=== PATIENT | female | born 1945 | race Caucasian/White ===

== ENCOUNTER 2019-04-13 15:26 | Inpatient (IN) ==
[2019-04-13] MEDS ORDERED: ASPIRIN PO ONE (15:57)
--- NOTE | 2019-04-13 16:13 | PROVIDER DOCUMENTATION ---
HPI-Respiratory General - General Chief Complaint: General Adult Stated Complaint: SOB/CHEST HEAVINESS Time Seen by Provider: 04/13/19 15:43 Source: patient Allergies/Adverse Reactions: Patient Allergies Allergy/AdvReac Type Severity Reaction Status Date / Time diltiazem Allergy Intermediate ITCHING Verified 04/13/19 16:14 morphine Allergy Unknown Unknown Verified 04/13/19 16:14 cefazolin Allergy HIVES Verified 04/13/19 16:14 ceftazidime pentahydrate * Allergy HIVES Verified 04/13/19 16:14 [From TAZICEF] vancomycin Allergy HIVES Verified 04/13/19 16:14 Home Medications: Home Medication List Medication Instructions Recorded Confirmed Last Taken Type Albuterol 2.5MG/Ipratrop 0.5MG 3 ml INH Q6H PRN PRN #120 neb 09/10/15 02/04/17 Unknown Rx [Duoneb] Carvedilol 12.5 mg PO BID 09/10/15 02/04/17 02/03/17 08:00 History Cinacalcet HCl [Sensipar] 30 mg PO DAILY 09/10/15 02/04/17 02/03/17 08:00 History Esomeprazole Magnesium [Nexium] 40 mg PO DAILY 09/10/15 02/04/17 02/03/17 08:00 History Insulin Glargine [Lantus] 0 unit SUBQ DIRECTED 09/10/15 07/16/16 02/02/17 20:00 History Insulin Lispro [Humalog Kwikpen] 1 unit SQ DIRECTED 09/10/15 02/04/17 02/03/17 08:00 History Lorazepam 1 mg PO PRN PRN 09/10/15 02/04/17 02/02/17 History Sevelamer Carbonate [Renvela] 800 mg PO TID 09/10/15 02/04/17 02/03/17 19:00 History Zolpidem Tartrate 10 mg PO QHS 09/10/15 02/04/17 02/03/17 19:00 History ATORVAstatin [Lipitor] 40 mg PO HS 07/15/16 02/04/17 02/03/17 20:00 History Aspirin 81 mg PO DAILY 07/15/16 02/04/17 02/03/17 08:00 History Sertraline HCl [Zoloft] 100 mg PO DAILY 07/15/16 02/04/17 02/03/17 08:00 History Hydrocodone/Acetaminophen [[place] 1 each PO Q4-6H PRN PRN #10 tablet 02/04/17 Unknown Rx 10-325 Tablet] Hydrocodone/Acetaminophen [[place] 1 each PO Q4-6H PRN PRN #12 tablet 02/04/17 Unknown Rx 5-325 Tablet] Sennosides/Docusate Sodium 2 each PO 02/04/17 02/03/17 20:00 History [Senexon-S Tablet] Warfarin [Coumadin] 7.5 mg PO DIRECTED 02/04/17 02/04/17 02/03/17 20:00 History Warfarin [Coumadin] 10 mg PO QHS 02/04/17 02/04/17 02/02/17 20:00 History Azithromycin [Zithromax Z-Flavio] 250 mg PO DIRECTED #1 pkg 04/10/19 Unknown Rx Prednisone 40 mg PO DAILY 5 Days tab 04/10/19 Unknown Rx - History of Present Illness-Resp Nature of Presenting Problem: 73yof present to ER with c/o SOB and productive cough. Reports it increased after dialysis today. Reports increase in weight by 3kg after dialysis today. Also reports L chest pain radiating to the back. Denies fever. Quality of Pain: reports: sharp Onset/Duration: reports: this afternoon Cough Quality/Degree: reports: productive cough Associated Symptoms: reports: cough, hurts to breathe, shortness of breath. denies: fever/chills Review of Systems - Adult - REVIEW OF SYSTEMS - ADULT Constitutional: reports: no symptoms reported. denies: chills, fever Eyes: reports: no symptoms reported Ears, Nose, Mouth & Throat: reports: no symptoms reported Cardiovascular: reports: see HPI, chest pain. denies: palpitations, syncope Respiratory: reports: see HPI, cough, shortness of breath Gastrointestinal: reports: no symptoms reported. denies: nausea, vomiting Genitourinary: reports: no symptoms reported Musculoskeletal: reports: see HPI, back pain Integumentary: reports: no symptoms reported Neurological: reports: no symptoms reported. denies: dizziness/vertigo Psychiatric: reports: no symptoms reported Endocrine: reports: no symptoms reported Hematologic/Lymphatic: reports: no symptoms reported Allergic/Immunologic: reports: no symptoms reported All Other Systems: Reviewed and Negative Past History - Adult - PAST MEDICAL HISTORY-ADULT Review of Records: reports: Old Records Reviewed, Nursing Assessment Review, Medications Reviewed, Social history reviewed & non-contributory. Major Childhood Illnesses: reports: denies history Cardiovascular: reports: cardiac disease, CAD, HTN, hyperlipidemia, pacemaker Respiratory: reports: COPD Gastrointestinal: reports: denies history Obstetrical/Gynecological: reports: denies history Genitourinary: reports: dialysis, ESRD Musculoskeletal: reports: arthritis, chronic pain Neurological: reports: denies history Psychiatric: reports: denies history Endocrine/Immune: reports: cancer, Diabetes, other (Renal Failure) Other Conditions: reports: denies history - PRIOR SURGERIES/PROCEDURES Surgical/Procedure History: reports: cardiac stent, hysterectomy, tonsillectomy - PRIOR HOSPITALIZATIONS Prior Hospitalizations: reports: for similar symptoms - IMMUNIZATION STATUS Childhood Immunizations: See Nurse Assessment Flu Vaccine: See Nurse Assessment - FAMILY HISTORY Family History: reviewed, not pertinent Physical Exam-General - PHYSICAL EXAM-ADULT Initial Vital Signs Reviewed: Yes - CONSTITUTIONAL General Appearance: alert, mild distress, anxious - EYES Eyes: pink conjunctivae - HEAD, EARS, NOSE, MOUTH & THROAT HENMT: moist mucous membranes, normal ENT inspection - NECK Neck: full range of motion, supple, normal inspection - RESPIRATORY Respiratory: respiratory distress, accessory muscle use, crackles, rales, w heezing, pain on inspiration, increased rate - CARDIOVASCULAR Cardiovascular: regular rate, rhythm - GASTROINTESTINAL (ABDOMEN) Abdominal Exam: normal bowel sounds, non tender, soft - LYMPHATIC Lymphatic: no adenopathy - MUSCULOSKELETAL Back Exam: normal inspection Extremity: normal range of motion, normal capillary refill, pedal edema (1+ to L ankle). negative: erythema, tenderness - SKIN Integumentary: normal color, warm/dry. negative: erythema, rash - NEUROLOGIC Neurologic: grossly normal - PSYCHIATRIC Psych/Mental Status: oriented x 3, anxious - HEART Score HEART Score: History: Moderately Suspicious HEART Score: ECG: Normal HEART Score: Age: > or = 65 Years HEART Score: Risk Factors for Atherosclerotic Disease: > or = 3 Risk Factors or History of Atherosclerotic Disease HEART Score: Troponin: < or = Normal Limit Total HEART Score:: 5 Progress - PLAN OF CARE/RESULTS Progress/Plan/Lab Results: Vital Signs - 8 hr 04/13/19 15:33 04/13/19 17:49 04/13/19 18:00 Temperature 98.5 F Pulse Rate 69 Respiratory Rate 18 Blood Pressure 93/55 O2 Sat by Pulse Oximetry 96 97 100 04/13/19 18:30 04/13/19 18:33 04/13/19 18:40 Temperature Pulse Rate 81 74 Respiratory Rate 13 15 Blood Pressure 118/70 O2 Sat by Pulse Oximetry 93 L 04/13/19 19:02 Temperature Pulse Rate 78 Respiratory Rate 21 Blood Pressure 119/71 O2 Sat by Pulse Oximetry 98 Laboratory Results - last 24 hr 04/13/19 04/13/19 04/13/19 17:50 17:50 18:06 WBC 6.94 RBC 3.82 L Hgb 11.6 L Hct 36.3 L MCV 95.0 MCH 30.4 MCHC 32.0 L RDW Std Deviation 16.7 H Plt Count 109 L MPV 11.3 H Immature Gran % (Auto) 0.3 Neut % (Auto) 76.2 H Lymph % (Auto) 9.7 L [place] % (Auto) 13.4 H Eos % (Auto) 0.3 Baso % (Auto) 0.1 Immature Gran # (Auto) 0.02 Neut # (Auto) 5.29 Lymph # (Auto) 0.67 L [place] # (Auto) 0.93 H Eos # (Auto) 0.02 Baso # (Auto) 0.01 PT INR PTT (Actin FS) Sodium 140 Potassium 3.5 Chloride 94 L Carbon Dioxide 29 Anion Gap 17 BUN 15 Creatinine 3.8 H Estimated GFR/1.73 m2 12 BUN/Creatinine Ratio 4 Glucose 144 H Calculated Osmolality 283 Calcium 9.0 Total Bilirubin 1.14 H AST 25 ALT 13 Alkaline Phosphatase 165 H Creatine Kinase 38 Troponin T [id number]-[id number] Pept Total Protein 7.0 Albumin 4.0 Globulin 3.0 Albumin/Globulin Ratio 1.3 Plasma Lactate 2.3 H 04/13/19 04/13/19 04/13/19 18:06 18:06 18:06 WBC RBC Hgb Hct MCV MCH MCHC RDW Std Deviation Plt Count MPV Immature Gran % (Auto) Neut % (Auto) Lymph % (Auto) [place] % (Auto) Eos % (Auto) Baso % (Auto) Immature Gran # (Auto) Neut # (Auto) Lymph # (Auto) [place] # (Auto) Eos # (Auto) Baso # (Auto) PT 26.5 H INR 2.37 PTT (Actin FS) 37.3 Sodium Potassium Chloride Carbon Dioxide Anion Gap BUN Creatinine Estimated GFR/1.73 m2 BUN/Creatinine Ratio Glucose Calculated Osmolality Calcium Total Bilirubin AST ALT Alkaline Phosphatase Creatine Kinase Troponin T 0.013 Pfk-W-[place] Pept > 81238 H Total Protein Albumin Globulin Albumin/Globulin Ratio Plasma Lactate Orders Category Date Time Status Repeat Vital Signs .Blood Pressure Care 04/13/19 18:52 Active CHEST-2 VIEWS [RAD] Stat Exams 04/13/19 15:54 Completed BLOOD CULTURE [BLDCUL] Stat Lab 04/13/19 18:16 Results CBC WITH DIFF [HEME] Stat Lab 04/13/19 17:50 Completed CK PROFILE [SP CHEM] Stat Lab 04/13/19 18:06 Completed COMPREHENSIVE METABOLIC PANEL [CHEM] Stat Lab 04/13/19 18:06 Completed LACTATE, PLASMA [CHEM] Stat Lab 04/13/19 17:50 Completed PRO B-NATRIURETIC PEPTIDE Stat Lab 04/13/19 18:06 Completed PROTIME WITH INR [COAG] Stat Lab 04/13/19 18:06 Completed PTT [COAG] Stat Lab 04/13/19 18:06 Completed TROPONIN T Stat Lab 04/13/19 18:06 Completed Aspirin Med 04/13/19 15:57 Discontinued 325 mg PO NOW ONE Furosemide [Lasix] Med 04/13/19 19:37 Discontinued 80 mg IV NOW ONE Hydromorphone [Dilaudid] Med 04/13/19 18:26 Discontinued 0.5 mg IV NOW ONE Ondansetron [Zofran] Med 04/13/19 18:26 Discontinued 4 mg IV NOW ONE EKG [EKG] Stat Ther 04/13/19 15:54 Ordered Result Diagrams: 04/13/19 17:50 04/13/19 18:06 - REASSESSMENT Reassessment #1 Time Reassessed: 18:51 (discussed lactate with Dr Arango, states do not need to give fluids if no fever or any other abnormals for SIRs.) Reassessment #2 Time Reassessed: 20:50 (pt updated on need for admission and agrees with plan.) - XRAY 1 XRAY Study: Chest Impression: See EMR Report (COMMENT: There is cardiomegaly and increased pulmonary vascularity. This appears slightly worse than on 04/10/2019. There is mild interstitial pulmonary edema. IMPRESSION: Pulmonary edema and cardiomegaly.) - CONSULTS/PCP/HOSPITALIST Notification #1 *Consult/PCP/Hospitalist*: Dr Cruz Time Discussed: 20:17 (requests consulting Dr Zhang) #2 Consult: Dr Zhang Time Discussed: 20:21 (admit to hospitalist and he will dialyze in AM) Consult Disposition: Admit Departure - Departure Date of Disposition Decision: 04/13/19 Time of Disposition Decision: 20:05 DIAGNOSIS: Shortness of breath Congestive heart failure Qualifiers: Heart failure type: unspecified Heart failure chronicity: unspecified Qualified Code(s): I50.9 - Heart failure, unspecified Pulmonary edema Qualifiers: Chronicity: acute Qualified Code(s): J81.0 - Acute pulmonary edema Renal failure Qualifiers: Renal failure chronicity: chronic Chronic kidney disease stage: on chronic dialysis Qualified Code(s): N18.6 - End stage renal disease Disposition: ADMITTED INPATIENT 09 Certified Medical Emergency: Emergent Condition: Fair Referrals and Follow-Ups: Irwin Galvin MD [Primary Care Provider] - Discharge Education: Steps to Quit Smoking, [id number] - Critical Care Note This patient required my direct & personal management of CC.: No Attestation - Physician/ UMAIR Attestation Patient care was provided by Advanced Practice Provider:: Yes Advanced Practice Provider:: Aaron Choudhary Advanced Practice Provider documentation review:: The Mid-level provider documentation, treatment plan and medical decision making was reviewed by the ph ysician who agrees with all treatment and medical decision making by the MLP. The physician spent face to face time with patient:: No Advanced Practice Provider documentation review:: Supervising physician onsite and consulted in the evaluation and care of this patient. The physician did not have a face to face encounter with the patient.
--- NOTE | 2019-04-13 16:19 | Diag Imaging Result Doc PS360 ---
EXAM: CHEST-2 VIEWS 04/13/2019 HISTORY: sob TECHNIQUE: AP and lateral chest COMMENT: There is cardiomegaly and increased pulmonary vascularity. This appears slightly worse than on 04/10/2019. There is mild interstitial pulmonary edema. IMPRESSION: Pulmonary edema and cardiomegaly. Electronically signed by Darian Vasques 04/13/2019 4:16 PM
[2019-04-13] MEDS ORDERED: DILAUDID IV ONE (18:26)
[2019-04-13] MEDS ORDERED: ZOFRAN IV ONE (18:26)
[2019-04-13 18:39] LABS: BASO# 0.01 X1000 (0.0-0.2); BASO% 0.1 % (0.0-0.8); EOS# 0.02 X1000 (0.0-0.7); EOS% 0.3 % (0.0-10.0); HEMATOCRIT 36.3 % (37.0-47.0); HEMOGLOBIN 11.6 g/dL (12.0-16.0); IMM GRAN# 0.02 X1000 (0.0-0.04); IMM GRAN% 0.3 % (0.0-0.5); LYMPH# 0.67 X1000 (1.2-3.4); LYMPH% 9.7 % (20.5-51.1); MCH 30.4 PG (27-31); MONO# 0.93 X1000 (0.11-0.59); MONO% 13.4 % (1.7-9.3); MPV 11.3 FL (7.4-10.4); NEUT# 5.29 X1000 (1.4-6.5); NEUT% 76.2 % (42.2-75.2); PLT 109 X1000 (130-400); RBC 3.82 XMIL (4.2-5.4); RDW 16.7 % (11.5-14.5); WBC 6.94 X1000 (4.8-10.8)
[2019-04-13 18:46] LABS: INR 2.37; PROTIME 26.5 Seconds (11.0-16.0)
[2019-04-13 18:47] LABS: PTT 37.3 Seconds (22.3-41.8)
[2019-04-13 19:24] LABS: ALB/GLOB RATIO 1.3; CREATININE 3.8 mg/dL (0.5-0.9); POTASSIUM 3.5 mmol/L (3.5-5.1); TOTAL BILIRUBIN 1.14 mg/dL (0.20-1.00)
[2019-04-13] MEDS ORDERED: LASIX IV ONE (19:37)
--- NOTE | 2019-04-13 22:53 | HISTORY AND PHYSICAL ---
PRIMARY CARE PHYSICIAN: Irwin Galvin MD CHIEF COMPLAINT: Shortness of breath. HISTORY OF PRESENT ILLNESS: A 73-year-old female with a history of end-stage renal disease on renal dialysis, hypertension, CHF, diabetes mellitus type 2, apparently had dialysis earlier today. She states that she somehow received IV fluids or so and her dry weight had increased. She had presented to emergency department, and she was short of breath. Her case was discussed with the cellars supervisor who recommended the patient be admitted for further management. At the time of my examination, patient denied any headache, fever, chills, chest pain, hemoptysis, or melena but complained of some weight gain and not feeling well. PAST MEDICAL HISTORY: Includes end-stage renal disease, hypertension, CHF, diabetes mellitus type 2. PAST SURGICAL HISTORY: Coronary bypass, pacemaker, hysterectomy, cataract surgery. ALLERGIES: To Diltiazem, morphine, cefazolin, ceftazidime, vancomycin. CURRENT MEDICATIONS: Albuterol nebulizers q.6 hours, aspirin 81 mg p.o. daily, atorvastatin 40 mg p.o. at bedtime, carvedilol 12.5 mg p.o. b.i.d., omeprazole 40 mg p.o. daily, [place] 10 one p.o. q.6 hours, insulin Humalog as directed, lorazepam 1 mg p.o. daily, prednisone 40 mg p.o. daily, Sertraline 100 mg p.o. daily, Renvela 800 mg p.o. t.i.d., warfarin 7.5 mg as directed, Ambien 10 mg p.o. at bedtime. SOCIAL HISTORY: 40+ pack years history of smoking. Denies any history of alcohol or illicit drug use. FAMILY HISTORY: No history of coronary disease. REVIEW OF SYSTEMS: Fourteen-point review of systems as listed in HPI. Other systems negative. PHYSICAL EXAMINATION: GENERAL: Cooperative, friendly female. She is resting more comfortably now. VITAL SIGNS: Temperature 98.5 degrees, pulse 69, respirations 18, blood pressure 93/55. HEENT: Atraumatic, normocephalic. Extraocular movements intact. PERRLA. NECK: No masses. CHEST: Bibasilar rales. CARDIOVASCULAR: Regular rate and rhythm. ABDOMEN: Soft. Positive bowel sounds. EXTREMITIES: +1 edema. NEUROLOGIC: She is awake, alert, oriented x3. GENITOURINARY: No bladder distention. SKIN: Warm. LABORATORIES AND STUDIES: WBC 6.94, hemoglobin 11.6, hematocrit 36.3, platelets 109,000. ProBNP is 35,000, sodium 140, potassium 3.5, chloride 94, CO2 is 29, BUN is 15, creatinine is 3.8. Glucose 144, troponin 0.13. Chest x-ray shows pulmonary edema and cardiomegaly. ASSESSMENT: A 73-year-old female with a history of end-stage renal disease, congestive heart failure, diabetes mellitus type 2, and hypertension, who apparently had dialysis earlier today; however, she states that she also received IV fluids. She states that her dry weight had increased. She presented to the emergency department. She was short of breath. Her case was discussed with cellars supervisor who recommended admission for further management. 1. Dyspnea/pulmonary edema, possible volume overload. 2. Congestive heart failure, suspected diastolic dysfunction. 3. End-stage renal disease. 4. Diabetes mellitus type 2. PLAN: 1. We will admit patient to medical floor with telemetry. 2. We will consult nephrology for dialysis in the morning. 3. We will consult also her cashier wrapper to evaluate her heart failure. 4. We will monitor blood glucose and put patient on sliding scale insulin regimen. 5. We will put patient on DVT prophylaxis with SCDs and heparin. 6. We will continue to follow and reassess and make further recommendations based on patient's clinical course. cc: Seth Cruz MD
[2019-04-13] MEDS ORDERED: ZOFRAN IV PRN (23:20)
[2019-04-14] MEDS: DUONEB (A & A) INH PRN ×2 (00:10→03:57)
[2019-04-14] MEDS ORDERED: DILAUDID IV PRN (01:14)
[2019-04-14] MEDS ORDERED: BENADRYL IV ONE (02:46)
[2019-04-14] MEDS ORDERED: TIGHT: 0.2 ML/HR FOR DIALYSIS MISC PRN (06:22)
[2019-04-14] MEDS ORDERED: HEPARIN IV PRN (06:22)
[2019-04-14] MEDS ORDERED: NS 2,000 ML MISC PRN (06:22)
[2019-04-14] MEDS: HUMULIN R SUBQ SCH ×3 (06:29→22:18)
[2019-04-14 07:41] LABS: INR 2.21; PROTIME 25.1 Seconds (11.0-16.0)
[2019-04-14 07:56] LABS: CALCIUM 8.5 mg/dL (8.8-10.2); POTASSIUM 3.8 mmol/L (3.5-5.1)
[2019-04-14] MEDS ORDERED: BENADRYL PO PRN ×2 (09:00→14:41)
[2019-04-14 10:46] LABS: MAGNESIUM 2.2 mg/dL (1.5-2.7)
--- NOTE | 2019-04-14 14:00 | Diag Imaging Result Doc PS360 ---
EXAM: CT THORAX W/O CONTRAST HISTORY: chest pain/ rib fracture/CHF TECHNIQUE: CT chest without contrast COMPARISON: None. FINDINGS: Trace pleural fluid. The heart is enlarged. Sternal wires are present. Prominent atherosclerosis. There are dense infiltrates with air bronchograms in the left lower lobe smaller infiltrates in the left upper lobe and right lower lobe. Mild to moderate emphysema. There calcified mediastinal and right hilar nodes. Left-sided pacemaker. No pneumothoraces. Long-standing arthritis to each shoulder. No displaced fracture. There are bilateral thyroid nodules. Mild scoliosis. IMPRESSION: 1.Pneumonia most pronounced in the left lower lobe 2.Cardiomegaly 3.Prominent atherosclerosis 4.Emphysema This exam was performed using automated exposure control, adjustment of mA or kV according to patient size, and/or use of iterative reconstruction technique. Electronically signed by Kamran Henry 04/14/2019 1:58 PM
--- NOTE | 2019-04-14 14:19 | NEPHROLOGY CONSULTATION ---
DATE: 04/14/2019 REASON FOR ADMISSION: Dyspnea, fluid overload. REASON FOR CONSULTATION: Assist with management, ESRD, fluid volume overload. CONSULTING PHYSICIAN: Dr. Cruz. HISTORY OF PRESENT ILLNESS: This is a 73-year-old female, known to our service for previous admissions with end-stage renal disease requiring dialysis. The patient currently dialyzes at the [facility] in [place]. She states that she was seen by her primary and was told that she needed to have some extra fluid removed during dialysis, but for whatever reason, she was actually given fluid and went out at least 2 kg above her predialysis weight. She had a worsening shortness of breath and presented to the emergency room, where she had a chest x-ray that indicated pulmonary edema and cardiomegaly. We have been asked to see her to assist with her management. Patient denies any nausea/vomiting, chest pain, but just continues with shortness of breath. PAST MEDICAL HISTORY: End-stage renal disease on dialysis at the [facility], hypertension, CHF, diabetes. SURGICAL HISTORY: She has had coronary bypass surgery, a pacemaker, hysterectomy, cataract surgery. ALLERGIES: Morphine, cefazolin, ceftazidime, vancomycin, diltiazem. CURRENT MEDICATIONS: Albuterol, aspirin, atorvastatin, carvedilol, omeprazole, Humalog, lorazepam, prednisone, sertraline, Renvela, Coumadin, Ambien. FAMILY HISTORY: Noncontributory. SOCIAL HISTORY: Continues to smoke. No EtOH or illicit drug use. REVIEW OF SYSTEMS: Primarily shortness of breath and fluid volume overload. PHYSICAL EXAMINATION: Vital Signs: Temperature 97.3 degrees, pulse 87, respiratory rate 21, blood pressure 128/67. Intake and output: Have not been documented yet. General: This is an elderly female resting in bed. She is awake and alert. She does not appear in distress. HEENT: Normocephalic, atraumatic. Conjunctivae are pink. Oral mucosa is moist. Neck: Supple with positive JVD. Cardiovascular: Regular rate and rhythm without murmur. Pulmonary: She has some rales bilaterally. No wheezes. Abdomen: Obese, soft, with positive bowel sounds. Genitourinary: Not inspected. She has minimal void with hemodialysis assist. Extremities: She has 1+ edema. She is moving all extremities. She has an AV fistula, right upper extremity. Neurologic: Grossly nonfocal. Integumentary: Skin is warm and dry. DIAGNOSTIC STUDIES: WBC 6.9, hemoglobin 11.6. Sodium 140, potassium 3.5, CO2 of 29, creatinine 3.8. Chest x-ray: Pulmonary edema and cardiomegaly. ASSESSMENT AND PLAN: 1. End-stage renal disease with fluid volume overload. We will plan to dialyze the patient today. We did discuss with the patient that she may require some subsequent days of dialysis and/or UF removal only to manage her current fluid volume status. Patient is in agreement. 2. Electrolytes, acid-base balance, anemia. These are all stable. Continue with appropriate dialysis bath. Dictated by DIGNA Baez for Mirza Lai MD Face to face encounter, data reviewed, discussed with Jasmina Velasco on 04/14/19. I agree with the above assessment and plan of care. cc: Mirza Lai MD MTDD
[2019-04-14] MEDS ORDERED: LEVAQUIN 500 MG/D5W 500 MG/100 ML IVPB IV ONE (14:25)
--- NOTE | 2019-04-14 14:27 | CARDIOLOGY CONSULTATION ---
DATE: 04/14/2019 CONSULTATION REQUESTED BY: Hospitalist Service. REASON FOR CONSULTATION: Patient with dyspnea, congestive heart failure. HISTORY: Mrs. Moses is a 73-year-old female who apparently for the past few days had been noticing increasing dyspnea and fluid retention. She also said that for several days she had not been feeling well and having some tightness around the chest. She said that her daughter picked her up and she squeezed her real tight and she had some chest discomfort from that time onwards. Yesterday, she went to a dialysis facility where she said she says that instead of removing fluid, they gave her fluid and after that she started having significant chest discomfort. The pain is pleuritic, is worsened by motion. It is not like the pain that she experienced when she had her coronary events. PAST HISTORY: Positive for severe coronary heart disease. She had previous lateral wall myocardial infarction, stent to the circumflex and 1st diagonal in 2004. Then in 2007, she had angioplasty with a drug-eluting stent to the right coronary artery. Subsequently, she had a heart catheterization in 2014 that showed left main stenosis and because of that, the patient was sent for a coronary bypass procedure. On 12/21/2014, she received a mammary graft to LAD and vein graft to the posterior descending branch of right coronary artery and a vein graft to the marginal branch #1 of circumflex. Since then, she has had a stable clinical course. She had an echocardiogram in December 2017 that showed ejection fraction of 50%. The patient is known to have sick sinus syndrome in 2007 she underwent implantation of a dual- chamber pacemaker by Dr. Clarence Looney 07/10/2008. At that time, they gave her a dual-chamber pacemaker without complications. Her generator has been upgraded to a [employer] model I think at some point and the last interrogation 12/10/2018 showed that the device shows appropriate function. She is in permanent atrial fibrillation. The battery is still actually good and is estimated to last another 1 year. The patient has diabetes mellitus type 2. She has had hypertension. She has chronic obstructive pulmonary disease. She had chronic kidney disease and eventually she has ended up having hemodialysis. PAST SURGICAL HISTORY: She has had a coronary bypass procedure, hysterectomy, tonsillectomy, the pacemaker implantation. She has had hemodialysis graft on the right arm. She had a cataract extraction. SOCIAL HISTORY: She is , disabled. She has children. There is a daughter that takes care of her. She continues to smoke about 4 cigarettes a day. FAMILY HISTORY: Noncontributory. HOME MEDICATIONS: Include albuterol inhaler, aspirin 81 daily, Lipitor 40 mg daily, carvedilol 12- 1/2 twice a day, Sensipar 30 mg daily, Nexium 40 mg daily, hydrocodone acetaminophen, insulin Lantus as directed, insulin lispro also as directed, lorazepam, prednisone 40 daily, sertraline 100 daily, sevelamer 800 three times a day, warfarin, and Ambien. ALLERGIES: She is allergic to diltiazem, morphine, cefazolin and vancomycin. REVIEW OF SYSTEMS: Lately, she has not been very active. She has been hurting in the chest and somatic pains in general. She feels that she has been retaining fluid and again she says that she was just given extra fluids at the dialysis facility recently. PHYSICAL EXAMINATION: Vital Signs: Blood pressure 135/61, temperature 97.2 degrees, respirations 18, pulse 93. Awake, alert, oriented, chronically ill. HEENT: Unremarkable. Chest: Diminished breath sounds diffusely with some end expiratory wheezes. Heart: Sounds are regular rhythm. I do not hear any definite gallop or murmur. Abdomen: Nontender. Not distended. Extremities: Showed palpable pulses. No significant edema. Neurological: Nonfocal. Moves 4 extremities. LABORATORY DATA: Her blood work sodium 133, potassium 3.8, BUN 23, creatinine 5.0. ProBNP greater than 35,000. INR is 2.21, hemoglobin 11.6. Her initial troponin was 0.013 and a subsequent one is less than 0.010. A chest x-ray on admission showed pulmonary edema and cardiomegaly. EKG shows activity of a single chamber pacemaker with underlying atrial fibrillation. IMPRESSION: 1. Patient presenting to the hospital with increasing dyspnea with radiographic evidence of congestive heart failure. 2. Atrial fibrillation, permanent. 3. Severe coronary heart disease, previous triple bypass surgery in 2014. 4. Chest pain that appears to be chest wall related. This does not appear to be angina. 5. End-stage renal disease on hemodialysis. RECOMMENDATION: 1. At this time, we will suggest to remove fluid as ordered by the laboratory immunologist. We will obtain a CT scan of the chest to investigate the chest wall pain. We will also arrange for a Lexiscan myocardial perfusion stress test in the morning to answer the question as to whether or not she may have developed progression of coronary artery disease. 2. At this time, she does not appear to be having an acute coronary syndrome. She simply appears to be fluid overloaded. 3. Further advice will be forthcoming. I may want to check a limited echocardiogram tomorrow once the patient is more stable. Right now, she is undergoing hemodialysis. cc: Mathew Acuna MD MTDD
--- NOTE | 2019-04-14 14:52 | EKG Report ---
Test Performed on : 04/14/2019 2:40:32 PM Test Reason : dyspnea Blood Pressure : / mmHG Vent. Rate : 101 BPM Atrial Rate : 105 BPM P-R Int : 000 ms QRS Dur : 156 ms QT Int : 364 ms P-R-T Axes : 000 -53 150 degrees QTc Int : 471 ms Atrial fibrillation. with rapid ventricular response. Left axis deviation Left bundle branch block Abnormal ECG When compared with ECG of 23-JUL-2018 17:10, Atrial fibrillation. has replaced Electronic ventricular pacemaker Confirmed by Zeb Lopez MD ([id number]) on 04/15/2019 4:28:01 PM
--- NOTE | 2019-04-14 15:09 | PROGRESS NOTE ---
DATE: 04/14/2019 SUBJECTIVE: Patient has no major complaints. She is still complaining of chest pains. OBJECTIVE: Vital Signs: Blood pressure 135/61, heart rate 93, respiratory rate 17, temperature 97.2 degrees, 95% on 3 L. Cardiovascular: Regular rate and rhythm. Pulmonary: Bilateral breath sounds clear to auscultation. Gastrointestinal: Soft, nontender, nondistended. Bowel sounds are positive. LABORATORY DATA: INR is 2.2. BUN and creatinine of 23 and 5. PROBLEM LIST: 1. Volume overload and pulmonary edema. She was dialyzed today and was 3 L negative. She reports that at her dialysis center, at the end of dialysis, she was 3 pounds heavier than she was when she started. I think that there was a discussion that she was going to be taken off of it and the opposite happened so I am not sure what to say. She gets dialyzed at the [facility], and Dr. Meehan and Dr. Perez are her primary nephrologists. Dr. Lai is managing here. 2. Congestive heart failure, possible chest pain, possible unstable angina. Her cardiac markers are negative. Cardiology has evaluated the patient and planning for stress test, it looks like, tomorrow. 3. Left lower lobe pneumonia. It was probably why she is having chest pain so we are going to initiate therapy and she is allergic to multiple antibiotics. Levaquin is a possibility; however, I have to be careful renally dosing that in her case, but I may initiate that and see how she does. cc: Bismark Luz MD
[2019-04-14] MEDS ORDERED: NORCO-7.5 PO PRN (15:15)
[2019-04-14] MEDS: DUONEB (A & A) INH SCH ×2 (15:53→21:25)
[2019-04-14] MEDS: ATIVAN PO PRN (16:29)
[2019-04-14] MEDS ORDERED: TYLENOL PO PRN (16:58)
[2019-04-14] MEDS: DEMEROL IV PRN (17:52)
[2019-04-14] MEDS: RENAGEL PO SCH (17:54)
[2019-04-14] MEDS: LIPITOR PO SCH (21:33)
[2019-04-14] MEDS: AMBIEN PO SCH (21:33)
[2019-04-14] MEDS: COREG PO SCH (21:34)
[2019-04-14] MEDS: APRESOLINE PO SCH (21:34)
[2019-04-14] MEDS: COUMADIN PO SCH (21:34)
[2019-04-14] MEDS: ZANAFLEX PO SCH (21:34)
[2019-04-14] MEDS: SENOKOT PO SCH (21:34)
[2019-04-15] MEDS: DUONEB (A & A) INH SCH ×4 (03:05→21:27)
[2019-04-15] MEDS: PRILOSEC PO SCH (07:12)
[2019-04-15] MEDS: HUMULIN R SUBQ SCH ×4 (07:12→20:53)
[2019-04-15] MEDS ORDERED: TIGHT: 0.2 ML/HR FOR DIALYSIS MISC PRN (07:20)
[2019-04-15] MEDS ORDERED: HEPARIN IV PRN (07:20)
[2019-04-15] MEDS ORDERED: NS 2,000 ML MISC PRN (07:20)
[2019-04-15 07:27] LABS: INR 2.16; PROTIME 24.6 Seconds (11.0-16.0)
[2019-04-15 07:41] LABS: HEMATOCRIT 34.4 % (37.0-47.0); MCH 31.3 PG (27-31); MPV 11.2 FL (7.4-10.4); RBC 3.51 XMIL (4.2-5.4); RDW 16.6 % (11.5-14.5); WBC 6.82 X1000 (4.8-10.8)
--- NOTE | 2019-04-15 07:41 | EKG Report ---
Test Performed on : 04/15/2019 06:17:33 AM Test Reason : chest pain/ASHD Blood Pressure : / mmHG Vent. Rate : 075 BPM Atrial Rate : 090 BPM P-R Int : 000 ms QRS Dur : 152 ms QT Int : 476 ms P-R-T Axes : 000 -32 -78 degrees QTc Int : 531 ms Atrial fibrillation. with frequent ventricular-paced complexes Left axis deviation Left bundle branch block Abnormal ECG When compared with ECG of 14-APR-2019 14:40, (Unconfirmed) Electronic ventricular pacemaker has replaced Atrial fibrillation. Confirmed by Zeb Lopez MD ([id number]) on 04/15/2019 4:28:27 PM
[2019-04-15 08:09] LABS: ALBUMIN 2.9 g/dL (3.5-5.0); CALCIUM 8.3 mg/dL (8.8-10.2); CREATININE 3.8 mg/dL (0.5-0.9); PHOSPHORUS 1.9 mg/dL (2.7-4.5); POTASSIUM 4.2 mmol/L (3.5-5.1)
[2019-04-15] MEDS: APRESOLINE PO SCH ×4 (09:00→20:54)
[2019-04-15] MEDS: RENAGEL PO SCH ×3 (09:08→16:22)
[2019-04-15] MEDS: ZANAFLEX PO SCH ×3 (11:30→20:53)
[2019-04-15] MEDS: ZOLOFT PO SCH (11:30)
[2019-04-15] MEDS: SENOKOT PO SCH ×2 (11:31→20:54)
[2019-04-15] MEDS: COREG PO SCH ×2 (11:31→20:54)
[2019-04-15] MEDS: ATIVAN PO PRN (11:59)
--- NOTE | 2019-04-15 14:12 | NEPHROLOGY PROGRESS NOTE ---
DATE: 04/15/2019 SUBJECTIVE: She is having a stress test. She was examined between images in the [facility] facility. She is still having some shortness of breath, improved. No chest pain. OBJECTIVE: Vital Signs: Blood pressure 115/63, heart rate 74, respiration 19, afebrile. General: No acute distress. Skin: Warm and dry. Neck: Neck veins are not distended. Heart: Regular. No gallops. Lungs: Equal. No crackles. Extremities: Have 1+ edema. No clubbing or cyanosis. IMPRESSION: 1. Chronic kidney disease, stage 5D. She will have her routine dialysis this afternoon. We have decreased her dry weight progressively since admission. 2. Electrolytes/acid base are in target. Hemoglobin is within target. Blood pressure is within target. cc: Mirza Lai MD
--- NOTE | 2019-04-15 17:02 | Diag Imaging Result Document ---
PROCEDURE NAME: MYOCARDIAL PERFU SCAN, REST - 04/15/2019 STUDY: Resting gated myocardial perfusion study. INDICATION: A 73-year-old female. The patient presented with chest pain. History of pacemaker. History of coronary bypass surgery. Concern for ischemia at rest. DESCRIPTION: The patient received a resting injection of technetium 99 sestamibi 29.8 mCi. Multiple tomographic views of the cardiac structures were obtained at rest. Stress test was cancelled because the patient appeared to have pneumonia. Resting gated views of the left ventricle showed a very tiny mild in severity mid anterior wall defect. The probability shows there is a tiny focal mid anterior wall defect. This could represent artifact or a tiny area of scar. Gated SPECT using the [employer] protocol shows ejection fraction of 70% with no significant wall motion abnormality. Using the Myometrix protocol the ejection fraction is 76%. There is some atypical contractility of the interventricular septum. The lung/heart ratio is elevated at 0.49. In summary, this resting gated myocardial perfusion study shows essentially normal myocardial perfusion. The tiny mid anterior wall defect noted may represent either artifact from pacemaker activity or scar. This could also represent attenuation. Clinical correlation is recommended. Stress test will not be performed because the patient appears to have pneumonia. cc: Mathew Acuna MD
--- NOTE | 2019-04-15 17:20 | PROGRESS NOTE ---
DATE: 04/15/2019 SUBJECTIVE: The patient has no major complaints. OBJECTIVE: Vital Signs: Blood pressure 137/65, heart rate of 90, respiratory rate 18, temperature 97.6 degrees, 92% on 2 L. Cardiovascular: Regular rate and rhythm. Pulmonary: Bilateral breath sounds, clear to auscultation with rales at the left base. Gastrointestinal: Soft, nontender, nondistended. Bowel sounds are positive. LABORATORY DATA: White count is 6, hemoglobin and hematocrit are 11 and 34, platelets 84,000. INR is 2.16, phosphorus of 1.9, creatinine 3.8. CRP of 77. PROBLEM LIST: 1. Left lower lobe pneumonia. She is on antibiotics, which is Levaquin. I think it is renally dosed. 2. Volume overload. She seems to be doing okay. We will continue to follow closely. 3. Chest pain, atypical. Her myocardial perfusion per Dr. Acuna is not ischemic, so we will continue to follow. 4. Diabetes. She is on her current medications. DISPOSITION: I think, she is afebrile, her white count is normal, probably go home soon. She did have a little bit of hemoptysis, but she is on Coumadin with pneumonia, so we will continue to follow. Her disposition is pending clinical status. cc: Bismark Luz MD
[2019-04-15] MEDS: DEMEROL IV PRN (17:31)
--- NOTE | 2019-04-15 17:45 | CARDIOLOGY PROGRESS NOTE ---
DATE: 04/15/2019 CHIEF COMPLAINT: Chest pain and shortness of breath. SUBJECTIVE: Ms. Moses feels much better. They have removed quite a bit of fluid through hemodialysis. CT scan report reviewed. She seems to have pneumonia. Perfusion images of the heart were obtained at rest. A stress test was cancelled. The patient is feeling more comfortable. OBJECTIVE: Blood pressure is 137/65, temperature is 97.6, pulse 90, respirations 18. She is awake, alert, in no distress. HEENT is unremarkable. Chest with crepitus in the left base. Heart sounds are slightly tachycardia, regular rhythmic. Abdomen is nontender. Extremities showed no significant edema. Neurological exam: Follows commands, moves four extremities. BLOOD WORK: White cell count 6820. Hemoglobin 11 grams. Platelet count is 84,000. Her chemistry shows sodium of 138, potassium 4.2, BUN 20, creatinine 3.8. Her C reactive protein is 77.18 mg/L which is 15 x baseline. Her sed rate is pending. Her ferritin level was elevated. Her D dimer was normal. IMPRESSION: 1. The patient who presents with chest pain that is probably noncardiac. 2. The patient seems to have left lower lobe pneumonia. 3. Fluid overload. Patient on long-term hemodialysis with end-stage renal disease. 4. Previous coronary heart disease and bypass surgery. 5. History of diabetes mellitus. RECOMMENDATIONS: At this time, the patient seems to be stable from the cardiac viewpoint. I would leave up to primary service, Dr. Luz, and the 911 emergency services dispatcher to manage her case since I do not believe there is a cardiac process going on. A formal stress test will be arranged as an outpatient down the road. At this time, I do not believe we have to deal with a decompensation of her chronic coronary heart disease. cc: Mathew Acuna MD
--- NOTE | 2019-04-15 19:02 | ECHO REPORT ---
ORDER DATE: 04/14/2019 INDICATION: Chest pain. M-MODE MEASUREMENTS: Left ventricle end diastole: 4.5. Left ventricle end systole: 3.7. Posterior wall: 1.3. Interventricular septum: 1.3. Left atrium: 4.3. Aortic diameter: 2.9. SUMMARY OF 2-DIMENSIONAL IMAGIN. Left ventricular function is difficult to assess. The patient has limited windows. Her left ventricular systolic function appears to be preserved. On the parasternal windows, it appears to be quite normal with atypical contractility of the interventricular septum. Ejection fraction is probably on the order of 55% to 60%. The apical views are limited, and again on those views, the overall function appears to be preserved, with atypical contractility of the septum. 2. The mitral annulus is densely calcified. Color flow mapping of the mitral valve indicates a mild degree of regurgitation 3. Pulsed wave Doppler of mitral inflow shows a single filling wave. The patient appears to be in permanent atrial fibrillation. 4. The right ventricle appears to be grossly normal. The pacemaker lead is noted within the right ventricle. 5. The left atrium is moderately dilated. 6. The aortic valve shows calcification of the cusps with some restriction to its opening. Maximum gradient is 36 mmHg. Mean gradient is 17 mmHg. That would suggest at least a mild degree of aortic stenosis. 7. The tricuspid valve shows a mild to moderate degree of regurgitation. Pulmonary systolic pressure is estimated at 75 mmHg. 8. The pulmonic valve shows a mild to moderate degree of regurgitation. 9. Pulmonary systolic pressure is estimated at 33 mmHg. 10.There is no pericardial effusion. No mass, no thrombus. 11.The inferior vena cava is enlarged. Clinical correlation recommended. cc: MD Bismark Oneil MD
[2019-04-15] MEDS: COUMADIN PO SCH (20:53)
[2019-04-15] MEDS: AMBIEN PO SCH (20:53)
[2019-04-15] MEDS: LIPITOR PO SCH (20:54)
[2019-04-15] MEDS: SEROQUEL PO SCH (20:54)
[2019-04-16] MEDS: DUONEB (A & A) INH SCH ×4 (03:38→21:00)
[2019-04-16 06:12] LABS: HEMATOCRIT 32.5 % (37.0-47.0); HEMOGLOBIN 10.3 g/dL (12.0-16.0); MCH 31.1 PG (27-31); MCHC 31.7 g/dL (33-37); MCV 98.2 FL (81-99); MPV 11.6 FL (7.4-10.4); RBC 3.31 XMIL (4.2-5.4); RDW 16.2 % (11.5-14.5); WBC 5.97 X1000 (4.8-10.8)
[2019-04-16 06:18] LABS: INR 2.04; PROTIME 23.5 Seconds (11.0-16.0)
[2019-04-16] MEDS: HUMULIN R SUBQ SCH ×4 (06:19→21:35)
[2019-04-16] MEDS: PRILOSEC PO SCH (06:40)
[2019-04-16 06:47] LABS: ALBUMIN 2.9 g/dL (3.5-5.0); CALCIUM 8.1 mg/dL (8.8-10.2); CREATININE 3.2 mg/dL (0.5-0.9); PHOSPHORUS 1.9 mg/dL (2.7-4.5); POTASSIUM 3.7 mmol/L (3.5-5.1)
--- NOTE | 2019-04-16 08:55 | Diag Imaging Result Doc PS360 ---
EXAM: CHEST-2 VIEWS HISTORY: hypoxia TECHNIQUE: Chest two views COMPARISON: 04/13/2019 FINDINGS: The heart is enlarged. There are sternal wires and left-sided pacemaker. Small bilateral pleural effusions. Infiltrates persist in the left lower lobe. Pulmonary edema is less pronounced. IMPRESSION: Persistent left lower lobe infiltrate although the pulmonary edema is less pronounced Electronically signed by Kamran Henry 04/16/2019 8:52 AM
[2019-04-16] MEDS: RENAGEL PO SCH ×3 (08:57→17:59)
[2019-04-16] MEDS: ZANAFLEX PO SCH ×2 (08:57→21:38)
[2019-04-16] MEDS: ZOLOFT PO SCH (08:57)
[2019-04-16] MEDS: COREG PO SCH ×2 (08:57→21:43)
[2019-04-16] MEDS: APRESOLINE PO SCH ×2 (08:57→21:35)
[2019-04-16] MEDS: SENOKOT PO SCH ×2 (08:57→21:35)
[2019-04-16] MEDS ORDERED: LEVAQUIN 500 MG/D5W 500 MG/100 ML IVPB IV SCH (14:30)
--- NOTE | 2019-04-16 15:47 | NEPHROLOGY PROGRESS NOTE ---
DATE: 04/16/2019 SUBJECTIVE: She is sitting in bed on room air. No shortness of breath. OBJECTIVE: Vital Signs: Blood pressure 99/69, heart rate 65, respirations 16, afebrile. General: No acute distress. Skin: Warm and dry. Neck: Neck veins are not distended. Heart: Regular. Lungs: Equal. No crackles. Abdomen: Soft, nontender. Bowel sounds present. Extremities: No edema, clubbing, or cyanosis. IMPRESSION: Chronic kidney disease 5D. Well managed. Electrolytes/acid base/volume status/anemia all on target. Euvolemic. Blood pressure is marginally low. Observe over the weekend but we may need to decrease her home blood pressure medicine depending on how her blood pressure does. cc: Mirza Lai MD
--- NOTE | 2019-04-16 19:41 | PROGRESS NOTE ---
DATE: 04/16/2019 SUBJECTIVE: The patient has no major complaints. OBJECTIVE: vital signs: Blood pressure is 99/69, heart rate 65, respiratory rate 16, temperature 97.7 degrees, and 91% to 93% on room air. Cardiovascular: Regular rate and rhythm. Pulmonary: Bilateral breath sounds. Clear to auscultation. Gastrointestinal: Soft, nontender, nondistended. Bowel sounds are positive. LABORATORIES: Hemoglobin and hematocrit are 10 and 32 which is a bit of a drop from yesterday, white count of 5, platelets of 84,000. INR is 2. Creatinine 3.2. Phos 1.9. PROBLEM LIST: 1. Left lower lobe pneumonia. She is on Levaquin which I guess this will be day 3 and it is 500 q. 48. I think the hemoptysis is related to that and her coagulopathy. Her x-ray shows a stable infiltrate. No major issues. 2. Volume overload. She is doing okay. We will continue to monitor. 3. Atypical chest pain. It is felt to be noncardiac, likely related to the pneumonia and pleurisy. We will continue to follow. 4. Diabetes. She is stable currently. DISPOSITION: I think she could probably go home tomorrow if stable. Dr. Lai says to observe over the weekend, so we may keep her through Thursday because her blood pressure has been on the low side. She is on Coreg which I think we could probably drop that. She is on a very tiny dose of hydralazine. So I think we can probably drop her Coreg to 6.25. If she is better tomorrow, I will discuss with Dr. Lai about possibly sending her home tomorrow unless he feels strongly about keeping her through the weekend. Disposition pending her clinical status. cc: Bismark Luz MD
[2019-04-16] MEDS ORDERED: COUMADIN PO SCH (21:00)
[2019-04-16] MEDS: LIPITOR PO SCH (21:34)
[2019-04-16] MEDS: SEROQUEL PO SCH (21:35)
[2019-04-16] MEDS: AMBIEN PO SCH (21:35)
[2019-04-17] MEDS: DUONEB (A & A) INH SCH (03:39)
[2019-04-17 06:13] LABS: HEMATOCRIT 33.2 % (37.0-47.0); HEMOGLOBIN 10.8 g/dL (12.0-16.0); MCH 30.3 PG (27-31); MCHC 32.5 g/dL (33-37); MCV 93.3 FL (81-99); MPV 11.5 FL (7.4-10.4); RBC 3.56 XMIL (4.2-5.4); RDW 15.9 % (11.5-14.5); WBC 5.33 X1000 (4.8-10.8)
[2019-04-17 06:20] LABS: INR 2.39; PROTIME 26.7 Seconds (11.0-16.0)
[2019-04-17] MEDS: HUMULIN R SUBQ SCH (06:20)
[2019-04-17] MEDS: PRILOSEC PO SCH (06:21)
[2019-04-17 06:58] LABS: ALBUMIN 3.4 g/dL (3.5-5.0); CALCIUM 8.8 mg/dL (8.8-10.2); CREATININE 4.6 mg/dL (0.5-0.9); PHOSPHORUS 1.9 mg/dL (2.7-4.5)
[2019-04-17 08:31] VITALS: BP 113/58
[2019-04-17] MEDS ORDERED: SENSIPAR PO SCH (09:00)
[2019-04-17] MEDS: SENOKOT PO SCH (09:02)
[2019-04-17] MEDS: APRESOLINE PO SCH (09:02)
[2019-04-17] MEDS: COREG PO SCH (09:03)
[2019-04-17] MEDS: RENAGEL PO SCH (09:03)
[2019-04-17] MEDS: ZOLOFT PO SCH (09:04)
[2019-04-17] MEDS: ZANAFLEX PO SCH (09:05)
--- NOTE | 2019-04-17 14:30 | DISCHARGE SUMMARY ---
ADMISSION DATE: 04/13/2019 DISCHARGE DATE: 04/17/2019 DISCHARGE DIAGNOSES: 1. Chronic obstructive pulmonary disease. 2. Left lower lobe pneumonia. 3. Atypical chest pain. 4. History of congestive heart failure. 5. Volume overload associated with end-stage renal disease. PROCEDURES: None. CONSULTATIONS: 1. Dr. Acuna, Cardiology. 2. Dr. Lai, Nephrology. HOSPITAL COURSE: Briefly, this is a 73-year-old female who presented with shortness of breath. She was admitted the evening of the . [facility] to have diastolic heart failure and volume overload. Cardiology was consulted. Dr. Acuna felt this was likely noncardiac. CT scan was ordered which showed pneumonia. She also had shown a left lower lobe pneumonia and emphysema. She was placed on antibiotics. Her echocardiogram showed an EF of 55'% to 60%. No wall motion abnormalities, although she had a little bit abnormal contractility of her septum, mild , moderate degree of pulmonic insufficiency. Stress test was completed, but she only had a resting perfusion done which showed mild anterior wall defect. EF 76% was felt to be normal. Defect was felt to be artifact, possible scar. Stress test was canceled, because it was felt that she had pneumonia and she was placed empirically on antibiotics. Dr. Acuna felt this was noncardiac. She improved. Her family does describe that a couple of days before discharge she was getting up off the toilet, and she felt a popping. She went to the ER and was diagnosed with rib bruising, but she had a left pleural effusion then. The CT scan is felt to be infiltrates with air bronchograms. I think that is more likely pneumonia. She certainly may have had some maybe a very small amount of bruising. It does not look like she has hemothorax or anything, but then she had pneumonia. So she was placed on Levaquin which was renally dosed, and she will continue that at discharge. She is breathing comfortably on room air 100%. She has been afebrile, and she was discharged in stable condition. Her blood pressure has been on the low side, so we have adjusted her medications down. Recommend that she when she follows up with her network cabler that they continue to keep her close to her dry weight if not below it. Her INR is 2.39 at discharge. Hemoglobin and hematocrit 10 and 33. DISCHARGE MEDICATIONS: Warfarin 5 at bedtime. Seroquel 50 at bedtime. Ambien 10 at bedtime. Hydralazine 10 b.i.d. Lipitor 40 daily. Ativan p.r.n. 1 t.i.d. Prilosec 40. Sevelamer 800 t.i.d. Senokot 2 at bedtime. Sensipar 30 every other day. Xanax b.i.d. p.r.n. Zoloft 100 daily. Coreg 6.25 q.12 which is an adjustment down. Levaquin 500 q. 48 for another 10 days. Albuterol inhaler. We set up home PT for her. DISCHARGE INSTRUCTIONS: Follow up with her PCP, Dr. Galvin, in [address] Meehan is her main network cabler and then [facility] in 2 to 4 weeks. TIME SPENT: A 35-minute discharge. cc: Bismark Luz MD
== END 2019-04-17 13:49 | disposition home or self-care (01) | DRG 193 ==
LOC: ED 15:26 → SUATTDRO 22:48 → 1N 22:48
PROVIDERS: ATTEND Internal Medicine

== ENCOUNTER 2019-04-24 13:48 | Inpatient (IN) ==
--- NOTE | 2019-04-24 14:42 | PROVIDER DOCUMENTATION ---
HPI-Musculoskeletal Pain/Inj - GENERAL Chief Complaint: Fall Stated Complaint: FALL Time Seen by Provider: 04/24/19 14:29 Source: patient, family - HX OF PRESENT ILLNESS-MUSKULOSKELTAL Nature of Presenting Problem: patient is a 73 yowf presenting to the ED today for a fall. she reports she was trying to sit down on her walker and did not lock the wheels, so it came out from under her and she landed on the floor. she reports she landed on her buttock. she is complaining of right lower back pain. she denies hitting her head, or any LOC. she remembers the accident. denies any numbness, tingling, motor/sensory loss. normal capillary refill noted. 2+ pedal pulse. patient requesting demerol. she reports she cannot have anything else for pain because it makes her itch. patient able to move leg but reports pain when she lifts her leg. family at bedside. Quality of Pain: reports: aching, throbbing Severity in ED: mild Onset/Duration: just prior to arrival Timing: still present Modifying Factors: improves with: nothing Any recent injury?: Yes Locality of Occurance: Home Similar Symptoms Previously?: No Recently seen or treated by another doctor?: No - FALL INJURY Location of Pain/Injury: reports: back (right lumbar). denies: head, neck Pain Radiation: reports: no radiation Reason for Fall: reports: other (chair came out from under her) Symptoms prior to fall:: reports: none. denies: fever/chills/sweaty, chest pain, rapid heart rate, cough, diarrhea, vomiting, dizzy/lightheaded, headache, seizure Loss of Consciousness: no loss of consciousness Injury Associated Symptoms: reports: back/neck pain, joint pain (lower back), nausea (due to pain), trouble walking. denies: chest pain, diaphoresis, dizziness, headaches, muscle aches, puncture wound, shortness of breath, sensory/motor loss, snap/crack/pop sensation, pain with inspiration, vomiting, weakness Review of Systems - Adult - REVIEW OF SYSTEMS - ADULT Constitutional: reports: no symptoms reported. denies: chills, fever Eyes: reports: no symptoms reported Ears, Nose, Mouth & Throat: reports: no symptoms reported Cardiovascular: reports: no symptoms reported. denies: chest pain, palpitations, syncope Respiratory: reports: no symptoms reported. denies: cough, shortness of breath, wheezing Gastrointestinal: reports: nausea. denies: abdominal pain, diarrhea, vomiting Genitourinary: reports: no symptoms reported Musculoskeletal: reports: back pain Integumentary: reports: no symptoms reported Neurological: reports: no symptoms reported. denies: dizziness/vertigo, headache/migraines Psychiatric: reports: no symptoms reported Endocrine: reports: no symptoms reported Hematologic/Lymphatic: reports: no symptoms reported Allergic/Immunologic: reports: no symptoms reported All Other Systems: Reviewed and Negative Past History - Adult - PAST MEDICAL HISTORY-ADULT Review of Records: reports: Old Records Reviewed, Nursing Assessment Review, Medications Reviewed Major Childhood Illnesses: reports: denies history Cardiovascular: reports: cardiac disease, CAD, HTN, hyperlipidemia, pacemaker Respiratory: reports: COPD Gastrointestinal: reports: denies history Obstetrical/Gynecological: reports: denies history Genitourinary: reports: dialysis, ESRD Musculoskeletal: reports: arthritis, chronic pain Neurological: reports: denies history Psychiatric: reports: denies history Endocrine/Immune: reports: cancer, Diabetes, other (Renal Failure) Other Conditions: reports: denies history - PRIOR SURGERIES/PROCEDURES Surgical/Procedure History: reports: cardiac stent, hysterectomy, tonsillectomy - PRIOR HOSPITALIZATIONS Prior Hospitalizations: reports: for similar symptoms - IMMUNIZATION STATUS Childhood Immunizations: See Nurse Assessment Flu Vaccine: See Nurse Assessment - FAMILY HISTORY Family History: reviewed, not pertinent - SOCIAL HISTORY Smoking: cigarettes Provider spent 3-5 mins advising pt. on dangers of tobacco.: Discussed manners to quit use, and f/u contacts for add'l counseling. Physical Exam-Injury Related - Physical Exam-Injury Related Initial Vital Signs Reviewed: Yes General Appearance: appears well, alert, no apparent distress (appears in pain) Eyes: PERRL/EOMI Head, Ears, Nose, Mouth & Throat: normocephalic/atraumatic, moist mucous membranes Neck: non-tender, full range of motion, supple, normal inspection Respiratory: chest non-tender, lungs clear, normal breath sounds, no pleuratic chest pain, no respiratory distress, no accessory muscle use Cardiovascular: normal peripheral pulses, regular rate, rhythm, no edema, no JVD Peripheral Pulses: dorsalis-pedis (R): 2+, dorsalis-pedis (L): 2+ Abdominal Exam: normal bowel sounds, non tender, soft Lymphatic: no adenopathy Back Exam: normal inspection, vertebral tenderness (lumbar) Extremity: normal range of motion, non-tender, normal inspection, normal capillary refill Integumentary: normal color, warm/dry Neurologic: grossly normal, no motor/sensory deficits Psych/Mental Status: normal mood/affect, normal thought content, normal thought process, oriented x 3 - Glascow Coma Score Best Eye Response ([place]): (4) open spontaneously Best Verbal Response ([place]): (5) oriented Best Motor Response ([place]): (6) obeys commands Progress - PLAN OF CARE/RESULTS Progress/Plan/Lab Results: Vital Signs - 8 hr 04/24/19 14:28 Temperature 97.8 F Pulse Rate 84 Respiratory Rate 20 Blood Pressure 121/64 O2 Sat by Pulse Oximetry 100 Orders Category Date Time Status Nursing- Obtain EKG ONCE Care 04/24/19 20:42 Active CHEST-PORTABLE [RAD] Stat Exams 04/24/19 20:[address] LUMBAR SPINE W/O CONTRAST [CT] Stat Exams 04/24/19 17:[address] PELVIS W/O CONTRAST [CT] Stat Exams 04/24/19 17:06 Completed LUMBAR SPINE [RAD] Stat Exams 04/24/19 14:36 Completed XRAY HIP UNILATERAL RT [RAD] Stat Exams 04/24/19 14:36 Completed CBC WITH ELECTRONIC DIFF [HEME] Stat Lab 04/24/19 20:34 Ordered COMPREHENSIVE METABOLIC PANEL [CHEM] Stat Lab 04/24/19 20:34 Ordered PROTIME WITH INR [COAG] Stat Lab 04/24/19 20:34 Ordered PTT [COAG] Stat Lab 04/24/19 20:34 Ordered TYPE & SCREEN [BBK] Stat Lab 04/24/19 20:39 Ordered URINALYSIS W/POSS RFLX CULT [URINALYSIS] Stat Lab 04/24/19 19:08 Uncollected Acetaminophen [Ofirmev 1000 mg/Isotonic Soln] Med 04/24/19 20:39 Active 1,000 mg in 100 ml IV NOW Meperidine [Demerol] Med 04/24/19 15:15 Discontinued 20 mg IV NOW ONE Meperidine [Demerol] Med 04/24/19 14:43 Discontinued 25 mg IV NOW ONE Meperidine [Demerol] Med 04/24/19 19:09 Discontinued 50 mg IV NOW ONE Ondansetron [Zofran] Med 04/24/19 14:44 Discontinued 4 mg IV NOW ONE EKG [EKG] Stat Ther 04/24/19 20:42 Ordered discussed plan of care with patient and family, they understand and agree with plan of care and deny any questions at this time. discussed plan of care with Dr. Beach. 1700- reassessed patient- no bruising, swelling, or visible abnormality noted to lower back. patient denies pain on flexion, extension, and eversion. she does report pain on inversion. patient also reports pain when sitting up. family recording nurse and me while we examined patient. family asking MD for more pain medication for the patient. discussed CT with family- they agree to receive CT. 0- pt requesting muscle relaxer. 1740- family requesting more medication-I explained to family that her BP is 93/61 and I do not want to give her any more sedating drugs due to her BP. family agrees. 1910- patient's BP improved. spoke with patient and family about admission. 1940- verbal order to RN to only give 25 mg of demerol. - EKG 1 Time of EKG reading by physician:: 15:49 EKG Read and Signed by:: Matthew Beach EKG Interpretation (*Must complete 3 of following elements*): Abnormal Rate: 89 Rhythm: atrial fibrillation [place]: left QRS: LBB ST Wave: normal - XRAY 2 XRAY Study: Lumbar Spine Impression: See EMR Report ( Signed EXAM: LUMBAR SPINE - 04/24/2019 HISTORY: fall TECHNIQUE: Lumbar spine six views COMPARISON: None. FINDINGS: There is mild lower lumbar levoscoliosis. There is severe degenerative disc disease at L2-3. There is grade 1 retrolisthesis at L2-3 which likely relates to the degenerative disease. Otherwise, there is no fracture or subluxation identified. There are atherosclerotic calcifications noted. IMPRESSION: Severe degenerative disc disease at L2-3. No evidence of fracture. Electronically signed by George Quijano 04/24/2019 4:21 PM 04/24/19 1621 Interpreting Physician: George Quijano MD Dictated Date/Time: 04/24/19 9790 cc: Krista Young; Irwin Galvin MD) 1 XRAY: Right XRAY Study: Hip Impression: See EMR Report ( Signed EXAM: XRAY HIP UNILATERAL RT - 04/24/2019 HISTORY: fall TECHNIQUE: Right hip two views COMPARISON: None. FINDINGS: There is no fracture or dislocation identified. There are atherosclerotic calcifications noted. IMPRESSION: No evidence of fracture or dislocation. Electronically signed by George Quijano 04/24/2019 4:18 PM 04/24/19 1618 Interpreting Physician: George Quijano MD Dictated Date/Time: 04/24/19 1617 cc: Krista Young; Irwin Galvin MD) - CT/MRI 1 CT Study: Pelvis Impression: See EMR Report ( Signed EXAM: CT PELVIS W/O CONTRAST - 04/24/2019 HISTORY: fall TECHNIQUE: CT bony pelvis without contrast COMPARISON: None. FINDINGS: There are possibly subtle nondisplaced fractures at the greater and lesser trochanters of the right femur. Is not clear if these are acute and/or subacute. There is no clear fracture identified extending through the intertrochanteric region. There is no other fracture or dislocation identified. IMPRESSION: Possible subtle nondisplaced fractures of the greater and lesser trochanters of right femur. This exam was performed using automated exposure control, adjustment of mA or kV according to patient size, and/or use of iterative reconstruction technique. Electronically signed by George Quijano 04/24/2019 6:48 PM 04/24/19 1848 Interpreting Physician: George Quijano MD Dictated Date/Time: 04/24/19 1839 cc: Krista Young; Irwin Galvin MD) 2 CT Study: Lumbar Spine Impression: See EMR Report ( Signed EXAM: CT LUMBAR SPINE W/O CONTRAST - 04/24/2019 HISTORY: fall TECHNIQUE: CT lumbar spine without contrast COMPARISON: None. FINDINGS: There is severe degenerative disc disease at L2-3 with disc space narrowing, vacuum disc phenomenon, and endplate sclerosis. There is moderate spinal stenosis at L2-3 secondary to grade 1 retrolisthesis, diffuse disc protrusion, and some ligamentum flavum and facet hypertrophy. There is [id number] spinal stenosis at L3-4 secondary to diffuse disc protrusion and facet and ligamentum flavum hypertrophy. There is moderate to severe spinal stenosis at L4-5 secondary to diffuse disc protrusion and substantial ligamentum flavum and facet hypertrophy. There are substantial degenerative changes of L5-S1 facets. The bones are possibly osteopenic. There is apparent nondisplaced fracture of the right transverse process of L3. There is no other fracture identified. IMPRESSION: Multilevel degenerative disease with multilevel spinal stenosis. Possible osteopenia. Nondisplaced fracture of right transverse process of L3. This exam was performed using automated e xposure control, adjustment of mA or kV according to patient size, and/or use of iterative reconstruction technique. Electronically signed by George Quijano 04/24/2019 6:56 PM 04/24/19 1856 Interpreting Physician: George Quijano MD Dictated Date/Time: 04/24/19 1849 cc: Krista Young; Irwin Galvin MD) - CONSULTS/PCP/HOSPITALIST Notification #1 *Consult/PCP/Hospitalist*: Dr. Bello Time Discussed: 20:21 Reason/Comments: admit for pain control- consult him and he will see patient in the AM Consult Disposition: Admit #2 Consult: Dr. Cruz Time Discussed: 20:50 Reason/Comments: admit for pain control and consult ortho Consult Disposition: Will see in ED, Admit Departure - Departure Date of Disposition Decision: 04/24/19 Time of Disposition Decision: 20:22 DIAGNOSIS: Greater trochanter fracture Qualifiers: Encounter type: initial encounter Fracture type: closed Fracture alignment: nondisplaced Laterality: right Qualified Code(s): S72.114A - Nondisplaced fracture of greater trochanter of right femur, initial encounter for closed fracture Fracture of lesser trochanter of femur Qualifiers: Encounter type: initial encounter Fracture type: closed Fracture alignment: nondisplaced Laterality: right Qualified Code(s): S72.124A - Nondisplaced fracture of lesser trochanter of right femur, initial encounter for closed fracture L3 vertebral fracture Qualifiers: Encounter type: initial encounter Fracture type: closed Fracture morphology: unspecified fracture morphology Qualified Code(s): S32.039A - Unspecified fracture of third lumbar vertebra, initial encounter for closed fracture Disposition: ADMITTED INPATIENT 09 Certified Medical Emergency: Emergent Condition: Stable Referrals and Follow-Ups: Irwin Galvin MD [Primary Care Provider] - Discharge Education: Steps to Quit Smoking, [id number] - Critical Care Note This patient required my direct & personal management of CC.: No Attestation - Physician/ UMAIR Attestation Patient care was provided by Advanced Practice Provider:: Yes Advanced Practice Provider:: Krista Young Advanced Practice Provider documentation review:: The Mid-level provider documentation, treatment plan and medical decision making was reviewed by the physician who agrees with all treatment and medical decision making by the MLP. The physician spent face to face time with patient:: Yes Advanced Practice Provider documentation review:: Supervising physician onsite and consulted in the evaluation and care of this patient. The physician did have a face to face encounter with the patient.
[2019-04-24] MEDS ORDERED: DEMEROL IV ONE ×3 (14:43→19:09)
[2019-04-24] MEDS ORDERED: ZOFRAN IV ONE (14:44)
--- NOTE | 2019-04-24 16:21 | Diag Imaging Result Doc PS360 ---
EXAM: XRAY HIP UNILATERAL RT - 04/24/2019 HISTORY: fall TECHNIQUE: Right hip two views COMPARISON: None. FINDINGS: There is no fracture or dislocation identified. There are atherosclerotic calcifications noted. IMPRESSION: No evidence of fracture or dislocation. Electronically signed by George Quijano 04/24/2019 4:18 PM
--- NOTE | 2019-04-24 16:24 | Diag Imaging Result Doc PS360 ---
EXAM: LUMBAR SPINE - 04/24/2019 HISTORY: fall TECHNIQUE: Lumbar spine six views COMPARISON: None. FINDINGS: There is mild lower lumbar levoscoliosis. There is severe degenerative disc disease at L2-3. There is grade 1 retrolisthesis at L2-3 which likely relates to the degenerative disease. Otherwise, there is no fracture or subluxation identified. There are atherosclerotic calcifications noted. IMPRESSION: Severe degenerative disc disease at L2-3. No evidence of fracture. Electronically signed by George Quijano 04/24/2019 4:21 PM
--- NOTE | 2019-04-24 18:51 | Diag Imaging Result Doc PS360 ---
EXAM: CT PELVIS W/O CONTRAST - 04/24/2019 HISTORY: fall TECHNIQUE: CT bony pelvis without contrast COMPARISON: None. FINDINGS: There are possibly subtle nondisplaced fractures at the greater and lesser trochanters of the right femur. Is not clear if these are acute and/or subacute. There is no clear fracture identified extending through the intertrochanteric region. There is no other fracture or dislocation identified. IMPRESSION: Possible subtle nondisplaced fractures of the greater and lesser trochanters of right femur. This exam was performed using automated exposure control, adjustment of mA or kV according to patient size, and/or use of iterative reconstruction technique. Electronically signed by George Quijano 04/24/2019 6:48 PM
--- NOTE | 2019-04-24 18:58 | Diag Imaging Result Doc PS360 ---
EXAM: CT LUMBAR SPINE W/O CONTRAST - 04/24/2019 HISTORY: fall TECHNIQUE: CT lumbar spine without contrast COMPARISON: None. FINDINGS: There is severe degenerative disc disease at L2-3 with disc space narrowing, vacuum disc phenomenon, and endplate sclerosis. There is moderate spinal stenosis at L2-3 secondary to grade 1 retrolisthesis, diffuse disc protrusion, and some ligamentum flavum and facet hypertrophy. There is [id number] spinal stenosis at L3-4 secondary to diffuse disc protrusion and facet and ligamentum flavum hypertrophy. There is moderate to severe spinal stenosis at L4-5 secondary to diffuse disc protrusion and substantial ligamentum flavum and facet hypertrophy. There are substantial degenerative changes of L5-S1 facets. The bones are possibly osteopenic. There is apparent nondisplaced fracture of the right transverse process of L3. There is no other fracture identified. IMPRESSION: Multilevel degenerative disease with multilevel spinal stenosis. Possible osteopenia. Nondisplaced fracture of right transverse process of L3. This exam was performed using automated exposure control, adjustment of mA or kV according to patient size, and/or use of iterative reconstruction technique. Electronically signed by George Quijano 04/24/2019 6:56 PM
[2019-04-24] MEDS ORDERED: OFIRMEV 1000 MG/ISOTONIC SOLN 1,000 MG/100 ML BOTTLE IV ONE (20:39)
--- NOTE | 2019-04-24 21:04 | EKG Report ---
Test Performed on : 04/24/2019 3:44:57 PM Test Reason : Fall, Poss. Femur Fx Blood Pressure : / mmHG Vent. Rate : 089 BPM Atrial Rate : 085 BPM P-R Int : 000 ms QRS Dur : 150 ms QT Int : 488 ms P-R-T Axes : 000 -61 137 degrees QTc Int : 593 ms Atrial fibrillation. Left axis deviation Left bundle branch block Abnormal ECG When compared with ECG of 15-APR-2019 06:17, Atrial fibrillation. has replaced Electronic ventricular pacemaker Unconfirmed Result
[2019-04-24 21:39] LABS: BASO% 2.9 % (0.0-0.8); EOS# 0.25 X1000 (0.0-0.7); EOS% 3.6 % (0.0-10.0); HEMATOCRIT 31.5 % (37.0-47.0); HEMOGLOBIN 10.4 g/dL (12.0-16.0); IMM GRAN# 0.04 X1000 (0.0-0.04); IMM GRAN% 0.6 % (0.0-0.5); LYMPH# 1.41 X1000 (1.2-3.4); LYMPH% 20.3 % (20.5-51.1); MCH 31.6 PG (27-31); MCV 95.7 FL (81-99); MONO% 17.3 % (1.7-9.3); MPV 11.2 FL (7.4-10.4); NEUT# 3.85 X1000 (1.4-6.5); NEUT% 55.3 % (42.2-75.2); PLT 134 X1000 (130-400); RBC 3.29 XMIL (4.2-5.4); RDW 16.6 % (11.5-14.5); WBC 6.95 X1000 (4.8-10.8)
--- NOTE | 2019-04-24 21:54 | Diag Imaging Result Doc PS360 ---
EXAM: CHEST-PORTABLE - 04/24/2019 HISTORY: Fall, Poss. right femur fx TECHNIQUE: Portable chest COMPARISON: 04/16/2019 FINDINGS: There is cardiomegaly similar to prior. There are sternal wires from previous surgery and transvenous cardiac pacemaker again seen. There is been interval clearing at the left base. There is increased prominence of vascular markings. There is a possible small left pleural effusion. There is no dense consolidation or pneumothorax identified. IMPRESSION: Stable cardiomegaly. Apparent vascular congestion. Electronically signed by George Quijano 04/24/2019 9:52 PM
[2019-04-24 21:55] LABS: EOS 2 % (1-10); LYMPHS 28 % (21-51); MONO 14 % (1-9); SEGS 56 % (42-75)
[2019-04-24 21:56] LABS: ANISOCYTOSIS OCCASIONAL; LARGE PLATELETS OCCASIONAL
[2019-04-24 21:58] LABS: ALB/GLOB RATIO 1.8; ALBUMIN 3.6 g/dL (3.5-5.0); CALCIUM 7.9 mg/dL (8.8-10.2); TOTAL BILIRUBIN 1.09 mg/dL (0.20-1.00); TOTAL PROTEIN 5.6 g/dL (6.3-8.3)
--- NOTE | 2019-04-24 22:04 | HISTORY AND PHYSICAL ---
PRIMARY CARE PHYSICIAN: Dr. Galvin. CHIEF COMPLAINT: Fall, right hip region pain and back pain. HISTORY OF PRESENTING ILLNESS: A 73-year-old female with a history of end-stage renal disease on renal dialysis Thursday, Thursday, Thursday, hypertension, CHF, diabetes mellitus type 2, who had presented to emergency department after she had a fall. The patient states that she was getting her clothes to the washer and she was apparently using a walker and sat down. Somehow the walker rolled back and she fell and landed on her back and right hip region. She developed moderate amount of pain and subsequently brought to the emergency department. She had imaging done which did show a nondisplaced fracture of the greater and lesser trochanter the right femur and also a nondisplaced fracture of the right transverse process of the L3. Her case was discussed with Orthopedics who recommended the patient be admitted for further evaluation and management. At the time of my examination, patient denied any headache, fever, chills, chest pain, shortness of breath but complained of pain in her back and right hip region. PAST MEDICAL HISTORY: Includes end-stage renal disease on renal dialysis Thursday, Thursday, Thursday, hypertension, CHF, diabetes mellitus type 2. PAST SURGICAL HISTORY: Coronary bypass, pacemaker, hysterectomy, cataract surgery. ALLERGIES: Diltiazem, morphine, cefazolin, ceftazidime and vancomycin. CURRENT MEDICATIONS: Include albuterol nebs t.i.d., Lipitor 40 mg p.o. at bedtime, Coreg 6.25 mg p.o. q.12 hours, Sensipar 30 mg p.o. daily, hydralazine 10 mg p.o. b.i.d., levofloxacin 500 mg p.o. q.48 hours, lorazepam 1 mg p.o. t.i.d., omeprazole 40 mg p.o. daily, quetiapine 50 mg p.o. at bedtime, Zoloft 100 mg p.o. at bedtime, Renvela 800 mg p.o. t.i.d., warfarin 5 mg p.o. at bedtime, Ambien 10 mg p.o. at bedtime. SOCIAL HISTORY: She is a former smoker. She states that she quit last week. Denies any history alcohol or illicit drug use. She lives alone. FAMILY HISTORY: No history of coronary disease. REVIEW OF SYSTEMS: Fourteen point review of system as listed in HPI. Other systems negative. PHYSICAL EXAMINATION: GENERAL: Cooperative, friendly female. She is resting more comfortably now. VITAL SIGNS: Temperature 97.8 degrees, pulse 84, respirations 20, blood pressure 121/64. HEENT: Extraocular movements intact. PERRLA. NECK: No masses. CHEST: Bibasilar rales. CARDIOVASCULAR: Regular rate and rhythm. ABDOMEN: Soft, positive bowel sounds. EXTREMITIES: Right hip region tenderness. BACK: There is lumbar tenderness. NEURO: She is awake, alert, oriented x3. : No bladder distention. SKIN: Warm. LABORATORIES AND STUDIES: Labs are still pending. Pelvic CT shows possible subacute nondisplaced fracture of the greater and lesser trochanter right femur. Lumbar x-ray shows severe degenerative disk disease at L2-3. Lumbar CT shows multilevel spinal stenosis and nondisplaced fractures of right transverse process of L3. ASSESSMENT: 73-year-old female with a history of end-stage renal disease on renal dialysis Thursday, Thursday, Thursday, hypertension, congestive heart failure, diabetes mellitus type 2 who presented to emergency department after she had a fall. She was brought to the emergency department. She was found to have nondisplaced fracture of the greater, lesser trochanter of the right femur and also nondisplaced fracture of the right transverse process of L3. Patient was having excruciating pain and due to her presenting symptoms she will require admission for further management. 1. Status post mechanical fall. 2. Nondisplaced fracture of the greater and lesser trochanter of the right femur. 3. Multilevel degenerative disk disease and spinal stenosis and nondisplaced fracture of the right transverse process of L3. 4. End-stage renal disease. 5. Diabetes mellitus type 2. PLAN: 1. The patient will be admitted to medical floor with telemetry. 2. Continue supportive treatment with adequate pain control, antiemetic as needed. 3. We will consult Orthopedics for further evaluation. 4. We will consult Nephrology for dialysis. 5. Monitor blood glucose closely and put patient on sliding scale insulin regimen. 6. The patient is already on warfarin and this will suffice for deep vein thrombosis prophylaxis. 7. We will continue to follow and reassess, make further recommendation based on patient's clinical course. cc: Seth Cruz MD
[2019-04-24 22:05] LABS: CREATININE 5.3 mg/dL (0.5-0.9)
[2019-04-25] MEDS ORDERED: ZOFRAN IV PRN (02:02)
[2019-04-25] MEDS ORDERED: ATIVAN PO PRN (02:02)
[2019-04-25] MEDS: DEMEROL IV PRN ×4 (02:37→22:18)
[2019-04-25] MEDS: COREG PO SCH ×2 (02:40→18:51)
[2019-04-25] MEDS: ZANAFLEX PO PRN ×2 (02:55→18:28)
[2019-04-25 05:54] LABS: INR 2.62; PROTIME 28.8 Seconds (11.0-16.0)
[2019-04-25 06:13] LABS: CALCIUM 7.6 mg/dL (8.8-10.2); POTASSIUM 3.8 mmol/L (3.5-5.1)
[2019-04-25 06:14] LABS: BASO# 0.03 X1000 (0.0-0.2); BASO% 0.6 % (0.0-0.8); CREATININE 5.8 mg/dL (0.5-0.9); EOS# 0.13 X1000 (0.0-0.7); EOS% 2.5 % (0.0-10.0); HEMATOCRIT 29.6 % (37.0-47.0); HEMOGLOBIN 9.7 g/dL (12.0-16.0); LYMPH# 0.85 X1000 (1.2-3.4); LYMPH% 16.1 % (20.5-51.1); MCHC 32.8 g/dL (33-37); MCV 91.6 FL (81-99); MONO# 0.61 X1000 (0.11-0.59); MONO% 11.6 % (1.7-9.3); MPV 10.9 FL (7.4-10.4); NEUT# 3.65 X1000 (1.4-6.5); NEUT% 69.2 % (42.2-75.2); PLT 144 X1000 (130-400); RBC 3.23 XMIL (4.2-5.4); RDW 15.7 % (11.5-14.5); WBC 5.27 X1000 (4.8-10.8)
[2019-04-25] MEDS: RENAGEL PO SCH ×3 (06:58→18:51)
[2019-04-25] MEDS: HUMULIN R SUBQ SCH ×4 (06:58→21:00)
[2019-04-25] MEDS: PRILOSEC PO SCH (06:58)
--- NOTE | 2019-04-25 07:41 | ORTHOPAEDICS CONSULTATION ---
DATE: 04/25/2019 CHIEF COMPLAINT: Hip and back pain. HISTORY OF PRESENT ILLNESS: This 73-year-old female presents after a fall. She was admitted by the hospitalist for pain management and medical management. She reports intermittent soreness over the lower back and right hip. She apparently fell at home. She was evaluated in the emergency room, felt to have possible greater trochanter fracture and an L3 transverse process fracture. PAST MEDICAL HISTORY: Significant for end-stage renal disease with dialysis, hypertension, heart failure, and diabetes type 2. PAST SURGICAL HISTORY: She is status post coronary surgery with pacemaker, and hysterectomy and cataract surgeries in the past. MEDICATIONS: Medicines are listed as albuterol, Lipitor, Coreg, Sensipar, hydralazine, Levaquin, omeprazole, lorazepam, warfarin, Renvela, Zoloft, and Ambien. ALLERGIES: Reported to diltiazem, morphine, Keflex, and vancomycin. PHYSICAL EXAMINATION: General: She is alert and oriented. Extremities: There is some tenderness about the right hip laterally. There is relatively good flexion and extension. She is motor and sensory intact. There is minimal tenderness over the remainder of the right lower extremity. There is some tenderness in the lower lumbar spine. There are no motor or sensory deficits. The upper extremities and left lower extremity appeared to be atraumatic and nontender. IMAGING: X-rays reviewed include CT scans and x-rays of the back and hips. This shows a possible nondisplaced fracture of the greater trochanter on the right hip. Also, there is a likely L3 transverse process fracture on the x-ray, but predominantly significant arthritis. ASSESSMENT: 1. Possible right greater trochanter fracture, stable. 2. L3 stable spinous process fracture/transverse process. PLAN: The patient can be mobilized with a walker as tolerated. She can be full weightbearing. We will just need to see her in the office in 2 to 3 weeks. She can return in the interim for any worsening signs or symptoms. cc: Ben Rey MD
[2019-04-25] MEDS ORDERED: HEPARIN IV PRN (07:50)
[2019-04-25] MEDS ORDERED: TIGHT: 0.2 ML/HR FOR DIALYSIS MISC PRN (07:50)
[2019-04-25] MEDS ORDERED: NS 2,000 ML MISC PRN (07:50)
[2019-04-25] MEDS: APRESOLINE PO SCH ×3 (11:28→20:35)
[2019-04-25] MEDS: SENSIPAR PO SCH (11:29)
--- NOTE | 2019-04-25 13:44 | PROGRESS NOTE ---
DATE: 04/25/2019 SUBJECTIVE: Ms. Moses fell. I think it was while she was doing her laundry, struck her right hip and back region, and suffered a right nondisplaced fracture in the greater and lesser trochanter of the right femur. Also on the back, she has an L3 stable spinous process fracture. This will be treated nonsurgically. She can be full weightbearing and can mobilize in the walker as tolerated. She lives alone, so we are going to continue physical therapy here. OBJECTIVE: Vital Signs: Temperature 97.5 degrees, pulse 72, respirations 20, blood pressure 97/49. Weight is 200 pounds. Height 5 feet 5 inches. HEENT: Pupils are equal round. Lungs: Clear in all lung cornelius. Cardiovascular: Regular rhythm and rate without murmur or S3. LABORATORY DATA: Reviewed from yesterday, white count 5270, hematocrit is 29, hemoglobin is 9.7, platelet count is 144,000. Sodium 130, potassium 3.8, chloride 92, BUN 23, creatinine 5.8, blood sugar 90, AST 29, ALT 14. REVIEW OF HER ORDERS: I do not see any change at this point. She is on Coumadin 5 mg daily and her pro time is 28. INR 2.62. cc: Marcelo Adamson MD
--- NOTE | 2019-04-25 14:20 | NEPHROLOGY CONSULTATION ---
DATE: 04/25/2019 REASON FOR ADMISSION: Right trochanteric fracture. REASON FOR CONSULTATION: Assist with management, ESRD. CONSULTING PHYSICIAN: Dr. Cruz. HISTORY OF PRESENT ILLNESS: This is a 73-year-old female known to our service from previous hospitalizations and end-stage renal disease. She normally dialyzes on a Thursday, Thursday, Thursday schedule apparently. According to the patient, she got up and was using her walker but fell to the right hip area. She was brought into the emergency room where she was found to have a nondisplaced fracture of the greater and lesser trochanteric right femur and a nondisplaced fracture of the right transverse process of L3. The patient has been admitted for medical management. She states that she will not be undergoing surgery for this particular fracture. We have been asked to see her and assist with management and maintain her routine dialysis schedule. PAST MEDICAL HISTORY: CKD 5D on dialysis Thursday, Thursday, Thursday at the [facility], hypertension, CHF, diabetes, hyperparathyroidism, hyperphosphatemia. PAST SURGICAL HISTORY: Coronary artery bypass, pacemaker, hysterectomy, cataract surgery. ALLERGIES: Diltiazem, morphine, cefazolin, ceftazidime, and vancomycin. CURRENT MEDICATIONS: Albuterol, Lipitor, Coreg, Sensipar, hydralazine, levofloxacin, Zoloft, Renvela, Coumadin, and Ambien. FAMILY HISTORY: Noncontributory. SOCIAL HISTORY: Former smoker, quit about a week ago. No ETOH or illicit drug use. She lives at home alone. REVIEW OF SYSTEMS: Pertinent positives noted above in the HPI. Primarily pain to the right hip and back. PHYSICAL EXAMINATION: Vital Signs: Temperature 97.5 degrees, pulse 72, respiratory rate 20, blood pressure 97/49. Intake 250 mL. Output not measured. General: This is an elderly female, resting in bed. She is awake and alert. She does not appear in acute distress. She does appear uncomfortable. HEENT: Normocephalic, atraumatic. APOORVA. Conjunctivae are pale. Oral mucosa moist. Neck: Supple. There is no JVD in a reclined position. Cardiovascular: Reveals a regular rate and rhythm. There is no gallop. Pulmonary: She is clear bilaterally. She has equal excursion. Abdomen: Soft, with positive bowel sounds. : Not inspected. Extremities: Trace edema. No clubbing or cyanosis. Integumentary: Her skin is warm and dry. Neurologic: Grossly nonfocal. LAB DATA: WBC of 5.2, hemoglobin 9.7. Sodium 131, potassium 3.8, CO2 of 28, creatinine 5.8. ASSESSMENT AND PLAN: 1. Chronic kidney disease 5D. Today is her routine dialysis day. We are dialyzing her on a 3 K bath, ultrafiltration to her dry weight for a 3 hour treatment. We did check with [facility] and she is scheduled for a routine 3 hour treatment as an outpatient. 2. Right trochanteric fracture. Followed by primary. 3. Electrolytes, acid-base balance, anemia. These are stable. Dictated by DIGNA Baez for Mirza Lai MD Face to face encounter, data reviewed, discussed with Jasmina Velasco on 04/25/19. I agree with the above assessment and plan of care. cc: Mirza Lai MD [facility]
[2019-04-25] MEDS ORDERED: MAALOX PLUS LIQUID PO PRN (17:44)
[2019-04-25] MEDS: LIPITOR PO SCH (20:29)
[2019-04-25] MEDS: AMBIEN PO SCH (20:29)
[2019-04-25] MEDS: SEROQUEL PO SCH (20:29)
[2019-04-25] MEDS: ZOLOFT PO SCH (20:30)
[2019-04-25] MEDS: COUMADIN PO SCH (20:30)
[2019-04-26] MEDS: COREG PO SCH ×2 (04:52→13:40)
[2019-04-26 06:03] LABS: INR 2.14; PROTIME 24.4 Seconds (11.0-16.0)
[2019-04-26] MEDS: DEMEROL IV PRN ×4 (06:54→23:27)
[2019-04-26] MEDS: RENAGEL PO SCH ×4 (06:54→17:21)
[2019-04-26] MEDS: PRILOSEC PO SCH (06:54)
[2019-04-26] MEDS: HUMULIN R SUBQ SCH ×4 (06:55→22:05)
[2019-04-26] MEDS: APRESOLINE PO SCH ×2 (08:39→22:04)
[2019-04-26] MEDS: SENSIPAR PO SCH (08:39)
[2019-04-26] MEDS ORDERED: LEVAQUIN PO SCH (09:00)
--- NOTE | 2019-04-26 09:30 | PROGRESS NOTE ---
DATE: 04/26/2019 Ms. Moses is feeling better, breathing better, more comfortably. She would like to go to [facility] for rehab. She was supposed to have an appointment to see Dr. Marroquin for her stomach. OBJECTIVE: Vital Signs: Her temp 97.8 degrees, pulse 80, respirations 20, blood pressure 107/56. HEENT: Pupils are equal and round. Lungs: Are clear in all lung cornelius. Cardiovascular: Regular rhythm rate without murmur or S3. ASSESSMENT AND PLAN: 1. She has right nondisplaced fracture of the greater and lesser trochanter, right femur and a L3 stable spinous process fracture. Hoping to go to rehab. 2. Chronic kidney disease stage 5D. Dialyzing on a 3K bath ultrafiltration per Dr. Lai. Routine treatments. Volume status, electrolytes look good. 3. Diabetes mellitus type 2. Sugars appear under good control. Hematocrit 29, hemoglobin 9.7. Electrolytes yesterday, sodium 131, potassium 3.8, chloride 92, BUN 23, creatinine 5.8. Blood sugars 61, 123, 100. cc: Marcelo Adamson MD
[2019-04-26] MEDS: ZANAFLEX PO PRN ×2 (09:59→22:03)
[2019-04-26] MEDS: BENADRYL PO PRN ×2 (17:51→23:27)
--- NOTE | 2019-04-26 17:57 | NEPHROLOGY PROGRESS NOTE ---
DATE: 04/26/2019 SUBJECTIVE: Patient is sitting up in bed. No new issues. OBJECTIVE: Vital Signs: Temperature 98 degrees, pulse 69, respiratory rate 18, blood pressure 99/53. Intake 1.2 L. Output 1 L. PHYSICAL EXAMINATION: General: This is an elderly female, resting in bed. She does not appear in acute distress. HEENT: Normocephalic, atraumatic. APOORVA. Neck: Supple without JVD. Cardiovascular: Regular rate and rhythm without gallop. Pulmonary: Clear bilaterally with equal excursion. Abdomen: Soft, with positive bowel sounds. Genitourinary: Not inspected. Minimal void. Extremities: No clubbing, cyanosis. Is able to move all extremities. Integument: Skin warm and dry. LABORATORY DATA: No new labs today. ASSESSMENT AND PLAN: 1. Chronic kidney disease 5 D. We dialyze her on Thursday, Thursday, Thursday. We will plan to dialyze her again tomorrow. 2. Right trochanteric fracture followed by primary. 3. Electrolytes, acid-base balance anemia. We will check her labs tomorrow Dictated by DIGNA Baez for Mirza Lai MD Face to face encounter, data reviewed, discussed with Jasmina Velasco on 04/26/19. I agree with the above assessment and plan of care. cc: Mirza Lai MD [facility]
[2019-04-26] MEDS: AMBIEN PO SCH (22:03)
[2019-04-26] MEDS: LIPITOR PO SCH (22:03)
[2019-04-26] MEDS: SEROQUEL PO SCH (22:04)
[2019-04-26] MEDS: COUMADIN PO SCH (22:04)
[2019-04-26] MEDS: ZOLOFT PO SCH (22:04)
[2019-04-27] MEDS: COREG PO SCH (01:12)
[2019-04-27] MEDS: PRILOSEC PO SCH (06:20)
[2019-04-27 06:24] LABS: ALBUMIN 2.9 g/dL (3.5-5.0); CALCIUM 8.3 mg/dL (8.8-10.2); PHOSPHORUS 2.5 mg/dL (2.7-4.5); POTASSIUM 4.7 mmol/L (3.5-5.1)
[2019-04-27 06:39] LABS: CREATININE 5.6 mg/dL (0.5-0.9)
[2019-04-27] MEDS: HUMULIN R SUBQ SCH ×2 (06:41→14:10)
[2019-04-27] MEDS ORDERED: NS 2,000 ML MISC PRN (06:43)
[2019-04-27] MEDS ORDERED: TIGHT: 0.2 ML/HR FOR DIALYSIS MISC PRN (06:43)
[2019-04-27] MEDS ORDERED: HEPARIN IV PRN (06:43)
[2019-04-27] MEDS: BENADRYL PO PRN (08:34)
[2019-04-27] MEDS: DEMEROL IV PRN (08:34)
--- NOTE | 2019-04-27 10:23 | DISCHARGE SUMMARY ---
ADMISSION DATE: 04/26/2019 DISCHARGE DATE: 04/27/2019 DISPOSITION: The patient is going to [facility] on 04/27/2019. HISTORY OF PRESENT ILLNESS: This is a patient of Dr. Galvin. A 73-year-old female with a history of end-stage renal disease on renal dialysis Mondays, Wednesdays, and Fridays, hypertension, has a history of hypertension, congestive heart failure, diabetes mellitus type 2. Had presented to the emergency room after she had a fall. The patient states she has been getting her clothes to the washer. She was apparently using a walker and sat down. Somehow, the walker rolled back and she fell, landed on her back and her right hip region. Developed a moderate amount of pain. Subsequently brought to the emergency department. Imaging done which did show nondisplaced fracture of the greater and lesser trochanter, right femur. Also nondisplaced fracture of the right transverse process in L3. Case was discussed with orthopedics and recommended admitting her for evaluation. PAST MEDICAL HISTORY: Again includes end-stage renal disease on dialysis Mondays, Wednesdays, and Fridays, hypertension, congestive heart failure, diabetes mellitus type 2. PAST SURGICAL HISTORY: Coronary artery bypass, pacemaker placement, hysterectomy, and cataract surgery. HOSPITAL COURSE: Admitted for status post mechanical fall, nondisplaced fracture of the greater and lesser trochanter of the right femur, multilevel degenerative disk disease. Appeared to be a stable, nondisplaced fracture of the right transverse process at L3, in the face of end-stage renal disease and diabetes. She was evaluated by orthopedic, Dr. Rey. Possible right greater trochanteric fracture which is stable and L3 stable spinous process fracture of the transverse process, and nonsurgical. She is followed by Dr. Lai. Her volume status and electrolytes looked good. Received routine dialysis. [place] that she would benefit from going to rehab so plan to go to rehab today. DISCHARGE MEDICATIONS: She will be on Lipitor 40 mg at bedtime, Coreg 6.25 mg p.o. q.12, Sensipar 30 mg daily, Apresoline 10 mg p.o. b.i.d., Ativan 1 mg t.i.d. p.r.n. anxiety, Seroquel 50 mg p.o. at bedtime, Zoloft 100 mg a day, Renagel 800 mg p.o. 3 times a day, Zanaflex 4 mg p.o. b.i.d. p.r.n., Coumadin 5 mg at bedtime, Ambien 10 mg at bedtime. Note that her prothrombin time was 24, INR 2.14, which is therapeutic. We will arrange for her to go to rehab. cc: Marcelo Adamson MD
[2019-04-27] MEDS: RENAGEL PO SCH ×2 (14:10→14:16)
[2019-04-27 14:20] VITALS: BP 128/79
[2019-04-27] MEDS: APRESOLINE PO SCH (14:32)
[2019-04-27] MEDS: SENSIPAR PO SCH (14:32)
--- NOTE | 2019-04-27 15:03 | NEPHROLOGY PROGRESS NOTE ---
DATE: 04/27/2019 SUBJECTIVE: Patient is sitting up in bed. She is hoping to go home today. We discussed transportation to her dialysis clinic. OBJECTIVE: Vital Signs: Temperature 97.6 degrees, pulse 76, respiratory rate 16, blood pressure 103/49. Intake 640 mL. Output not measured. General: Elderly female, sitting up in bed. Awake alert, no acute distress. HEENT: Normocephalic, atraumatic. PERRL. Neck: Supple. No JVD. Cardiovascular: Regular rate, rhythm. Pulmonary: Clear bilaterally. Abdomen: Soft, positive bowel sounds. : Not inspected. Extremities: 1+ edema. Integumentary: Warm and dry. She does have a fistula, right upper extremity. LAB DATA: Sodium 137, potassium 4.7, CO2 27, creatinine 5.6. ASSESSMENT AND PLAN: 1. Chronic kidney disease 5D. Today is her routine dialysis day. Plan to dialyze her, 2 K bath up to her dry weight 3 hour treatment. 2. Direct trochanteric fracture. Followed by primary. She will likely go to rehab for ambulation. 3. Electrolytes, acid-base balance. In target. Dictated by DIGNA Baez for Mirza Lai MD Face to face encounter, data reviewed, discussed with Jasmina Velasco on 04/27/19. I agree with the above assessment and plan of care. cc: Mirza Lai MD [facility]
[2019-04-27] MEDS: ZANAFLEX PO PRN (15:19)
== END 2019-04-27 15:21 | DRG 535 ==
LOC: SUPCPDRO → 4N 13:48 → ED 13:48 → SUATTDRO 21:39
PROVIDERS: ATTEND Emergency Medicine

== ENCOUNTER 2019-05-02 19:54 | Inpatient (IN) ==
--- NOTE | 2019-05-02 20:18 | EKG Report ---
Test Performed on : 05/02/2019 7:43:31 PM Test Reason : sob Blood Pressure : / mmHG Vent. Rate : 082 BPM Atrial Rate : 067 BPM P-R Int : 000 ms QRS Dur : 158 ms QT Int : 486 ms P-R-T Axes : 000 -57 165 degrees QTc Int : 567 ms Atrial fibrillation. with occasional ventricular-paced complexes Left axis deviation Left bundle branch block Abnormal ECG When compared with ECG of 02-MAY-2019 19:42, (Unconfirmed) Vent. rate has increased BY 4 BPM Unconfirmed Result
[2019-05-02 20:29] LABS: BASO# 0.03 X1000 (0.0-0.2); BASO% 0.8 % (0.0-0.8); EOS# 0.07 X1000 (0.0-0.7); HEMATOCRIT 30.5 % (37.0-47.0); IMM GRAN# 0.01 X1000 (0.0-0.04); IMM GRAN% 0.3 % (0.0-0.5); LYMPH# 1.24 X1000 (1.2-3.4); LYMPH% 34.9 % (20.5-51.1); MCH 29.9 PG (27-31); MCHC 32.8 g/dL (33-37); MONO# 0.61 X1000 (0.11-0.59); MONO% 17.2 % (1.7-9.3); MPV 11.2 FL (7.4-10.4); NEUT# 1.59 X1000 (1.4-6.5); NEUT% 44.8 % (42.2-75.2); PLT 201 X1000 (130-400); RBC 3.35 XMIL (4.2-5.4); RDW 15.8 % (11.5-14.5); WBC 3.55 X1000 (4.8-10.8)
[2019-05-02 20:37] LABS: INR 1.8; PROTIME 21.8 Seconds (11.0-16.0)
[2019-05-02 20:38] LABS: PTT 36.9 Seconds (22.3-41.8)
[2019-05-02 20:44] LABS: ALBUMIN 3.5 g/dL (3.5-5.0); CALCIUM 7.6 mg/dL (8.8-10.2); CREATININE 4.4 mg/dL (0.5-0.9); POTASSIUM 3.7 mmol/L (3.5-5.1); TOTAL BILIRUBIN 0.8 mg/dL (0.20-1.00); TOTAL PROTEIN 5.6 g/dL (6.3-8.3)
[2019-05-02] MEDS ORDERED: DILAUDID IV ONE ×2 (21:41→23:51)
[2019-05-02] MEDS ORDERED: ZOFRAN IV ONE (21:41)
[2019-05-02] MEDS ORDERED: LASIX IV ONE (21:55)
--- NOTE | 2019-05-02 21:56 | Diag Imaging Result Doc PS360 ---
EXAM: CHEST-PORTABLE INDICATION: SOB TECHNIQUE: One view COMPARISON: 04/24/2019 FINDINGS: Pulmonary venous congestion has improved since the previous study. There appears to be a vague focal infiltrate in the right midlung zone. There is no discrete pleural fluid collection or pneumothorax. Cardiac silhouette is stable. IMPRESSION: Interval improvement of pulmonary venous congestion with a vague focal infiltrate in the right midlung zone. Electronically signed by Ben Bermudez 05/02/2019 9:53 PM
[2019-05-02] MEDS ORDERED: LEVAQUIN 750 MG/D5W 750 MG/150 ML IVPB IV ONE (22:00)
--- NOTE | 2019-05-02 22:05 | PROVIDER DOCUMENTATION ---
This chart was entered by Maria Alejandra Kenny Scribe, acting as scribe for Naresh Barrett MD. HPI-Respiratory General - General Chief Complaint: Shortness of Breath Stated Complaint: SHORTNESS OF BREATH Time Seen by Provider: 05/02/19 21:10 Source: patient, family Allergies/Adverse Reactions: Patient Allergies Allergy/AdvReac Type Severity Reaction Status Date / Time diltiazem Allergy Intermediate ITCHING Verified 05/02/19 20:12 morphine Allergy Unknown Unknown Verified 05/02/19 20:12 cefazolin Allergy HIVES Verified 05/02/19 20:12 ceftazidime pentahydrate * Allergy HIVES Verified 05/02/19 20:12 [From TAZICEF] hydrocodone Allergy ITCHING Verified 05/02/19 20:12 vancomycin Allergy HIVES Verified 05/02/19 20:12 Home Medications: Home Medication List Medication Instructions Recorded Confirmed Last Taken Type Sevelamer Carbonate [Renvela] 800 mg PO TID AC 09/10/15 05/02/19 04/24/19 11:00 History ATORVAstatin [Lipitor] 40 mg PO HS 07/15/16 05/02/19 04/23/19 21:00 History Sertraline HCl [Zoloft] 100 mg PO DAILY 07/15/16 05/03/19 05/02/19 09:00 History Warfarin [Coumadin] 5 mg PO QHS 02/04/17 05/02/19 02/02/17 20:00 History Omeprazole [Prilosec] 40 mg PO DAILY 04/14/19 05/02/19 04/24/19 09:00 History Quetiapine Fumarate 50 mg PO QHS 04/14/19 05/02/19 04/23/19 21:00 History Albuterol Sulfate Inhaler 2 puff INH TID #1 inhaler 04/17/19 05/02/19 04/24/19 09:00 Rx [Ventolin Hfa] Carvedilol [Coreg] 6.25 mg PO Q12H #60 tab 04/17/19 05/02/19 04/24/19 09:00 Rx Diphenhydramine [Benadryl] 25 mg PO Q4-6H PRN PRN cap 04/27/19 05/02/19 Unknown Rx Insulin Human Regular [Humulin R] 0 unit SUBQ 0700,1100,1600,2100 ml 04/27/19 05/02/19 Unknown Rx Lorazepam 1 mg PO TID PRN PRN 30 Days #40 tab 04/27/19 05/02/19 Unknown Rx Mag Hydrox/Al Hydrox/Simeth 30 ml PO Q4H PRN PRN udc 04/27/19 05/02/19 Unknown Rx [Maalox Plus Liquid] Tizanidine [Zanaflex] 4 mg PO BID PRN PRN tab 04/27/19 05/02/19 Unknown Rx Zolpidem Tartrate 10 mg PO QHS 30 Days #30 tab 04/27/19 05/02/19 Unknown Rx Tramadol HCl [Ultram] 50 mg PO Q6-8H PRN PRN 05/03/19 05/03/19 05/02/19 09:00 History - History of Present Illness-Resp Nature of Presenting Problem: pt is a 73 yr old female with history of COPD,CHF,chronic atrial fibrillation currently on coumadin,ESRD(received hemodialysis MWF), recent L3 fx and right greater trochanter fx receiving rehab at [facility] who presents by EMS with increasing shortness of breath, pt reports onset 3hr [employer], no relief with neb tx or inhaler. pt reports that right hip pain is not controlled. pt admits productive cough with yellow sputum. back and right hip pain-no relief with ultram, xanaflex. Quality of Pain: reports: aching Severity in ED: reports: severe Timing: reports: still present Modifying Factors: worse with: albuterol inhaler (no change), albuterol nebulizer (no chNGE) Associated Symptoms: reports: cough, shortness of breath. denies: chest pain/soreness, fever/chills Similar Symptoms Previously?: Yes Recently seen or treated by another doctor?: Yes Review of Systems - Adult - REVIEW OF SYSTEMS - ADULT Constitutional: denies: fever, fatique Eyes: reports: no symptoms reported Ears, Nose, Mouth & Throat: denies: ear pain, sinus problem, throat pain Cardiovascular: denies: chest pain, palpitations, syncope Respiratory: reports: cough, shortness of breath Gastrointestinal: denies: abdominal pain, diarrhea, nausea, vomiting Genitourinary: denies: dysuria, frequency, flank pain Musculoskeletal: reports: back pain, joint pain. denies: neck pain Integumentary: reports: no symptoms reported Neurological: denies: dizziness/vertigo, headache/migraines, syncope Psychiatric: reports: no symptoms reported Endocrine: reports: no symptoms reported Hematologic/Lymphatic: reports: no symptoms reported Allergic/Immunologic: reports: no symptoms reported All Other Systems: Reviewed and Negative Past History - Adult - PAST MEDICAL HISTORY-ADULT Review of Records: reports: Old Records Reviewed, Nursing Assessment Review, Medications Reviewed, Social history reviewed & non-contributory. Major Childhood Illnesses: reports: denies history Cardiovascular: reports: cardiac disease, CAD, HTN, hyperlipidemia, pacemaker Respiratory: reports: COPD Gastrointestinal: reports: denies history Obstetrical/Gynecological: reports: denies history Genitourinary: reports: dialysis, ESRD Musculoskeletal: reports: arthritis, chronic pain Neurological: reports: denies history Psychiatric: reports: denies history Endocrine/Immune: reports: cancer, Diabetes, other (Renal Failure) Other Conditions: reports: denies history - PRIOR SURGERIES/PROCEDURES Surgical/Procedure History: reports: cardiac stent, hysterectomy, tonsillectomy - PRIOR HOSPITALIZATIONS Prior Hospitalizations: reports: for similar symptoms - IMMUNIZATION STATUS Childhood Immunizations: See Nurse Assessment Flu Vaccine: See Nurse Assessment - FAMILY HISTORY Family History: reviewed, not pertinent - SOCIAL HISTORY Living Situation: care facility ([facility]) Physical Exam-General - PHYSICAL EXAM-ADULT Initial Vital Signs Reviewed: Yes - CONSTITUTIONAL General Appearance: alert, moderate distress, obese, anxious - EYES Eyes: PERRL/EOMI - HEAD, EARS, NOSE, MOUTH & THROAT HENMT: normocephalic/atraumatic, moist mucous membranes, normal ENT inspection - NECK Neck: non-tender, full range of motion, supple, normal inspection - RESPIRATORY Respiratory: chest non-tender, decreased breath sounds, rales, wheezing, increased rate - CARDIOVASCULAR Cardiovascular: normal peripheral pulses, regular rate, rhythm, no edema - GASTROINTESTINAL (ABDOMEN) Abdominal Exam: normal bowel sounds, non tender, soft - LYMPHATIC Lymphatic: no adenopathy - MUSCULOSKELETAL Back Exam: vertebral tenderness (lumbar) Extremity: tenderness (right lateral hip) - SKIN Integumentary: normal color, normal turgor, warm/dry, ecchymosis (multiple areas of bruising to arms) - NEUROLOGIC Neurologic: grossly normal, no motor/sensory deficits - PSYCHIATRIC Psych/Mental Status: anxious Progress - PLAN OF CARE/RESULTS Progress/Plan/Lab Results: Vital Signs - 8 hr 05/02/19 19:44 Temperature 97.7 F Pulse Rate 76 Respiratory Rate 24 Blood Pressure 121/59 O2 Sat by Pulse Oximetry 100 Laboratory Results - last 24 hr 05/02/19 05/02/19 05/02/19 20:02 20:02 20:02 WBC RBC Hgb Hct MCV MCH MCHC RDW Std Deviation Plt Count MPV Immature Gran % (Auto) Neut % (Auto) Lymph % (Auto) Gallia % (Auto) Eos % (Auto) Baso % (Auto) Immature Gran # (Auto) Neut # (Auto) Lymph # (Auto) Gallia # (Auto) Eos # (Auto) Baso # (Auto) PT INR PTT (Actin FS) Sodium 137 Potassium 3.7 Chloride 93 L Carbon Dioxide 28 Anion Gap 16 BUN 17 Creatinine 4.4 H Estimated GFR/1.73 m2 10 BUN/Creatinine Ratio 4 Glucose 95 Calculated Osmolality 275 Calcium 7.6 L Total Bilirubin 0.80 AST 50 H ALT 22 Alkaline Phosphatase 250 H Creatine Kinase 67 Troponin T 0.042 Mmh-X-Ilzceyysfte Pept > 23835 H Total Protein 5.6 L Albumin 3.5 Globulin 2.0 Albumin/Globulin Ratio 2.0 05/02/19 05/02/19 20:02 20:02 WBC 3.55 L RBC 3.35 L Hgb 10.0 L Hct 30.5 L MCV 91.0 MCH 29.9 MCHC 32.8 L RDW Std Deviation 15.8 H Plt Count 201 MPV 11.2 H Immature Gran % (Auto) 0.3 Neut % (Auto) 44.8 Lymph % (Auto) 34.9 Gallia % (Auto) 17.2 H Eos % (Auto) 2.0 Baso % (Auto) 0.8 Immature Gran # (Auto) 0.01 Neut # (Auto) 1.59 Lymph # (Auto) 1.24 Gallia # (Auto) 0.61 H Eos # (Auto) 0.07 Baso # (Auto) 0.03 PT 21.8 H INR 1.80 PTT (Actin FS) 36.9 Sodium Potassium Chloride Carbon Dioxide Anion Gap BUN Creatinine Estimated GFR/1.73 m2 BUN/Creatinine Ratio Glucose Calculated Osmolality Calcium Total Bilirubin AST ALT Alkaline Phosphatase Creatine Kinase Troponin T Ilv-F-Cncvghdglst Pept Total Protein Albumin Globulin Albumin/Globulin Ratio Orders Category Date Time Status Admit - [facility] Routine AdmDCTranf 05/02/19 22:55 Active Activity - Strict Bedrest ORDERED Care 05/02/19 22:55 Active Cardiac Monitoring DIRECTED Care 05/02/19 20:14 Active Oxygen Therapy- ED Nursing DIRECTED Care 05/02/19 20:14 Completed Resuscitation Status Routine Care 05/02/19 22:55 Ordered Saline Loc NOW Care 05/02/19 20:14 Completed Vital Signs Order Q 4-HR ASSESS Care 05/02/19 22:55 Active Z-Document. for Tele Applied ORDERED Care 05/02/19 22:57 Completed NPO Diet 05/02/19 22:56 Active CHEST-PORTABLE [RAD] Stat Exams 05/02/19 20:[address] THORAX W/O CONTRAST [CT] Stat Exams 05/02/19 22:53 Taken BLOOD CULTURE [BLDCUL] Stat Lab 05/02/19 23:02 Ordered CBC WITH ELECTRONIC DIFF [HEME] Stat Lab 05/02/19 20:02 Completed CK PROFILE [SP CHEM] Stat Lab 05/02/19 20:02 Completed COMPREHENSIVE METABOLIC PANEL [CHEM] Stat Lab 05/02/19 20:02 Completed PRO B-NATRIURETIC PEPTIDE Stat Lab 05/02/19 20:02 Completed PROTIME WITH INR [COAG] Stat Lab 05/02/19 20:02 Completed PTT [COAG] Stat Lab 05/02/19 20:02 Completed TROPONIN T Stat Lab 05/02/19 20:02 Completed Albuterol 2.5MG/Ipratrop 0.5MG [Duoneb (A & A)] Med 05/02/19 23:30 Active 3 ml INH RTQ4H Furosemide [Lasix] Med 05/02/19 21:55 Discontinued 60 mg IV NOW ONE Hydromorphone [Dilaudid] Med 05/02/19 21:41 Discontinued 0.5 mg IV NOW ONE Levofloxacin 750 mg/D5w [Levaquin 750 mg/D5w] Med 05/02/19 22:00 Discontinued 750 mg in 150 ml IV NOW Ondansetron [Zofran] Med 05/02/19 21:41 Discontinued 4 mg IV STAT ONE Tizanidine [Zanaflex] Med 05/02/19 23:04 Discontinued 4 mg PO NOW ONE Aerosol Treatments Routine Oth 05/02/19 22:57 Active Aerosol Treatments Stat Oth 05/02/19 22:57 Active Oxygen Device Routine Oth 05/02/19 22:56 Active Telemetry [OM.EQ] Routine Oth 05/02/19 22:55 Active EKG [EKG] Stat Ther 05/02/19 19:55 Draft Transfer/Admit Order [TRANSFER] Routine Transfer 05/02/19 22:57 Completed Result Diagrams: 05/02/19 20:02 05/02/19 20:02 - EKG 1 Time of EKG reading by physician:: 19:44 EKG Read and Signed by:: Naresh Barrett Rate: 82 Rhythm: pacemaker rhythm - XRAY 1 XRAY Study: Chest Impression: Abnormal (Signed EXAM: CHEST-PORTABLE INDICATION: SOB TECHNIQUE: One view COMPARISON: 04/24/2019 FINDINGS: Pulmonary venous congestion has improved since the previous study. There appears to be a vague focal infiltrate in the right midlung zone. There is no discrete pleural fluid collection or pneumothorax. Cardiac silhouette is stable. IMPRESSION: Interval improvement of pulmonary venous congestion with a vague focal infiltrate in the right midlung zone. Electronically signed by Ben Bermudez 05/02/2019 9:53 PM 05/02/192152 Interpreting Physician: Ben Bermudez MD Dictated Date/Time: 05/02/192151 cc: Naresh Barrett MD;) Comparison with other Films: changes noted (improvement noted from 04/24/19) - CONSULTS/PCP/HOSPITALIST Notification #1 *Consult/PCP/Hospitalist*: Dr. Garner, hospitalist at [facility] Time Discussed: 22:50 Reason/Comments: request CT of chest then admit to [facility] Departure - Departure Date of Disposition Decision: 05/02/19 Time of Disposition Decision: 23:58 DIAGNOSIS: ESRD (end stage renal disease) COPD (chronic obstructive pulmonary disease) Qualifiers: COPD type: unspecified COPD Qualified Code(s): J44.9 - Chronic obstructive pulmonary disease, unspecified CHF (congestive heart failure) Qualifiers: Heart failure type: unspecified Heart failure chronicity: acute on chronic Qualified Code(s): I50.9 - Heart failure, unspecified RML pneumonia Qualifiers: Pneumonia type: due to unspecified organism Qualified Code(s): J18.1 - Lobar pneumonia, unspecified organism Disposition: ADMITTED INPATIENT 09 Certified Medical Emergency: Emergent Condition: Stable - Critical Care Note This patient required my direct & personal management of CC.: No Attestation - Physician/ UMAIR Attestation Patient care was provided by Advanced Practice Provider:: No The physician spent face to face time with patient:: Yes Advanced Practice Provider documentation review:: Supervising physician onsite and consulted in the evaluation and care of this patient. The physician did have a face to face encounter with the patient. This chart was documented by the indicated scribe, (Maria Alejandra Kenny Scribe) and accurately reflects the services I performed and decisions made by me, Naresh Barrett MD, as attested by the provider's signature.
[2019-05-02] MEDS ORDERED: ZANAFLEX PO ONE (23:04)
[2019-05-03] MEDS: DUONEB (A & A) INH SCH ×6 (02:40→19:45)
[2019-05-03] MEDS ORDERED: ULTRAM PO PRN (02:52)
[2019-05-03] MEDS ORDERED: BENADRYL PO PRN (02:52)
[2019-05-03] MEDS ORDERED: MAALOX PLUS LIQUID PO PRN (02:52)
[2019-05-03] MEDS ORDERED: TYLENOL PO PRN (02:57)
[2019-05-03] MEDS: COREG PO SCH ×2 (03:20→18:37)
[2019-05-03] MEDS ORDERED: ZOSYN 2.25 GM in NS 50 ML IV ONE (03:53)
[2019-05-03] MEDS ORDERED: ZOSYN 0.75 GM in NS 50 ML IV SCH (04:00)
[2019-05-03] MEDS: ZYVOX 600 MG/D5W 600 MG/300 ML IVPB IV SCH ×2 (04:49→18:37)
--- NOTE | 2019-05-03 05:55 | HISTORY AND PHYSICAL ---
CHIEF COMPLAINT: Shortness of breath. HISTORY OF PRESENT ILLNESS: A 73-year-old female who comes into [facility] with shortness of breath. She was recently admitted and discharged after having a fall with multilevel compression fractures. Also believe she was treated for a pneumonia with Levaquin while she was here. She has a past medical history that includes end-stage renal disease with Thursday, Thursday, Thursday hemodialysis, hypertension, CHF and diabetes mellitus type 2. A CT scan of her chest showed small bilateral pleural effusions and a left lower lobe pneumonia. She will be admitted and treated for healthcare-acquired pneumonia. PAST MEDICAL HISTORY: See HPI. PREVIOUS SURGICAL HISTORY: Coronary bypass, pacemaker, hysterectomy, cataract surgery. ALLERGIES: Diltiazem, morphine, cefazolin, ceftazidime, vancomycin. SOCIAL HISTORY: Former smoker. States that she quit earlier last month. No alcohol or illicit drugs. Lives alone. FAMILY HISTORY: Positive for hypertension, diabetes mellitus. HOME MEDICATIONS: Humulin R 15 units at 7, 11, 16 and 2100. albuterol sulfate two puffs t.i.d., atorvastatin 40 mg p.o. nightly, carvedilol 6.25 mg p.o. q.12, Benadryl 25 mg p.o. q. 4 to 6 p.r.n., lorazepam 1 mg p.o. t.i.d. p.r.n., Maalox Plus 30 ml p.o. q 4 p.r.n., omeprazole 40 mg p.o. daily, Seroquel 50 mg p.o. nightly, sertraline 100 mg p.o. daily, Renvela 800 mg p.o. t.i.d., Zanaflex 4 mg p.o. b.i.d., Ultram 50 mg p.o. q 6-8 p.r.n., Coumadin 5 mg p.o. nightly, zolpidem tartrate 10 mg p.o. nightly. REVIEW OF SYSTEMS: Fourteen-point review of systems conducted with the patient. She continues to have back pain and pain in her hips and legs related to fall. Also the shortness of breath mentioned above. All other systems reviewed and found to be negative. PHYSICAL EXAMINATION: VITAL SIGNS: Temp 99.3, pulse 71, respirations 14, blood pressure 110/61, oxygen saturation 100% on 2 liters nasal cannula. GENERAL: A pleasant 73-year-old female lying in the ER stretcher. Answers all questions appropriately. She is alert and oriented x3. HEENT: Head is atraumatic, normocephalic. Pupils equal, round and reactive to light. Extraocular eye movement is intact. Sclerae are nonicteric. Conjunctiva is pale. Oral mucosa is moist. NECK: Supple. No JVD. No thyromegaly. Trachea is midline. No cervical lymphadenopathy. CARDIAC: S1, S2 appreciated. No murmurs, gallops or rubs. LUNGS: Crepitation is noted throughout bilateral air cornelius. No rhonchi. No wheezing. Symmetrical rise and fall with respirations. ABDOMEN: Soft, nondistended, nontender. Protuberant. Bowel sounds present in all four quadrants. No pulsatile mass. No organomegaly. EXTREMITIES: No clubbing, cyanosis or edema. Two-plus pedal pulses bilaterally. Right hip area tenderness. BACK: Lumbar spine tenderness. GENITOURINARY: No bladder distention. Otherwise deferred. SKIN: Warm, dry and intact. No acute lesions or rash. NEUROLOGICAL: Alert and oriented x3. No focal motor deficits. Otherwise nonfocal examination. DIAGNOSTIC DATA: CT of the chest shows small bilateral pleural effusions, right lower lobe pneumonia. LABORATORY DATA: WBC 3.55, hemoglobin 10, hematocrit 30.5, platelet count 201. INR 1.80. Sodium 137, potassium 3.7, chloride 93, carbon dioxide 28, BUN 17, creatinine 4.4. Glucose 95. ProBNP greater than 35,000. ASSESSMENT AND PLAN: 1. Right lower lobe pneumonia. This will be treated as a community-acquired pneumonia. The patient is allergic to multiple antibiotics. Will give Zyvox as well as renally-dosed Zosyn, DuoNebs. Blood cultures are pending. 2. Multilevel nondisplaced fractures of her lesser trochanter and right femur. Will continue home medication. 3. Multi-degenerative discs with spinal stenosis, nondisplaced fracture of the right transverse process of L3. As noted, will continue home medications of muscle relaxers. 4. End-stage renal disease with Thursday, Thursday, Thursday dialysis. Consult Dr. Lai. Monitor fluid volume. 5. Diabetes mellitus type 2. Sliding scale insulin with fingerstick blood sugars. Further recommendations per patient clinical course. Dictated by DIGNA Mancini for Jeff Garner MD cc: DIGNA Mancini MD Independent exam + for bilat. creps and wheezing R>L. Above abx regimen recommended by me based of allergy profile of the patient. MTDD
[2019-05-03] MEDS: RENAGEL PO SCH ×3 (06:20→18:37)
--- NOTE | 2019-05-03 06:36 | Diag Imaging Result Doc PS360 ---
CT THORAX W/O CONTRAST - 05/02/2019 INDICATION: sob,abnormal cxr COMPARISON: Chest x-ray 05/02/2019, chest CT 04/14/2019 FINDINGS: There is no adenopathy. There is cardiomegaly. There are CABG changes. There is severe bilateral renal atrophy. There is significant flank soft tissue edema. There is a small focal infiltrate in the superior segment of the right lower lobe. There is some hazy interstitial pulmonary edema. There is moderate COPD. There is a trace right pleural effusion. There are moderate degenerative changes of the spine. No acute or suspicious bony lesion. IMPRESSION: 1. Small focal infiltrate compatible with pneumonia in the right lower lobe. 2. Cardiomegaly. Mild interstitial pulmonary edema. Trace right pleural effusion. This exam was performed using automated exposure control, adjustment of mA or kV according to patient size, and/or use of iterative reconstruction technique Electronically signed by Nabor Gandhi 05/03/2019 6:34 AM
[2019-05-03] MEDS: HUMALOG SUBQ SCH ×4 (06:55→22:09)
[2019-05-03 07:41] LABS: INR 2.2
[2019-05-03] MEDS: VENTOLIN HFA INH SCH ×2 (09:00→16:18)
[2019-05-03] MEDS: PRILOSEC PO SCH (09:43)
[2019-05-03] MEDS: ZOLOFT PO SCH (09:44)
[2019-05-03] MEDS: ZANAFLEX PO PRN (09:50)
[2019-05-03] MEDS: ATIVAN PO PRN ×2 (09:50→15:20)
[2019-05-03] MEDS: NS 2,000 ML MISC PRN (15:15)
[2019-05-03] MEDS ORDERED: HEPARIN IV PRN (15:20)
--- NOTE | 2019-05-03 17:02 | PROGRESS NOTE ---
DATE: 05/03/2019 SUBJECTIVE: This morning Ms. Moses refers to be feeling a whole lot better. She thinks the breathing is under control. Ms. Moses was just sent from the hospital to [facility] for physical therapy for a presumed inoperable right lesser and larger trochanteric femur fracture. I understand she was doing fine. She went for dialysis yesterday and then she started eating some food and she started coughing and having some difficulty breathing. She was brought into the emergency department where she was found to have some pneumonia on imaging studies, so she was admitted. Today she feels a lot better. OBJECTIVE: Vital signs: Blood pressure is 102/41, pulse of 72, respirations 20, temperature 97.7 degrees. General: Ms. Moses is a 73-year-old female. She was getting dialysis at the time of the encounter. HEENT: Mucosa is pink and moist. Anicteric. Acyanotic. Neck: Supple. Chest: Was really clear. Cardiovascular: Regular rate and rhythm. There is an old sternotomy scar on the anterior chest wall. Abdomen: Soft. Positive edema on the lateral aspect of the abdominal wall and also the upper thighs. Extremities: No pedal edema. DIRECTOR SAFETY: Patient was awake, alert, oriented. LABORATORY DATA: From yesterday has been reviewed. ASSESSMENT: 1. Dyspnea on presentation, presumed to be pneumonia. Interestingly, patient's CT scan from yesterday compared to another scan done on April 14, 2019 shows remarkable improvement in the left lower infiltrate that she had at the time she was treated for pneumonia. There was a small right upper quadrant infiltrate. This infiltrate was there the last time and there have not been any changes. I think she will need to kind of follow up on that. I am not 100% sure if this reflects a pneumonia since it did not really change with the previous antibiotics. 2. Chronic obstructive pulmonary disease. Noted. 3. Mild fluid overload, pulmonary edema with lateral abdominal wall swelling. The patient is getting dialysis with ultrafiltration today. She normally gets dialysis on Thursday, Wednesdays, and . The patient has been evaluated by Nephrology. 4. Recently treated for inoperable nondisplaced fractures of the greater and lesser trochanters of the right femur. The patient was at rehab for this. 5. Severe pulmonary hypertension with pulmonary artery systolic pressure of 75 mmHg on recent echo. 6. Diabetes mellitus. cc: Aris Anderson MD
--- NOTE | 2019-05-03 18:00 | NEPHROLOGY CONSULTATION ---
DATE: 05/03/2019 REASON FOR ADMISSION: Increased work of breathing. REASON FOR CONSULT: Hemodialysis with assistance with medical management. CONSULTING PHYSICIAN: eJff Garner MD HISTORY OF PRESENT ILLNESS: Ms. Moses is a 73-year-old white female who is recently transferred from the [facility] to our service last week after hospitalization for right trochanteric fracture. She was admitted on 04/24 and discharged on 04/27 to rehab. The patient stated over this last several days she had increased work of breathing without improvement. The patient currently denies any chest pain continues with increased work of breathing though she states that this is just slightly better since her admission. She was treated with linezolid and Zosyn on her admission for community-acquired pneumonia in the left lower lobe. The patient is noted to have a recent fall with a multilevel compression fracture. She did state that she went to her dialysis treatment yesterday and stayed for her full entire time with an average weight gain of 2 to 3 kg between treatments. She does deny any nausea, vomiting though she has had a decreased appetite secondary to her increased work of breathing. No fever or chills. CT in the emergency room presented with small bilateral pleural effusions and left lower lobe pneumonia. She has been admitted for continued treatment with requirement for dialysis. PAST MEDICAL HISTORY: End-stage renal disease with hemodialysis on Thursday, Thursday, Thursday. Hypertension, congestive heart failure, diabetes mellitus type 2, hyperparathyroidism, anemia of chronic disease and hyperphosphatemia. Osteodystrophy of chronic disease. Atrial fibrillation with anticoagulation. PAST SURGICAL HISTORY: Coronary artery bypass, pacemaker, hysterectomy, cataract surgery, and right upper arm AV fistula. FAMILY HISTORY: Noncontributory. Negative for end-stage renal disease. SOCIAL HISTORY: She is a former smoker, quit smoking approximately 2 weeks ago. She has lived alone prior to her last hospital discharge at which time she was in rehab. No alcohol or illicit drugs present. ALLERGIES: Listed as diltiazem, morphine, cefazolin, ceftazidime and vancomycin. CURRENT MEDICATIONS: Listed as albuterol Lipitor, Coreg, Sensipar, hydralazine, levofloxacin, Zoloft, Renvela, Coumadin, and Ambien. REVIEW OF SYSTEMS: Times 10 with pertinent positives listed above in the HPI. MOST RECENT VITAL SIGNS: Temperature 99.4 degrees, blood pressure 110/61, heart rate 71, respirations 14. She is on 2 L nasal cannula. Her last recorded saturation is 100%. She has had 0 recorded in or out since her admission. LABORATORY DATA: Previous potassium of 3.7 with a previous hemoglobin of 10. Her ProTime is 25 with an INR of 2.2. PHYSICAL EXAMINATION: General: This is a 73-year-old white female resting quietly in bed. Head of the bed is elevated. She appears chronically ill. No acute distress. Skin: Warm and dry. HEENT: Normocephalic, atraumatic. Conjunctiva is pale pink. She has APOORVA. Mucous membranes are dry. Neck: Supple. Trachea midline. No evidence of JVD. Cardiovascular: She is regular rate and rhythm. No gallop appreciated. Lungs: Clear to auscultation bilaterally. Equal excursion with crepitation noted to the left lower base. No wheezing or rhonchi present. She remains on O2 support. Abdomen: Soft, nontender, positive bowel sounds. Genitourinary: Not inspected. Minimal void with dialysis assist. Extremities: Extremities have trace edema. No clubbing or cyanosis. Neurological: She is alert and oriented x3. Integumentary: The patient has an AV fistula to her right upper arm with good palpable thrill. ASSESSMENT AND PLAN: 1. Chronic kidney disease stage 5D. The patient is due for her routine dialysis treatment in the a.m. There are no indications for intervention. 2. Electrolytes and acid-base balance with correction on dialysis. 3. Anemia. This remains low but stable. 4. History of right trochanteric fracture followed by the primary care, 5. Healthcare acquired pneumonia. Patient is currently on linezolid and Zosyn. We will renally dose these. I would like to thank you for allowing us to follow with this patient. Dictated by DIGNA Schaefer for Mirza Lai MD Face to face encounter, data reviewed, discussed with Kendall Lovelace on 05/03/19. I agree with the above assessment and plan of care. cc: DIGNA Schaefer MD [facility]
[2019-05-03] MEDS: ULTRAM PO PRN (20:40)
[2019-05-03] MEDS: LIPITOR PO SCH (20:40)
[2019-05-03] MEDS: AMBIEN PO SCH (20:40)
[2019-05-03] MEDS: COUMADIN PO SCH (20:41)
[2019-05-03] MEDS: SEROQUEL PO SCH (20:41)
[2019-05-03] MEDS: ZOSYN 2.25 GM in NS 50 ML IV SCH (20:41)
[2019-05-04] MEDS: DUONEB (A & A) INH SCH ×5 (00:45→15:33)
[2019-05-04] MEDS: VENTOLIN HFA INH SCH ×3 (00:48→15:34)
[2019-05-04] MEDS: COREG PO SCH ×3 (04:30→17:03)
[2019-05-04] MEDS: ZYVOX 600 MG/D5W 600 MG/300 ML IVPB IV SCH ×2 (04:55→17:02)
[2019-05-04] MEDS ORDERED: TIGHT: 0.2 ML/HR FOR DIALYSIS MISC PRN (06:09)
[2019-05-04] MEDS ORDERED: NS 2,000 ML MISC PRN (06:09)
[2019-05-04] MEDS ORDERED: HEPARIN IV PRN (06:09)
[2019-05-04] MEDS: ZOSYN 2.25 GM in NS 50 ML IV SCH ×3 (06:11→21:09)
[2019-05-04] MEDS: RENAGEL PO SCH ×3 (06:19→17:06)
[2019-05-04] MEDS: HUMALOG SUBQ SCH ×4 (06:28→21:10)
[2019-05-04] MEDS: PRILOSEC PO SCH (09:04)
[2019-05-04] MEDS: ZOLOFT PO SCH (09:04)
[2019-05-04] MEDS: ULTRAM PO PRN ×2 (09:07→17:03)
--- NOTE | 2019-05-04 09:18 | NEPHROLOGY PROGRESS NOTE ---
DATE: 05/04/2019 TIME SEEN: 0725. SUBJECTIVE: Ms. Moses is sitting up in bed, states that she is feeling much better. She did have a short dialysis treatment yesterday for fluid volume overload. OBJECTIVE: Her most recent vital signs, temperature 98.2 degrees, blood pressure is 90/49, heart rate 95, respirations 18. She is on room air. Last recorded saturation 96%. She has had 500 in. She has had 2500 out with plan for dialysis again today. LABS: These are currently pending. Previous potassium of 3.7 with a hemoglobin of 10. PHYSICAL EXAMINATION: General: This is a 73-year-old white female resting quietly in bed. She is in no acute distress. Skin: Warm and dry. HEENT: Normocephalic, atraumatic. Conjunctivae are pale pink. She has APOORVA. Mucous membranes are dry. Neck: Supple. Trachea midline. Positive JVD. Cardiovascular: Regular rate and rhythm. No murmur or gallop appreciated. Lungs: Clear to auscultation bilaterally. Equal excursion. She is currently on room air. Abdomen: Large, round, soft, nontender. Positive bowel sounds. Genitourinary: Not inspected. Minimal void with dialysis assist. Extremities: Have trace edema. No clubbing or cyanosis. Integumentary: Patient has a fistula intact to her right upper arm, palpable thrill. Neurological: She is alert and oriented x3. ASSESSMENT AND PLAN: 1. Chronic kidney disease stage 5D. Patient is due for her routine dialysis treatment today. We will place her on a 2 K bath. She is to dialyze for 3 and a half hours. Attempt to pull patient 1 kg below her last dry weight. 2. Electrolytes, acid-base balance. These are all pending. 3. Anemia. This is stable. 4. Pneumonia. She remains on Zyvox and Zosyn. 5. Activity. The patient requires a walker. We will request PT to bring a walker to her room and assist with ambulation. I would like to thank you for allowing us to follow with this patient. Dictated by DIGNA Schaefer for Mirza Lai MD Face to face encounter, data reviewed, discussed with Kendall Lovelace on 05/04/19. I agree with the above assessment and plan of care. cc: DIGNA Schaefer MD [facility]
[2019-05-04 09:36] LABS: HEPATITIS PROFILE ACUTE SEE COMMENTS
[2019-05-04] MEDS: NS 2,000 ML MISC PRN (12:00)
[2019-05-04 14:08] LABS: BASO# 0.02 X1000 (0.0-0.2); BASO% 0.6 % (0.0-0.8); EOS# 0.14 X1000 (0.0-0.7); EOS% 4.1 % (0.0-10.0); HEMOGLOBIN 9.6 g/dL (12.0-16.0); LYMPH# 0.83 X1000 (1.2-3.4); LYMPH% 24.3 % (20.5-51.1); MCHC 33.1 g/dL (33-37); MCV 90.6 FL (81-99); MONO# 0.49 X1000 (0.11-0.59); MONO% 14.3 % (1.7-9.3); MPV 10.8 FL (7.4-10.4); NEUT# 1.94 X1000 (1.4-6.5); NEUT% 56.7 % (42.2-75.2); PLT 146 X1000 (130-400); RDW 15.4 % (11.5-14.5); WBC 3.42 X1000 (4.8-10.8)
[2019-05-04 14:13] LABS: INR 2.08; PROTIME 23.9 Seconds (11.0-16.0)
[2019-05-04 14:28] LABS: CALCIUM 8.1 mg/dL (8.8-10.2); CREATININE 2.3 mg/dL (0.5-0.9); POTASSIUM 3.1 mmol/L (3.5-5.1)
--- NOTE | 2019-05-04 16:01 | PROGRESS NOTE ---
DATE: 05/04/2019 SUBJECTIVE: This morning today Ms. Moses refers to be doing a whole lot better. According to her, the breathing has significantly improved. OBJECTIVE: Vital signs: Blood pressure is 124/66, pulse of 92, respiration is 18, temperature 97.7 degrees. General: Ms. Moses is a 73-year-old female. She is in bed, in no distress. She was getting dialysis at the time of the encounter. Chest: Good air entry bilaterally. No crepitations. No rhonchi. Cardiovascular: Regular rate and rhythm. There is an old sternotomy scar on the anterior chest wall. Gastrointestinal: Abdomen is soft. Minimal edema on the lateral aspect of the abdominal wall as well as the upper thighs. Extremities: No pedal edema. Central Nervous System: Patient is awake, alert, and oriented. DIAGNOSTIC STUDIES: WBC is 3.43, hemoglobin is 9.6, platelet count 146,000. Chemistry is also reviewed, potassium is 3.1, rest of chemistry consistent with renal failure. No imaging studies today. MEDICATIONS: Have all been reviewed. The patient continues to be on Zosyn and Zyvox. Today is day 1. ASSESSMENT: 1. Dyspnea on presentation. Presumed to be pneumonia. The patient is feeling better. 2. Fluid overload manifested by pulmonary edema and lateral abdominal wall edema. The patient is getting ultrafiltration through dialysis. 3. Chronic obstructive pulmonary disease. Not in exacerbation. 4. Severe pulmonary hypertension with pulmonary artery systolic pressure of 75 mmHg on recent echo. 5. Diabetes mellitus, controlled. 6. Endstage renal disease, on hemodialysis Mondays, Wednesdays, and Fridays. 7. Inoperable nondisplaced fracture of the greater and lesser trochanter of the right femur. The patient was evaluated recently by Orthopedics. Their recommendation was physical therapy. In general, I think Ms. Moses is doing a lot better. She seems to have fluid overload which is being managed with ultrafiltration and questionable pneumonia for which she is also on antimicrobial therapy. We are going to continue with this for today. We will re-evaluate her tomorrow. I think if it is okay with Nephrology, Ms. Moses can be sent back to rehabilitation tomorrow. cc: Aris Anderson MD
[2019-05-04] MEDS: ATIVAN PO PRN (17:10)
[2019-05-04] MEDS: ZANAFLEX PO PRN (18:12)
--- NOTE | 2019-05-04 21:02 | Diag Imaging Result Doc PS360 ---
EXAM: US RENAL 2 (RETROPER) COMPLETE 05/04/2019 HISTORY: evaluate renal status/dialysis patient TECHNIQUE: Renal ultrasound COMMENT: The urinary bladder is not particularly distended. The kidneys are markedly atrophic and hyperechoic measuring 7.5 x 4.1 x 3.8 cm on the right, and 9.3 x 4.4 x 4.4 cm on the left. There is a cyst in the left kidney measuring 1.5 cm. Compared to the previous study of 06/06/2016 the right kidney has not changed significantly in appearance. IMPRESSION: Renal atrophy. Medical renal disease. Electronically signed by Darian Vasques 05/04/2019 9:00 PM
[2019-05-04] MEDS: LIPITOR PO SCH (21:10)
[2019-05-04] MEDS: COUMADIN PO SCH (21:10)
[2019-05-04] MEDS: SEROQUEL PO SCH (21:10)
[2019-05-04] MEDS: AMBIEN PO SCH (21:10)
[2019-05-05] MEDS: VENTOLIN HFA INH SCH ×3 (02:26→15:11)
[2019-05-05] MEDS: DUONEB (A & A) INH SCH ×5 (02:26→15:11)
[2019-05-05] MEDS: COREG PO SCH (04:14)
[2019-05-05] MEDS: ZYVOX 600 MG/D5W 600 MG/300 ML IVPB IV SCH (04:59)
[2019-05-05] MEDS: HUMALOG SUBQ SCH ×2 (06:10→11:00)
[2019-05-05] MEDS: RENAGEL PO SCH (06:41)
[2019-05-05] MEDS: PRILOSEC PO SCH ×2 (06:45→09:23)
--- NOTE | 2019-05-05 07:18 | Diag Imaging Result Doc PS360 ---
EXAM: CHEST-PORTABLE 05/05/2019 HISTORY: dyspnea TECHNIQUE: AP portable at 0558 COMMENT: There is cardiomegaly. There is increased interstitial markings. There is an ill-defined alveolar opacity in the mid lower right lung field which was also present on 05/02/2019. Some increase in opacity in the medial left lower lobe retrocardiac region is present compared to the previous study. IMPRESSION: Cardiomegaly and mild pulmonary edema. Stable opacity in the right lung. Worsened atelectasis versus pneumonia left lower lobe. Electronically signed by Darian Vasques 05/05/2019 7:16 AM
[2019-05-05] MEDS: ZOSYN 2.25 GM in NS 50 ML IV SCH (08:01)
[2019-05-05] MEDS: ZOLOFT PO SCH (09:23)
[2019-05-05] MEDS: ULTRAM PO PRN ×2 (09:26→15:15)
[2019-05-05 11:16] LABS: INR 1.78; PROTIME 21.1 Seconds (11.0-16.0)
[2019-05-05 12:20] VITALS: BP 96/55
--- NOTE | 2019-05-05 14:54 | DISCHARGE SUMMARY ---
ADMISSION DATE: 05/02/2019 DISCHARGE DATE: 05/05/2019 DISPOSITION: Back to the [facility]. FOLLOW UP: 1. Dr. Galvin. 2. Dr. Lai. CONSULTATION DURING THIS ADMISSION: Nephrology was consulted. Patient was seen by Dr. Lai. INVASIVE PROCEDURES DONE DURING THIS ADMISSION: None. IMAGING STUDIES OF SIGNIFICANCE: 1. A chest x-ray did show improvement of pulmonary venous congestion. Vague focal infiltrates in the right mid zone. 2. A CT scan of the chest shows small focal infiltrate compatible with pneumonia in the right lower lobe, cardiomegaly. 3. Ultrasound showed renal atrophy. 4. A chest x-ray shows stable opacity in the right lung, worsened atelectasis versus pneumonia in the left lower lobe. ADMISSION DIAGNOSES: 1. Right lower lobe pneumonia. Multilevel nondisplaced fracture of the lesser trochanter and right femur. Degenerative disk. 1. Diabetes mellitus. DIAGNOSES AT THE TIME OF DISCHARGE: 1. Dyspnea on presentation secondary to a combination of pneumonia and pulmonary edema. 2. Right lower lobe pneumonia, improved. 3. Fluid overload manifested by pulmonary edema and lateral abdominal wall edema. The patient got ultrafiltration and feels a lot better now. 4. Chronic obstructive pulmonary disease, not in exacerbation. 5. Severe pulmonary hypertension with pulmonary artery systolic pressure of 75 mmHg on recent echo. 6. Diabetes mellitus, controlled. 7. Endstage renal disease on hemodialysis Thursday, Thursday, and Thursday. 8. Inoperable nondisplaced fracture of the greater and lesser trochanter of the right femur. The patient was evaluated during the last hospitalization by Orthopedics. Recommendation to continue physical therapy. DISCHARGE MEDICATIONS: 1. Sevelamer 800 mg 3 times per day. 2. Lipitor 40 mg p.o. at bedtime. 3. Zoloft 100 mg p.o. daily. 4. Coumadin 5 mg p.o. at bedtime. 5. Omeprazole 40 mg p.o. daily. 6. Quetiapine 50 mg p.o. at bedtime. 7. Carvedilol 6.25 p.o. q.12. 8. Amoxicillin potassium clavulanic acid 875 b.i.d. 9. Ativan 1 mg 3 times per day p.r.n. PRESENTING COMPLAINT: Shortness of breath. HISTORY OF PRESENTING COMPLAINT: Ms. Moses is a 73-year-old female with a history of end-stage renal disease, diastolic heart failure, hypertension, came to the emergency department because of acute onset of shortness of breath. CAT scan did show some small bilateral pleural effusions and left lower lobe pneumonia. Patient was subsequently admitted for management. HOSPITAL COURSE: Ms. Moses was admitted to the medical floor. Was started on broad-spectrum IV antibiotics. She never had any fever and her white cell count was normal. The patient was also found to have fluid overload with edema and pulmonary edema. She was dialyzed 2 days in a row. She became negative balance of 3,780. This morning she feels a whole lot better and we think she will be okay going back to the rehab. We will switch her antibiotics to oral for a total of 7 days. She will also continue with her home medications. All of the discharge instructions have been discussed with her and she voiced understanding. At the time of the encounter Ms. Moses's vitals, blood pressure was 107/56, pulse of 89, respirations 16, temperature is 98.6 degrees. She was saturating 99% on room air. TIME SPENT FOR DISCHARGE: Thirty-seven minutes. cc: MD Irwin Rodrigues MD Reginald D. Gladish, MD
--- NOTE | 2019-05-05 20:04 | NEPHROLOGY PROGRESS NOTE ---
DATE: 05/05/2019 DATE AND TIME SEEN: On 05/05/2019 at 0620 hours. SUBJECTIVE: Ms. Moses is sitting up in bed. States that she is feeling much better. She has been up with a walker with physical therapy, felt that she is doing well and sat in a chair yesterday. OBJECTIVE: Her most recent vital signs, last temperature 98.7 degrees, blood pressure 103/46, heart rate 68, respirations 18. She is on room air, last recorded saturation 98%. She has had 820 input and she has had 3 liters removed on dialysis yesterday. LABORATORY DATA: Sodium 136, potassium 3.1, chloride 97, CO2 of 28, BUN 10, creatinine 2.3, glucose of 136 yesterday. Previous hemoglobin of 9.6. PHYSICAL EXAMINATION: General: This is a 73-year-old white female resting quietly in bed. She appears chronically ill, in no acute distress. Skin: Warm and dry. HEENT: Normocephalic, atraumatic. Conjunctivae pale. She has APOORVA. Mucous membranes are dry. Neck: Supple. Trachea midline. No JVD today. Cardiovascular: Regular rate and rhythm. No murmur or gallop. Lungs: Clear to auscultation bilaterally. Equal excursion on room air. Abdomen: Soft, large, round, nontender. Positive bowel sounds. Genitourinary: Not inspected. Minimal void with dialysis assist. Extremities: Edema has improved. No edema present in the lower extremity or hip region. Integumentary: Fistula intact to her right upper arm, palpable thrill. Neurological: She is alert and oriented x3. ASSESSMENT AND PLAN: 1. Chronic kidney disease stage 5D. The patient had dialysis for 2 days in a row to assist with her fluid volume overload and swelling. We will plan for dialysis again in the morning. 2. Electrolytes and acid-base balance. These are acceptable on yesterday's labs. 3. Anemia. This remains stable. 4. Pneumonia. Continues to be treated by the Primary Care with IV antibiotics. I would like to thank you for allowing us to follow with this patient. Dictated by DIGNA Schaefer for Mirza Lai MD Face to face encounter, data reviewed, discussed with Kendall Lovelace on 05/06/19. I agree with the above assessment and plan of care. cc: DIGNA Schaefer MD [facility]
== END 2019-05-05 15:49 | DRG 193 ==
LOC: 1N 19:54 → P.ED 19:54 → OBSVTOIN 23:12 → SUATTDRO 23:12 → 1N 05-05 08:55
PROVIDERS: ATTEND Internal Medicine

== ENCOUNTER 2019-05-11 12:59 | Inpatient (IN) ==
[2019-05-11] MEDS ORDERED: DEMEROL IM ONE (14:27)
[2019-05-11] MEDS ORDERED: ZOFRAN ODT PO ONE (14:27)
--- NOTE | 2019-05-11 15:09 | Diag Imaging Result Doc PS360 ---
EXAM: CT HEAD/C-SPINE W/O CONTRAST 05/11/2019 HISTORY: head injury TECHNIQUE: This exam was performed using automated exposure control, adjustment of mA or kV according to patient size, and/or use of iterative reconstruction technique. COMMENT: Head: There is no evidence of mass effect, bleed, or abnormal extra-axial fluid collection. There are some calcifications in the left vertebral artery and both internal carotid arteries. Compared to 12/07/2018 the appearance the brain has not changed significantly. The paranasal sinuses are clear. The calvarium is intact. Cervical spine: There is degenerative disc disease at C4-5, C5-6, and C6-7 with posterior osteophyte formation. There is no evidence of acute fracture or subluxation. No prevertebral soft tissue swelling is present. The facets appear to be aligned. IMPRESSION: No evidence of acute intracranial disease. Degenerative disc disease in the cervical spine. Electronically signed by Darian Vasques 05/11/2019 3:06 PM
--- NOTE | 2019-05-11 15:12 | Diag Imaging Result Doc PS360 ---
EXAM: TRAUMA SHOULDER RIGHT 05/11/2019 HISTORY: fall, shoulder pain TECHNIQUE: Right shoulder three views COMMENT: There is degenerative change in the acromioclavicular and glenohumeral joints. There is no evidence of acute fracture or dislocation. IMPRESSION: Osteoarthritis. Electronically signed by Darian Vasques 05/11/2019 3:10 PM
--- NOTE | 2019-05-11 15:14 | Diag Imaging Result Doc PS360 ---
EXAM: TRAUMA SHOULDER LEFT 05/11/2019 HISTORY: shoulder pain, fall TECHNIQUE: Left shoulder three views COMMENT: There are degenerative changes in the acromioclavicular and glenohumeral joints. There is some displacement of the humeral head superiorly within the glenohumeral joint particularly compared to 02/04/2017. The possibility of rotator cuff tear cannot be excluded. IMPRESSION: Severe osteoarthritis with possible rotator cuff tear. No evidence of acute fracture or dislocation. Electronically signed by Darian Vasques 05/11/2019 3:12 PM
--- NOTE | 2019-05-11 15:19 | PROVIDER DOCUMENTATION ---
This chart was entered by Jacki Corea Scribe, acting as scribe for Jannette Mckoy MD. HPI-Musculoskeletal Pain/Inj <ArnoldNaresh GradyLayne - Last Filed: 05/11/19 20:33> - GENERAL Source: patient, family, EMS - HX OF PRESENT ILLNESS-MUSKULOSKELTAL Quality of Pain: reports: aching Severity in ED: moderate Onset/Duration: this afternoon Timing: still present Modifying Factors: improves with: immobilization. worse with: movement, palpation Any recent injury?: Yes Locality of Occurance: Other (SNF for rehab) Similar Symptoms Previously?: No Recently seen or treated by another doctor?: Yes (recent hip sx) - FALL INJURY Location of Pain/Injury: reports: head (occipital), other (bilateral shoulder) Reason for Fall: reports: slipped Symptoms prior to fall:: reports: none Loss of Consciousness: no loss of consciousness Injury Associated Symptoms: reports: headaches, joint pain (bilateral shoulder pain). denies: back/neck pain, chest pain, dizziness, nausea, snap/crack/pop sensation, unable to bear weight, vomiting, weakness - UPPER EXTREMITY PAIN/INJURY Extremities Pain Location: shoulder: bilateral (R>L) Context / Method of Injury: reports: fell Associated Symptoms: reports: denies symptoms <Jannette Mckoy - Last Filed: 05/12/19 11:13> - GENERAL Stated Complaint: fall Time Seen by Provider: 05/11/19 13:02 - HX OF PRESENT ILLNESS-MUSKULOSKELTAL Nature of Presenting Problem: 73 yowf presents to the ed with c/o recent fall while in rehab and c/o VELEZ and bilateral shoulder pain. pt sts she was standing up from her wheelchair when she slipped and fell hitting occipital head and rt shoulder. pt has hematoma to occipital head with puncture wound bleeding controlled. pt has chronic pain in shoulders but sts since fall pain is worse and R>L. (Jannette Mckoy) Review of Systems - Adult - REVIEW OF SYSTEMS - ADULT Constitutional: denies: chills, fever Eyes: denies: blurred vision, double vision Ears, Nose, Mouth & Throat: reports: no symptoms reported Cardiovascular: denies: chest pain, palpitations Respiratory: denies: shortness of breath, wheezing Gastrointestinal: denies: diarrhea, nausea, vomiting Genitourinary: reports: no symptoms reported Musculoskeletal: reports: see HPI, joint pain (bilateral shoulder pain R>L). denies: back pain, neck pain Integumentary: reports: no symptoms reported Neurological: reports: see HPI, headache/migraines (occiptal). denies: ataxia, dizziness/vertigo, seizure, slurred speech, syncope, tremors Psychiatric: reports: no symptoms reported Endocrine: reports: no symptoms reported Hematologic/Lymphatic: reports: see HPI, easy bruising Allergic/Immunologic: reports: no symptoms reported All Other Systems: Reviewed and Negative <Jannette Mckoy - Last Filed: 05/12/19 11:13> Past History - Adult - PAST MEDICAL HISTORY-ADULT Review of Records: reports: Old Records Reviewed, Nursing Assessment Review, Medications Reviewed, Social history reviewed & non-contributory. Major Childhood Illnesses: reports: denies history Cardiovascular: reports: cardiac disease, CAD, HTN, hyperlipidemia, pacemaker Respiratory: reports: COPD Gastrointestinal: reports: denies history Obstetrical/Gynecological: reports: denies history Genitourinary: reports: dialysis, ESRD Musculoskeletal: reports: arthritis, chronic pain Hand Dominance: Right Handed Neurological: reports: denies history Psychiatric: reports: denies history Endocrine/Immune: reports: cancer, Diabetes, other (Renal Failure) Other Conditions: reports: denies history - PRIOR SURGERIES/PROCEDURES Surgical/Procedure History: reports: recent surgery, cardiac stent, hysterectomy , tonsillectomy, joint replacement - PRIOR HOSPITALIZATIONS Prior Hospitalizations: reports: for similar symptoms - IMMUNIZATION STATUS Childhood Immunizations: See Nurse Assessment Flu Vaccine: See Nurse Assessment - FAMILY HISTORY Family History: reviewed, not pertinent - SOCIAL HISTORY Smoking: quit less than 1 year Substance Use: denies Living Situation: care facility (for rehab) <Jannette Mckoy - Last Filed: 05/12/19 11:13> Physical Exam-Injury Related - Physical Exam-Injury Related Initial Vital Signs Reviewed: Yes General Appearance: alert, mild distress Eyes: PERRL/EOMI, pink conjunctivae Head, Ears, Nose, Mouth & Throat: moist mucous membranes Neck: non-tender, full range of motion, normal inspection Respiratory: chest non-tender, lungs clear, normal breath sounds Cardiovascular: normal peripheral pulses, regular rate, rhythm Chest/Breast: deferred Abdominal Exam: normal bowel sounds, non tender, soft Female Genitalia/Pelvic Exam: deferred Rectal Exam: deferred Hemoccult Exam: deferred Lymphatic: no adenopathy Back Exam: no CVA tenderness, no vertebral tenderness Extremity: normal capillary refill, pelvis stable, erythema (BUE), tenderness (bilateral shoulders), other (rt arm dialysis fistula) Integumentary: warm/dry, erythema (BUE), tenderness (occipital head), puncture wound(s) (occipital head with hematoma, bleeding controlled) Neurologic: grossly normal Psych/Mental Status: normal mood/affect, normal thought content, normal thought process, oriented x 3 - Glascow Coma Score Best Eye Response (Gino): (4) open spontaneously Best Verbal Response (Gino): (5) oriented Best Motor Response (Gino): (6) obeys commands Gino Total: 15 <Jannette Mckoy - Last Filed: 05/12/19 11:13> Progress - PLAN OF CARE/RESULTS Result Diagrams: 05/11/19 17:06 05/11/19 17:06 - REASSESSMENT Reassessment #3 Time Reassessed: 19:30 Status: improving Reassessment Comment: resting comfortably, awaiting recommendations of clinical appeals rn supervisor alteration workroom - CONSULTS/PCP/HOSPITALIST Notification Time Discussed: 20:30 <Naresh Barrett - Last Filed: 05/11/19 20:33> - PLAN OF CARE/RESULTS Result Diagrams: 05/12/19 06:58 05/12/19 06:58 - REASSESSMENT Reassessment #1 Time Reassessed: 14:33 (pt is resting in bed) Status: improving Reassessment Comment: dr mckoy at bedside Reassessment #2 Time Reassessed: 17:03 (had a run of vtach and dr mckoy is aware) Reassessment Comment: dr mckoy at bedside - EKG 1 Time of EKG reading by physician:: 17:16 EKG Read and Signed by:: Jannette Mckoy EKG Interpretation (*Must complete 3 of following elements*): Abnormal Rate: 113 Rhythm: afib with rvr [place]: left (axis deviation) QRS: LBB FL Interval: normal ST Wave: normal - XRAY 1 XRAY: Left XRAY Study: Shoulder Impression: See EMR Report (EXAM: TRAUMA SHOULDER LEFT 05/11/2019 HISTORY: shoulder pain, fall TECHNIQUE: Left shoulder three views COMMENT: There are degenerative changes in the acromioclavicular and glenohumeral joints. There is some displacement of the humeral head superiorly within the glenohumeral joint particularly compared to 02/04/2017. The possibility of rotator cuff tear cannot be excluded. IMPRESSION: Severe osteoarthritis with possible rotator cuff tear. No evidence of acute fracture or dislocation. Electronically signed by Darian Vasques 05/11/2019 3:12 PM 05/11/19 1512 Interpreting Physician: Darian Vasques MD Dictated Date/Time: 05/11/19 1510 cc: Jannette Mckoy MD; Irwin Galvin MD) 2 XRAY: Right XRAY Study: Shoulder Impression: See EMR Report (EXAM: TRAUMA SHOULDER RIGHT 05/11/2019 HISTORY: fall, shoulder pain TECHNIQUE: Right shoulder three views COMMENT: There is degenerative change in the acromioclavicular and glenohumeral joints. There is no evidence of acute fracture or dislocation. IMPRESSION: Osteoarthritis. Electronically signed by Darian Vasques 05/11/2019 3:10 PM 05/11/19 1510 Interpreting Physician: Darian Vasques MD Dictated Date/Time: 05/11/19 1510 cc: Jannette Mckoy MD; Irwin Galvin MD) 3 XRAY: Bilateral XRAY Study: Chest Impression: See EMR Report (EXAM: CHEST-1 VIEW 05/11/2019 HISTORY: recent dianosis of pneumonia TECHNIQUE: AP portable semiupright chest at 1631 COMMENT: There is cardiomegaly. The opacity which was previously demonstrated in the right lower midlung has diminished. There is also some apparent clearing of the retrocardiac left lower lobe compared to 05/05/2019. IMPRESSION: Improved bilateral pneumonia. Electronically signed by Darian Vasques 05/11/2019 4:36 PM 05/11/19 1636 Interpreting Physician: Darian Vasques MD Dictated D ate/Time: 05/11/19 1635 cc: Jannette Mckoy MD; Irwin Galvin MD) - CT/MRI 1 CT Study: Cervical Spine, Head Impression: See EMR Report (EXAM: CT HEAD/C-SPINE W/O CONTRAST 05/11/2019 HISTORY: head injury TECHNIQUE: This exam was performed using automated exposure control, adjustment of mA or kV according to patient size, and/or use of iterative reconstruction technique. COMMENT: Head: There is no evidence of mass effect, bleed, or abnormal extra-axial fluid collection. There are some calcifications in the left vertebral artery and both internal carotid arteries. Compared to 12/07/2018 the appearance the brain has not changed significantly. The paranasal sinuses are clear. The calvarium is intact. Cervical spine: There is degenerative disc disease at C4-5, C5-6, and C6-7 with posterior osteophyte formation. There is no evidence of acute fracture or subluxation. No prevertebral soft tissue swelling is present. The facets appear to be aligned. IMPRESSION: No evidence of acute intracranial disease. Degenerative disc disease in the cervical spine. Electronically signed by Darian Vasques 05/11/2019 3:06 PM 05/11/19 1506 Interpreting Physician: Darian Vasques MD Dictated Date/Time: 05/11/19 1507 cc: Jannette Mckoy MD; Irwin Galvin MD) - CONSULTS/PCP/HOSPITALIST Notification #1 *Consult/PCP/Hospitalist*: dr wilson Time Discussed: 15:37 (dr wilson sts pt is good to retuurn to rehab and have normal dialysis tomorrow as scheduled) Reason/Comments: phone consult #2 Consult: dr wilson Time Discussed: 17:52 (dr wilson sts pt can be admitted overnight to hospiatlist) Reason/Comments: phone consult #3 Consult: hospitalist Consult Disposition: Admit - CHANGE OF SHIFT REPORT (ED Provider) 1 Report Given and Care Transferred to:: Dr Barrett Time of Transfer: 19:00 Items Pending: Other <Jannette Mckoy - Last Filed: 05/12/19 11:13> - PLAN OF CARE/RESULTS Progress/Plan/Lab Results: Laboratory Results - last 24 hr 05/11/19 05/11/19 05/11/19 17:06 17:06 17:06 WBC RBC Hgb Hct MCV MCH MCHC RDW Std Deviation Plt Count MPV Immature Gran % (Auto) Neut % (Auto) Lymph % (Auto) [place] % (Auto) Eos % (Auto) Baso % (Auto) Immature Gran # (Auto) Neut # (Auto) Lymph # (Auto) [place] # (Auto) Eos # (Auto) Baso # (Auto) Sodium 131 L Potassium 3.9 Chloride 94 L Carbon Dioxide 23 L Anion Gap 14 BUN 23 H Creatinine 6.3 H Estimated GFR/1.73 m2 7 BUN/Creatinine Ratio 4 Glucose 105 H Calculated Osmolality 267 Calcium 8.3 L Magnesium 1.8 Total Bilirubin 0.75 AST 24 ALT 12 Alkaline Phosphatase 197 H Troponin T 0.041 Total Protein 6.1 L Albumin 3.2 L Globulin 2.9 Albumin/Globulin Ratio 1.1 TSH 05/11/19 05/11/19 17:06 17:06 WBC 5.14 RBC 3.30 L Hgb 9.8 L Hct 29.9 L MCV 90.6 MCH 29.7 MCHC 32.8 L RDW Std Deviation 15.2 H Plt Count 113 L MPV 11.3 H Immature Gran % (Auto) 0.0 Neut % (Auto) 53.5 Lymph % (Auto) 23.3 [place] % (Auto) 17.7 H Eos % (Auto) 4.7 Baso % (Auto) 0.8 Immature Gran # (Auto) 0.00 Neut # (Auto) 2.75 Lymph # (Auto) 1.20 [place] # (Auto) 0.91 H Eos # (Auto) 0.24 Baso # (Auto) 0.04 Sodium Potassium Chloride Carbon Dioxide Anion Gap BUN Creatinine Estimated GFR/1.73 m2 BUN/Creatinine Ratio Glucose Calculated Osmolality Calcium Magnesium Total Bilirubin AST ALT Alkaline Phosphatase Troponin T Total Protein Albumin Globulin Albumin/Globulin Ratio TSH 3.83 Orders Category Date Time Status Admit - [facility] Routine AdmDCTranf 05/11/19 21:07 Active Activity - Bed Rest with BRP ORDERED Care 05/11/19 21:07 Active Nursing- MD Consult Request ROUTINE Care 05/11/19 22:52 Active Nursing- Obtain EKG ONCE Care 05/11/19 17:01 Active Saline Loc DIRECTED Care 05/11/19 21:07 Completed Vital Signs Order Q 8-HR .ASSESS Care 05/11/19 21:07 Active Z-Document. for Tele Applied ORDERED Care 05/11/19 21:09 Completed Physician/Provider Consults Routine Cons 05/12/19 07:00 Ordered Physician/Provider Consults Routine Cons 05/12/19 07:30 Ordered Physician/Provider Consults Routine Cons 05/12/19 08:00 Ordered Diabetic Diet Diet 05/11/19 21:09 Active CHEST-1 VIEW [RAD] Stat Exams 05/11/19 16:[address] HEAD/C-SPINE W/O CONTRAST [CT] Stat Exams 05/11/19 14:23 Completed LUMBAR SPINE 2-VIEWS [RAD] Stat Exams 05/11/19 19:46 Completed TRAUMA SHOULDER LEFT [RAD] Stat Exams 05/11/19 14:25 Completed TRAUMA SHOULDER RIGHT [RAD] Stat Exams 05/11/19 14:25 Completed BASIC METABOLIC PANEL [CHEM] Routine Lab 05/12/19 06:58 Completed CBC WITH DIFF [HEME] Stat Lab 05/11/19 17:06 Completed CBC WITH ELECTRONIC DIFF [HEME] Routine Lab 05/12/19 06:58 Completed COMPREHENSIVE METABOLIC PANEL [CHEM] Stat Lab 05/11/19 17:06 Completed MAGNESIUM [CHEM] Stat Lab 05/11/19 17:06 Completed PROTIME WITH INR [COAG] Routine Lab 05/12/19 06:58 Completed TROPONIN T Stat Lab 05/11/19 17:06 Completed TSH Stat Lab 05/11/19 17:06 Completed Acetaminophen [Tylenol] Med 05/11/19 21:07 Active 650 mg PO Q6H PRN PRN Meperidine [Demerol] Med 05/11/19 14:27 Discontinued 25 mg IM NOW ONE Meperidine [Demerol] Med 05/11/19 21:37 Discontinued 25 mg IV NOW ONE Ondansetron Odt [Zofran Odt] Med 05/11/19 14:27 Discontinued 8 mg PO NOW ONE Telemetry [OM.EQ] Routine Oth 05/11/19 21:07 Active EKG [EKG] Routine Ther 05/12/19 06:00 Completed EKG [EKG] Stat Ther 05/11/19 17:01 Draft Transfer/Admit Order [TRANSFER] Routine Transfer 05/11/19 21:[address] Akshat Mustafa, clinical appeals rn, concerning abnormal rhythm strip. sent strip recording to Dr. Akshat Mustafa for review Patient now complains of lower back pain since fall, lumbar xrays ordered Dr. Akshat Mustafa called back after reviewing rhythm strip, rhythm strip appears to be represent artifact, admit for observation, no treatment recommended at this time (Naresh Barrett) Departure <Naresh Barrett - Last Filed: 05/11/19 20:33> - Departure Date of Disposition Decision: 05/11/19 Time of Disposition Decision: 18:10 Certified Medical Emergency: Emergent - Critical Care Note This patient required my direct & personal management of CC.: Yes Total Time (mins): 31 Critical Care Statement: This patient required my direct personal management to treat or rule out processes, the absence of which, could potentiallly result in sudden, clinically significant life or limb threatening deterioration. <Jannette Mckoy - Last Filed: 05/12/19 11:13> - Departure DIAGNOSIS: Atrial flutter, Ventricular tachycardia Disposition: ADMITTED INPATIENT 09 Condition: Critical Attestation - Physician/ UMAIR Attestation Patient care was provided by Advanced Practice Provider:: No The physician spent face to face time with patient:: Yes Advanced Practice Provider documentation review:: Supervising physician onsite and consulted in the evaluation and care of this patient. The physician did have a face to face encounter with the patient. <Jannette Mckoy - Last Filed: 05/12/19 11:13> This chart was documented by the indicated scribe, (Jacki Corea Scribe) and accurately reflects the services I performed and decisions made by me, Geronimo Mckoy i, MD, as attested by the provider's signature.
--- NOTE | 2019-05-11 16:39 | Diag Imaging Result Doc PS360 ---
EXAM: CHEST-1 VIEW 05/11/2019 HISTORY: recent dianosis of pneumonia TECHNIQUE: AP portable semiupright chest at 1631 COMMENT: There is cardiomegaly. The opacity which was previously demonstrated in the right lower midlung has diminished. There is also some apparent clearing of the retrocardiac left lower lobe compared to 05/05/2019. IMPRESSION: Improved bilateral pneumonia. Electronically signed by Darian Vasques 05/11/2019 4:36 PM
--- NOTE | 2019-05-11 17:22 | EKG Report ---
Test Performed on : 05/11/2019 5:16:54 PM Test Reason : abn telemetry Blood Pressure : / mmHG Vent. Rate : 113 BPM Atrial Rate : 108 BPM P-R Int : 000 ms QRS Dur : 164 ms QT Int : 420 ms P-R-T Axes : 000 -40 138 degrees QTc Int : 576 ms Atrial fibrillation. with rapid ventricular response. Left axis deviation Left bundle branch block Abnormal ECG When compared with ECG of 02-MAY-2019 19:43, (Unconfirmed) Atrial fibrillation. has replaced Electronic ventricular pacemaker Unconfirmed Result
[2019-05-11 17:36] LABS: ALB/GLOB RATIO 1.1; ALBUMIN 3.2 g/dL (3.5-5.0); CALCIUM 8.3 mg/dL (8.8-10.2); POTASSIUM 3.9 mmol/L (3.5-5.1); TOTAL BILIRUBIN 0.75 mg/dL (0.20-1.00); TOTAL PROTEIN 6.1 g/dL (6.3-8.3)
[2019-05-11 18:04] LABS: CREATININE 6.3 mg/dL (0.5-0.9)
--- NOTE | 2019-05-11 20:41 | Diag Imaging Result Doc PS360 ---
EXAM: LUMBAR SPINE 2-VIEWS 05/11/2019 HISTORY: fall,lower back pain TECHNIQUE: Lumbosacral spine two views COMMENT: There is severe degenerative change at the L to three disc space with sclerosis of the endplates, loss of height of the disc space and vacuum disc phenomenon as well as some anterior and posterior osteophyte formation. There is no evidence of fracture or subluxation. IMPRESSION: Severe degenerative disc disease at L2-3. Electronically signed by Darian Vasques 05/11/2019 8:39 PM
[2019-05-11] MEDS ORDERED: ZOFRAN IV PRN (21:07)
[2019-05-11] MEDS ORDERED: TYLENOL PO PRN (21:07)
[2019-05-11 21:13] LABS: BASO# 0.04 X1000 (0.0-0.2); BASO% 0.8 % (0.0-0.8); EOS# 0.24 X1000 (0.0-0.7); EOS% 4.7 % (0.0-10.0); HEMATOCRIT 29.9 % (37.0-47.0); HEMOGLOBIN 9.8 g/dL (12.0-16.0); LYMPH% 23.3 % (20.5-51.1); MCH 29.7 PG (27-31); MCHC 32.8 g/dL (33-37); MCV 90.6 FL (81-99); MONO# 0.91 X1000 (0.11-0.59); MONO% 17.7 % (1.7-9.3); MPV 11.3 FL (7.4-10.4); NEUT# 2.75 X1000 (1.4-6.5); NEUT% 53.5 % (42.2-75.2); PLT 113 X1000 (130-400); RDW 15.2 % (11.5-14.5); WBC 5.14 X1000 (4.8-10.8)
[2019-05-11] MEDS: DEMEROL IV ONE ×2 (21:37→21:44)
--- NOTE | 2019-05-11 22:58 | HISTORY AND PHYSICAL ---
CHIEF COMPLAINT: A fall with head injury. HISTORY OF PRESENT ILLNESS: This 73-year-old white female was admitted over a month ago here for a fall with L3 spinous process fracture and a possible right greater trochanteric fracture. She was discharged from here and sent to rehab for 21 days at [facility]. Last week she had to be transported to the emergency room, was diagnosed with bilateral pneumonias and was treated with antibiotics on an outpatient basis. She has a residual cough. Today, the patient was in her wheelchair being transported back to bed, and she decided she was going to get up by herself rather than wait for help from the person who was standing right next to her. She stated that as she tried to stand she felt dizzy, fell to the ground and struck her lower back or buttocks area and fell backward, hitting her head on the ground, which caused a laceration and some bleeding. The healthcare worker sat her up at that point against the bed and went for help. At that time, the patient slid backward again striking her head in the exact same place and causing more bleeding. She was transported to the emergency room and there found to have a small laceration on her scalp. During her time here, a rhythm strip was produced, which had a similar morphology to torsade de pointes and the ER physician called Cardiology adapted physical education aide, and they recommended at least overnight observation. PAST MEDICAL HISTORY: Includes: 1. End-stage renal disease on dialysis for 7 years. 2. History of massive SC in 2006. 3. Multivessel bypass. 4. Pacemaker. 5. Chronic atrial fibrillation. 6. Non-insulin diabetes, presently controlled with diet alone. 7. COPD. 8. History of acute pulmonary edema. 1. 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 2. Gastroesophageal reflux disease. 3. Cognitive communication deficit. 4. Adjustment disorder with depressed mood and anxiety. SOCIAL HISTORY: Prior to her hospitalization for the spinous process fracture, the patient lived independently and drove herself to dialysis 3 times per week. She apparently lives alone but has the support of some daughters. She is a former smoker. She does not use alcohol or illicit drugs. PAST SURGICAL HISTORY: 1. Coronary artery bypass grafting. 2. Pacemaker placement. 3. Hysterectomy. 4. Cataract surgery. ALLERGIES: Diltiazem, morphine, cefazolin, ceftazidime, and vancomycin. FAMILY HISTORY: Noncontributory. MEDICATION LIST: Her home medications taken from [facility] medication list is as follows: Omeprazole 40 mg p.o. daily, Lipitor 40 mg p.o. at bedtime, Coreg, Renvela 800 mg 3 times a day before meals, Zoloft 100 mg p.o. at bedtime, Ambien 10 mg p.o. at bedtime, quetiapine 50 mg p.o. at bedtime. REVIEW OF SYSTEMS: The patient's family states that although she continues to cough, it seems that this has been getting better since she was treated for pneumonia. She has not had any nausea or vomiting. She denies any chest pain or palpitations. She states that she did not lose consciousness when falling on either occasion today. She does state that she is on a blood thinner. She stated that she was taking Coumadin 5 mg. She denied any leg pain after the fall. She did have some shoulder pain. She also stated that her sacrum hurt considerably, but all of this only occurred after falling today. The patient's family stated that her mental status has been in question in the last day or two, that she seems more confused and not really with it so to speak. This is something that has taken place since she was treated for the last week for pneumonia. This is a relatively new finding over the last 2 days or so. PHYSICAL EXAMINATION: VITAL SIGNS: 97.8, 97, 15, 117/68, 97% saturated on room air. GENERAL: The patient seems alert and oriented. She is a little bit hard of hearing. HEENT: The sclerae are anicteric. There is a small laceration on the left side of the occiput of the back of the head. It is not bleeding at the present time. There is no significant swelling there. NECK EXAM: Unremarkable. There is no evidence of JVD. LUNGS: Clear to auscultation in all cornelius. CARDIOVASCULAR: Irregularly irregular with a heart rate in the mid 90s. ABDOMEN: Shows bowel sounds are present. Her abdomen is protuberant. EXTREMITIES: There is no significant peripheral edema, although she does have very large legs mostly due to obesity. NEUROPSYCHIATRIC: The patient answers questions appropriately. She is a little bit slow on the response but generally answers appropriately and seem oriented to person, place, and situation. There are no focal neurological deficits watching her move in the bed. LABORATORY DATA: CBC is pending. Sodium is 131, BUN is 23, creatinine 6.3, glucose is 105, alkaline phosphatase 197. RADIOLOGIC STUDIES: 1. The patient had a negative CT scan of the brain and cervical spine. Shoulder x-ray showed possible rotator cuff tear. Chest x-ray showed improved bilateral pneumonias, and lumbar spine x-ray did not show any acute fracture. 2. The patient's rhythm strip that was in question appears to be atrial fibrillation with aberrancy, although certainly the morphology is suggestive of torsade de Pointes. ASSESSMENT AND PLAN: 1. The patient be admitted, and we will keep her on telemetry overnight. We will check cardiac enzymes, although I think that may be somewhat fruitless in the case of end-stage renal disease as long as her CK does not go up, but given the fact that she has undergone some trauma, this too may bump up and give us a false-positive as well. We will continue to monitor her heart. Will get another EKG in the morning and have Cardiology consult formally for that. 2. We will consult Dr. Lai. The patient missed dialysis today and will likely need to be dialyzed either today or tomorrow based on the numbers that we see. 3. I am going to consult orthopedics for an opinion on her shoulder injury. 4. Non-insulin diabetes is stable. 5. The patient's psychotropic medications will remain as they were previously. 6. The patient is on Coumadin, and this should be sufficient for deep venous thrombosis prophylaxis at therapeutic doses. 7. History of pneumonia. The patient completed 7-day outpatient course after being treated here at the emergency room. She seems to be getting better, and x-rays are suggestive of improvement as well. I am going to hold off giving any new antibiotics until some other manifestation of infectious process presents itself. cc: Randolph Rivera MD
[2019-05-12] MEDS ORDERED: BENADRYL PO PRN (01:36)
[2019-05-12] MEDS ORDERED: TUMS EXTRA STRENGTH PO ONE (01:45)
[2019-05-12] MEDS: ULTRAM PO PRN ×2 (01:55→18:38)
[2019-05-12] MEDS ORDERED: ZOFRAN PO ONE (02:16)
[2019-05-12] MEDS ORDERED: ZOFRAN PO SCH (02:30)
[2019-05-12] MEDS ORDERED: ZOFRAN PO PRN (04:32)
[2019-05-12] MEDS ORDERED: TIGHT: 0.2 ML/HR FOR DIALYSIS MISC PRN (06:24)
[2019-05-12] MEDS ORDERED: NS 2,000 ML MISC PRN (06:24)
[2019-05-12] MEDS ORDERED: HEPARIN IV PRN (06:24)
[2019-05-12 07:18] LABS: BASO# 0.03 X1000 (0.0-0.2); BASO% 0.5 % (0.0-0.8); EOS# 0.22 X1000 (0.0-0.7); EOS% 3.8 % (0.0-10.0); HEMATOCRIT 29.6 % (37.0-47.0); HEMOGLOBIN 9.8 g/dL (12.0-16.0); LYMPH# 1.19 X1000 (1.2-3.4); LYMPH% 20.8 % (20.5-51.1); MCH 30.1 PG (27-31); MCHC 33.1 g/dL (33-37); MCV 90.8 FL (81-99); MONO# 1.07 X1000 (0.11-0.59); MONO% 18.7 % (1.7-9.3); MPV 10.8 FL (7.4-10.4); NEUT# 3.22 X1000 (1.4-6.5); NEUT% 56.2 % (42.2-75.2); PLT 116 X1000 (130-400); RBC 3.26 XMIL (4.2-5.4); RDW 15.2 % (11.5-14.5); WBC 5.73 X1000 (4.8-10.8)
[2019-05-12 07:27] LABS: INR 2.44; PROTIME 27.2 Seconds (11.0-16.0)
[2019-05-12 07:50] LABS: CALCIUM 8.9 mg/dL (8.8-10.2); POTASSIUM 3.7 mmol/L (3.5-5.1)
--- NOTE | 2019-05-12 08:24 | EKG Report ---
Test Performed on : 05/12/2019 07:41:38 AM Test Reason : CP Blood Pressure : / mmHG Vent. Rate : 101 BPM Atrial Rate : 098 BPM P-R Int : 000 ms QRS Dur : 168 ms QT Int : 452 ms P-R-T Axes : 000 -66 122 degrees QTc Int : 586 ms Atrial fibrillation. with rapid ventricular response. Left axis deviation Left bundle branch block Abnormal ECG When compared with ECG of 11-MAY-2019 17:16, (Unconfirmed) No significant change was found Confirmed by Linda CRAWLEY, Dalton Marcus ([id number]) on 05/12/2019 8:37:47 AM
[2019-05-12 08:27] LABS: CREATININE 6.9 mg/dL (0.5-0.9)
--- NOTE | 2019-05-12 08:57 | Diag Imaging Result Doc PS360 ---
EXAM: KUB ABDOMEN 05/12/2019 HISTORY: abd distention, dyspepsia TECHNIQUE: KUB COMMENT: There are calcifications in the aorta and iliac arteries. The bowel gas pattern is nonspecific. There is some stool in the right colon. There is no evidence organomegaly or mass. No evidence of obstruction is present. IMPRESSION: Mild constipation. Otherwise nonspecific abdomen. Electronically signed by Darian Vasques 05/12/2019 8:54 AM
[2019-05-12] MEDS ORDERED: ATIVAN PO PRN (11:16)
[2019-05-12] MEDS ORDERED: ZYRTEC PO ONE (11:17)
[2019-05-12] MEDS: PRILOSEC PO SCH (11:30)
[2019-05-12] MEDS ORDERED: ZANAFLEX PO PRN (12:46)
[2019-05-12] MEDS ORDERED: ULTRAM PO PRN (12:46)
[2019-05-12] MEDS ORDERED: MAALOX PLUS LIQUID PO PRN (12:46)
[2019-05-12] MEDS ORDERED: G.I. COCKTAIL PO ONE (12:53)
[2019-05-12] MEDS ORDERED: CARDIZEM PO ONE (12:56)
[2019-05-12] MEDS: COREG PO SCH ×2 (13:02→20:04)
[2019-05-12] MEDS ORDERED: DIFLUCAN PO ONE (13:05)
--- NOTE | 2019-05-12 13:26 | OPERATIVE NOTE ---
PROCEDURE DATE: 05/12/2019 PROCEDURE: Left shoulder injection of Depo-Medrol 80 mg. PROCEDURE NOTE: The left shoulder was prepped in a sterile fashion with Betadine. A sterile needle with a 10 mL syringe was used with a mixture of Depo-Medrol 80 mg and Marcaine 0.25% 4 mL along with lidocaine 1% 4 mL. The needle was inserted into the left subacromial space in a sterile fashion. An injection was performed of 9 mL into the left shoulder with Depo-Medrol mixture without complications. ESTIMATED BLOOD LOSS: Is 0 mL. DISPOSITION: The patient tolerated procedure well and there was no reaction at this time. Dictated by DIGNA Pantoja for Sukhi Torres MD cc: DIGNA Pantoja MD
[2019-05-12] MEDS ORDERED: LANOXIN IV SCH (13:30)
--- NOTE | 2019-05-12 13:31 | ORTHOPAEDICS CONSULTATION ---
DATE: 05/12/2019 CHIEF COMPLAINT: Fall, with head injury and left shoulder pain. HISTORY OF PRESENT ILLNESS: This is a 73-year-old female who came to the emergency department for a recent fall due to slipping while transferring from a wheelchair. She reports she landed on her side and injured her left shoulder. She has been admitted multiple times in the past few months for bilateral pneumonia and L3 spinous process fracture. She states that she did have an injection in the left shoulder about 3 months ago. She reports that she did hit her head this time when she fell and got a little dizzy. PAST MEDICAL HISTORY: 1. End-stage renal disease. 2. MS. 3. Multivessel bypass. 4. Pacemaker. 5. Chronic atrial fibrillation. 6. Diabetes, type 2. 7. COPD. 8. Pulmonary edema. 9. Insomnia. 10. GERD. 11. Cognitive impairments. 12. Possible bipolar. SOCIAL HISTORY: The patient lives alone. She reports that she used to smoke. She denies alcohol or drug use. PAST SURGICAL HISTORY: 1. She has had a CABG. 2. Pacemaker placement. 3. Hysterectomy. 4. Cataract surgery. ALLERGIES: Allergies include diltiazem, morphine, cefazolin, ceftazidime, and vancomycin. FAMILY HISTORY: Noncontributory. MEDICATIONS: Medications include omeprazole 40 daily, Lipitor 40 at bedtime, Coreg unknown dose daily, Renvela 800 mg t.i.d. before meals, Zoloft 100 mg at bedtime, Ambien 10 mg at bedtime, and Seroquel 50 mg at bedtime. REVIEW OF SYSTEMS: A 12 point review of systems was performed, with pertinent positives listed in the HPI. PHYSICAL EXAMINATION: Vital Signs: Temperature 97.1 degrees, pulse rate 112, respiratory rate 20, blood pressure 131/73, oxygen is 100% on room air. General: The patient is awake, alert, sitting in the hospital bed comfortably. There is no acute distress. HEENT: Head is slightly traumatic to the posterior portion of her head, with notable swelling. Neck: Supple. Lungs: Equal chest expansion, rise and fall. Cardiovascular: There is some tachycardia. Abdomen: Soft, nontender, and large. Extremities: Left upper extremity exam: There is decreased range of motion to her left and right upper extremity at this time. The patient can put her hands behind her head, but she is unable to lift her arms above her head past 90 degrees at this time due to pain. There is some tenderness along the acromioclavicular joint and the deltoid muscle. There is some notable swelling to the left shoulder. There is 4/5 credit card control clerk strength. There is good radial pulse. There is good sensation. LABS: White blood cells 5.73, hemoglobin 9.8, hematocrit 29.6, platelets 116,000. INR is 2.44. Sodium 134, potassium 3.7, chloride 94, BUN 28, creatinine 6.9, glucose 93. IMAGING: Right shoulder x-ray showed decreasing joint space throughout the right shoulder with evidence of osteoarthritis. There is no acute injury. X-rays of the left shoulder show severe DJD with decreasing joint space and possible rotator cuff tear due to the superior placement of the humeral head. CT head showed no evidence of intracranial disease. There is some decrease in joint space along the cervical spine, with osteophyte formation. Lumbar spine x-ray showed degenerative disk disease at L2 and 3 with no evidence of fracture dislocation. ASSESSMENT: 1. Degenerative joint disease, left shoulder, with possible rotator cuff tear. 2. Degenerative joint disease, right shoulder. 3. End-stage renal disease. PLAN: Today we will plan on doing an injection in the patient's left shoulder. We will give her an injection of Depo-Medrol 80 mg with a mixture of lidocaine 1% and Marcaine 0.25%. The patient has had these before and she reports it did well for her pain and range of motion. She will need to follow up in the office to have follow-up x-rays in a few weeks when she gets out. We will check back on her then. Dictated by DIGNA Pantoja for Sukhi Torres MD cc: DIGNA Pantoja MD
[2019-05-12] MEDS: LANOXIN PO SCH ×2 (13:50→20:04)
--- NOTE | 2019-05-12 15:12 | PROGRESS NOTE ---
DATE: 05/12/2019 INTERVAL HISTORY: No acute events overnight. SUBJECTIVE: The patient denies any chest pain or shortness of breath. She is complaining of hurting everywhere, acid reflux, vaginal itching. VITAL SIGNS: Currently, temperature 97.4 degrees, pulse 99, respiratory 20, blood pressure 124/74, saturating 100% on room air. OBJECTIVE: General: Morbidly obese. Not in any acute distress. Oral cavity: Moist. Lungs: Air entry bilaterally equal. No wheeze, rhonchi, crackles. Cardiovascular: S1, S2 normal. Irregularly irregular. No murmur or gallop. She has a right-sided arm AV fistula. Abdomen: Obese, soft, nontender. Extremities: No lower extremity edema. LABS: Suggestive of normocytic anemia. INR is 2.4. What appears to be chronic kidney disease with related elevated BUN and creatinine. ASSESSMENT AND PLAN: 1. Wide-complex tachycardia which could be atrial fibrillation with rapid ventricular rate with baseline bundle branch block. However, there was concern for torsade de pointes. Continue the patient on carvedilol. Cardiology recommendations appreciated. She looks like she has been given a dose of diltiazem and started on digoxin. Continue her warfarin. 2. Mechanical fall. The patient would likely need remaining rehab. There was no acute osseous abnormality, except multiple osteoarthritis. Orthopedic team planning conservative management. She got left shoulder injection of Depo- Medrol. 3. History of end-stage renal disease on Thursday, Thursday, Thursday hemodialysis. She missed her dialysis yesterday on Thursday because she had to come to the hospital. As she states, she is likely going to get dialysis later today or tomorrow. DISPOSITION: My plan is to discharge the patient tomorrow back to rehab. Plan of care discussed with her. Her questions have been answered. cc: Natalio Islas MD
--- NOTE | 2019-05-12 16:08 | NEPHROLOGY CONSULTATION ---
DATE: 05/12/2019 REASON FOR ADMISSION: Fall, altered mental status, weakness. REASON FOR CONSULTATION: Assist with management, end-stage renal disease. CONSULTING PHYSICIAN: Dr. Rivera. HISTORY OF PRESENT ILLNESS: This is a 73-year-old female who was brought to the emergency room after suffering a fall in rehab. She had no fracture and was admitted for further evaluation. We have been asked to see her to maintain her routine dialysis schedule and assist with her management. PAST MEDICAL HISTORY: 1. End-stage renal disease. 2. Hypertension. 3. Hyperlipidemia. 4. GERD. 5. Depression and anxiety. 6. Hyperphosphatemia. PAST SURGICAL HISTORY: She has an AV fistula. ALLERGIES: Multiple. Please see chart for complete allergies. PHYSICAL EXAMINATION: Vital Signs: Temperature 98.2 degrees, pulse 103, respiratory rate 20, blood pressure 129/79. Intake and output not document. General: This is an elderly female, sitting up in bed. She is awake and alert. No acute distress. HEENT: Normocephalic. She has a large area of bruising to the back of the scalp. Oral mucosa moist. Neck: Supple without JVD. Cardiovascular: Regular. Pulmonary: Clear bilaterally. Abdomen: Soft. Positive bowel sounds. : Not inspected. Extremities: No clubbing, cyanosis, or edema. Integumentary: Skin is warm and dry. Neurologic: Grossly nonfocal. LAB DATA: Per chart. ASSESSMENT AND PLAN: 1. Chronic kidney disease 5D. We will plan to dialyze her per her routine dialysis. I think she missed her treatment yesterday and if so, we will dialyze today. 2. Fall with scalp contusion. Followed by primary. She can be discharged at their discretion. Dictated by DIGNA Baez for Mirza Lai MD Face to face encounter, data reviewed, discussed with Jasmina Velasco on 05/12/19. I agree with the above assessment and plan of care. cc: Mirza Lai MD [facility]
[2019-05-12] MEDS: VENTOLIN HFA INH SCH ×2 (16:13→23:13)
[2019-05-12] MEDS: RENAGEL PO SCH (18:38)
--- NOTE | 2019-05-12 18:55 | CARDIOLOGY CONSULTATION ---
DATE: 05/12/2019 CONSULTATION REQUESTED BY: The hospitalist service. REASON FOR CONSULTATION: Possible ventricular arrhythmia. CHIEF COMPLAINT: Body/somatic pains, status post fall, shortness of breath, heartburn. HISTORY: Ms. Moses is an unfortunate 73-year-old female who presented to the hospital after suffering a fall at home at about 2:30 p.m. yesterday. The ER documented that she had a laceration hematoma in the back of her head. They did a CT of the head that showed no obvious intracranial lesion. The patient is not having any more complaints with that area. During the telemetry monitoring, they picked up an arrhythmia at 4:59 p.m. that they labeled as possible ventricular tachycardia or fibrillation. The patient really did not feel anything different. To me, it looks more like an artifact; however, they decided to keep the patient in observation and labeled it as a possible cardiac case. The patient apparently has been falling several times at home. Please refer to the H and P described by Dr. Rivera, who saw the patient yesterday. PAST HISTORY: Positive for: 1. Myocardial infarction in 2006. She has had progressive coronary disease, and in 2014 a heart catheterization showed 3 vessel disease. She was referred for coronary bypass surgery that was done by Dr. Sukhi Castillo on 12/21/2014, consisting of mammary to LAD, vein graft to the posterior descending branch of right coronary artery, vein graft to obtuse marginal 1. 2. The patient has end-stage renal disease. She has been on hemodialysis. She has a dialysis access in the right upper extremity. 3. The patient has had chronic atrial fibrillation and apparently she complains of palpitations. 4. She has a permanent pacemaker for sick sinus syndrome. 5. She has COPD. 6. She has a history of diabetes mellitus type 2. SURGICAL HISTORY: Besides the bypass and the pacemaker, includes hysterectomy, tonsillectomy, cataract extraction. SOCIAL HISTORY: She is , disabled. She lives at home alone. She has been at [facility]. She has been a tobacco user. FAMILY HISTORY: Noncontributory. ALLERGIES: Multiple medications, including diltiazem, morphine, cefazolin, ceftazidime, vancomycin. HOME MEDICATIONS AT ADMISSION: Include: 1. Carvedilol 3.125 every 12 hours. 2. Ativan 1 mg every 8 hours. 3. Prilosec 40 daily. 4. Quetiapine 50 mg at bedtime. 5. Sertraline 100 daily. 6. Tramadol 50 mg daily. 7. Warfarin 5 mg at bedtime. 8. Atorvastatin 40 daily. 9. Albuterol inhaler. 10. Tizanidine 4 mg twice a day. 11. Renvela 800 mg 3 times a day. PHYSICAL EXAMINATION: Vital Signs: Blood pressure 124/74, temperature 97.4 degrees, respirations 20, pulse varies from 110 to 120, irregular. General: She is awake. She appears to be chronically ill. She has multiple bruises and ecchymotic lesions covering her arms. She has diffuse tenderness to palpation of her bones. HEENT: Unremarkable. Jugular veins slightly prominent. Chest: Diminished breath sounds at the bases. Heart: Sounds are slightly irregular with a prominent systolic murmur 2 to 3/6 over the left sternal border. Question of gallop. Abdomen: Obese, nontender. Extremities: Palpable pulses. No significant edema. Neurological: Nonfocal. Moves all 4 extremities. BLOOD WORK: 1. Sodium 134, potassium 3.7, BUN 28, creatinine 6.9. 2. Magnesium 1.9. 3. PT/INR is 2.44. 4. Hemoglobin 9.8. IMPRESSION: 1. Patient who presented with episode of a fall and this was accidental, not a syncope. 2. Chronic atrial fibrillation with rapid response. 3. Abnormal ECG-Telemetry :Possible polymorphic ventricular tachycardia. In my opinion, more than likely this is just artifactual. 4. Status post pacemaker implantation. 5. Coronary heart disease, status post bypass surgery. 6. "Heartburn". Atypical chest discomfort. We will have to rule out the possibility of coronary ischemia. PLAN: 1. We will check serial troponin levels and cardiac enzymes. 2. We will do serial EKGs. 3. We will see how she does. Prognosis is guarded in general because of her advanced renal failure, severe coronary disease, frequent falls. We will follow her . cc: Mathew Acuna MD MTDD
[2019-05-12] MEDS ORDERED: COUMADIN PO SCH (21:00)
[2019-05-12] MEDS ORDERED: LIPITOR PO SCH (21:00)
[2019-05-12] MEDS ORDERED: SEROQUEL PO SCH (21:00)
[2019-05-12] MEDS ORDERED: PERICOLACE PO SCH (22:15)
[2019-05-12] MEDS ORDERED: AMBIEN PO SCH (22:30)
[2019-05-13] MEDS: LANOXIN PO SCH (01:40)
[2019-05-13] MEDS: RENAGEL PO SCH (06:15)
[2019-05-13] MEDS: PRILOSEC PO SCH (06:15)
[2019-05-13 08:09] VITALS: BP 127/84
[2019-05-13] MEDS ORDERED: NS 2,000 ML MISC PRN (08:24)
[2019-05-13] MEDS ORDERED: HEPARIN IV PRN (08:24)
[2019-05-13] MEDS ORDERED: ZOLOFT PO SCH (09:00)
[2019-05-13] MEDS: VENTOLIN HFA INH SCH (09:28)
[2019-05-13] MEDS: ULTRAM PO PRN (14:08)
--- NOTE | 2019-05-13 22:39 | NEPHROLOGY PROGRESS NOTE ---
DATE: 05/13/2019 SUBJECTIVE: She states she is feeling better and hoping for discharge. OBJECTIVE: Vital Signs: Blood pressure 127/84, heart rate 72, respirations 16, afebrile. General: No acute distress. Skin: Warm and dry. Neck: Neck veins are distended. Heart: Regular with a soft murmur. Lungs: Equal. No crackles. Abdomen: Benign. Extremities: No edema, clubbing or cyanosis. IMPRESSION: Chronic kidney disease stage 5D. She is dialyzing today to get back on her routine schedule. Electrolytes/acid base/anemia all in target. Blood pressure in target. Okay for discharge from my perspective. cc: Mirza Lai MD
--- NOTE | 2019-05-14 07:16 | DISCHARGE SUMMARY ---
ADMISSION DATE: 05/11/2019 DISCHARGE DATE: 05/13/2019 DISCHARGE DISPOSITION: Home with home health. DISCHARGE CONDITION: Hemodynamically stable. She denies any chest pain, shortness of breath, nausea, vomiting. She received dialysis yesterday. DISCHARGE DIAGNOSES: 1. Mechanical fall. 2. Wide complex heart rhythm likely artifact versus atrial fibrillation and baseline left bundle branch block. 3. Atrial fibrillation with rapid ventricular rate. 4. Multiple joint osteoarthritis. 5. Other diagnoses: Obesity, end-stage renal disease on Thursday, Thursday, Thursday hemodialysis, hyperlipidemia, anxiety, essential hypertension, atrial fibrillation. DISCHARGE MEDICATIONS: 1. Warfarin 5 mg at nighttime, quetiapine 50 mg at nighttime, senna docusate 2 tablets at nighttime, lorazepam 1 mg every 8 hours as needed for anxiety, atorvastatin 40 mg at nighttime, omeprazole 40 mg daily, sevelamer 800 mg t.i.d. with meals. Tramadol 50 mg every 6 hours as needed for pain, sertraline 100 mg daily. Zolpidem 10 mg at nighttime. Lorazepam 1 mg every 8 hours as needed for anxiety. 2. Carvedilol 6.25 mg every 12 hours, digoxin 125 mcg to be taken on non dialysis days. She is provided with a lab slip to get a repeat digoxin level done within 3 days and follow up with her heart doctor within 7 days. 3. Maalox Plus liquid 30 mL every 4 hours. 4. Albuterol 2 puffs t.i.d. as needed for shortness of breath. 5. Tizanidine 4 mg b.i.d. p.r.n. for muscle cramps. CONSULTATIONS DURING HOSPITAL ADMISSION: Orthopedics, Dr. Torres. Nephrology, Dr. Lai. Cardiology, Dr. Acuna. VITALS AT THE TIME OF DISCHARGE: Temperature 97.5 degrees, pulse 72, respirations 16, blood pressure 127/84. Saturating 100% room air. PHYSICAL EXAMINATION: General: She does not appear in acute distress. Oral cavity is moist. Lungs: Air entry bilaterally equal. No wheeze, rhonchi, crackles. Cardiovascular: S1, S2 normal. Appears in sinus rhythm on bedside monitor with PVCs. Abdomen: Soft, nontender. Extremities: Mild edema. SIGNIFICANT LABS: During hospital discharge, WBC 5.7, hemoglobin 9.8, platelet 116,000. INR 2.4. BUN 28, creatinine 6.9. Her troponins were showing flat trend of 0.04 and 0.03. SIGNIFICANT IMAGING DURING HOSPITALIZATION: Head, cervical spine CT did not have any evidence of acute intracranial disease. There was degenerative disk disease in cervical spine. Shoulder x- ray has severe osteoarthritis, possible rotator cuff tear on the left side for which she was given a steroid injection. Chest x-ray had improvement in bilateral pneumonia. Lumbar spine x-ray had severe degenerative disk disease of L2 and L3, abdominal x-ray had mild constipation, otherwise it was nonspecific. Electrocardiogram had left axis deviation, atrial fibrillation with rapid ventricular rate and left bundle branch block. She did have a rhythm state which was concerning for ventricular tachycardia, though the city dispatcher had suggested it could be left bundle branch block with atrial fibrillation with aberrant conduction. PROCEDURES DURING HOSPITAL ADMISSION: She underwent left shoulder injection of Depo-Medrol 80 mg. HOSPITAL COURSE SUMMARY: Ms. Moses is a 73-year-old lady with past medical history of end-stage renal disease, who was recently admitted and discharged from the hospital, where she was treated for pneumonia to rehab. However, in the rehab, the patient had a mechanical fall when she was trying to get up from the wheelchair felt dizzy and fell down hitting her head. She was on Coumadin, so she was brought to the emergency room. In the emergency room, her head imaging was unremarkable for any intracranial bleeding. However while in the emergency room, she had a few beats of wide complex tachycardia rhythm which looked like ventricular tachycardia, so the cardiology team had recommended overnight observation. Later on, it was thought that her abnormal rhythm strip could have been atrial fibrillation with aberrant conduction on baseline left bundle branch block. She did not have any more such episodes when she was in the hospital overnight. She, however, did have atrial fibrillation with rapid ventricular rate for which she was given 1 time intravenous diltiazem and digoxin and was discharged on oral digoxin. The patient was counseled about taking digoxin on nondialysis days and get follow-up levels within a week and follow up with her regular city dispatcher. TIME SPENT: More than 30 minutes spent discharging this patient. The patient did not want to go back to rehab. She wanted to go home. cc: Natalio Islas MD
[2019-05-14] MEDS ORDERED: LANOXIN PO SCH (09:00)
== END 2019-05-13 14:30 | DRG 308 ==
LOC: SUPCPDRO → ED 12:59 → SUATTDRO 22:11 → 3N 22:11 → 1N 05-12 08:36
PROVIDERS: ATTEND Internal Medicine

== ENCOUNTER 2019-08-17 00:51 | Inpatient (IN) ==
[2019-08-17] MEDS ORDERED: TYLENOL PO ONE (04:36)
[2019-08-17] MEDS ORDERED: ZOFRAN IV PRN (04:38)
[2019-08-17 05:42] LABS: BASO# 0.08 X1000 (0.0-0.2); BASO% 1.7 % (0.0-0.8); EOS# 0.47 X1000 (0.0-0.7); EOS% 9.7 % (0.0-10.0); HEMATOCRIT 28.7 % (37.0-47.0); INR 2.6; LYMPH# 1.08 X1000 (1.2-3.4); LYMPH% 22.4 % (20.5-51.1); MCHC 31.4 g/dL (33-37); MONO# 0.81 X1000 (0.11-0.59); MONO% 16.8 % (1.7-9.3); MPV 10.1 FL (7.4-10.4); NEUT# 2.39 X1000 (1.4-6.5); NEUT% 49.4 % (42.2-75.2); PLT 207 X1000 (130-400); PROTIME 28.6 Seconds (11.0-16.0); RDW 17.8 % (11.5-14.5); WBC 4.83 X1000 (4.8-10.8)
[2019-08-17 05:46] LABS: PTT 89.1 Seconds (22.3-41.8)
[2019-08-17] MEDS ORDERED: MAALOX PLUS LIQUID PO PRN (06:00)
[2019-08-17] MEDS ORDERED: VENTOLIN HFA INH PRN (06:00)
[2019-08-17 06:01] LABS: ALBUMIN 2.8 g/dL (3.5-5.0); CALCIUM 9.2 mg/dL (8.8-10.2); CREATININE 4.8 mg/dL (0.5-0.9); MAGNESIUM 1.9 mg/dL (1.5-2.7)
[2019-08-17] MEDS ORDERED: ATIVAN PO PRN (06:10)
[2019-08-17] MEDS ORDERED: HEPARIN IV PRN (06:43)
[2019-08-17] MEDS ORDERED: NS 2,000 ML MISC PRN (06:43)
[2019-08-17] MEDS ORDERED: TIGHT: 0.2 ML/HR FOR DIALYSIS MISC PRN (06:43)
[2019-08-17 06:44] LABS: ALB/GLOB RATIO 1.1; ALBUMIN 2.9 g/dL (3.5-5.0); DIRECT BILIRUBIN 0.3 mg/dL (0.00-0.20); TOTAL BILIRUBIN 0.64 mg/dL (0.20-1.00); TOTAL PROTEIN 5.5 g/dL (6.3-8.3)
[2019-08-17] MEDS ORDERED: MILK OF MAGNESIA PO PRN (06:48)
--- NOTE | 2019-08-17 07:38 | EKG Report ---
Test Performed on : 08/17/2019 07:23:09 AM Test Reason : Chest Pain Blood Pressure : / mmHG Vent. Rate : 086 BPM Atrial Rate : 105 BPM P-R Int : 000 ms QRS Dur : 156 ms QT Int : 438 ms P-R-T Axes : 000 -53 150 degrees QTc Int : 524 ms Atrial fibrillation. Left axis deviation Left bundle branch block Abnormal ECG Confirmed by Cathy CRAWLEY, Henri ([id number]) on 08/17/2019 8:14:45 AM
[2019-08-17] MEDS: PERCOCET-5 PO PRN ×3 (09:46→20:47)
--- NOTE | 2019-08-17 10:55 | HISTORY AND PHYSICAL ---
PRIMARY CARE PROVIDER: The patient's primary care provider was previously Dr. Galvin, though from what I understand she is currently being overseen by Dr. Jorge Flores at [facility] in [place]. DATE AND TIME: 08/17/2019 at 0400. CHIEF COMPLAINT: Chest pain. HISTORY OF PRESENT ILLNESS: Ms. Moses is a 74-year-old female who was transferred here from [facility] ER for further evaluation of chest pain. The patient states that yesterday morning on August 16 that she woke up that morning, having left-sided chest pain that radiated into her left arm. She states from that morning throughout the day that her chest pain was constant. It was a sharp type pain. She did report some shortness of breath with this though she states her chest pain has subsided at this time. She is not reporting any pain at present. She is reporting that she has been having some exertional dyspnea. This is exertional only. She denies having any shortness of breath at rest. She also has reported a cough that has been occurring a few times a day and has been productive at times with a yellowish colored sputum. She is reporting some orthopnea as well, though states this has been going on for what I gather a few months. The patient does have a history of COPD and does wear p.r.n. oxygen per nasal cannula at 2 L. She denies any fever, body aches, or chills. She is reporting a headache, though denies any dizziness. She denies any abdominal pain. She denies any nausea, vomiting, diarrhea or constipation. She denies any hematochezia or melena. The patient reports that she only produces a small amount of urine, though has not had any dysuria. She does report some increased swelling in her bilateral lower extremities. She does have approximately trace to 1+ pitting edema noted in bilateral lower extremities. The patient has had a recent L3 fracture and since that time has had low back pain which radiates into her right hip into her right leg down to her knee though she is still reporting that over the last few days that this pain has worsened significantly. She is also now reporting that she is having a feeling of some numbness at times in her right leg as well. Though she does have sensation intact, she does report it feels decreased. She is also reporting some left shoulder pain as well. The patient does have a history of joint osteoarthritis and has had to have steroid injections in her arm as well. The patient is alert and oriented to person, place, and time. Upon evaluation at [facility], the patient was noted to have elevated troponin 0.049, myoglobin was 154.7, CK-MB was 1.6, and CK was 33. Potassium was only slightly elevated at 5.4. BUN and creatinine were elevated at 22 and 4.5, though all other electrolytes were within normal limits. Chest x-ray showed no acute abnormality. EKG performed at [facility] did show atrial fibrillation with occasional ventricular paced complexes. For further evaluation of chest pain, given that she does have cardiac history as well as she is a dialysis patient she was transferred to our facility for further treatment and evaluation. REVIEW OF SYSTEMS: A 14 point review of systems was conducted on the patient and all were negative except for pertinent positives mentioned in the HPI. PAST MEDICAL HISTORY: 1. End-stage renal disease on hemodialysis for 7 years on Mondays, Wednesdays, and Fridays. She is followed by Dr. Lai. 2. History of myocardial infarction 2006 and is now status post multi-vessel bypass. 3. Pacemaker placement. 4. Chronic atrial fibrillation. 5. Bdh-aymzuxt-nkcmxgzgx diabetes mellitus, presently controlled with diet. 6. COPD, on nasal cannula as needed at 2 L. 7. History of acute pulmonary edema. 8. Hypertension. 9. Hyperlipidemia. 10. Joint arthritis. 11. Recent L3 fracture. 12. Gastroesophageal reflux disease. 13. Cognitive communication deficit. 14. Adjustment disorder with depressed mood and anxiety. PAST SURGICAL HISTORY: 1. Coronary artery bypass graft. 2. Pacemaker placement. 3. Hysterectomy. 4. Cataract surgery. 5. Placement of a right upper extremity dialysis shunt. SOCIAL HISTORY: Prior to her most recent hospitalization for which she was treated at [facility] for her L3 fracture she did live by herself, though, she is in [facility] in [place] at this time for rehab. She is a former smoker, though has no known history of alcohol or illicit drug use. FAMILY HISTORY: Positive for hypertension and diabetes mellitus. ALLERGIES: 1. Patient has allergies to diltiazem, morphine, cefazolin, Ceftazidime. 2. Hydrocodone. 3. Penicillin. 4. Vancomycin. HOME MEDICATIONS: 1. Ventolin HFA inhaler 2 puffs inhaled q.6 hours p.r.n. for shortness of breath and wheezing. 2. Coreg 6.25 mg p.o. b.i.d. 3. Zyrtec 10 mg p.o. daily. 4. Nexium 40 mg p.o. daily. 5. Ativan 1 mg p.o. on Mondays, Wednesdays, and Fridays prior to dialysis. 6. Milk of magnesia 30 mL p.o. daily as needed for constipation. 7. Percocet 5 mg p.o. q.6 hours p.r.n. for pain. 8. Seroquel 50 mg p.o. at bedtime. 9. Zoloft 100 mg p.o. daily. 10. Renvela 800 mg p.o. t.i.d. before meals. 11. Coumadin 4 mg p.o. at bedtime. 12. Ambien 10 mg p.o. at bedtime p.r.n. insomnia. DIAGNOSTIC DATA/LABORATORY RESULTS: White blood cell count is 4830, hemoglobin 9, hematocrit 28.7, platelet count is 207,000. PTT 28.6, INR 2.6, PTT is 89.1. Sodium 132, potassium 5, chloride 93, serum bicarbonate 26, BUN 28, creatinine 4.8, GFR 9, glucose 94, calcium 9.2, magnesium is 1.9. Total bilirubin is 0.64, direct bilirubin 0.3, AST 25, ALT 17, alkaline phosphatase of 313. CK 20, troponin 0.047. ProBNP is greater than 35,000. EKG that was performed at [facility] did show atrial fibrillation with occasional ventricular paced complexes at a rate of 94. Chest x-ray performed at [facility] showed no acute abnormalities. Copy of the radiologist's impression as well as a disk is on the patient's chart for viewing if needed. PHYSICAL EXAMINATION: VITAL SIGNS: Temperature 97.4 degrees, heart rate 77, respirations 16, blood pressure is 117/52, oxygen saturation is 100% on nasal cannula at 2 L. GENERAL: Ms. Moses is a pleasant, 74-year-old, female. She was resting in the inpatient bed. She was in no acute distress. HEENT: Head is atraumatic, normocephalic. Pupils are equal, round, reactive to light, were 3 mm bilaterally and brisk. Oral mucosa is moist. Oropharynx is clear. NECK: Supple. Trachea midline. The patient does appear to have some JVD noted. There was a positive hepatojugular reflex. CARDIOVASCULAR: Patient has S1-S2 present. She does have a systolic murmur present. There are no other gallops or rubs appreciated. She has a regular rate with an irregularly irregular rhythm. PULMONARY: Patient has symmetrical chest expansion bilaterally. Lung sounds are clear to auscultation in bilateral upper cornelius, though she did have slight crackles noted in bilateral bases. ABDOMEN: Soft, nontender. It does not appear to be distended though she does have a slightly protuberant abdomen noted. Bowel sounds are present in all 4 quadrants, were normoactive. EXTREMITIES: No cyanosis noted. The patient does have trace to 1+ pitting edema noted in bilateral lower extremities from mid calf down. Pulse, motor, and sensory is intact in all extremities. Radial and pedal pulses are 2+ bilaterally. As previously mentioned, the patient has been reporting right leg pain and right leg numbness. She only reports that her sensation is decreased. Though she had negative Homans sign bilaterally. She also did not have any localized tenderness in the deep venous system bilaterally. INTEGUMENTARY: The patient's skin is pink, warm, and dry. NEUROLOGICAL: Patient is alert and oriented to person, place, and time. She is able move all extremities. There are no focal neurological deficits noted. ASSESSMENT AND PLAN: 1. Chest pain. For further evaluation of this, we will do a series of cardiac enzymes. Repeat EKG later on this morning. There were 2 previous E[address] performed at [facility] on the patient's chart as well as 2 previous sets of cardiac enzymes. The patient is not reporting any chest pain at present. We have placed a consult with Cardiology, and will await their evaluation and further recommendations for management. 2. History of coronary artery bypass graft. We will continue with treatment as mentioned above for #1. 3. History of pacemaker placement. 4. History of chronic atrial fibrillation. The patient is in atrial fibrillation with occasional ventricular paced complexes. She did have a left bundle branch block noted on her EKG. This is not of new onset and has been present on previous EKGs. We will continue her Coreg. 5. Chronic anticoagulation therapy secondary to atrial fibrillation. We will continue this at this time. Her INR this morning was 2.6. 6. End-stage renal disease on hemodialysis on Mondays, Wednesdays, and Fridays. We have placed a consult with Dr. Lai. We will await his evaluation and further recommendations for management. 7. Chronic obstructive pulmonary disease. We will continue with Ventolin HFA inhaler as needed, and her supplemental oxygen. 8. History of xsl-fhxopfg-ohmrfirce diabetes mellitus, currently diet controlled. She is on a diabetic diet. 9. Recent history of a L3 fracture for which she has been having low back pain, right hip pain and right leg pain that extends from her hip down to her knee though the patient states that this has become much worse in the last few days. She also is reporting some bilateral shoulder pain but states this is much worse on her left shoulder. She has had to have previous steroid injections in the shoulder that were performed previously by with Dr. Torres. The patient does not know any possible injury that could be causing her increased pain in her low back, right hip and right leg though we will obtain a lumbar spine x-ray, a right hip and right femur x-rays to rule out possible injury. Per the patient and her daughter's request, we have placed a consult with Dr. Torres as well. It is my understanding that the patient did receive a steroid injection in her left shoulder during her admission in May. We will await Dr. Torres's evaluation and further recommendations for management. 10. Deep vein thrombosis prophylaxis provided with above-mentioned Coumadin. She has been placed on the medical floor with telemetry. She will have vital signs q.4 hours. We will do strict intake and output, incentive spirometry. Further orders and recommendations pending hospital course, diagnostic studies, and physician evaluation. Dictated by DIGNA Rodgers for Seth Cruz MD cc: Seth Cruz MD [facility]
[2019-08-17] MEDS: RENAGEL PO SCH ×3 (10:56→15:35)
--- NOTE | 2019-08-17 11:25 | PROVIDER PROGRESS NOTE ---
Progress Note Chief complaint: my left shoulder was hurting me. HPI: Mrs. Moses is a 73-year-old white female with a past medical history of MYocardial infarction with bypass and pacemaker and chronic kidney disease stage 5D with MWF hemodialysis treatment known to our service. She was recently in the hospital for a fall and was discharged to [facility] in . She woke up yesterday at rehab with sharp chest pain 8/10 radiating to shoulder lasting all day. Her shoulder pain was her main complaint and was aggravated by mobility equipment use. Shortness of breath and headache associated were associated with her chest and shoulder pain. She denies any other associated symptoms. Tylenol relieved her symptoms. She was sent to [facility] and after evaluation was transferred to [facility]. She did receive her hemodialysis treatment Thursday. Past medical history: End stage renal disease with hemodialysis on MWF, hypertension, hyperlipidemia, GERD, depression and anxiety, hyperphosphatemia, COPD, AR with multi vessel bypass and pacemaker. Past surgical history: AV fistula placement. Social history: she is currently at [facility] in [place], she denies alcohol, tobacco, and illicit drugs. Family history: none Allergies: diltiazem, morphine, cefazolin, ceftazidime, and vancomycin. Home medications: albuterol sulfate inhaler, Lipitor, Coreg, Zyrtec, digoxin, Nexium, Ativan, Maalox plus, Prilosec, oxycodone five, Senna, Zoloft, renvela, Zanaflex, Ultram, warfarin, Ambien. Review of systems: all pertinent positives listed in the HPI. Denies any other complaints. Labs: Wbc 4.83, hemoglobin nine, hematocrit 28.7, platelet count 207, PT 28.6, PTT 89.1, sodium 132, potassium five, chloride 93, carbon dioxide 26, BUN 28, creatinine 4.8. Imaging: ekg shows atrial fibrillation. Physical exam: temperature 97.4, pulse 77, respiration 16, blood pressure 117/52, O2 sat 100% on 2 L room air. General: Elderly white female lying in bed in no acute distress. HEENT: normocephalic, atraumatic. Pupils equal and reactive. Trachea midline. Skin: warm and dry. Neck: supple, positive for JVD Cardiovascular: S1, S2 irregular rate and rhythm. Soft systolic murmur heard best at left sternal border, grade 2/6. Heave as well. Respiratory: lungs clear with equal air excursion anteriorly Abdomen: soft,nondistended, nontender. Bowel sounds active. : Not observed Extremities:No clubbing, cyanosis, or edema Neurological: alert and oriented to person and place. Assessment and plan: Chronic kidney disease stage 5D. Pt will receive her routine hemodialysis treatment today and may possibly discharge. Chest pain. Recent echocardiogram from 03/2019. Most likely chest pain was muscular in nature. Electrolytes and acid base balance. Will be corrected with hemodialysis treatment today. Blood pressure. In target. Anemia. Stable. Nutrition. Change to Renal diet. Medication review. No change.
[2019-08-17] MEDS ORDERED: KENALOG-40 IM ONE (12:45)
[2019-08-17] MEDS ORDERED: XYLOCAINE 1% INJ ONE (12:47)
[2019-08-17] MEDS: ZOLOFT PO SCH (13:10)
[2019-08-17] MEDS: NEXIUM PO SCH (13:11)
[2019-08-17] MEDS: COREG PO SCH ×2 (13:11→20:50)
[2019-08-17] MEDS: ZYRTEC PO SCH (13:11)
--- NOTE | 2019-08-17 13:52 | PROGRESS NOTE ---
DATE: 08/17/2019 SUBJECTIVE: She has no primary care physician. Apparently, she was at [facility] and previously seen Dr. Galvin, overseen now by Dr. Jorge Flores. She is a 74-year-old female, who transferred from [facility] for evaluation of chest pain. It turned out it looks like it is left shoulder pain, is musculoskeletal and it started yesterday. She is also complaining of her right leg and having a lot of pain in the knee and up into the hip area. Cardiac enzymes were negative. It does not appear that she is having cardiac ischemia. I talked to the daughter and [facility] They would also like Orthopedics to look at her leg and evaluate, and see if she can get an injection in her left shoulder. I will try and set up for an injection. PAST MEDICAL HISTORY: 1. End-stage renal disease on hemodialysis for 7 years Mondays, Wednesdays, and Fridays. She is followed by Dr. Lai. 2. History of myocardial infarction 2006, now status post multivessel bypass. 3. Pacemaker placement. 4. Chronic atrial fibrillation. 5. Noninsulin dependent diabetes mellitus, controlled with diet. 6. COPD. Has nasal cannula; she is on 2 L of already. 7. History of acute pulmonary edema. 8. Hypertension. 9. Hyperlipidemia. 10. Osteoarthritis. 11. Recent L3 fracture. 12. Gastroesophageal reflux disease. 13. Cognitive communication deficit. 14. Adjustment disorder, depressed mood and anxiety. PAST SURGICAL HISTORY: 1. Coronary artery bypass. 2. Pacemaker placement. 3. Hysterectomy. 4. Cataract surgery. 5. Placement of right upper extremity dialysis shunt. She is feeling better today. She was eating lunch. Her left shoulder still hurts and it hurts when she moves. Complains of right leg pain, and kind of said it is generally between the knee and the hip. I see no pedal edema. OBJECTIVE: Vital Signs: Temperature is 97.8 degrees, pulse 94, respirations 15, blood pressure 106/61. Eyes: Pupils are equal and round. Lungs: Lungs are clear in all lung cornelius. Cardiovascular exam: Regular rhythm and rate without murmur or S3. Abdomen: Abdomen is soft. Skin: Skin is warm and dry. : Urine output is 5400 mL. I think that was with dialysis, though. ASSESSMENT AND PLAN: 1. Chronic kidney disease stage 5 D. Routine hemodialysis received today. 2. Chest pain which appears to be musculoskeletal. She had an echocardiogram from March 2019 reviewed. 3. Right leg pain. 4. History of chronic atrial fibrillation. Her rate appears well controlled. 5. Chronic anticoagulation secondary to atrial fibrillation. 6. End-stage renal disease as mentioned. 7. Chronic obstructive pulmonary disease on oxygen already at 2 liters. 8. Diabetes mellitus type 2. Sugars appear under good control. 9. History of L3 fracture, which she has been having lower back pain, right hip pain, right leg pain, extends hip down to her knee. The patient states this has become much worse in the past few days, reporting some bilateral shoulder pain, but left shoulder appears to have tendinitis. I will inject that with some Kenalog and lidocaine today. Dr. Torres has already been asked to see. Dr. De Leon I think has seen her, and Dr. Lai has seen. Hopefully, she can go back to rehabilitation tomorrow. We did get physical therapy involved. cc: Marcelo Adamson MD
--- NOTE | 2019-08-17 13:55 | Diag Imaging Result Doc PS360 ---
XRAY PELVIS W/HIP 2-3VW RT - 08/17/2019 INDICATION: Worsening Low Back and Right Hip Pain TECHNIQUE: Three views COMPARISON: None FINDINGS: There is extremely severe calcified arterial disease of the pelvic arteries and femoral arteries. Bones are intact and normally aligned. There is mild bilateral hip osteoarthritis. There is moderate degeneration of the sacroiliac joints. IMPRESSION: Chronic changes. Electronically signed by Nabor Gandhi 08/17/2019 1:53 PM
--- NOTE | 2019-08-17 13:56 | Diag Imaging Result Doc PS360 ---
FEMUR MIN 2 VIEWS RIGHT - 08/17/2019 INDICATION: Worsening Right Hip,Right Thigh,Right Knee Pain TECHNIQUE: Two views COMPARISON: None FINDINGS: There is severe diffuse peripheral vascular disease. No fracture or dislocation. IMPRESSION: Chronic changes. Electronically signed by Nabor Gandhi 08/17/2019 1:54 PM
--- NOTE | 2019-08-17 14:21 | Diag Imaging Result Doc PS360 ---
EXAM: LUMBAR SPINE 2-VIEWS 08/17/2019 HISTORY: Worsensing Low BAck Pain,Recent Hx L3 Fx TECHNIQUE: Lumbosacral spine AP and lateral COMMENT: There is generalized osteopenia. There is vacuum disc phenomenon at L2-3. Severe sclerosis is present of the adjoining endplates and there is posterior and anterior osteophyte formation. No evidence of acute fracture or subluxation is present. There is dense calcification of the abdominal aorta without evidence of aneurysm. IMPRESSION: Severe degenerative disc disease at L2-3. Electronically signed by Darian Vasques 08/17/2019 2:18 PM
[2019-08-17] MEDS ORDERED: FLEXERIL PO PRN (17:08)
[2019-08-17] MEDS ORDERED: SEROQUEL PO SCH (21:00)
[2019-08-17] MEDS ORDERED: COUMADIN PO SCH (21:00)
--- NOTE | 2019-08-17 21:25 | OPERATIVE NOTE ---
PROCEDURE DATE: 08/17/2019 PROCEDURE IN DETAIL: Left shoulder was prepped with Betadine in the usual sterile fashion. An 18- gauge needle was used to insert 80 mg of Depo-Medrol and 1% lidocaine into the left subacromial space. The patient tolerated the procedure well. ESTIMATED BLOOD LOSS: Less than 1 mL. COMPLICATIONS: No complications occurred. Dictated by DIGNA Pantoja for Ben Rey MD cc: DIGNA Pantoja MD
--- NOTE | 2019-08-17 21:30 | ORTHOPAEDICS CONSULTATION ---
DATE: 08/17/2019 CHIEF COMPLAINT: Slip, trip and fall with right hip pain and left shoulder pain. HISTORY OF PRESENT ILLNESS: This is a 74-year-old female who came into the emergency department for evaluation of chest pain. She reports she did have a fall yesterday and landed on her right hip. It has been bugging her ever since. She also reports that she has low back pain and left shoulder pain. She was evaluated for chest pain in the emergency department and orthopedics was consulted to come and see the patient about her current L3 fracture and her pain in the left shoulder and right hip. REVIEW OF SYSTEMS: Fourteen point review of systems was performed. Pertinent positives listed in the HPI. PAST MEDICAL HISTORY: Includes end-stage renal disease, which she is on dialysis on Thursday, Thursday and Thursday. She had history of CO in the past. She has also had pacemaker placement, chronic atrial fibrillation, noninsulin dependent diabetes, COPD, pulmonary edema, hypertension, hyperlipidemia, DJD of multiple joints, L3 fracture, GERD, cognitive deficit, adjustment disorder with depressed mood and anxiety. PAST SURGICAL HISTORY: Includes CABG, pacemaker placement, hysterectomy, cataracts, right upper extremity dialysis shunt. ALLERGIES: Patient reports allergies to hydrocodone, penicillin, vancomycin, diltiazem, morphine, cefazolin, ceftazidime. HOME MEDICATIONS: Include Ventolin inhaler, Coreg 6.25 b.i.d., Zyrtec 10 mg daily, Nexium 40 mg daily, Ativan 1 mg p.r.n. for dialysis, Percocet 5 q.6 p.r.n. pain, Seroquel 50 mg daily, Zoloft 100 mg daily, Renvela 800 mg t.i.d. before meals, Coumadin 4 mg at bedtime, Ambien 10 mg at bedtime. PHYSICAL EXAMINATION: General: Patient is awake, alert, sitting on hospital bed, in no acute discomfort. Vital Signs: Have been stable. HEENT: Head is atraumatic, normocephalic. Pupils round, equal, reactive to light. Neck: Supple. Cardiovascular: Regular rate and rhythm. Abdomen: Soft, nontender. Chest: Was equal chest expansion rise and fall. Extremities: There is some tenderness with some decreased range of motion and popping clicking over the left shoulder. There is some posterior joint line tenderness. There is tenderness along the deltoid muscle. Her right hip does have some tenderness laterally. She also reports being tender along the anterior joint line. There is negative straight leg raise. There is good range of motion to the right hip. There is good range of motion to the knee and right ankle. There is +2 pitting edema to bilateral lower extremities. There is good pedal pulses. There is good sensation to bilateral lower extremities. There is 4 5 amusement or recreation card checker strength to bilateral upper extremities. There is good capillary refill in the fingers and toes. ASSESSMENT: 1. Multiple joint pains with slip, trip and fall and contusion to the right hip. 2. 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 PLAN: We will go ahead and inject her left shoulder today with Depo-Medrol 80 mg. She will need to follow up with us in the office in roughly 10 to 14 days for repeat x-rays of her shoulder and hip. If she continues to have hip pain on the right side, then we will consider a CT. We will check back on her then and see how she is doing. Dictated by DIGNA Pantoja for Ben Rey MD cc: DIGNA Pantoja MD
[2019-08-18] MEDS: RENAGEL PO SCH ×2 (07:01→11:53)
[2019-08-18] MEDS: ZOLOFT PO SCH (08:25)
[2019-08-18] MEDS: ZYRTEC PO SCH (08:25)
[2019-08-18] MEDS: COREG PO SCH (08:25)
[2019-08-18] MEDS: NEXIUM PO SCH (08:25)
[2019-08-18] MEDS: PERCOCET-5 PO PRN (10:58)
[2019-08-18 12:06] VITALS: BP 136/68
--- NOTE | 2019-08-18 12:52 | DISCHARGE SUMMARY ---
ADMISSION DATE: 08/17/2019 DISCHARGE DATE: 08/18/2019 HISTORY OF PRESENT ILLNESS: She was sent over. Primary care provider is Dr. Galvin. Transferred from [facility] for evaluation. She was having chest pain. This pain seemed to be in the left shoulder and it was completely related to movement in the left shoulder, consistent with musculoskeletal. She complained of pain in the right leg as well but no evidence of ischemia. Cardiac enzymes are negative. EKG showed no changes and she had no pressure or radiation into her jaw. PAST MEDICAL HISTORY: 1. End-stage renal disease, hemodialysis for 7 years. She gets it on Mondays, Wednesdays, and Fridays. She is followed by Dr. Lai. 2. History of myocardial infarction in 2006, now status post multivessel bypass. 3. Pacemaker placement. 4. Chronic atrial fibrillation. 5. Per-skmlscv-jazekbwpl diabetes mellitus, controlled on diet. 6. COPD, on nasal cannula at 2 L. 7. History of acute pulmonary edema. 8. Hypertension. 9. Hyperlipidemia. 10. Osteoarthritis. 11. Recent L3 fracture. 12. Gastroesophageal reflux disease. 13. Cognitive/communication deficit. 14. Adjustment disorder, depressed mood, and anxiety. PAST SURGICAL HISTORY: 1. Coronary artery bypass graft. 2. Pacemaker placement. 3. Hysterectomy. 4. Cataract surgery. 5. Placement of right upper extremity dialysis shunt. ADMISSION DIAGNOSES: 1. Chest pain which appeared to be musculoskeletal and this resolved. She does have pain in her left shoulder with some tendinitis. 2. History of coronary artery disease, status post coronary artery bypass graft. No sign of active ischemia. 3. History of pacemaker placement. 4. History of chronic atrial fibrillation. She has a left bundle branch block noted on her electrocardiogram. She is on Coreg. She has chronic atrial fibrillation with occasional premature ventricular contraction complexes. 5. Chronic anticoagulation therapy, continue. Her INR was 2.6. 6. End-stage renal disease, on hemodialysis Mondays, Wednesdays, and Fridays. Continue that. Her volume status, electrolytes, and acid base look good. 7. Chronic obstructive pulmonary disease. We will continue her Ventolin HFA inhaler and supplemental oxygen. 8. History of nji-bvqxjlb-osmxtmvnj diabetes mellitus, currently diet controlled. 9. History of L3 fracture for which she has been having lower back pain and she is currently undergoing some rehabilitation. HOSPITAL COURSE: We did x-ray her right leg at her request and severe degenerative disease at L2 and L3. We x-rayed her hip as well. There are chronic arthritic changes. X-ray of her right femur, chronic arthritic changes, severe diffuse peripheral vascular disease appreciated. She actually received an injection in the left shoulder with 80 mg of Depo-Medrol and tolerated this well. We will get her back to rehab today. DISCHARGE MEDICATIONS: She will continue Ventolin HFA 2 puffs q.6 hours p.r.n., Coreg 6.25 mg b.i.d., Zyrtec 10 mg a day, Flexeril 10 mg p.o. t.i.d. p.r.n., Nexium 40 mg a day, Ativan 1 mg p.o. I think she was getting that here for anxiety. I am not sure if she took that before. Milk of magnesia p.r.n., Percocet 5 one q.6 hours p.r.n., Seroquel 50 mg p.o. at bedtime, Zoloft 100 mg a day, Renagel 800 mg p.o. t.i.d., and she was getting her Coumadin 4 mg a day. cc: Marcelo Adamson MD
--- NOTE | 2019-08-18 15:14 | PROVIDER PROGRESS NOTE ---
Progress Note Subjective: patient denies any fever, chills, nausea and vomiting, shortness of breath. She denies any left shoulder or chest pain this morning. Objective: temperature 98.1, pulse 107, respirations 14, blood pressure 133/80, 02 sat 97% on room air. General: Elderly white female lying in bed in no acute distress. HEENT: normocephalic, atraumatic. Pupils equal and reactive. Trachea midline. Skin: warm and dry with scattered bruises Neck: supple, no JVD Cardiovascular: S1, S2 irregular rate and rhythm. Soft systolic murmur heard best at left sternal border, grade 2/6. Heave noted. Respiratory: lungs clear with equal air excursion anteriorly Abdomen: soft,nondistended, nontender. Bowel sounds active. : Not observed Extremities:No clubbing, cyanosis, or edema Neurological: alert and oriented to person and place. Labs: intake 840, output 2799. Impression: Chronic kidney disease stage 5D. She received her routine hemodialysis yesterday without complications. No changes. Chest pain. Resolved. More musculoskeletal shoulder and arm pain. Had shoulder injected. rg Electrolytes and acid base balance. Stable Blood pressure. In target. Anemia. Stable. Nutrition. Adequate. Medication review. Coumadin was held for elevated PT.
== END 2019-08-18 16:07 | DRG 313 ==
LOC: SUATTDRO 00:51 → 1N 00:51 → DIRADM 00:54 → 1N 02:32
PROVIDERS: ATTEND Emergency Medicine

== ENCOUNTER 2019-08-26 05:39 | Inpatient (IN) ==
[2019-08-26] MEDS ORDERED: NS 1,000 ML IV ONE (06:13)
--- NOTE | 2019-08-26 06:16 | PROVIDER DOCUMENTATION ---
HPI-General Adult - General Chief Complaint: Back Pain Stated Complaint: back pain Time Seen by Provider: 08/26/19 05:57 Source: patient Allergies/Adverse Reactions: Patient Allergies Allergy/AdvReac Type Severity Reaction Status Date / Time diltiazem Allergy Intermediate ITCHING Verified 07/22/19 16:40 morphine Allergy Unknown Unknown Verified 07/22/19 16:40 cefazolin Allergy HIVES Verified 07/22/19 16:40 ceftazidime pentahydrate * Allergy HIVES Verified 07/22/19 16:40 [From TAZICEF] hydrocodone Allergy ITCHING Verified 07/22/19 16:40 Penicillins Allergy Unknown Verified 07/25/19 10:27 vancomycin Allergy HIVES Verified 07/22/19 16:40 Home Medications: Home Medication List Medication Instructions Recorded Confirmed Last Taken Type Sevelamer Carbonate [Renvela] 800 mg PO TID AC 09/10/15 08/26/19 08/16/19 History 800 ATORVAstatin [Lipitor] 40 mg PO HS 07/15/16 08/26/19 04/23/19 21:00 History Sertraline HCl [Zoloft] 100 mg PO DAILY 07/15/16 08/26/19 08/16/19 History 100 Omeprazole [Prilosec] 40 mg PO DAILY 04/14/19 08/26/19 04/24/19 09:00 History Quetiapine Fumarate 50 mg PO QHS 04/14/19 08/26/19 08/15/19 History 50 Albuterol Sulfate Inhaler 2 puff INH TID #1 inhaler 04/17/19 08/26/19 08/16/19 Rx [Ventolin Hfa] 2 Tizanidine [Zanaflex] 4 mg PO BID PRN PRN tab 04/27/19 08/26/19 Unknown Rx Sennosides/Docusate Sodium 2 ea PO QHS 05/12/19 08/26/19 08/06/19 History [Senna-S Tablet] 2 Tramadol HCl [Ultram] 50 mg PO Q6H PRN PRN 05/12/19 08/26/19 Unknown History Carvedilol [Coreg] 6.25 mg PO Q12H #0 05/13/19 08/26/19 08/16/19 Rx 6.25 Digoxin [Lanoxin] 125 microgm PO EVERY OTHER DAY #30 05/13/19 08/26/19 Unknown Rx tab Cetirizine HCl [Zyrtec] 10 mg PO DAILY 08/17/19 08/26/19 08/16/19 History 10 Esomeprazole [Nexium] 40 mg PO DAILY 08/17/19 08/26/19 08/16/19 History 40mg Mag Hydrox/Al Hydrox/Simeth 30 ml PO DAILY 08/17/19 08/26/19 Unknown History [Maalox Plus Liquid] Warfarin [Coumadin] 4 mg PO HS 08/17/19 08/26/19 08/15/19 History 4mg Zolpidem [Ambien] 10 mg PO HS PRN PRN 08/17/19 08/26/19 08/05/19 History Lorazepam [Ativan] 1 mg PO Q8H PRN PRN #40 tab 08/18/19 08/26/19 Unknown Rx Magnesium Hydroxide [Milk of 30 ml PO DAILY PRN PRN udc 08/18/19 08/26/19 Unknown Rx Magnesia] Oxycodone HCl/Acetaminophen 1 tab PO Q6HR 20 Days #40 tab 08/18/19 08/26/19 Unknown Rx [Oxycodone-Acetaminophen 5-325] - History of Present Illness -Gen Adult Nature of Presenting Problems: Patient is a 74 year old white female,usp resident at [place], with ESRD,chronic back pain, and paroxysmal atrial fibrillation who presents by [facility] ambulance with hypotension, pale appearance, and left flank pain. Patient is currently taking warfarin. Denies rectal bleeding, hematemesis, fever, chills, or chest pain. snf reports that they have been unable to control her pain with hydrocodone and now requires additional pain control. Patient receives hemodialysis on MWF and is suppose to receive dialysis today. Quality of Pain: reports: sharp Onset/Duration: reports: unsure, gradual Timing: reports: still present Review of Systems - Adult - REVIEW OF SYSTEMS - ADULT Constitutional: reports: alie. denies: chills, fever Eyes: reports: no symptoms reported Ears, Nose, Mouth & Throat: reports: no symptoms reported Cardiovascular: denies: chest pain Respiratory: denies: shortness of breath Gastrointestinal: denies: abdominal pain, hematemesis, rectal bleeding, vomiting Genitourinary: denies: dysuria Musculoskeletal: reports: back pain Integumentary: denies: rash Neurological: reports: no symptoms reported Psychiatric: reports: anxiety Endocrine: reports: no symptoms reported Hematologic/Lymphatic: reports: no symptoms reported Allergic/Immunologic: reports: no symptoms reported All Other Systems: Reviewed and Negative Past History - Adult - PAST MEDICAL HISTORY-ADULT Review of Records: reports: Old Records Reviewed, Nursing Assessment Review, Medications Reviewed, Social history reviewed & non-contributory. Major Childhood Illnesses: reports: denies history Cardiovascular: reports: cardiac disease, CAD, HTN, hyperlipidemia, pacemaker Respiratory: reports: COPD Gastrointestinal: reports: denies history Obstetrical/Gynecological: reports: denies history Genitourinary: reports: dialysis, ESRD Musculoskeletal: reports: arthritis, chronic pain Neurological: reports: denies history Psychiatric: reports: denies history Endocrine/Immune: reports: cancer, Diabetes, other (Renal Failure) Other Conditions: reports: denies history - PRIOR SURGERIES/PROCEDURES Surgical/Procedure History: reports: recent surgery, cardiac stent, hysterectomy , tonsillectomy, joint replacement - PRIOR HOSPITALIZATIONS Prior Hospitalizations: reports: for similar symptoms - IMMUNIZATION STATUS Childhood Immunizations: See Nurse Assessment Flu Vaccine: See Nurse Assessment - FAMILY HISTORY Family History: reviewed, not pertinent Physical Exam-General - CONSTITUTIONAL General Appearance: alert, other (pale appearing) - EYES Eyes: other (clear) - HEAD, EARS, NOSE, MOUTH & THROAT HENMT: moist mucous membranes - NECK Neck: supple - RESPIRATORY Respiratory: lungs clear - CARDIOVASCULAR Cardiovascular: regular rate, rhythm - GASTROINTESTINAL (ABDOMEN) Abdominal Exam: non tender, soft. negative: guarding, rigid, rebound, tenderness - GENITOURINARY Female Genitalia/Pelvic Exam: deferred Rectal Exam: normal exam, normal rectal tone, other (no stool in vault. Hemoccult sample obtained.) - LYMPHATIC Lymphatic: no adenopathy - MUSCULOSKELETAL Back Exam: no vertebral tenderness Extremity: other (dialysis fistula over right upper arm) - SKIN Integumentary: other (skin is pale with brown pigmentation) - PSYCHIATRIC Psych/Mental Status: oriented x 3, anxious Progress - PLAN OF CARE/RESULTS Progress/Plan/Lab Results: Vital Signs - 8 hr 08/26/19 05:46 08/26/19 05:48 08/26/19 06:04 Temperature 97.6 F Pulse Rate 82 Respiratory Rate 18 Blood Pressure 78/36 88/40 79/35 O2 Sat by Pulse Oximetry 100 98 Orders Category Date Time Status URINALYSIS W/POSS RFLX CULT [URINALYSIS] Stat Lab 08/26/19 05:58 Uncollected 0.9% Sodium Chloride Inj [Ns] 1,000 ml Med 08/26/19 06:13 Active IV 999 mls/hr Result Diagrams: 08/26/19 06:40 08/26/19 06:50 - REASSESSMENT Reassessment #1 Time Reassessed: 07:15 Status: unchanged (Seen and examined by me. Case discussed with Dr. Barrett at shift change. Awaiting IV. Patient has left flank pain, on coumadin, hx of ESRD on HD. Will obtain CT a/p to r/o retroperitoneal hematoma or similar catastrophe, give IV fluid bolus IV zyvox for possible sepsis and IV fentanyl fo r pain. She meets sepsis criteria with 2 SIRS positive plus hypotension) Reassessment #2 Time Reassessed: 08:13 Status: improving (BP improved to 110/60 with 500ml NS bolus. Further bolus held for now as pRBCs and FFP has been ordered as well as IV antibitics. Patient is anuric with hx of ESRD on HD.) - EKG 1 Time of EKG reading by physician:: 07:23 EKG Read and Signed by:: Marquis Guillen EKG Interpretation (*Must complete 3 of following elements*): Abnormal Rate: 71 Rhythm: AFIB, paced rhythm [place]: left QRS: LBB (wide complex), PVC's ST Wave: non-specific ST changes Prior EKG Comparison: unchanged from prior (08/17/19) - XRAY 1 XRAY Study: Chest Impression: Abnormal, See EMR Report ( EXAM: CHEST-1 VIEW HISTORY: hypotension TECHNIQUE: Single view COMPARISON: 07/22/2019 FINDINGS: The lungs are well expanded. The heart is borderline mildly prominent there are sternal wires and a left-sided pacemaker. The vessels are not distended. There are no infiltrates. No effusion identified. IMPRESSION: Stable chest Electronically signed by Kamran Henry 08/26/2019 7:26 AM 08/26/19 0770 Interpreting Physician: Kamran Henry MD Dictated Date/Time: 08/26/19 0732 cc: Naresh Barrett MD; None,PCP) - CT/MRI 1 CT Study: Abdomen Impression: Abnormal, See EMR Report ( CT ABDOMEN/PELVIS W/O CONTRAST - 08/26/2019 INDICATION: left flank pain on coumadin COMPARISON: 07/25/2019 FINDINGS: The lung bases are clear and the heart size is normal. There is severe body wall edema, most prominent in the flanks bilaterally. No evidence of hemorrhage or drainable fluid collection. There is severe vascular disease. There is severe atrophy of the kidneys. No bowel obstruction or inflammation. No free air or free fluid. Uterus is absent. Urinary bladder and rectum are normal. There are moderate degenerative changes of the spine. No acute or suspicious bony lesion. IMPRESSION: Severe body wall edema. Advanced chronic changes are stable from prior. This exam was performed using automated exposure control, adjustment of mA or kV according to patient size, and/or use of iterative reconstruction technique Electronically signed by Nabor Gandhi 08/26/2019 8:12 AM 08/26/19 0812 Interpreting Physician: Nabor Gandhi MD Dictated Date/Time: 08/26/19 0805 cc: Marquis Guillen MD; None,PCP) - CONSULTS/PCP/HOSPITALIST Notification #1 *Consult/PCP/Hospitalist*: Hospitalist paged at [phone] Time Discussed: 09:20 Reason/Comments: DIGNA Alonzo Consult Disposition: Will see in ED #2 Consult: Vicente paged at [phone] Time Discussed: 09:00 Consult Disposition: Admit (Admit to hospitalist, they will plan on dialyzing today as she will be getting a lot of volume/blood products.) - CHANGE OF SHIFT REPORT (ED Provider) 1 Report Given and Care Transferred to:: Dr. Guillen Time of Transfer: 07:00 Items Pending: Labs, Pain Control Departure - Departure Date of Disposition Decision: 08/26/19 Time of Disposition Decision: 08:41 DIAGNOSIS: Acute left flank pain, Acute on chronic blood loss anemia, Anticoagulated on Coumadin, ESRD on hemodialysis, Transient hypotension Disposition: ADMITTED INPATIENT 09 Certified Medical Emergency: Emergent Condition: Serious Referrals and Follow-Ups: None,PCP [Primary Care Provider] - - Critical Care Note This patient required my direct & personal management of CC.: Yes Total Time (mins): 45 Critical Care Statement: This patient required my direct personal management to treat or rule out processes, the absence of which, could potentiallly result in sudden, clinically significant life or limb threatening deterioration. Attestation - Physician/ UMAIR Attestation Patient care was provided by Advanced Practice Provider:: No The physician spent face to face time with patient:: Yes Advanced Practice Provider documentation review:: Supervising physician onsite and consulted in the evaluation and care of this patient. The physician did have a face to face encounter with the patient.
[2019-08-26] MEDS ORDERED: FENTANYL IV ONE ×2 (07:12→08:12)
[2019-08-26] MEDS ORDERED: ZYVOX 600 MG/D5W 600 MG/300 ML IVPB IV ONE (07:14)
[2019-08-26] MEDS ORDERED: NS 500 ML IV ONE ×2 (07:14→07:54)
--- NOTE | 2019-08-26 07:28 | Diag Imaging Result Doc PS360 ---
EXAM: CHEST-1 VIEW HISTORY: hypotension TECHNIQUE: Single view COMPARISON: 07/22/2019 FINDINGS: The lungs are well expanded. The heart is borderline mildly prominent there are sternal wires and a left-sided pacemaker. The vessels are not distended. There are no infiltrates. No effusion identified. IMPRESSION: Stable chest Electronically signed by Kamran Henry 08/26/2019 7:26 AM
--- NOTE | 2019-08-26 07:28 | EKG Report ---
Test Performed on : 08/26/2019 07:23:12 AM Test Reason : BACK PAIN Blood Pressure : / mmHG Vent. Rate : 071 BPM Atrial Rate : 036 BPM P-R Int : 000 ms QRS Dur : 146 ms QT Int : 466 ms P-R-T Axes : 000 -40 190 degrees QTc Int : 506 ms Atrial fibrillation. with occasional ventricular-paced complexes Left axis deviation Left bundle branch block Abnormal ECG When compared with ECG of 17-AUG-2019 07:23, Electronic ventricular pacemaker has replaced Atrial fibrillation. Unconfirmed Result
[2019-08-26 07:43] LABS: BASO# 0.08 X1000 (0.0-0.2); BASO% 0.9 % (0.0-0.8); EOS# 0.25 X1000 (0.0-0.7); EOS% 2.7 % (0.0-10.0); HEMOGLOBIN 6.5 g/dL (12.0-16.0); IMM GRAN# 0.03 X1000 (0.0-0.04); IMM GRAN% 0.3 % (0.0-0.5); LYMPH# 1.25 X1000 (1.2-3.4); LYMPH% 13.4 % (20.5-51.1); MONO# 1.49 X1000 (0.11-0.59); MPV 10.8 FL (7.4-10.4); NEUT# 6.23 X1000 (1.4-6.5); NEUT% 66.7 % (42.2-75.2); PLT 172 X1000 (130-400); WBC 9.33 X1000 (4.8-10.8)
[2019-08-26] MEDS ORDERED: TYLENOL PO ONE (07:54)
[2019-08-26] MEDS ORDERED: BENADRYL PO ONE (07:54)
[2019-08-26] MEDS ORDERED: VITAMIN K 10 MG in NS 50 ML IV ONE (07:56)
[2019-08-26 07:59] LABS: ALBUMIN 2.3 g/dL (3.5-5.0); CALCIUM 8.6 mg/dL (8.8-10.2); POTASSIUM 5.4 mmol/L (3.5-5.1); TOTAL BILIRUBIN 0.67 mg/dL (0.20-1.00); TOTAL PROTEIN 4.5 g/dL (6.3-8.3)
[2019-08-26] MEDS ORDERED: LASIX IV SCH (08:00)
[2019-08-26 08:06] LABS: INR 3.3; PROTIME 34.5 Seconds (11.0-16.0)
--- NOTE | 2019-08-26 08:15 | Diag Imaging Result Doc PS360 ---
CT ABDOMEN/PELVIS W/O CONTRAST - 08/26/2019 INDICATION: left flank pain on coumadin COMPARISON: 07/25/2019 FINDINGS: The lung bases are clear and the heart size is normal. There is severe body wall edema, most prominent in the flanks bilaterally. No evidence of hemorrhage or drainable fluid collection. There is severe vascular disease. There is severe atrophy of the kidneys. No bowel obstruction or inflammation. No free air or free fluid. Uterus is absent. Urinary bladder and rectum are normal. There are moderate degenerative changes of the spine. No acute or suspicious bony lesion. IMPRESSION: Severe body wall edema. Advanced chronic changes are stable from prior. This exam was performed using automated exposure control, adjustment of mA or kV according to patient size, and/or use of iterative reconstruction technique Electronically signed by Nabor Gandhi 08/26/2019 8:12 AM
[2019-08-26 08:23] LABS: CREATININE 5.3 mg/dL (0.5-0.9)
[2019-08-26] MEDS ORDERED: HEPARIN IV PRN (09:10)
[2019-08-26] MEDS ORDERED: NS 2,000 ML MISC PRN (09:10)
--- NOTE | 2019-08-26 14:06 | NEPHROLOGY CONSULTATION ---
DATE: 08/26/2019 REASON FOR CONSULTATION: ESRD and medical management. HISTORY OF PRESENT ILLNESS: Ms. Moses is a 74-year-old white female who presented to the emergency room because of severe pain in the left flank and shoulder. She was evaluated in the emergency room by Dr. Guillen where she had a blood pressure 78/36 on presentation. Heart rate 82, respiration 18, afebrile. Her initial laboratory data found potassium of 5.4 and hemoglobin of 6.5. Her most recent hemoglobin on the was 9.0. She has not had any obvious bleeding of which she is aware. No nausea or vomiting or abdominal pain. No diarrhea or melena. He performed CT imaging of her affected area. All that was noted was body wall edema. He actually did a CT of the pelvis and abdomen and that did not include the whole chest. Chest x-ray was read as "stable chest." No chest pain palpitation. PAST MEDICAL HISTORY: CKD 5D. She also has diabetes, hypertension, coronary artery disease, hyperlipidemia. She takes warfarin. She is currently living in [facility] in [place] for rehab. HOME MEDICATIONS: Include sevelamer, atorvastatin, sertraline, omeprazole, quetiapine, albuterol, tizanidine, senna S, tramadol, carvedilol, digoxin, cetirizine, esomeprazole, warfarin, zolpidem, lorazepam, magnesium, oxycodone. SOCIAL HISTORY: As above. FAMILY HISTORY: Noncontributory. REVIEW OF SYSTEMS: Noncontributory. PHYSICAL EXAMINATION: Vital Signs: Blood pressure 125/52, heart rate 83, respirations 20, afebrile. She is seen during her dialysis treatment. Skin: Warm and dry. No obvious bruising. Conjunctivae are pink. Pupils are equal. Oropharynx is clear. Normal tongue. Normal teeth. Neck: Supple. Trachea is midline. Neck vein distention is not visible. Heart: PMI is not palpable. Regular rate and rhythm without murmurs, rubs, gallops. Lungs: Have equal excursion, equal breath sounds. No crackles or wheezes. No accessory muscle use or retractions. Abdomen: Obese, soft, nontender. Bowel sounds are present. No organomegaly. Extremities: 1+ edema. No clubbing or cyanosis. IMPRESSION: 1. Anemia. Etiology is not obvious. She is receiving 2 units packed red blood cells during dialysis. 2. Chronic kidney disease 5D. She is currently on dialysis. Two K bath. We will use her routine outpatient dry weight and transfuse. 3. Electrolytes/acid-base. Modest hyperkalemia that will be addressed with dialysis. 4. Coagulopathy. I cannot remember why she is on Coumadin. She has been prescribed vitamin D to correct her coagulopathy. cc: Mirza Lai MD
[2019-08-26] MEDS ORDERED: NS 500 ML IV SCH (14:45)
[2019-08-26] MEDS ORDERED: ZANAFLEX PO PRN (17:18)
[2019-08-26] MEDS ORDERED: DEMEROL IV PRN (17:18)
[2019-08-26] MEDS ORDERED: AMBIEN PO PRN (17:18)
[2019-08-26] MEDS ORDERED: LASIX ONE (17:24)
[2019-08-26] MEDS: COREG PO SCH (18:15)
[2019-08-26] MEDS: PERCOCET-5 PO PRN (18:21)
[2019-08-26] MEDS: ZOFRAN IV PRN (19:24)
--- NOTE | 2019-08-26 20:32 | HISTORY AND PHYSICAL ---
CHIEF COMPLAINT: Left flank pain. HISTORY OF PRESENT ILLNESS: This is a 74-year-old female with a prior history of chronic kidney disease 5D currently on hemodialysis, diabetes mellitus and hypertension. She presents to the emergency room complaining of severe left flank and left shoulder pain. She denied any injury. She was sent to the emergency room per the [facility] as they were unable to control her pain with hydrocodone. The patient does receive hemodialysis on Thursday, Thursday, Thursday. Her dialysis was scheduled for today, at the time of my exam she is in dialysis. PAST MEDICAL HISTORY: 1. Coronary artery disease. 2. End-stage renal disease 5D on Thursday, Thursday, Thursday hemodialysis. 3. History of [place] in 2006. 4. Chronic atrial fibrillation. 5. Tsl-ydweugh-odzwteurn diabetes mellitus. 6. COPD on home O2 at 2 L. 7. Gastroesophageal reflux disease. PAST SURGICAL HISTORY: Coronary artery bypass graft, pacemaker placement, hysterectomy, cataract surgery and right upper extremity dialysis shunt. SOCIAL HISTORY: She is a resident at an extended care facility with no alcohol, tobacco, or illicit drug use. ALLERGIES: Reportedly diltiazem, morphine, cefazolin, hydrocodone, penicillin and vancomycin . HOME MEDICATIONS: A list will be obtained by the nursing staff and once verified will review and restart as appropriate. REVIEW OF SYSTEMS: Discussed with the patient with pertinent positives stated in the HPI. She denied any syncope, dizziness, chest pain, palpitations, any shortness of breath, cough, fever, chills, any injury, recent falls, any nausea, vomiting, diarrhea, constipation, black or bloody vomitus or stools, hematuria, dysuria, frequency urgency. PHYSICAL EXAMINATION: This is a 74-year-old female who is lying on the stretcher in dialysis in no distress. VITAL SIGNS: Blood pressure is 123/59 with a heart rate of 83, respirations are 18, temperature is 97.4 degrees with O2 saturations 97%. HEENT: Head is normocephalic, atraumatic. Mucous membranes are moist. Pupils are equal, round, react to light. NECK: Supple with trachea midline. No neck vein distention noted. CARDIOVASCULAR: Regular rate and rhythm. S1 and S2 appreciated. She has peripheral pulses palpable x4 extremities. PULMONARY: Breath sounds are clear with no increased work of breathing noted. Chest rises and falls symmetric respiration. GASTROINTESTINAL: Abdomen soft, nontender, nondistended. Bowel sounds in all 4 quadrants. EXTREMITIES: 1+ lower extremity edema bilateral. NEUROLOGIC: She is alert and oriented. LABORATORY DATA: WBC is 9 with hemoglobin 6.5, hematocrit 21 and platelets 172,000. Sodium is 132, potassium 5.4, BUN 28, creatinine 5.3 with glucose 124. INR is 3.3. Blood cultures are pending. Stool for occult blood was negative. CT of the abdomen and pelvis revealed severe body wall edema, advanced chronic changes stable from prior. Chest x-ray revealed stable chest, no infiltrates. ASSESSMENT AND PLAN: 1. Left flank and shoulder pain. CT scan of the abdomen and pelvis were performed in the emergency room although this did not include the whole chest. Will order a CT of the chest without contrast. 2. Chronic kidney disease 5D on Thursday, Thursday, Thursday hemodialysis. Consult Dr. Lai. 3. Anemia. Stool for occult blood was negative. Will give 2 units of packed cells and trend labs daily. 4. Coagulopathy. She was given vitamin K as well as fresh frozen plasma. Will repeat labs in the morning. 5. Transient hypotension. This has resolved. We will continue to trend vital signs. 6. Coronary artery disease. Will identify home medications continue. 7. Diabetes mellitus. Will identify her home medications and place on pattern blood glucose with sliding scale insulin. 8. Plan was discussed with Dr. Kraft. Further treatments pending hospital course. Will check a CBC, renal profile and PT with INR in the morning. Dictated by DIGNA Hudson for Gómez Dupree MD cc: DIGNA Hudson MD
--- NOTE | 2019-08-26 20:34 | Diag Imaging Result Doc PS360 ---
CT THORAX W/O CONTRAST - 08/26/2019 INDICATION: left rib cage pain, hematoma, fall COMPARISON: 05/02/2019 FINDINGS: Stable CABG changes. Stable pacemaker. There is a large crescent-shaped hyperdense fluid collection just outside of the lateral left chest wall. This measures about 20 x 4 cm maximally. There is also overlying flank edema. There is an acute, nondisplaced fracture of the lateral left 10th rib. There is some linear atelectasis in the left lung base. No pneumothorax or pleural effusion. There is an old healing anterior left fourth rib fracture. No compression fractures of the spine. IMPRESSION: 1. Large left flank soft tissue hematoma with overlying indistinct edema. 2. Nondisplaced acute lateral left 10th rib fracture. This exam was performed using automated exposure control, adjustment of mA or kV according to patient size, and/or use of iterative reconstruction technique Electronically signed by Nabor Gandhi 08/26/2019 8:32 PM
[2019-08-26] MEDS: LIPITOR PO SCH (20:54)
[2019-08-26] MEDS: SEROQUEL PO SCH (20:54)
[2019-08-26] MEDS: PERICOLACE PO SCH (20:54)
[2019-08-27] MEDS: HUMALOG SUBQ SCH ×5 (00:09→22:41)
[2019-08-27 05:46] LABS: INR 2.12; PROTIME 24.3 Seconds (11.0-16.0)
[2019-08-27 06:01] LABS: ALBUMIN 2.5 g/dL (3.5-5.0); CALCIUM 8.7 mg/dL (8.8-10.2); CREATININE 3.7 mg/dL (0.5-0.9); PHOSPHORUS 2.6 mg/dL (2.7-4.5)
[2019-08-27 08:19] LABS: BASO# 0.05 X1000 (0.0-0.2); BASO% 0.6 % (0.0-0.8); EOS# 0.24 X1000 (0.0-0.7); EOS% 2.8 % (0.0-10.0); HEMATOCRIT 25.8 % (37.0-47.0); HEMOGLOBIN 8.3 g/dL (12.0-16.0); IMM GRAN# 0.04 X1000 (0.0-0.04); IMM GRAN% 0.5 % (0.0-0.5); LYMPH% 14.1 % (20.5-51.1); MCH 30.9 PG (27-31); MCHC 32.2 g/dL (33-37); MCV 95.9 FL (81-99); MONO# 1.65 X1000 (0.11-0.59); MONO% 19.3 % (1.7-9.3); MPV 10.6 FL (7.4-10.4); NEUT# 5.35 X1000 (1.4-6.5); NEUT% 62.7 % (42.2-75.2); PLT 145 X1000 (130-400); RBC 2.69 XMIL (4.2-5.4); RDW 16.8 % (11.5-14.5); WBC 8.53 X1000 (4.8-10.8)
[2019-08-27] MEDS ORDERED: VENTOLIN HFA INH SCH (09:00)
[2019-08-27] MEDS ORDERED: VENTOLIN HFA INH PRN (09:51)
[2019-08-27] MEDS: RENAGEL PO SCH ×3 (09:58→16:15)
[2019-08-27] MEDS: MAALOX PLUS LIQUID PO SCH (09:58)
[2019-08-27] MEDS: NEXIUM PO SCH (09:58)
[2019-08-27] MEDS: ZOLOFT PO SCH (09:58)
[2019-08-27] MEDS: COREG PO SCH ×2 (10:00→22:40)
[2019-08-27] MEDS: PERCOCET-5 PO PRN ×2 (13:17→21:00)
--- NOTE | 2019-08-27 13:44 | NEPHROLOGY PROGRESS NOTE ---
DATE: 08/27/2019 SUBJECTIVE: She has some pain still today. OBJECTIVE: Vital Signs: Blood pressure 133/52, heart rate 87, respiration 18, afebrile. General: No acute distress. Skin: Warm and dry. Bruising along the left side. Heart: Regular. No gallops. Lungs: Equal. No crackles or wheezes. Abdomen: Soft, nontender. Extremities: Have 1+ edema. No clubbing or cyanosis. IMPRESSION: 1. Acute blood loss anemia. Hemoglobin 8.3 today. Observe. 2. Chronic kidney disease 5D. She had her routine treatment yesterday. Electrolytes/acid base/blood pressure all in target. cc: Mirza Lai MD
--- NOTE | 2019-08-27 14:26 | GENERAL SURGERY CONSULTATION ---
DATE: 08/27/2019 REQUESTING PHYSICIAN: Hospitalist. REASON FOR CONSULTATION: Left flank hematoma. HISTORY OF PRESENT ILLNESS: A 74-year-old female with a history of end-stage renal disease requiring hemodialysis, who presented to the emergency department complaining of left flank and shoulder pain. She was seen and noted to have a hematoma. She denies any trauma to the area or any significant coughing. She does have an associated rib fracture noted on the CT scan with associated hematoma. She is tender to palpation in that area. It looks like the hematoma may actually be under the latissimus dorsi muscle. I was asked to weigh an opinion. PAST MEDICAL HISTORY: 1. Coronary artery disease. 2. End-stage renal disease. 3. History of [place]. 4. Atrial fibrillation. 5. Non insulin-dependent diabetes mellitus. 6. COPD. 7. Gastroesophageal reflux disease. PAST SURGICAL HISTORY: 1. Coronary artery bypass. 2. Pacemaker placement. 3. Hysterectomy. 4. Cataract surgery. 5. Right upper extremity AV graft. SOCIAL: Resident of extended care facility. ALLERGIES: Full list reviewed. Of note, morphine and hydrocodone. HOME MEDICATIONS: Reviewed. Of note, she is on Coumadin. FAMILY HISTORY: Reviewed with the patient and noncontributory. REVIEW OF SYSTEMS: Full 14 systems reviewed and negative unless as otherwise specified in HPI. PHYSICAL EXAMINATION: Vital Signs: Patient is currently afebrile. Her vital signs are stable. General exam: No acute distress. HEENT: Normocephalic, atraumatic. Pupils equal, round, reactive to light. Mucous membranes moist. Oropharynx benign. Neck: Supple. Trachea midline. Cardiovascular: Regular rate and rhythm. Lungs: Grossly clear. Chest Wall: On the left side with significant ecchymosis noted. Some tenderness along the chest wall on this side. Abdomen: Soft, nontender, nondistended. Extremities: Moves all extremities. Neurologic: Grossly intact. Skin: As noted above. Vascular: All extremities perfused. LABORATORY DATA: Most recent hematocrit 25, platelet count 145. INR is 2.12. Remainder of labs reviewed. IMAGING: Reviewed and noted above. ASSESSMENT AND PLAN: A 74-year-old female with left flank hematoma. 1. Left flank hematoma. At this time, it is some latissimus dorsi. It would be difficult to get to, and probably with her coagulopathy probably involve extensive further bleeding. At this point I recommend correcting her coagulopathy, follow her hematocrit, seeing how she does and avoiding incision and drainage at this point. We will continue to follow while she is in the hospital for this. 2. Rib fracture at this time is nondisplaced. Recommend nonoperative management. cc: Dewey Cao MD
--- NOTE | 2019-08-27 14:32 | PROGRESS NOTE ---
DATE: 08/27/2019 SUBJECTIVE: Patient reports feeling fine. Denies any bloody stools or vomiting blood. Continues to have excruciating pain in the left flank but better in comparing with yesterday. OBJECTIVE: Vital Signs: Temperature 97.5 degrees, heart rate 82, respiratory rate 19, blood pressure 113/64, O2 saturation 99% on 2 L nasal cannula. General: This is a 74-year-old female lying in bed, in no acute distress. Cardiovascular: S1, S2 heard. No murmurs, gallops, or rubs. Regular rate and rhythm. Respiratory: Clear bilaterally to auscultation. No work of breathing or using accessory muscles. Abdomen: Soft, nontender to palpation. Bowel sounds present. No organomegaly. Extremities: No clubbing, cyanosis, or edema. Peripheral pulses present in both legs. Skin: There is a superficial hematoma noted near to the left rib cage with swelling and edema around it. Neurological: Patient is alert and oriented x3. Moves 4 extremities. LABORATORY DATA: Hemoglobin is 8.3 with white cell count 8.53, hematocrit 25.8. Sodium 139, creatinine 3.7. IMAGING: CT of the chest showed large left flank soft tissue hematoma about 20 x 4 cm maximally with overlying indistinct edema and nondisplaced acute lateral left 10th rib fracture. ASSESSMENT AND PLAN: 1. Left flank hematoma, that is what we found out in the CT of the chest. At this point, we are going to consult General Surgery to see if this will need incision and drainage. Patient has been on warfarin. We are going to check INR daily. Today is 2.1. As we mentioned before, we have held the warfarin. 2. End-stage renal disease, on dialysis. Dr. Lai has been consulted for medical management. 3. Anemia, multifactorial. Could be from chronic disease but also because of this hematoma. I think that is reason this patient may have this anemia. We will continue to check CBC daily. 4. Coagulopathy. The patient has received vitamin K as well as FFP. INR is still 2.0. We will continue to monitor. 5. Coronary artery disease, stable. Not complaining of any chest pain. 6. Diabetes mellitus type 2. We will continue with sliding scale insulin and Accu-Chek before meals and also at bedtime. cc: Gómez Dupree MD
[2019-08-27 15:32] LABS: BASO# 0.11 X1000 (0.0-0.2); BASO% 0.9 % (0.0-0.8); EOS# 0.25 X1000 (0.0-0.7); HEMATOCRIT 28.1 % (37.0-47.0); HEMOGLOBIN 9.2 g/dL (12.0-16.0); IMM GRAN# 0.04 X1000 (0.0-0.04); IMM GRAN% 0.3 % (0.0-0.5); LYMPH# 1.75 X1000 (1.2-3.4); LYMPH% 14.1 % (20.5-51.1); MCH 31.9 PG (27-31); MCHC 32.7 g/dL (33-37); MCV 97.6 FL (81-99); MONO% 16.1 % (1.7-9.3); MPV 10.2 FL (7.4-10.4); NEUT# 8.25 X1000 (1.4-6.5); NEUT% 66.6 % (42.2-75.2); PLT 135 X1000 (130-400); RBC 2.88 XMIL (4.2-5.4); RDW 17.4 % (11.5-14.5)
[2019-08-27] MEDS: PERICOLACE PO SCH (20:59)
[2019-08-27] MEDS: LIPITOR PO SCH (20:59)
[2019-08-27] MEDS: SEROQUEL PO SCH (21:01)
[2019-08-28 05:52] LABS: BASO# 0.06 X1000 (0.0-0.2); BASO% 0.6 % (0.0-0.8); EOS% 3.1 % (0.0-10.0); HEMATOCRIT 24.7 % (37.0-47.0); HEMOGLOBIN 7.7 g/dL (12.0-16.0); IMM GRAN# 0.04 X1000 (0.0-0.04); IMM GRAN% 0.4 % (0.0-0.5); LYMPH% 13.5 % (20.5-51.1); MCH 30.6 PG (27-31); MCHC 31.2 g/dL (33-37); MONO# 1.22 X1000 (0.11-0.59); MONO% 12.6 % (1.7-9.3); MPV 10.3 FL (7.4-10.4); NEUT# 6.74 X1000 (1.4-6.5); NEUT% 69.8 % (42.2-75.2); PLT 141 X1000 (130-400); RBC 2.52 XMIL (4.2-5.4); RDW 16.9 % (11.5-14.5); WBC 9.66 X1000 (4.8-10.8)
[2019-08-28 06:03] LABS: INR 1.68; PROTIME 20.2 Seconds (11.0-16.0)
[2019-08-28 06:17] LABS: ALBUMIN 2.5 g/dL (3.5-5.0); CALCIUM 8.8 mg/dL (8.8-10.2); POTASSIUM 4.7 mmol/L (3.5-5.1)
[2019-08-28] MEDS: HUMALOG SUBQ SCH ×4 (06:30→21:00)
[2019-08-28 06:54] LABS: EOS 2 % (1-10); LYMPHS 10 % (21-51); MONO 2 % (1-9); SEGS 82 % (42-75)
--- NOTE | 2019-08-28 07:21 | GENERAL SURGERY PROGRESS NOTE ---
DATE: 08/28/2019 SUBJECTIVE: The patient seems to be doing okay. She is sore. OBJECTIVE: Vital Signs: The patient is currently afebrile. Her vital signs are stable. General Examination: No acute distress. HEENT: Normocephalic, atraumatic. Pupils equal, round, reactive to light. Mucous membranes moist. Oropharynx benign. Neck: Supple. Trachea midline. Cardiovascular: Regular rate and rhythm. Lungs: Grossly clear. Chest wall and flank hematoma grossly appears stable. Abdomen: Soft, nontender, nondistended. Extremities: Moves all extremities. Neurologic: Grossly intact. Skin: Bruising as noted above. Vascular: All extremities perfused. Laboratory: Hematocrit is 24. INR is 1.68. ASSESSMENT/PLAN: A 74-year-old female with left flank hematoma with associated rib fracture. Flank hematoma. At this time, I recommend continued supportive care. On the CT scan, again, it looks like the fluid collection, likely hematoma, is under latissimus dorsi and getting to it to drain it surgically would probably involve potential injury to her musculature. She has associated rib fracture which I think is where she is feeling most of her discomfort. I suspect this rib fracture is the cause of her hematoma. I would recommend continued supportive care and transfusion as needed. Her INR is still slightly thin and still could potentially thicken it up more. I do not believe there is any indication to believe that this is infected and, again, I think getting to the abscess and adequately draining it would potentially cause more bleeding. cc: MD AJITH Rain
[2019-08-28] MEDS: RENAGEL PO SCH ×3 (08:09→17:52)
[2019-08-28] MEDS: PERCOCET-5 PO PRN ×2 (09:23→18:22)
[2019-08-28] MEDS: ZOLOFT PO SCH (09:23)
[2019-08-28] MEDS: ZOFRAN IV PRN (09:23)
[2019-08-28] MEDS: MAALOX PLUS LIQUID PO SCH (09:23)
[2019-08-28] MEDS: COREG PO SCH ×3 (09:23→20:47)
[2019-08-28] MEDS: NEXIUM PO SCH (09:24)
[2019-08-28] MEDS: LANOXIN PO SCH (09:25)
[2019-08-28] MEDS ORDERED: NS 500 ML IV ONE (09:28)
--- NOTE | 2019-08-28 10:29 | PROGRESS NOTE ---
DATE: 08/28/2019 SUBJECTIVE: The patient reports still having pain in the left flank, where she had a hematoma. No nausea, vomiting. No bloody stools or vomiting blood. OBJECTIVE: Vital Signs: Temperature 98 degrees, heart rate 87, respiratory rate 15, blood pressure 116/52, O2 saturation 96% on 2 L nasal cannula. General: This is a 74-year-old, female, lying in bed in no acute distress. Cardiovascular: S1, S2 heard. No murmurs, gallops, or rubs. Regular rate and rhythm. Respiratory: Clear bilaterally to auscultation. No work of breathing or using accessory muscles. Abdomen: Soft, nontender to palpation. Bowel sounds present. No organomegaly. Skin: There is a superficial hematoma noted near the left ribcage, with swelling and edema around it, basically the same in comparing with yesterday. Neurological: The patient is alert and oriented x3. Moves all 4 extremities. LABORATORY DATA: Hemoglobin is today 7.7, and yesterday had reached 9.2, with INR 1.68 and creatinine 5.0. ASSESSMENT AND PLAN: 1. Left flank hematoma. Hemoglobin has dropped from 9.3 to 7.7. INR is still elevated, so what we are planning to do is to provide 1 more unit of blood and 1 more unit of fresh frozen plasma. General Surgery is following this patient closely, and thinks that trying to remove that hematoma will cause more bleeding. We agreed. At this time, that is what we are planning to do. Will continue to check CBC and INR daily. 2. End-stage renal disease, on dialysis. Will continue with dialysis treatment. 3. Anemia, multifactorial. Most likely, this anemia is because of the hematoma. As we mentioned before, will provide 1 more unit of fresh frozen plasma and 1 more unit of blood, and will check INR tomorrow. 4. Coronary artery disease. That condition is stable. Will continue to monitor. 5. Diabetes mellitus type 2. Will continue with sliding scale insulin and Accu-Chek before meals and also at bedtime. 6. Disposition. Will continue to monitor CBC and iron daily. Will follow recommendations from General Surgery. At this point, no surgical intervention is recommended. cc: Gómez Dupree MD
[2019-08-28] MEDS: PERICOLACE PO SCH (20:47)
[2019-08-28] MEDS: LIPITOR PO SCH (20:47)
[2019-08-28] MEDS: SEROQUEL PO SCH (20:47)
[2019-08-29 05:37] LABS: HEMATOCRIT 26.5 % (37.0-47.0); HEMOGLOBIN 8.4 g/dL (12.0-16.0); MCH 31.1 PG (27-31); MCHC 31.7 g/dL (33-37); MCV 98.1 FL (81-99); MPV 10.4 FL (7.4-10.4); RBC 2.7 XMIL (4.2-5.4); RDW 17.2 % (11.5-14.5); WBC 9.53 X1000 (4.8-10.8)
[2019-08-29 06:00] LABS: ALBUMIN 2.5 g/dL (3.5-5.0); PHOSPHORUS 3.2 mg/dL (2.7-4.5); POTASSIUM 5.2 mmol/L (3.5-5.1)
[2019-08-29 06:02] LABS: CREATININE 5.6 mg/dL (0.5-0.9)
[2019-08-29] MEDS: HUMALOG SUBQ SCH ×4 (06:29→20:43)
--- NOTE | 2019-08-29 07:16 | GENERAL SURGERY PROGRESS NOTE ---
DATE: 08/29/2019 SUBJECTIVE: Patient seems to be doing okay. She is resting. OBJECTIVE: Vital Signs: Patient is currently afebrile. Her vital signs are stable. General: No acute distress. HEENT: Normocephalic, atraumatic. Pupils equal, round, reactive to light. Mucous membranes moist. Oropharynx benign. Neck: Supple. Trachea midline. Cardiovascular: Regular rate and rhythm. Lungs: Grossly clear. Chest: Chest wall looks about the same to me overall. Abdomen: Soft, nontender, nondistended. Extremities: Moves all extremities. Neurologic: Grossly intact. Skin: Bruising as noted above. Vascular: All extremities perfused. LABORATORY: Hematocrit is 26, which is up from yesterday. She did get a unit of blood. INR is pending. Of note her creatinine is up to 5.6. ASSESSMENT AND PLAN: A 74-year-old female with chest wall hematoma and associated rib fracture. 1. Chest wall/flank hematoma. At this time, continue supportive care. Hematocrit is 26. She has gotten more units of blood and FFP, hoping to continue to thicken up her blood. Her CT scan shows the hematoma likely under her latissimus dorsi, so, risk/benefit ratio does not favor drainage at this time. Recommend continue supportive care. 2. Elevation in the creatinine. At this time defer to the hospitalist. cc: Dewey Cao MD
[2019-08-29] MEDS: RENAGEL PO SCH ×3 (09:53→16:01)
[2019-08-29] MEDS: NEXIUM PO SCH (09:54)
[2019-08-29] MEDS: MAALOX PLUS LIQUID PO SCH ×2 (09:54→09:56)
[2019-08-29] MEDS: ZOLOFT PO SCH (09:54)
[2019-08-29] MEDS: COREG PO SCH ×3 (09:54→20:43)
[2019-08-29] MEDS: PERCOCET-5 PO PRN ×2 (10:01→18:02)
[2019-08-29] MEDS: MILK OF MAGNESIA PO PRN (10:01)
[2019-08-29] MEDS ORDERED: NS 1,000 ML ONE (11:15)
[2019-08-29] MEDS ORDERED: HEPARIN IV PRN (12:06)
[2019-08-29] MEDS ORDERED: TIGHT: 0.2 ML/HR FOR DIALYSIS MISC PRN (12:06)
[2019-08-29] MEDS ORDERED: NS 2,000 ML MISC PRN (12:06)
[2019-08-29] MEDS ORDERED: BENADRYL PO ONE (14:43)
--- NOTE | 2019-08-29 14:48 | PROVIDER PROGRESS NOTE ---
Progress Note Subjective: She voices increased swelling on her left side. Objective: Temperature 97.7, pulse 72, respirations 17, blood pressure 126/46, 02 sat 100% on 2 L nasal cannula. General: Elderly white female lying in bed in no acute distress. HEENT: normocephalic, atraumatic, pupils equal and reactive. Mucous membranes moist, trachea midline. Skin: warm and dry. Left breast swollen and heavy compared to the right side. Neck: supple, JVD observed. Cardiovascular: S1S2, regular rate and rhythm with systolic murmur. Grade 2/6 heard best at left apex. Respiratory: clear with equal air entry anteriorly. Abdomen: soft, non tender, nondistended, bowel sounds present. : non inspected. Extremities: left arm generalized edema with black/ purple discoloration. Neurological: alert and oriented to person, place, and time. Labs: WBC 9.53, hemoglobin 8.4, hematocrit 26.5, platelet count 134, sodium 136, potassium 5.2, chloride 97, carbon dioxide 26, BUN 37, creatinine 5.6. Intake 2051, output zero. Impression: Chronic kidney disease stage 5D. She will receive her routine hemodialysis treatment today with no changes. Acute blood loss anemia. She has received a total of 3 units PRBCs. Her hemoglobin is 8.4 at the moment. She has 2 left sided rib fractures with a large hematoma. Her left breast and upper arm have increased edema today. Encouraged to sit up to redistribute edema. Conservative care. Blood pressure. In target. Fluid volume. Expanded. She is due for routine hemodialysis today, Electrolytes and acid base balance. Will be corrected with hemodialysis today. Nutrition. Adequate. Ambulation. Up to chair daily. Medication review. Discontinued Demerol for contraindications with hemodialysis patients.
--- NOTE | 2019-08-29 15:11 | PROGRESS NOTE ---
DATE: 08/29/2019 SUBJECTIVE: The patient reports still having pain in the left arm, but the pain is better in comparing with yesterday. No nausea or vomiting. Labs have been checked and are stable. OBJECTIVE: Vital Signs: Temperature 97.9 degrees, heart rate 79, respiratory rate 17, blood pressure 121/44, O2 saturation 97% on room air. General: This is a 74-year-old, female, lying in bed in no acute distress. Cardiovascular: S1, S2 heard. No murmurs, gallops, or rubs. Regular rate and rhythm. Respiratory: Clear bilaterally to auscultation. No work of breathing or using accessory muscles. Abdomen: Soft, nontender to palpation. Bowel sounds present. No organomegaly. Skin: There is a superficial hematoma noted near the left ribcage with swelling and edema around it. Basically, the same in comparing with yesterday. Neurological: The patient is alert and oriented x3. Moves all 4 extremities. LABORATORY DATA: Hemoglobin is 8.4 today. INR is still pending. ASSESSMENT AND PLAN: 1. Left flank hematoma. Hemoglobin is much better today after we transfused 1 unit of blood. Hemoglobin is maintaining about 8 today. At this point, no surgical approach is recommended. One fresh frozen plasma has been provided. Will see what INR is. 2. End-stage renal disease, on regular dialysis. Will continue to monitor this patient. 3. Anemia, multifactorial, most likely related to this superficial hematoma at this point. Hemoglobin is stable, so she does not need any more blood transfusion. 4. Coronary artery disease, stable. 5. Diabetes mellitus type 2. Will continue with sliding scale insulin and Accu-Cheks before meals and also at bedtime. 6. Disposition. Will continue to monitor this patient closely. Surgery is following, but is not a candidate for any surgical approach. cc: Gómez Dupree MD
[2019-08-29 15:26] LABS: INR 1.33; PROTIME 16.7 Seconds (11.0-16.0)
[2019-08-29] MEDS: LIPITOR PO SCH (20:29)
[2019-08-29] MEDS: SEROQUEL PO SCH (20:29)
[2019-08-29] MEDS: PERICOLACE PO SCH (20:29)
[2019-08-29] MEDS: ATIVAN PO PRN (20:37)
[2019-08-30 05:20] LABS: INR 1.46
[2019-08-30 05:21] LABS: HEMATOCRIT 27.4 % (37.0-47.0); HEMOGLOBIN 8.6 g/dL (12.0-16.0); MCH 31.3 PG (27-31); MCHC 31.4 g/dL (33-37); MCV 99.6 FL (81-99); MPV 10.1 FL (7.4-10.4); RBC 2.75 XMIL (4.2-5.4); WBC 8.48 X1000 (4.8-10.8)
[2019-08-30] MEDS: HUMALOG SUBQ SCH ×3 (06:17→17:46)
[2019-08-30] MEDS: RENAGEL PO SCH ×3 (07:50→18:04)
[2019-08-30] MEDS: LANOXIN PO SCH (09:40)
[2019-08-30] MEDS: ZOLOFT PO SCH (09:40)
[2019-08-30] MEDS: NEXIUM PO SCH (09:40)
[2019-08-30] MEDS: MAALOX PLUS LIQUID PO SCH ×2 (09:40→09:42)
[2019-08-30] MEDS: COREG PO SCH ×3 (09:40→21:57)
[2019-08-30] MEDS: PERCOCET-5 PO PRN ×2 (09:47→18:02)
--- NOTE | 2019-08-30 14:22 | PROGRESS NOTE ---
DATE: 08/30/2019 SUBJECTIVE: Patient reports feeling fine. Pain in the left ribcage is slightly better. No other complaints at this time. OBJECTIVE: Vital Signs: Temperature 98.3 degrees, heart rate 81, respiratory rate 16, blood pressure 120/51, O2 saturation 95% on room air. General Examination: This is a 74-year-old, female lying in bed, in no acute distress. Cardiovascular Examination: S1 and S2 heard. No murmurs, gallops, or rubs. Regular rate and rhythm. Respiratory Examination: Clear bilaterally to auscultation. No work of breathing or using accessory muscles. Abdomen: Soft, nontender to palpation. Bowel sounds present. No organomegaly. Extremities: No clubbing, cyanosis, or edema. Peripheral pulses present in both legs. Skin: There is a superficial hematoma noted near to the left ribcage. Neurological Examination: The patient is alert and oriented x3. Moves 4 extremities. Laboratory Data: Hemoglobin is 8.6 today. INR was 1.3 yesterday and today is 1.46 . ASSESSMENT/PLAN: 1. Left flank hematoma. Hemoglobin has normalized today. No more drops. No surgical approach recommended as per Dr. Cao. At this point, we will continue to monitor. 2. End-stage renal disease, on regular dialysis. We will continue providing dialysis to this patient. 3. Anemia, multifactorial, mostly related to this superficial hematoma. Hemoglobin is stable right now. 4. Coronary artery disease, stable. Not complaining of any chest pain. 5. Diabetes mellitus type 2. We will continue with sliding scale insulin, and Accu-Chek before meals and also at bedtime. 6. Disposition. At this point, the patient is medically stable and can go back to her detention but we are talking to the nephrology social worker to see if we can send this patient today or on . cc: MD AJITH Ball
--- NOTE | 2019-08-30 19:19 | GENERAL SURGERY PROGRESS NOTE ---
DATE: 08/30/2019 SUBJECTIVE: She is still having a little soreness in her left anterior chest, but the swelling is going down. OBJECTIVE: No fevers. Pulse 80, blood pressure 117/62, oxygen saturation 92%. General: She is alert. Cardiovascular: Normal rate. Her abdomen is soft. On her left chest there is some ecchymosis there. Some mild swelling. It is slightly tender, but it is not tense and the skin is healthy overlying. LABORATORY DATA: White count of 8, hematocrit stable at 27. Her INR is 1.46. ASSESSMENT AND PLAN: This is a 74-year-old female with left anterior chest hematoma. I do not see evidence of complication. We will allow her INR to remain subtherapeutic and we will observe going forward. I suspect this will resolve without issue. We will need to consider the pros and cons of ongoing anticoagulation, given the spontaneous bleed. cc: Mundo Lofton MD
[2019-08-30] MEDS: PERICOLACE PO SCH (21:55)
[2019-08-30] MEDS: LIPITOR PO SCH (21:55)
[2019-08-30] MEDS: SEROQUEL PO SCH (21:55)
[2019-08-30] MEDS: ATIVAN PO PRN (22:09)
[2019-08-31] MEDS: HUMALOG SUBQ SCH ×3 (00:54→12:00)
[2019-08-31 05:20] LABS: HEMATOCRIT 26.9 % (37.0-47.0); HEMOGLOBIN 8.6 g/dL (12.0-16.0); MCH 31.5 PG (27-31); MCV 98.5 FL (81-99); MPV 9.9 FL (7.4-10.4); RBC 2.73 XMIL (4.2-5.4); RDW 16.6 % (11.5-14.5); WBC 7.77 X1000 (4.8-10.8)
[2019-08-31 05:30] LABS: INR 1.39; PROTIME 17.3 Seconds (11.0-16.0)
[2019-08-31] MEDS: COREG PO SCH ×3 (08:29→20:37)
[2019-08-31] MEDS: MAALOX PLUS LIQUID PO SCH ×2 (08:30→08:33)
[2019-08-31] MEDS: NEXIUM PO SCH (08:30)
[2019-08-31] MEDS: ZOLOFT PO SCH (08:30)
[2019-08-31] MEDS: RENAGEL PO SCH ×3 (08:30→17:25)
--- NOTE | 2019-08-31 12:40 | NEPHROLOGY PROGRESS NOTE ---
DATE: 08/31/2019 SUBJECTIVE: Her pain is improved. No shortness of breath. OBJECTIVE: Vital Signs: Blood pressure 127/44, heart rate 73, respirations 15, afebrile. General: No acute distress. Skin: Warm and dry. Neck: Neck veins are distended. Heart: Regular. No gallops. Lungs: Equal. No crackles. Abdomen: Soft, nontender. Bowel sounds present. Extremities: There is 1+ edema, worse on the left, minimal change. IMPRESSION: Chronic kidney disease 5D. She will have her routine dialysis today. Moderate volume overload today. Hemoglobin is stable following transfusion. No changes. cc: Mirza Lai MD
--- NOTE | 2019-08-31 13:02 | PROGRESS NOTE ---
DATE: 08/31/2018 SUBJECTIVE: The patient reports feeling fine. Left-sided chest pain is getting better. OBJECTIVE: Vital Signs: Temperature 98.1 degrees, heart rate 77, respiratory rate 18, blood pressure 122/52, O2 saturation 97% on room air. General: This is a 74-year-old, female, lying in bed in no acute distress. Cardiovascular: S1, S2 heard. No murmurs, gallops, or rubs. Regular rate and rhythm. Respiratory: Clear bilaterally to auscultation. No work of breathing or using accessory muscles. Skin: Superficial hematoma noted near the ribcage. Some mild swelling as well. Slightly tender to palpation. Neurological: The patient is alert and oriented x3. Moves all 4 extremities. LABORATORY DATA: Reviewed, and the hemoglobin is 8.6, with INR of 1.32. ASSESSMENT AND PLAN: 1. Left flank hematoma. That condition is getting better. INR is better. Hemoglobin has stabilized over the last couple of days, so at this point, the patient is medically stable. 2. End-stage renal disease, on regular dialysis Thursday, Thursday, and Thursday. Will continue with that here in the hospital. 3. Anemia, multifactorial. Hemoglobin has stabilized. Will continue to monitor CBC while this patient is in the hospital. 4. Coronary artery disease, stable, not complaining of any chest pain. 5. Diabetes mellitus type 2. Will continue with sliding scale insulin, and Accu-Chek before meals and also at bedtime. 6. Disposition. At this point, the patient is medically stable. Will see tomorrow if we can [facility] this [facility]. cc: Gómez Dupree MD
[2019-08-31] MEDS ORDERED: NS 2,000 ML MISC PRN (13:12)
[2019-08-31] MEDS: PERCOCET-5 PO PRN (18:18)
[2019-08-31] MEDS: ATIVAN PO PRN (20:35)
[2019-08-31] MEDS: PERICOLACE PO SCH (20:36)
[2019-08-31] MEDS: LIPITOR PO SCH (20:36)
[2019-08-31] MEDS: SEROQUEL PO SCH (20:36)
[2019-09-01 05:33] LABS: INR 1.48; PROTIME 18.2 Seconds (11.0-16.0)
[2019-09-01] MEDS: HUMALOG SUBQ SCH ×5 (06:41→22:51)
[2019-09-01] MEDS: RENAGEL PO SCH ×3 (06:43→18:39)
[2019-09-01] MEDS: MILK OF MAGNESIA PO PRN (06:50)
[2019-09-01] MEDS: NEXIUM PO SCH (10:01)
[2019-09-01] MEDS: COREG PO SCH ×2 (10:01→22:50)
[2019-09-01] MEDS: ZOLOFT PO SCH (10:01)
[2019-09-01] MEDS: LANOXIN PO SCH (10:01)
[2019-09-01] MEDS: MAALOX PLUS LIQUID PO SCH (10:02)
[2019-09-01] MEDS: PERCOCET-5 PO PRN ×2 (10:17→20:05)
[2019-09-01] MEDS ORDERED: NS 2,000 ML MISC PRN (12:53)
--- NOTE | 2019-09-01 15:54 | PROVIDER PROGRESS NOTE ---
Progress Note Subjective: patient voices feeling tired and sore on her left side. She denies any chest pain, shortness of breath, decrease in appetite, or nausea and vomiting. Objective: Temperature 99.0, pulse 77, respirations 20, blood pressure 118/36, 02 sat 93% on room air. General: elderly white female lying in bed in no acute distress HEENT: normocephalic, atraumatic, pupils equal and reactive. Mucous membranes moist and trachea midline. Skin: warm and dry. Left breast greater in size than right. Neck: supple, JVD with Hepatojugular reflux. Cardiovascular: S1S2, regular rate and rhythm with systolic murmur 2/6, heard best at left sternal border. Respiratory: clear anteriorly with equal air entry Abdomen: soft, nontender and nondistended. Bowel sounds present. Next line : not inspected Extremities: left arm generalized edema with purple healing bruises. Trace Edema to bilateral lower extremities Neurological: alert and oriented to person, place, and time. Labs: PT 18.2, INR 1.48. Intake 720, output 2200. Impression: Chronic kidney disease stage 5D. She had her routine hemodialysis treatment yesterday with no difficulty. She will have another treatment today for fluid status. She is OK for discharge from my perspective. We will see her in the outpatient setting. Blood pressure. In target. Fluid volume. Expanded. Will have an extra hemodialysis treatment before discharging today. Anemia. Stable on last labs. Electrolytes and acid base balance. Stable on last labs. Nutrition. Adequate. Ambulation. Up with assist in the room. Medication review.
--- NOTE | 2019-09-01 16:35 | PROGRESS NOTE ---
DATE: 09/01/2019 SUBJECTIVE: The patient reports feeling fine. No complaint at this time. OBJECTIVE: Vital Signs: Temperature degrees 97.8, heart rate 80 respiratory rate 18, blood pressure 153/50 O2 saturation 100% on room air. General: This is a 74-year-old female lying in bed, in no acute distress. Cardiovascular: S1, S2 heard. No murmurs, gallops, or rubs. Regular rate and rhythm. Respiratory: Clear bilaterally to auscultation. No work of breathing or using accessory muscles. Skin: Skin superficial hematoma noted near the left ribcage: Mild swelling, slightly tender to palpation. Neurological: Patient is alert and oriented x3. Moves 4 extremities. LABORATORY DATA: Reviewed. ASSESSMENT AND PLAN: 1. Left flank hematoma. The condition is stable. INR is definitely better and hemoglobin has not dropped again. General surgery involved in his care. Did not consider to operate on her so medical management recommended. 2. End-stage renal disease. Patient is on regular dialysis Thursday, Thursday and Thursday. We will continue with that. 3. Anemia multifactorial stable. 4. Coronary artery disease. Stable not complaining of any chest pain. 5. Diabetes mellitus type 2. We will continue with sliding scale insulin and Accu-Chek before meals and also at bedtime. DISPOSITION: This point patient is the patient is medically stable. We will continue to wait for a rehab bed for her. cc: Gómez Dupree MD
[2019-09-01] MEDS: LIPITOR PO SCH (20:03)
[2019-09-01] MEDS: SEROQUEL PO SCH (20:03)
[2019-09-01] MEDS: PERICOLACE PO SCH (20:03)
[2019-09-02 06:06] LABS: INR 1.44; PROTIME 17.9 Seconds (11.0-16.0)
[2019-09-02] MEDS: HUMALOG SUBQ SCH ×2 (06:42→12:28)
[2019-09-02] MEDS: RENAGEL PO SCH ×2 (07:44→12:28)
[2019-09-02] MEDS ORDERED: NS 2,000 ML MISC PRN (07:56)
--- NOTE | 2019-09-02 11:40 | DISCHARGE SUMMARY ---
ADMISSION DATE: 08/26/2019 DISCHARGE DATE: 09/02/2019 ADMISSION DIAGNOSES: 1. Left flank and shoulder pain. 2. Chronic kidney disease stage V, on dialysis Thursday, Thursday, Thursday. 3. Anemia that is chronic. 4. Coagulopathy. 5. Transient hypotension. 6. Coronary artery disease. 7. Diabetes mellitus type 2. DISCHARGE DIAGNOSES: 1. Left flank hematoma, stable. 2. End-stage renal disease. 3. Anemia, multifactorial. 4. Coronary artery disease. 5. Diabetes mellitus type 2. CONSULTATIONS: 1. Dr. Lai for the end-stage renal disease. 2. Dr. Dewey Cao for the hematoma. SURGERIES AND PROCEDURES: None. HOSPITAL COURSE: Ms Sintia Moses is a 74-year-old female with a medical history of end-stage renal disease on hemodialysis with also diabetes and hypertension, presented with complaints of severe left flank and shoulder pain. She denied any injury. Was sent to the emergency room per [facility] due to the fact they were unable to control her pain with hydrocodone. She was found to be in coagulopathy, was given vitamin K and fresh frozen plasma. She did have some transient low blood pressure. The CT of the thorax without contrast showed a large left flank soft tissue hematoma with overlying indistinct edema. It also showed a nondisplaced acute lateral left 10th rib fracture which could be consistent with a fall. That is when General Surgery was consulted, but they recommended treating the coagulopathy. There was no I & D needed. During her stay, she ended up getting 3 packed red blood cells and 3 fresh frozen plasmas. She is stabilized out and is okay for discharge back to rehab. DISCHARGE VITAL SIGNS: Temperature 97.7 degrees, heart rate 82, respiratory rate 15, blood pressure 122/65, O2 saturation 100% on room air. DISCHARGE LABORATORY DATA: CBC was last on the 31 of August. White blood cell count 7000, hemoglobin 8, hematocrit 26, platelet count 138,000. Her INR today is 1.44. Her blood glucose level today is 96. MICROBIOLOGY: There was stool for blood, it was negative. Blood cultures were negative. DISCHARGE MEDICATIONS: 1. Quetiapine fumarate 50 mg p.o. nightly. 2. Senokot 2 tablets p.o. nightly. 3. Atorvastatin 40 mg p.o. nightly. 4. Maalox 30 mL p.o. daily. 5. Nexium 40 mg p.o. daily. 6. Prilosec 40 mg p.o. daily. 7. Renvela 800 mg p.o. t.i.d. with meals. 8. Zoloft 100 mg p.o. daily. 9. Ambien 10 mg p.o. nightly p.r.n. 10. Ativan 1 mg p.o. every 8 hours p.r.n. 11. Coreg 6.25 mg p.o. every 12 hours. 12. Digoxin 125 mcg p.o. every other day, take on nondialysis days. 13. Milk of magnesia 30 mL p.o. daily p.r.n. 14. Percocet 5 one tablet p.o. every 6 hours p.r.n. 15. Albuterol 2 puffs inhaled t.i.d. 16. Zanaflex 4 mg p.o. twice daily p.r.n. DISCHARGE DIET: Renal diet. DISCHARGE ACTIVITY: As tolerated. DISCHARGE INSTRUCTIONS: If your condition changes, contact your physician and/or return to the emergency department. Changes may include but are not limited to shortness of breath, increased fatigue, excessive bleeding, unexplained weight loss or gain, unmanageable pain, signs or symptoms of infection. PHYSICIAN FOLLOWUP: Dr. Dewey Cao and Dr. Lai. DISCHARGE DISPOSITION: [facility]. Dictated by DIGNA Canales for Gómez Dupree MD Addendum: Patient seen and examined by myself. Agree with DIGNA note. It reflects my assessment and plan. Patient is being discharged in stable condition. Will be seen by PCP if needed. Will need to resume warfarin in a week after discharge. Daughter informed on detail. cc: DIGNA Canales MD [facility] HOSPITALBrice
--- NOTE | 2019-09-02 11:44 | NEPHROLOGY PROGRESS NOTE ---
DATE: 09/02/2019 SUBJECTIVE: She continues to complain of pain, but overall in good spirits. OBJECTIVE: Vital Signs: Blood pressure 122/65, heart rate 82, respirations 15, afebrile. General: No acute distress. Skin: Warm and dry. Neck: Neck veins are not distended. Heart: Regular. Lungs: Equal. No crackles. Abdomen: Soft, nontender. Extremities: Edema in the left flank. Improved overall. IMPRESSION: 1. Chronic kidney disease 5 D. She will have her next routine dialysis treatment today. She is to be discharged and can resume treatment at the [facility]. 2. Electrolytes/acid base/anemia. Stable when last measured. Blood pressure is in target. cc: Mirza Lai MD
[2019-09-02] MEDS: ZOLOFT PO SCH (12:28)
[2019-09-02] MEDS: MAALOX PLUS LIQUID PO SCH (12:28)
[2019-09-02] MEDS: NEXIUM PO SCH (12:28)
[2019-09-02] MEDS: COREG PO SCH (12:28)
[2019-09-02] MEDS: PERCOCET-5 PO PRN ×2 (12:35→13:09)
[2019-09-02 12:48] VITALS: BP 131/42
== END 2019-09-02 14:34 | DRG 813 ==
LOC: ED 05:39 → 1N 12:09
PROVIDERS: ATTEND Internal Medicine

== ENCOUNTER 2019-09-15 23:36 | Inpatient (IN) ==
[2019-09-15] MEDS ORDERED: DUONEB (A & A) INH ONE (23:49)
--- NOTE | 2019-09-15 23:57 | PROVIDER DOCUMENTATION ---
HPI-General Adult - General Chief Complaint: Shortness of Breath Stated Complaint: URI Time Seen by Provider: 09/15/19 23:36 Source: patient, family (daughter at bedside) Allergies/Adverse Reactions: Patient Allergies Allergy/AdvReac Type Severity Reaction Status Date / Time diltiazem Allergy Intermediate ITCHING Verified 07/22/19 16:40 morphine Allergy Unknown Unknown Verified 07/22/19 16:40 cefazolin Allergy HIVES Verified 07/22/19 16:40 ceftazidime pentahydrate * Allergy HIVES Verified 07/22/19 16:40 [From TAZICEF] hydrocodone Allergy ITCHING Verified 07/22/19 16:40 Penicillins Allergy Unknown Verified 07/25/19 10:27 vancomycin Allergy HIVES Verified 07/22/19 16:40 Home Medications: Home Medication List Medication Instructions Recorded Confirmed Last Taken Type Sevelamer Carbonate [Renvela] 800 mg PO TID AC 09/10/15 09/16/19 08/16/19 History 800 ATORVAstatin [Lipitor] 40 mg PO HS 07/15/16 09/16/19 04/23/19 21:00 History Sertraline HCl [Zoloft] 100 mg PO DAILY 07/15/16 09/16/19 08/16/19 History 100 Omeprazole [Prilosec] 40 mg PO DAILY 04/14/19 09/16/19 04/24/19 09:00 History Quetiapine Fumarate 50 mg PO QHS 04/14/19 09/16/19 08/15/19 History 50 Albuterol Sulfate Inhaler 2 puff INH TID #1 inhaler 04/17/19 09/16/19 08/16/19 Rx [Ventolin Hfa] 2 Tizanidine [Zanaflex] 4 mg PO BID PRN PRN tab 04/27/19 09/16/19 Unknown Rx Sennosides/Docusate Sodium 2 ea PO QHS 05/12/19 09/16/19 08/06/19 History [Senna-S Tablet] 2 Carvedilol [Coreg] 6.25 mg PO Q12H #0 05/13/19 09/16/19 08/16/19 Rx 6.25 Digoxin [Lanoxin] 125 microgm PO EVERY OTHER DAY #30 05/13/19 09/16/19 Unknown Rx tab Esomeprazole [Nexium] 40 mg PO DAILY 08/17/19 09/16/19 08/16/19 History 40mg Mag Hydrox/Al Hydrox/Simeth 30 ml PO DAILY 08/17/19 09/16/19 Unknown History [Maalox Plus Liquid] Magnesium Hydroxide [Milk of 30 ml PO DAILY PRN PRN udc 08/18/19 09/16/19 Unknown Rx Magnesia] Lorazepam [Ativan] 1 mg PO Q8H PRN PRN #40 tab 09/02/19 09/16/19 Unknown Rx Oxycodone HCl/Acetaminophen 1 tab PO Q4H PRN PRN #40 tab 09/02/19 09/16/19 Unknown Rx [Percocet 10-325 mg Tablet] Zolpidem [Ambien] 10 mg PO HS PRN PRN #30 tab 09/02/19 09/16/19 Unknown Rx Methylprednisolone [Medrol Dosepak] 4 pkg PO DAILY 09/16/19 09/16/19 Unknown History Warfarin [Coumadin] 5 mg PO DAILY 09/16/19 09/16/19 Unknown History - History of Present Illness -Gen Adult Nature of Presenting Problems: PER EMS, NURSE HOME SEND PATIENT HERE BECAUSE OF WORSENING OF PRODUCTIVE COUGH THAT'S NOT GETTING BETTER DESPITE BEING ON LEVAQUIN 500MG SINCE 09/13/19 AND ALSO AZITHROMYCIN 250MG SINCE 09/14/19 AND WANTS PATIENT BE CHECKED OUT. PATIENT OFFERS NO COMPLAINT BUT ONLY MILD RIGHT UPPER EXTREMITY DISCOMFORT. Onset/Duration: reports: 4 days ago Timing: reports: still present, constant, getting worse Modifying Factors: improves with: nothing Associated Symptoms: reports: cough, shortness of breath Similar Symptoms Previously?: Yes Recently seen or treated by another doctor?: Yes Review of Systems - Adult - REVIEW OF SYSTEMS - ADULT Constitutional: reports: no symptoms reported Eyes: reports: no symptoms reported Ears, Nose, Mouth & Throat: reports: no symptoms reported Cardiovascular: reports: no symptoms reported Respiratory: reports: cough, excessive sputum production, shortness of breath Gastrointestinal: reports: no symptoms reported Genitourinary: reports: no symptoms reported Musculoskeletal: reports: no symptoms reported Integumentary: reports: no symptoms reported Neurological: reports: no symptoms reported Psychiatric: reports: no symptoms reported Endocrine: reports: no symptoms reported Hematologic/Lymphatic: reports: no symptoms reported Allergic/Immunologic: reports: no symptoms reported Past History - Adult - PAST MEDICAL HISTORY-ADULT Review of Records: reports: Old Records Reviewed Major Childhood Illnesses: reports: denies history Cardiovascular: reports: cardiac disease, CAD, HTN, hyperlipidemia, pacemaker Respiratory: reports: COPD Gastrointestinal: reports: denies history Obstetrical/Gynecological: reports: denies history Genitourinary: reports: dialysis, ESRD Musculoskeletal: reports: arthritis, chronic pain Neurological: reports: denies history Psychiatric: reports: denies history Endocrine/Immune: reports: cancer, Diabetes, other (Renal Failure) Other Conditions: reports: denies history - PRIOR SURGERIES/PROCEDURES Surgical/Procedure History: reports: recent surgery, cardiac stent, hysterectomy , tonsillectomy, joint replacement - PRIOR HOSPITALIZATIONS Prior Hospitalizations: reports: for similar symptoms - IMMUNIZATION STATUS Childhood Immunizations: See Nurse Assessment Flu Vaccine: See Nurse Assessment - FAMILY HISTORY Family History: reviewed, not pertinent Physical Exam-General - PHYSICAL EXAM-ADULT Initial Vital Signs Reviewed: Yes - CONSTITUTIONAL General Appearance: appears well, alert, no apparent distress - EYES Eyes: PERRL/EOMI - HEAD, EARS, NOSE, MOUTH & THROAT HENMT: normocephalic/atraumatic, moist mucous membranes, normal ENT inspection, TMs normal - NECK Neck: non-tender, full range of motion, supple - RESPIRATORY Respiratory: chest non-tender, lungs clear, normal breath sounds, no pleuratic chest pain, no respiratory distress, no accessory muscle use - CARDIOVASCULAR Cardiovascular: normal peripheral pulses, regular rate, rhythm, no edema, no gallop, no JVD, no murmur - GASTROINTESTINAL (ABDOMEN) Abdominal Exam: normal bowel sounds, non tender, no organomegaly, no pulsatile mass - LYMPHATIC Lymphatic: no adenopathy - MUSCULOSKELETAL Back Exam: normal inspection, no CVA tenderness, no vertebral tenderness - SKIN Integumentary: normal color, normal turgor, warm/dry - NEUROLOGIC Neurologic: grossly normal - PSYCHIATRIC Psych/Mental Status: normal mood/affect, normal thought content, normal thought process, oriented x 3 Progress - PLAN OF CARE/RESULTS Progress/Plan/Lab Results: Orders Category Date Time Status CHEST-PORTABLE [RAD] Stat Exams 09/15/19 23:51 Ordered BASIC METABOLIC PANEL [CHEM] Stat Lab 09/15/19 23:47 Uncollected BLOOD CULTURE [BLDCUL] Stat Lab 09/15/19 23:49 Uncollected BNP [PRO B-NATRIURETIC PEPTIDE] Stat Lab 09/15/19 23:48 Uncollected CBC WITH ELECTRONIC DIFF [HEME] Stat Lab 09/15/19 23:47 Uncollected LACTATE, PLASMA [CHEM] Stat Lab 09/15/19 23:49 Uncollected MAGNESIUM [CHEM] Stat Lab 09/15/19 23:47 Uncollected Albuterol 2.5MG/Ipratrop 0.5MG [Duoneb (A & A)] Med 09/15/19 23:49 Discontinued 3 ml INH NOW ONE Aerosol Treatments Routine Oth 09/15/19 23:49 Active Aerosol Treatments Stat Oth 09/15/19 23:49 Active Result Diagrams: 09/16/19 00:14 09/16/19 00:14 - REASSESSMENT Reassessment #1 Time Reassessed: 01:51 Status: unchanged (pt given over to me by Dr. Matias. pt and daughter concerned for cough and states pt was started on abx but is not getting better. CXR showin possible developing infection, but cardiomegaly and trace b/l pleural effusions. Pt labs with no white count and normal lactate. BNP >70296, but has been this way since previous visits. Pt on HD M,W,F.) - XRAY 1 XRAY Study: Chest Impression: See EMR Report (patchy airspace opacities with bronchial wall thickening present b/l, mos pronounced within the right upper lobe. suggestive of asymetric pulmonary edema. superimposed developing infection could look similar. cardiomegally. trace bilateral pleural effusions.) - CONSULTS/PCP/HOSPITALIST Notification #1 *Consult/PCP/Hospitalist*: Dr. Garner Time Discussed: 02:05 Consult Disposition: Will see in ED, Admit - CHANGE OF SHIFT REPORT (ED Provider) 1 Report Given and Care Transferred to:: Dr. Carranza Time of Transfer: 01:05 Items Pending: Labs, XRAY Results, Physician Consult/Arrival, Other (CONTINUE MANAGEMENT.) Departure - Departure Date of Disposition Decision: 09/16/19 Time of Disposition Decision: 02:04 DIAGNOSIS: Pleural effusion, Pneumonia, Dyspnea, ESRD on hemodialysis Disposition: ADMITTED INPATIENT 09 Certified Medical Emergency: Emergent Condition: Stable Referrals and Follow-Ups: Irwin Galvin MD [Primary Care Provider] - - Critical Care Note This patient required my direct & personal management of CC.: No Attestation - Physician/ UMAIR Attestation Patient care was provided by Advanced Practice Provider:: No The physician spent face to face time with patient:: Yes Advanced Practice Provider documentation review:: Supervising physician onsite and consulted in the evaluation and care of this patient. The physician did have a face to face encounter with the patient.
[2019-09-16 00:38] LABS: BASO# 0.05 X1000 (0.0-0.2); BASO% 0.9 % (0.0-0.8); EOS# 0.25 X1000 (0.0-0.7); EOS% 4.4 % (0.0-10.0); HEMATOCRIT 30.8 % (37.0-47.0); HEMOGLOBIN 9.3 g/dL (12.0-16.0); LYMPH# 1.09 X1000 (1.2-3.4); LYMPH% 19.3 % (20.5-51.1); MCH 30.8 PG (27-31); MCHC 30.2 g/dL (33-37); MONO# 1.11 X1000 (0.11-0.59); MONO% 19.6 % (1.7-9.3); NEUT# 3.16 X1000 (1.4-6.5); NEUT% 55.8 % (42.2-75.2); PLT 143 X1000 (130-400); RBC 3.02 XMIL (4.2-5.4); RDW 18.7 % (11.5-14.5); WBC 5.66 X1000 (4.8-10.8)
[2019-09-16] MEDS ORDERED: TYLENOL PO ONE (00:55)
[2019-09-16 01:10] LABS: CALCIUM 9.4 mg/dL (8.8-10.2); CREATININE 3.2 mg/dL (0.5-0.9); MAGNESIUM 2.2 mg/dL (1.5-2.7); POTASSIUM 4.1 mmol/L (3.5-5.1)
[2019-09-16] MEDS ORDERED: VANCOMYCIN IV PER PHARMACY MISC ONE (02:11)
[2019-09-16] MEDS ORDERED: LEVAQUIN 500 MG in NS 100 ML IV ONE (02:12)
[2019-09-16] MEDS ORDERED: CLINDAMYCIN 600 MG/D5W 600 MG/50 ML IVPB IV SCH (02:30)
--- NOTE | 2019-09-16 03:25 | HISTORY AND PHYSICAL ---
ADDENDUM: Ms. Moses is a patient currently undergoing rehab, recently discharged from our facility about 1-2 weeks ago. Brought in because the patient has been having 3-day history of cough productive of greenish sputum and shortness of breath. She has been treated with Zithromax and another antibiotic, without any relief. Her chest film suggests mild pulmonary edema, cannot rule out an infiltrate. The CAT scan did show some area of consolidation in her lung per my review. She has gotten mild improvement with albuterol in the ER. She is being admitted here because of failure of outpatient treatment. Our choice of antibiotics will be as follows: Currently the patient will be on Levaquin and clindamycin. Failing that, an alternative medication regimen will include doxycycline and Merrem. She would hopefully undergo dialysis, with the goal of ultrafiltration which hopefully should improve her overall breathing status. Continue breathing treatments. cc: Jeff Garner MD
[2019-09-16] MEDS ORDERED: AMBIEN PO PRN (04:10)
[2019-09-16] MEDS ORDERED: ZANAFLEX PO PRN (04:10)
[2019-09-16] MEDS ORDERED: MILK OF MAGNESIA PO PRN (04:10)
[2019-09-16] MEDS ORDERED: ATIVAN PO PRN (04:10)
[2019-09-16] MEDS ORDERED: DUONEB (A & A) INH PRN (04:10)
[2019-09-16 04:35] LABS: INR 1.4; PROTIME 17.4 Seconds (11.0-16.0)
--- NOTE | 2019-09-16 05:40 | Diag Imaging Result Doc PS360 ---
EXAM: CHEST-PORTABLE HISTORY: SOB TECHNIQUE: Single view COMPARISON: 08/26/2019 FINDINGS: The lungs are well expanded. There are infiltrates in the right upper lobe. The heart remains mildly enlarged. There are sternal wires and left-sided pacemaker. Mild vascular distention. No pleural effusions identified. IMPRESSION: 1.Right upper lobe pneumonia 2.Mild cardiomegaly and mild pulmonary edema Electronically signed by Kamran Henry 09/16/2019 5:37 AM
[2019-09-16] MEDS: RENAGEL PO SCH ×5 (05:50→17:24)
[2019-09-16] MEDS: PERCOCET-10 PO PRN ×3 (05:50→14:43)
[2019-09-16] MEDS: COREG PO SCH ×3 (05:51→17:24)
[2019-09-16] MEDS ORDERED: NS 2,000 ML MISC PRN (07:40)
[2019-09-16] MEDS ORDERED: HEPARIN IV PRN (07:40)
[2019-09-16] MEDS: DUONEB (A & A) INH SCH ×5 (08:26→23:47)
--- NOTE | 2019-09-16 08:45 | HISTORY AND PHYSICAL ---
PRIMARY CARE PROVIDER: Dr. Galvin. CHIEF COMPLAINT: Productive cough, low blood pressure. HISTORY OF PRESENT ILLNESS: Ms. Moses is a 74-year-old female who was discharged from our service on 09/02/2009 after having a left flank hematoma and being coagulopathic with transient hypotension. She was discharged to [facility] in [place] for rehab. Her last hemodialysis session was on Thursday. She reported on 09/14/2019, she started having a productive cough with green sputum and was placed on p.o. antibiotics with azithromycin and Levaquin. The patient's daughter at the bedside reports after getting her p.m. Coreg and her blood pressure went from 120 to 90/45, so they wanted to come to the ED to be evaluated. She reports she was not really symptomatic. She just felt that that blood pressure was too low. Workup in the ED revealed a normal white count of 5, a proBNP greater than 35,000, a creatinine of 3.2. Plasma lactate of 1.6. Her chest x-ray showed pronounced bronchial wall thickening in the right upper lobe suggestive of pulmonary edema and superimposed developing infection, cardiomegaly and trace bilateral effusions. Current blood pressures have been stable in 110s/50s. She is saturating well on room air. She is afebrile. She has multiple allergies to cefazolin, ceftazidime, vancomycin and penicillins. We will give her an initial dose of Levaquin and clindamycin and continue with further evaluation and treatment. PAST MEDICAL HISTORY: 1. Coronary artery disease. 2. End-stage renal disease on hemodialysis Thursday, Thursday, Thursday. 3. History of IN in 2006. 4. Chronic atrial fibrillation. 5. Noninsulin dependent diabetes mellitus. 6. COPD on home O2 but is not currently on O2. 7. GERD. PAST SURGICAL HISTORY: CABG, permanent pacemaker placement, hysterectomy, cataracts, right upper extremity dialysis shunt. SOCIAL HISTORY: She is currently at [facility] rehab. Supportive daughter at bedside. No alcohol, tobacco, or illicit drug use. ALLERGIES: Cardizem, morphine, cefazolin, hydrocodone, penicillin, vancomycin and ceftazidime. HOME MEDICATIONS: 1. Seroquel 50 mg p.o. at bedtime. 2. Senna S tablet 2 each p.o. at bedtime. 3. Lipitor 40 mg p.o. at bedtime. 4. Maalox plus liquid 30 mL p.o. daily. 5. Nexium 40 mg p.o. daily. 6. Prilosec 40 mg p.o. daily. 7. Renvela 800 mg p.o. t.i.d. 8. Zoloft 100 mg p.o. daily. 9. Ambien 10 mg p.o. at bedtime p.r.n. 10. Ativan 1 mg p.o. q.8 hours p.r.n. 11. Coreg 6.2 mg p.o. q.12 hours. 12. Digoxin 125 mcg p.o. every other day on nondialysis days. 13. Milk of Magnesia 30 mL p.o. daily p.r.n. 14. Percocet 10/325 one tab p.o. q.4 hours p.r.n. 15. Albuterol sulfate inhaler 2 puffs inhaled t.i.d. 16. Zanaflex 4 mg p.o. b.i.d. p.r.n. REVIEW OF SYSTEMS: Ms. Moses denies any headache, fever, chills, vomiting, diarrhea. She has had some issues with constipation. She has had a productive cough with greenish sputum. She does report pleuritic type chest pain and being sore from coughing in her chest, but no cardiac type chest pain. Some wheezes and there were no issues with syncope or dizziness with her reported low blood pressure tonight at the residential. PHYSICAL EXAMINATION: VITAL SIGNS: Temperature 97.9 degrees, heart rate 78, respirations 18, blood pressure 118/57, O2 is 97% on room air. GENERAL: Ms. Moses is a pleasant 74-year-old female who is sitting up in the bed in no acute distress. HEENT: Atraumatic, normocephalic. PERRL. NECK: Supple. Trachea midline. CARDIOVASCULAR: S1, S2 appreciated. Positive murmur. No JVD. She does have bilateral lower extremity pitting edema 1+. PULMONARY: She does have some scattered rhonchi and some crackles in bilateral bases, the right is greater than left. GASTROINTESTINAL: Soft, nontender, nondistended. Positive bowel sounds 4 quadrants. SKIN: She does have a skin tear to her right upper extremity. NEUROLOGIC: She is awake, alert, oriented, answering all questions appropriately. DIAGNOSTIC DATA: Chest x-ray showed bronchial wall thickening, most prominent within the right upper lobe suggestive of pulmonary edema, superimposed developing infection, cardiomegaly, trace bilateral pleural effusions. LABORATORY DATA: White count 5, hemoglobin and hematocrit 9 and 30, platelet count is 143,000. Sodium 135, potassium 4.1, BUN 12, creatinine 3.2, blood glucose is 79. ProBNP is greater than 35,000. Plasma lactate was 1.6. ASSESSMENT AND PLAN: 1. Probable hospital-acquired pneumonia. The patient has numerous allergies to cefazolin, ceftazidime, penicillins, and vancomycin. We will do 1 dose of Levaquin and clindamycin for now. We will leave it up to the attending in the a.m. to continue after a repeat chest x-ray. Continue bronchodilators, aggressive pulmonary toilet, supplemental O2. 2. Reported hypotension after taking Coreg tonight at the residential, 90/45. The patient's blood pressure is now stable. They reported before it was given, her blood pressure was in the 120s. They reported she was not symptomatic, but she was lying in the bed. 3. End-stage renal disease on hemodialysis. We will ask Dr. Lai for medical assistance as well as to keep her on her regular scheduled hemodialysis. We will do strict intakes and outputs, daily weights. The patient reports that she has actually been losing weight, which is a concern of the daughter. Her daughter is concern that she is losing weight but at the same time, she is also having lower extremity edema and she feels like her blood pressures might be getting too low after taking her home blood pressure medicines. 4. Chronic obstructive pulmonary disease on home O2. However, she is not currently on home O2. She is saturating well. She does not appear to be in a chronic obstructive pulmonary disease exacerbation. We will continue breathing treatments. 5. Coronary artery disease status post myocardial infarction. We will continue her on her home medications. 6. Diabetes mellitus. Continue with pattern blood sugars. She is not on any medications at home. She is diet controlled. 7. Issues with transient hypotension on previous admission. Unsure if this is due to blood pressure medications or dialysis. 8. Anemia of chronic disease secondary to end-stage renal disease. 9. Chronic atrial fibrillation. Continue Coreg. She does have a permanent pacemaker in. 10. Gastroesophageal reflux disease. Continue proton pump inhibitor. 11. Chronic constipation. Continue with bowel regimen. 12. Coumadin therapy. The patient stated that she was not started back on her Coumadin therapy at discharge secondary to a large hematoma on her left flank. She reported that was supposed to be started she believed on Thursday. We will continue to check daily PT and INRs. Further recommendation to follow physician evaluation, laboratory and diagnostic data. Dictated by DIGNA Martínez for Jeff Garner MD cc: MD Irwin Chamberlain MD Reginald D. Gladish, MD MTDD
[2019-09-16] MEDS ORDERED: ZOLOFT PO SCH (09:00)
[2019-09-16] MEDS ORDERED: NON-FORMULARY MED (Omeprazole [Prilosec] 40 MG) PO SCH (09:00)
[2019-09-16] MEDS ORDERED: LEVAQUIN 250 MG in NS 50 ML IV SCH (10:15)
[2019-09-16] MEDS ORDERED: AZACTAM 1 GM in NS 50 ML IV SCH ×2 (12:45→14:00)
[2019-09-16] MEDS: MAALOX PLUS LIQUID PO SCH (13:05)
[2019-09-16] MEDS: NEXIUM PO SCH (13:05)
[2019-09-16] MEDS ORDERED: AZACTAM 1 GM in NS 50 ML IV ONE (14:00)
[2019-09-16] MEDS: AZACTAM 2 GM in NS 100 ML IV ONE ×2 (14:22→22:45)
[2019-09-16] MEDS: ZYVOX PO SCH ×2 (14:43→20:30)
--- NOTE | 2019-09-16 15:02 | PROGRESS NOTE ---
DATE: 09/16/2019 SUBJECTIVE: The patient feels weak but otherwise denies having any other complaints. OBJECTIVE: Vital Signs: Temperature 97.6 degrees, pulse 71 per minute, respiratory rate 20 per minute, blood pressure 118/86, pulse oximetry 99% on room air. General: Patient is alert and oriented x3. She does not appear to be in any acute distress. Cardiovascular: First and second heart sounds are audible without any murmurs or gallops. Respiratory: Bilateral lung air entry is moderately decreased but there are no rales or rhonchi present on auscultation. Gastrointestinal: Abdomen is soft and nondistended. Normal bowel sounds are present. DIAGNOSTIC DATA: CBC shows WBC count of 5.66, hemoglobin 9.3, hematocrit 30.8, and platelet count 143,000. Chemistry was nondiagnostic and magnesium levels were found to be normal at 2.2. ProBNP was significantly elevated at greater than 35,000 and plasma lactate levels were found to be 1.6. Chest x-ray obtained last night on admission showed right upper lobe infiltrate with bilateral pulmonary vascular distention and pulmonary edema, but no pleural effusions. IMPRESSION: 1. Hospital-acquired pneumonia. 2. End-stage renal disease on hemodialysis. 3. History of coronary artery disease, chronic obstructive pulmonary disease, type 2 diabetes mellitus, anemia of chronic kidney disease and chronic atrial fibrillation. PLAN: The patient will continue to get broad-spectrum antibiotics including levofloxacin and vancomycin to cover pathogens including Pseudomonas aeruginosa and Staphylococcus aureus. The patient has been having multiple antibiotic allergies and therefore we have limited choices. She also has pulmonary vascular congestion and is currently getting hemodialysis as per Nephrology, which should help improve her breathing. Furthermore, we are going to continue with her routine home medications and I am going to restart her warfarin since she has history of chronic atrial fibrillation and anticoagulants were discontinued after she had a fall last month and had left flank hematoma. Otherwise, her hemoglobin and hematocrit have been stable and therefore, we should not have any issues restarting her warfarin therapy. I am also going to restart her routine home medications. Further recommendations will be given as per hospital course. cc: Irwin Galvin MD
--- NOTE | 2019-09-16 20:07 | NEPHROLOGY CONSULTATION ---
DATE: 09/16/2019 REASON FOR CONSULTATION: Assistance with medication management and ESRD. HISTORY OF PRESENT ILLNESS: Ms. Moses is a 74-year-old white female who is well known to us. She was recently hospitalized with a large hematoma on her back associated with anticoagulation in the context of a rib fracture. She has been in rehab in [place] for the last 3 weeks. After her therapy yesterday, she had sudden onset of back pain and what she perceived as a mass on her back, and so she came to the emergency room for evaluation. She was told that she had a hematoma and she was admitted to the hospital for management. Today is her routine dialysis today. No chest pain or palpitation. She does have some problems with her appetite. No swelling and no change in her bowel habits, etc. PAST MEDICAL HISTORY: As above. She also has diabetes, atrial fibrillation, history of KS, COPD, etc. HOME MEDICATIONS: Include sevelamer, atorvastatin, sertraline, omeprazole, quetiapine, albuterol, tizanidine, senna, digoxin, carvedilol, esomeprazole, magnesium, zolpidem, lorazepam, oxycodone, warfarin, methylprednisolone. ALLERGIES: Multiple as listed. SOCIAL HISTORY: Her daughters are primary caregivers, but she is currently at [facility] for rehab. FAMILY HISTORY: Noncontributory. REVIEW OF SYSTEMS: Noncontributory. PHYSICAL EXAMINATION: Vital Signs: Blood pressure 118/86, heart rate 71, respirations 20, afebrile. General: She is an obese, white female, chronically ill, no distress. Skin: Pale and dry with bruising present. HEENT: Conjunctivae are pink. Pupils are equal. Corneal arcus is present. Oropharynx is clear. Neck: Supple. Neck vein distention is not present. Heart: PMI nondisplaced. Irregular. No gallops. Lungs: Equal. No crackles or wheezes. Abdomen: Obese, soft, nontender. Bowel sounds are present. Extremities: No edema, clubbing, or cyanosis. IMPRESSION: 1. Hematoma. We are aware. Her hemoglobin is stable or improved from her last admission. Supportive care only. 2. Chronic kidney disease 5D. She is currently receiving her routine outpatient dialysis prescription. Volume status, electrolytes, acid-base are all in target. cc: MD Irwin Jones MD
[2019-09-16] MEDS: TYLENOL PO PRN (20:30)
[2019-09-16] MEDS: COUMADIN PO SCH (20:30)
[2019-09-16] MEDS: SEROQUEL PO SCH ×2 (20:31→20:37)
[2019-09-16] MEDS: PERICOLACE PO SCH (20:31)
[2019-09-16] MEDS: LIPITOR PO SCH (20:31)
--- NOTE | 2019-09-16 20:59 | INFECTIOUS DISEASE CONSULT REP ---
DATE: 09/16/2019 CONCLUSION: The patient has recently been in the hospital and is readmitted with a left lower lobe pneumonia. RECOMMENDATIONS: I have discontinued Levaquin and started the patient on a combination of aztreonam and Zyvox. Some of the side effects of the antibiotics, including hematotoxicity, rash and diarrhea have been explained to the patient who agrees with treatment. DISCUSSION: The patient had been discharged home recently and she developed a productive cough and a low blood pressure. She was brought back to the hospital and on x-ray, she has been found to have a right upper lobe pneumonia. PAST MEDICAL HISTORY: Positive for coronary artery disease, end-stage renal disease and the patient is on hemodialysis, myocardial infarction, chronic atrial fibrillation, diabetes mellitus, chronic obstructive pulmonary disease and gastroesophageal reflux disease. PAST SURGICAL HISTORY: Positive for CABG, pacemaker placement, hysterectomy, cataracts and a right upper arm AV graft. SOCIAL HISTORY: The patient lives in [facility]. She does not drink alcoholic beverages, smoke cigarettes or use illicit drugs. DRUG ALLERGIES: To diltiazem, morphine, cefazolin, ceftazidime, hydrocodone, penicillins and vancomycin. HOME MEDICATIONS: Include albuterol inhaler, Lipitor, Coreg, Lanoxin, Nexium, Ativan, Medrol Dosepak, omeprazole, oxycodone, sertraline, Renvela, Zanaflex, Coumadin, Ambien, and quetiapine. PHYSICAL EXAMINATION: Vital signs: Temperature is 97.6 degrees, pulse 71, respirations 20, blood pressure 118/86. General: This is a chronically ill-appearing elderly female. She is in no acute distress, however. Head/eyes/ears/nose/throat: She can hear my spoken words and see near objects. She does not have any white coating on her tongue. Neck: No meningismus. Lungs: Clear to auscultation. Cardiovascular: Heart rate is irregular. Abdomen: Soft and nontender. Neurologic: The patient is alert. She can move her extremities. There is no tremor. The patient's memory as regarding her medical illnesses is poor. Thorax: Patient has a pacemaker in place. The site is not swollen or red. Thank you for the consult. cc: MD Irwin Dow MD
[2019-09-17] MEDS: DUONEB (A & A) INH SCH ×6 (02:36→23:25)
[2019-09-17] MEDS: AZACTAM 0.5 GM in NS 50 ML IV SCH ×2 (02:54→16:02)
[2019-09-17] MEDS: COREG PO SCH (04:07)
[2019-09-17] MEDS: RENAGEL PO SCH ×4 (06:40→17:13)
[2019-09-17 07:24] LABS: INR 1.58; PROTIME 19.2 Seconds (11.0-16.0)
--- NOTE | 2019-09-17 07:38 | Diag Imaging Result Doc PS360 ---
EXAM: CHEST-PORTABLE 09/17/2019 HISTORY: Pneumonia TECHNIQUE: Erect AP portable at 0640 COMMENT: There is more diffuse alveolar opacification of the right upper lobe compared to 09/16/2019. There is also increasing opacification of the lung bases. IMPRESSION: Worsening pulmonary edema and/or pneumonia. Electronically signed by Darian Vasques 09/17/2019 7:36 AM
[2019-09-17 07:39] LABS: BASO# 0.05 X1000 (0.0-0.2); BASO% 0.9 % (0.0-0.8); EOS# 0.23 X1000 (0.0-0.7); EOS% 4.3 % (0.0-10.0); HEMATOCRIT 28.6 % (37.0-47.0); HEMOGLOBIN 8.5 g/dL (12.0-16.0); LYMPH# 1.17 X1000 (1.2-3.4); LYMPH% 21.8 % (20.5-51.1); MCH 30.6 PG (27-31); MCHC 29.7 g/dL (33-37); MCV 102.9 FL (81-99); MONO# 0.87 X1000 (0.11-0.59); MONO% 16.2 % (1.7-9.3); MPV 10.4 FL (7.4-10.4); NEUT# 3.05 X1000 (1.4-6.5); NEUT% 56.8 % (42.2-75.2); PLT 136 X1000 (130-400); RBC 2.78 XMIL (4.2-5.4); RDW 18.7 % (11.5-14.5); WBC 5.37 X1000 (4.8-10.8)
[2019-09-17 07:45] LABS: ALB/GLOB RATIO 0.8; ALBUMIN 2.2 g/dL (3.5-5.0); CREATININE 2.8 mg/dL (0.5-0.9); POTASSIUM 3.9 mmol/L (3.5-5.1); TOTAL BILIRUBIN 0.89 mg/dL (0.20-1.00); TOTAL PROTEIN 4.8 g/dL (6.3-8.3)
[2019-09-17 07:53] LABS: TSH 3.16 uIUmL (0.27-4.20)
[2019-09-17] MEDS ORDERED: LANOXIN PO SCH (09:00)
[2019-09-17] MEDS: ZYVOX PO SCH ×2 (09:11→20:54)
[2019-09-17] MEDS: NEXIUM PO SCH (09:11)
[2019-09-17] MEDS: MAALOX PLUS LIQUID PO SCH (09:16)
[2019-09-17] MEDS ORDERED: LASIX IV SCH (09:45)
[2019-09-17] MEDS: FOLIC ACID PO SCH ×2 (12:10→21:00)
[2019-09-17] MEDS ORDERED: NS 500 ML IV SCH (13:15)
--- NOTE | 2019-09-17 13:40 | PROGRESS NOTE ---
DATE: 09/17/2019 VITAL SIGNS: Temperature 98.4 degrees, heart rate 75, respirations 22, blood pressure 113/46, O2 saturation on room air was 100% earlier and now she is on 3 L nasal oxygen. IMAGING: Chest x-ray shows worsening pulmonary edema and/or pneumonia. There is more diffuse alveolar opacification of the right upper lobe compared to September 16. There is also increasing opacification of the lung bases. LABORATORY: Hemoglobin 8.5, hematocrit 28.6, white blood count 5,400 with 57% neutrophils. Sodium 137, potassium 3.9, BUN 11, creatinine 2.8, slightly improved. Glucose is 122. Alkaline phosphatase 209. ProBNP yesterday was 35,000. Vitamin B12 is high at 1,319. Folate level is low at 2.0. TSH is 3.16. PLAN: Continue intravenous Azactam, and p.o. Zyvox. Lungs to auscultation reveal decreased breath sounds at the bases and rhonchi on the right. Her daughter states that the albuterol dries are out and makes it difficult to cough. She is changed to Atrovent every 4 hours. Also, Mucinex DM is added. Lasix will be given 20 mg IV every 12 hours. cc: MD Irwin Roman MD
--- NOTE | 2019-09-17 15:48 | NEPHROLOGY PROGRESS NOTE ---
DATE: 09/17/2019 SUBJECTIVE: She is sitting up in the chair. Not eating very well. No shortness of breath. Coughing but fairly ineffective minimal sputum. OBJECTIVE: Vital Signs: Blood pressure 113/46, heart rate 75, afebrile. General: Chronically ill, sitting erect, no distress. Skin: Warm and dry. Multiple bruises. Eyes: Conjunctivae are pink. Neck: Neck veins are not appreciated. Heart: Regular. Lungs: Equal. No crackles. Abdomen: Benign. Extremities: 1+ edema. IMPRESSION: Chronic kidney disease 5d. She had her routine dialysis yesterday. She does have a peripheral edema but likely intravascular volume status is in target. I had a long discussion with the family about her care needs going forward. Minimize her mood altering medications and pain medication. We will follow. cc: MD Irwin Jones MD
[2019-09-17] MEDS: PERCOCET-10 PO PRN (16:01)
[2019-09-17] MEDS: TYLENOL PO PRN (16:07)
[2019-09-17] MEDS: ATROVENT NEB INH SCH ×3 (16:17→23:25)
[2019-09-17] MEDS ORDERED: ATIVAN PO PRN (17:05)
[2019-09-17] MEDS: KLOR-CON PO SCH (20:55)
[2019-09-17] MEDS: LIPITOR PO SCH (20:56)
[2019-09-17] MEDS: COUMADIN PO SCH (20:56)
[2019-09-17] MEDS: PERICOLACE PO SCH (20:56)
[2019-09-17] MEDS: MUCINEX DM PO SCH (21:00)
[2019-09-17] MEDS: SEROQUEL PO SCH (21:00)
[2019-09-18] MEDS: AZACTAM 0.5 GM in NS 50 ML IV SCH ×2 (02:44→16:58)
[2019-09-18] MEDS: COREG PO SCH ×3 (02:45→20:35)
[2019-09-18] MEDS: DUONEB (A & A) INH SCH ×6 (03:00→22:55)
[2019-09-18] MEDS: ATROVENT NEB INH SCH ×5 (03:02→22:54)
[2019-09-18 06:23] LABS: INR 1.61; PROTIME 19.5 Seconds (11.0-16.0)
[2019-09-18] MEDS: RENAGEL PO SCH ×4 (06:35→16:58)
[2019-09-18] MEDS: ZYVOX PO SCH ×2 (08:21→20:35)
[2019-09-18] MEDS: FOLIC ACID PO SCH ×2 (08:21→20:35)
[2019-09-18] MEDS: NEPHRO-VITE PO SCH (08:21)
[2019-09-18] MEDS: KLOR-CON PO SCH ×2 (08:21→20:35)
[2019-09-18] MEDS: MUCINEX DM PO SCH ×2 (08:21→20:35)
[2019-09-18] MEDS: NEXIUM PO SCH (08:21)
[2019-09-18] MEDS: MAALOX PLUS LIQUID PO SCH ×2 (08:25→13:26)
--- NOTE | 2019-09-18 08:58 | PROGRESS NOTE ---
DATE: 09/18/2019 VITAL SIGNS: Temperature 97.5 degrees, heart rate 65, respirations 14, blood pressure 108/39, O2 saturation on room air 100%. This was earlier this morning. O2 saturation on 3 L nasal oxygen 100% at this time. She rested poorly last night. She continues to be somewhat short of breath. Lungs reveal decreased breath sounds over the left lower lung field. Abdomen is soft. PLAN: Dialysis tomorrow. Blood cultures revealed no growth after 48 hours. Sputum culture reveals some white cells and epithelial cells, but sparse normal cathy growth. Digoxin level was 2.0. PT was 19.5 and INR 1.6. She had a difficult day yesterday with decreased blood pressure but refused IV fluids. After she became a little agitated, her pressure came back to normal. Intravenous antibiotics with Azactam and p.o. Zyvox will be continued. Chest x-ray will be done tomorrow morning as well as lab. cc: MD Irwin Roman MD
--- NOTE | 2019-09-18 09:58 | INFECTIOUS DISEASE PROGRESS NO ---
DATE: 09/18/2019 PRESENT ILLNESS: The patient was initially admitted to the hospital with what was thought to be a left lower lobe pneumonia. Now, she has bilateral pulmonary infiltrates, and she may still have pneumonia, but there also could be a component of pulmonary venous congestion as well. RECOMMENDATIONS: I am going to continue treating the patient with aztreonam and Zyvox, and also I have ordered a procalcitonin level. PHYSICAL EXAMINATION: Vital Signs: Temperature is 97.8 degrees, pulse 70, respirations 31, blood pressure is 123/48. General: This is an ill-appearing, elderly female. She seems to be somewhat dyspneic, even at rest. HEENT: The patient wears dentures. I did not see any white coating on her tongue. Neck: No pain with movement. Lungs: The patient's right lung is clear. The left lung has basilar rales. Abdomen: Soft and nontender. Thorax: The patient has a pacemaker in the upper left chest. The site is not erythematous or purulent. Extremities: The patient has an AV fistula in the right arm. The fistula is functioning well. There is a large bruit heard on auscultation. The patient has bilateral leg edema. Abdomen: Soft and nontender. Neurologic: The patient is awake. She can move her extremities. There is no tremor. IMAGING AND LABORATORY DATA: Chest x-ray shows worsening pulmonary edema and/or pneumonia. The sputum grew a normal cathy. The patient's blood cultures are negative. CBC shows a white count of 5370, hemoglobin 8.5, and platelet count 136,000. ASSESSMENT AND PLAN: The patient has pneumonia and/or pulmonary venous congestion. I am going to continue with aztreonam and Zyvox, and I have ordered a procalcitonin level. COMORBIDITIES: The patient has end-stage renal disease. She also is a diabetic. She has chronic obstructive pulmonary disease, as well as gastroesophageal reflux disease. cc: MD Irwin Dow MD
[2019-09-18] MEDS: TYLENOL PO PRN ×2 (13:24→16:58)
[2019-09-18] MEDS ORDERED: REGLAN IV ONE (18:23)
[2019-09-18] MEDS ORDERED: MAALOX PLUS LIQUID PO ONE (18:24)
[2019-09-18] MEDS: PERCOCET-5 PO PRN (19:14)
[2019-09-18] MEDS: COUMADIN PO SCH (20:35)
[2019-09-18] MEDS: SEROQUEL PO SCH (20:35)
[2019-09-18] MEDS: PERICOLACE PO SCH (20:35)
[2019-09-18] MEDS: LIPITOR PO SCH (20:35)
[2019-09-19] MEDS: COREG PO SCH ×3 (02:59→20:20)
[2019-09-19] MEDS: AZACTAM 0.5 GM in NS 50 ML IV SCH ×2 (03:39→15:03)
[2019-09-19] MEDS ORDERED: NS 2,000 ML MISC PRN (06:16)
[2019-09-19] MEDS ORDERED: HEPARIN IV PRN (06:16)
[2019-09-19] MEDS ORDERED: TIGHT: 0.2 ML/HR FOR DIALYSIS MISC PRN (06:16)
--- NOTE | 2019-09-19 06:27 | Diag Imaging Result Doc PS360 ---
CHEST-PORTABLE - 09/19/2019 INDICATION: pneumonia COMPARISON: 09/17/2019 FINDINGS: Stable sternotomy wires. Stable left-sided pacemaker. There has been decrease in the density of the right upper lobe infiltrate/pneumonia. Stable cardiomegaly and pulmonary vascular congestion. Stable trace pleural effusions. IMPRESSION: Decrease in the density of the right upper lobe infiltrate/pneumonia. Otherwise no change. Electronically signed by Nabor Gandhi 09/19/2019 6:25 AM
--- NOTE | 2019-09-19 06:49 | INFECTIOUS DISEASE PROGRESS NO ---
DATE: 09/19/2019 PRESENT ILLNESS: The patient has pneumonia and possible pulmonary venous congestion. MEDICATIONS: This is the second day of treatment with aztreonam and Zyvox. PHYSICAL EXAMINATION: Vital Signs: Temperature is 97.4 degrees, pulse 66, respirations 12, blood pressure is 111/35. General: This is an ill-appearing elderly female. She is lethargic today. Head/Eyes/Ears/Nose/Throat: She could hear my spoken words. It was difficult for me to see how good her vision is. Neck: She did not have any pain when I passively moved it. Lungs: There were bilateral rhonchi today. Cardiovascular: Heart rate is regular with a systolic murmur. Thorax: The patient has a pacemaker on the left side. The site is not swollen or erythematous. Abdomen: Soft and nontender. Neurologic: The patient is lethargic today. I was able to arouse her, and she did move her extremities as requested. Extremities: Bilateral leg edema. LAB AND RADIOLOGY: The patient has had lab and chest x-ray ordered for today, but neither one are back. ASSESSMENT AND PLAN: The patient has pneumonia with pulmonary venous congestion. My plan is to continue aztreonam and Zyvox. A procalcitonin level has been ordered, but it too is not yet back. COMORBIDITIES: The patient is elderly, and she has end-stage renal disease, diabetes mellitus, chronic obstructive pulmonary disease, and gastroesophageal reflux disease. cc: MD Irwin Dow MD MTDBrice
[2019-09-19] MEDS: ATROVENT NEB INH SCH ×5 (07:38→22:57)
[2019-09-19] MEDS: DUONEB (A & A) INH SCH ×4 (07:39→22:57)
[2019-09-19 09:24] LABS: BASO# 0.08 X1000 (0.0-0.2); BASO% 1.1 % (0.0-0.8); EOS# 0.28 X1000 (0.0-0.7); EOS% 3.8 % (0.0-10.0); HEMATOCRIT 28.7 % (37.0-47.0); HEMOGLOBIN 8.9 g/dL (12.0-16.0); LYMPH# 1.02 X1000 (1.2-3.4); LYMPH% 13.8 % (20.5-51.1); MCH 30.7 PG (27-31); MONO# 0.94 X1000 (0.11-0.59); MONO% 12.7 % (1.7-9.3); MPV 10.4 FL (7.4-10.4); NEUT# 5.09 X1000 (1.4-6.5); NEUT% 68.6 % (42.2-75.2); PLT 129 X1000 (130-400); RDW 17.7 % (11.5-14.5); WBC 7.41 X1000 (4.8-10.8)
[2019-09-19 09:46] LABS: CALCIUM 8.6 mg/dL (8.8-10.2); CREATININE 2.7 mg/dL (0.5-0.9); POTASSIUM 3.4 mmol/L (3.5-5.1)
[2019-09-19 09:51] LABS: INR 2.39; PROTIME 26.7 Seconds (11.0-16.0)
[2019-09-19] MEDS: RENAGEL PO SCH ×3 (11:54→17:33)
[2019-09-19] MEDS: KLOR-CON PO SCH ×2 (12:19→20:19)
[2019-09-19] MEDS: ZYVOX PO SCH ×2 (12:20→20:19)
[2019-09-19] MEDS: FOLIC ACID PO SCH ×2 (12:20→20:19)
[2019-09-19] MEDS: NEPHRO-VITE PO SCH (12:20)
[2019-09-19] MEDS: NEXIUM PO SCH (12:20)
[2019-09-19] MEDS: MUCINEX DM PO SCH ×2 (12:20→20:19)
[2019-09-19] MEDS: MAALOX PLUS LIQUID PO SCH (12:21)
--- NOTE | 2019-09-19 12:26 | PROGRESS NOTE ---
DATE: 09/19/2019 SUBJECTIVE: The patient denies having any acute complaints this morning, and feels well. OBJECTIVE: Vital Signs: Temperature 97.4 degrees, pulse 66 per minute, respiratory rate 16 per minute, blood pressure 111/35, pulse oximetry 99% on room air. General: The patient is alert and oriented x3. She does not appear to be in any acute distress. Cardiovascular: First and second heart sounds are audible without any murmurs or gallops. Respiratory: Bilateral lung air entry is good without any rales or rhonchi. Gastrointestinal: Abdomen is soft and nondistended. Normal bowel sounds are present. DIAGNOSTIC DATA: CBC shows hemoglobin 8.9, hematocrit 28.7, and platelet count 129,000. In comparison, hemoglobin and hematocrit were 8.5 and 28.6 two days ago, on 09/17/2019. Her platelet counts were 136 two days ago. Basic metabolic panel shows creatinine of 2.7 and potassium level of 3.4. Folate levels were found to be 2.0 two days ago. Vitamin B12 levels were found to be 1319 on 09/17/2019. INR has gone up to 2.39 today. Chest x-ray obtained this morning shows decreased appearance of the density in the right upper lobe that is representing pneumonia, but otherwise no change was noted. IMPRESSION: 1. Hospital-acquired pneumonia in this 74-year-old female who has end-stage renal disease, for which she has been on hemodialysis. 2. Folate Deficiency. 3. Multiple comorbid conditions, including coronary artery disease, chronic obstructive pulmonary disease, type 2 diabetes mellitus, and anemia of chronic kidney disease, along with chronic atrial fibrillation. PLAN: The patient is currently being followed by Infectious Disease, along with Nephrology. She will continue to receive IV antibiotics, including Azactam and Zyvox as per Infectious Disease. She will also continue to get hemodialysis as per Nephrology. Her overall condition has been stable, and we therefore continue to provide her routine home medications. Her INR has gone up to 2.39, and therefore I am going to hold her warfarin tonight to prevent any further rise in INR. We will continue to monitor daily INR, however. She has folate deficiency for which folic acid 1 mg daily has already been started by nephrology. Further recommendations will be given as per hospital course. cc: MD AJITH Leonard
[2019-09-19] MEDS: PERCOCET-5 PO PRN (15:02)
--- NOTE | 2019-09-19 16:22 | PROVIDER PROGRESS NOTE ---
Progress Note Subjective: Ms. Moses denies any uremic complaints. She is currently receiving hemodialysis . Objective: temperature 97.4, pulse 66, respirations 14, blood pressure 111/35, 02 sat 99% on room air. General: Elderly white female lying in bed in no acute distress. HEENT: normocephalic, atraumatic, pupils equal and reactive, mucous membranes m oist. Skin: warm and dry Neck: supple, no JVD Cardiovascular: s1s2, systolic murmur grade 2/6 with no gallop. Respiratory: clear with equal air entry anteriorly Abdomen: soft, nontender, nondistended, bowel sounds present : none inspected Extremities: 1+ pitting edema to BLE Neurological: alert and oriented to person, place, and time Labs: WBC 7.41, hemoglobin 8.9, hematocrit 28.7, platelet count 129. Intake 476, output 0 Impression: Chronic kidney disease stage 5D. She will have her routine hemodialysis with a 2K bath and will attempt to pull her to her dry weight. Blood pressure. In target. Fluid volume. Improving. Anemia. Stable. Electrolytes and acid base balance. Stable on last labs. Nutrition. Adequate. Ambulation. PT in place. Medication review. No change.
[2019-09-19] MEDS: LIPITOR PO SCH (20:19)
[2019-09-19] MEDS: PERICOLACE PO SCH (20:19)
[2019-09-19] MEDS: SEROQUEL PO SCH (20:19)
[2019-09-20] MEDS: AZACTAM 0.5 GM in NS 50 ML IV SCH ×2 (04:00→14:32)
[2019-09-20] MEDS: DUONEB (A & A) INH SCH ×6 (04:43→23:47)
[2019-09-20] MEDS: ATROVENT NEB INH SCH ×6 (04:43→23:47)
[2019-09-20 08:03] LABS: INR 3.2; PROTIME 33.7 Seconds (11.0-16.0)
--- NOTE | 2019-09-20 08:12 | PROGRESS NOTE ---
DATE: 09/20/2019 SUBJECTIVE: The patient denies having any acute complaints today, although she continues to have cough. OBJECTIVE: Vital Signs: Temperature 98 degrees, pulse 60 per minute, respiratory rate 17 per minute, blood pressure 108/44, pulse oximetry 98% on room air. General: The patient is alert and oriented x3. She does not appear to be in any acute distress, although she appears somewhat weak. Cardiovascular: First and second heart sounds are audible without any murmurs or gallops. Respiratory: Bilateral lung air entry is good without any rales or rhonchi. Gastrointestinal: Abdomen is soft and nondistended. Normal bowel sounds are present. DIAGNOSTIC DATA: PT/INR is pending at this time. No new labs have been done otherwise. IMPRESSION: 1. Hospital-acquired pneumonia in this 74-year-old female who has end-stage renal disease and has been on hemodialysis. 2. Folate deficiency. 3. Multiple comorbid conditions, including coronary artery disease, chronic obstructive pulmonary disease, type 2 diabetes mellitus, and anemia of chronic disease, along with chronic atrial fibrillation. PLAN: The patient will continue to receive aztreonam and Zyvox intravenously as per Infectious Disease, and will continue with hemodialysis as per Nephrology. Physical Therapy has been ordered since she appears weak and deconditioned. Her INR was found to be 2.39, and therefore warfarin was held last night. We will follow up on INR today, and adjust her warfarin dosage accordingly. She has folate deficiency, for which folic acid 1 mg a day has been initiated. We will continue with general supportive care and hospital course. cc: Irwin Galvin MD
--- NOTE | 2019-09-20 10:08 | INFECTIOUS DISEASE PROGRESS NO ---
DATE: 09/20/2019 PRESENT ILLNESS: The patient has a right upper lobe pneumonia which is improving on chest x-ray. MEDICATIONS: This is the third day of treatment with a combination of aztreonam and Zyvox. PHYSICAL EXAMINATION: Vital Signs: Temperature is 98 degrees, pulse 60, respirations 17, blood pressure is 108/44. General: This is an ill-appearing lethargic elderly female. She is in no acute distress. Head/eyes/ears/nose/throat: She did hear my spoken words but it was difficult for me to see how good her vision was. Neck: No pain with movement. Lungs: Bilateral rhonchi. Cardiovascular: Heart rate is regular with a systolic murmur. Abdomen: Soft and nontender. Extremities: The patient has bilateral leg edema. There is no erythema present in the legs. Neurologic: The patient is arousable. She can move her extremities. There is no tremor. LAB AND X-RAY: Chest x-ray shows improvement in the right upper lobe infiltrate. Blood cultures are negative. Sputum grew normal cathy and yeast. Creatinine is 2.7. GFR is 17. CBC shows a white count of 7410, hemoglobin 8.9, platelet count 129,000. ASSESSMENT AND PLAN: Patient has a right upper lobe pneumonia which is getting better under her current antibiotics which I intend to continue. The patient did have a procalcitonin ordered and as of yet I do not see it back. The order was made on September 18. COMORBIDITIES: The patient is elderly. She has end-stage renal disease, diabetes mellitus, chronic obstructive pulmonary disease, and gastroesophageal reflux disease. cc: MD Irwin Dow MD
[2019-09-20] MEDS: MAALOX PLUS LIQUID PO SCH ×2 (10:22→10:26)
[2019-09-20] MEDS: MUCINEX DM PO SCH ×2 (10:22→21:28)
[2019-09-20] MEDS: NEPHRO-VITE PO SCH (10:22)
[2019-09-20] MEDS: NEXIUM PO SCH (10:23)
[2019-09-20] MEDS: FOLIC ACID PO SCH ×2 (10:23→21:27)
[2019-09-20] MEDS: KLOR-CON PO SCH ×2 (10:23→21:27)
[2019-09-20] MEDS: RENAGEL PO SCH ×3 (10:24→16:56)
[2019-09-20] MEDS: COREG PO SCH ×3 (10:24→21:27)
[2019-09-20] MEDS: ZYVOX PO SCH ×2 (10:28→21:28)
[2019-09-20] MEDS: PERCOCET-5 PO PRN (18:11)
--- NOTE | 2019-09-20 18:51 | PROVIDER PROGRESS NOTE ---
Progress Note Subjective: Ms. Moses admits to no appetite today. She denies any other uremic complaints. Weak, still coughing. Minimal sputum. Has been out of bed by her account. Objective: temperature 98.2, pulse 63, respiration 16, blood pressure 115/37, 02 sat 99% on room air. General: Elderly white female lying in bed in no acute distress. HEENT: normocephalic, atraumatic, pupils equal and reactive, mucous membranes moist. Skin: warm and dry Neck: supple, JVD observed. Cardiovascular: s1s2, systolic murmur grade 2/6 with no gallop. Respiratory: rhonchi and wheezing anteriorly Abdomen: soft, nontender, nondistended, bowel sounds present : none inspected Extremities: 1+ pitting edema to BLE with generalized edema to BUE. Neurological: alert and oriented to person, place, and time Labs: intake 50, output 1664. Impression: Chronic kidney disease stage 5D. She had her routine hemodialysis yesterday with a 1.6 L ultrafiltration without complications. Blood pressure. In target. Fluid volume. Expanded. Chest X-ray ordered. Anemia. Stable on last labs. Folate and MVI added yesterday. rg Electrolytes and acid base balance. Stable on last labs. Nutrition. Encouraged to eat. Ambulation. PT in place. Medication review. No change.
[2019-09-20] MEDS: LIPITOR PO SCH (21:27)
[2019-09-20] MEDS: PERICOLACE PO SCH (21:27)
[2019-09-20] MEDS: SEROQUEL PO SCH (21:28)
[2019-09-21] MEDS: COREG PO SCH ×3 (01:38→20:14)
[2019-09-21] MEDS: AZACTAM 0.5 GM in NS 50 ML IV SCH ×2 (03:40→15:38)
[2019-09-21] MEDS: ATROVENT NEB INH SCH ×3 (04:14→12:02)
[2019-09-21] MEDS: DUONEB (A & A) INH SCH ×3 (04:15→12:02)
[2019-09-21] MEDS ORDERED: TIGHT: 0.2 ML/HR FOR DIALYSIS MISC PRN (06:16)
[2019-09-21] MEDS ORDERED: HEPARIN IV PRN (06:16)
[2019-09-21] MEDS ORDERED: NS 2,000 ML MISC PRN (06:16)
[2019-09-21] MEDS: ZYVOX PO SCH ×2 (09:13→21:58)
[2019-09-21] MEDS: NEPHRO-VITE PO SCH (09:13)
[2019-09-21] MEDS: FOLIC ACID PO SCH ×2 (09:13→21:55)
[2019-09-21] MEDS: NEXIUM PO SCH (09:13)
[2019-09-21] MEDS: RENAGEL PO SCH ×3 (09:14→20:12)
[2019-09-21] MEDS: KLOR-CON PO SCH (09:14)
[2019-09-21] MEDS: MAALOX PLUS LIQUID PO SCH (09:20)
[2019-09-21] MEDS: MUCINEX DM PO SCH (09:21)
[2019-09-21 10:16] LABS: ALB/GLOB RATIO 0.6; ALBUMIN 2.2 g/dL (3.5-5.0); DIRECT BILIRUBIN 0.2 mg/dL (0.00-0.20); TOTAL BILIRUBIN 0.69 mg/dL (0.20-1.00); TOTAL PROTEIN 5.6 g/dL (6.3-8.3)
--- NOTE | 2019-09-21 10:22 | INFECTIOUS DISEASE PROGRESS NO ---
DATE: 09/21/2019 PRESENT ILLNESS: The patient has a right upper lobe pneumonia which has improved radiographically. MEDICATIONS: This is the 4th day of treatment with aztreonam and Zyvox. PHYSICAL EXAMINATION: Vital Signs: Temperature is 97.9 degrees, pulse 65, respirations 20, blood pressure 120/37. General: This is an ill-appearing lethargic, elderly female. She does not appear to be in any acute distress. Head/eyes/ears/nose/throat: She can hear my spoken words and see near objects. There is no drainage from her nose or ears. Neck: No stiffness. Lungs: Bilateral rhonchi. Cardiovascular: Heart rate is regular with a systolic murmur. Abdomen: Soft and nontender. Extremities: The patient has an AV graft in the right arm which is functioning well. There is no erythema at the site. The patient has bilateral leg edema and no erythema. Neurologic: The patient is lethargic. She refused to have an IV started. She refused all medications and she refused to have lab tests drawn on her. LABORATORY DATA/X-RAY: Patient's procalcitonin was 0.47, which translates into the translates into that the patient has does have pneumonia. ASSESSMENT AND PLAN: The patient has pneumonia and she now has refused all antibiotic treatment for it. Patient has refused to have an IV started. She refused to have blood drawn for laboratory work and she refused to take any of her medications. I talked with her. She said she wanted to go home and . She also did not want to continue with hemodialysis. COMORBIDITIES: The patient is elderly. She has end-stage renal disease, diabetes mellitus, chronic obstructive pulmonary disease and gastroesophageal reflux disease and now she has decided that she does not want to continue living. She just wants to go home and . cc: MD Irwin Dow MD
[2019-09-21 11:36] LABS: HEPATITIS PROFILE ACUTE SEE COMMENTS
[2019-09-21] MEDS ORDERED: DUONEB (A & A) INH PRN (11:44)
--- NOTE | 2019-09-21 12:23 | PROGRESS NOTE ---
DATE: 09/21/2019 SUBJECTIVE: The patient denies having any acute complaints, but she has been tired of having needle sticks, and was refusing treatment earlier. OBJECTIVE: Vital Signs: Temperature 98.2 degrees, pulse 70 per minute, respiratory rate 18 per minute, blood pressure 124/55, pulse oximetry 100% on 3 L of oxygen via nasal cannula. General: The patient is alert and oriented x3. She does not appear to be in any acute distress. She does appear very weak. Cardiovascular: First and second heart sounds are audible without any murmurs or gallops. Respiratory: Bilateral lung air entry is moderately decreased, with few bilateral coarse rales present on auscultation. Gastrointestinal: Abdomen is soft and nondistended. Normal bowel sounds are present. DIAGNOSTIC DATA: Comprehensive metabolic panel done today shows creatinine level of 2.7. IMPRESSION: 1. Hospital-acquired pneumonia in this 74-year-old female who has end-stage renal disease and has been on hemodialysis. 2. Folate deficiency. 3. Generalized weakness and deconditioning. 4. Multiple comorbid conditions, including coronary artery disease, chronic obstructive pulmonary disease, type 2 diabetes mellitus, anemia of chronic disease, and chronic atrial fibrillation. The patient has been now getting oral Zyvox and intravenous aztreonam as per Infectious Diseases for her pneumonia. She will continue to get hemodialysis as per Nephrology. I had a discussion with Dr. Galvez this morning and he has recommended IV Aztreonam with oral Zyvox for another 10 days. I discussed this with her daughter Laverne who has the power of civil litigation attorney and she agrees with this plan. They had earlier refused intravenous placement, but now agree to have a central line placed and aztreonam be initiated. She will continue to get folate supplementation, and also continue to get physical therapy as she has been significantly deconditioned. Although we have ordered central line placement, her INR has been elevated to 3.2 yesterday. I am going to have a repeat INR today, and proceed from there. Further recommendations to be given as per hospital course. cc: MD AJITH Leonard
[2019-09-21 12:31] LABS: INR 3.14; PROTIME 33.2 Seconds (11.0-16.0)
--- NOTE | 2019-09-21 14:16 | PROVIDER PROGRESS NOTE ---
Progress Note Subjective: She voices feeling tired and has contemplated withdrawal of care because she does not want multiple attempts at blood draws and IVs. Objective: temperature any 8.2, pulse 70, respirations 18, blood pressure 124/55, O2 sat 100% on 3 L nasal cannula. General: Elderly white female lying in bed in no acute distress. HEENT: normocephalic, atraumatic, pupils equal and reactive, mucous membranes dry. Skin: warm and dry. Slightly jaundiced. Neck: supple, JVD observed. Cardiovascular: s1s2, systolic murmur grade 2/6 with no gallop. Respiratory: rhonchi and wheezing anteriorly Abdomen: soft, nontender, nondistended, bowel sounds present : none inspected Extremities: 1+ pitting edema to BLE with generalized edema to BUE. Left fistula palpable pulse. Neurological: alert and oriented to person, place, and time Labs: intake 50, output zero. Impression: Chronic kidney disease stage 5D. She will have her routine hemodialysis today with a 2K bath and attempt ultrafiltration to last post dialysis weight. Blood pressure. In target. Fluid volume. Expanded. she will have hemodialysis today. Anemia. Stable on last labs. Electrolytes and acid base balance. Stable on last labs. Nutrition. Encouraged to eat. Ambulation. PT in place. Disposition. She has agreed to have hemodialysis and we will obtain labs at this time. She will need a central line placed for further IV antibiotics. Medication review. No change.
[2019-09-21] MEDS: TYLENOL PO PRN (16:39)
[2019-09-21] MEDS: PERICOLACE PO SCH (21:46)
[2019-09-21] MEDS: LIPITOR PO SCH (21:55)
[2019-09-21] MEDS: SEROQUEL PO SCH (21:57)
--- NOTE | 2019-09-21 22:54 | GENERAL SURGERY CONSULTATION ---
DATE: 09/21/2019 REASON FOR CONSULTATION: IV access. HISTORY OF PRESENT ILLNESS: A 74-year-old female with end-stage renal disease on dialysis. She was admitted with pneumonia. She has been treated with antibiotics. She has very poor peripheral access due to edema and numerous attempts in the past. I have been consulted for central venous line. She has a right upper extremity arteriovenous fistula that was placed in [place]. MEDICAL HISTORY: Coronary artery disease. She has pacemaker, hysterectomy, end-stage renal disease. I believe, she has diabetes, hypertension, history of an CT, COPD, gastroesophageal reflux disease, chronic atrial fibrillation. SURGICAL HISTORY: Coronary artery bypass grafting. She has had right upper extremity dialysis access, pacemaker, cataracts, hysterectomy. SOCIAL HISTORY: She lives in rehab. She does not drink. She has an attentive daughter. FAMILY HISTORY: Reviewed and noncontributory. REVIEW OF SYSTEMS: A 10-point review of systems is negative otherwise than what is mentioned in the HPI. PHYSICAL EXAMINATION: She is afebrile, pulse 68, blood pressure 122/40, oxygen saturation is 97% on 2 L.General: Chronically ill-appearing and elderly. HEENT: No scleral icterus. No cervical masses. Cardiovascular: Normal rate. Pulmonary: Wet productive cough. Does seem to be kind of chronically short of breath. Abdomen: Obese, but soft. Integument: Warm, dry. Peripheral vascular: Right upper extremity arteriovenous fistula. She has edema in both upper and lower extremities. Psychiatric: Appropriate affect. Neurologic: Generalized weakness. Lymphatic: I do not feel any cervical or supraclavicular adenopathy. LABORATORY AND DIAGNOSTIC DATA: White count 7. Her INR is 3.14. Creatinine is 2.7 most recently. She did not really have any imaging to review pertinent. ASSESSMENT/PLAN: A 74year-old female with poor peripheral access. She is chronically anticoagulated for her atrial fibrillation. She needs 10 days of antibiotics for pneumonia, hospital-acquired. I have discussed IV access with the patient's daughter and the patient. They are apprehensive to have a femoral central line placed, but I feel that with her full anticoagulated status, that this is the safest option. They are apprehensive to undergo any invasive procedures. They are inquiring about IV antibiotics with dialysis and blood draws with her dialysis access. I think this is reasonable. We will talk to Dr. Lai and Dr. Galvez about this. Otherwise, we discussed the risk of bleeding, infection, vascular injury, pneumothorax, hematoma, malfunction of the catheter and the temporary nature. They understand all this and are apprehensive at this juncture. We will follow along, but would recommend continuation of following her INRs. cc: MD Irwin Bailey MD MTDD
[2019-09-22] MEDS: AZACTAM 0.5 GM in NS 50 ML IV SCH ×2 (04:54→16:49)
[2019-09-22] MEDS: TYLENOL PO PRN ×2 (09:20→16:47)
[2019-09-22] MEDS: RENAGEL PO SCH ×3 (09:24→17:14)
[2019-09-22] MEDS: MAALOX PLUS LIQUID PO SCH (09:25)
[2019-09-22] MEDS: FOLIC ACID PO SCH ×2 (09:25→20:33)
[2019-09-22] MEDS: NEXIUM PO SCH (09:26)
[2019-09-22] MEDS: NEPHRO-VITE PO SCH (09:26)
[2019-09-22] MEDS: ZYVOX PO SCH ×3 (09:26→20:33)
[2019-09-22] MEDS ORDERED: ZOLOFT PO SCH (12:30)
--- NOTE | 2019-09-22 13:25 | PROGRESS NOTE ---
DATE: 09/22/2019 SUBJECTIVE: The patient denies having any acute complaints this morning. She seems to be very weak and seems to be depressed. OBJECTIVE: Vital Signs: Temperature 98.5 degrees, pulse 65 per minute, respiratory rate 19 per minute, blood pressure 121/45, pulse oximetry 100% on room air. General: The patient is alert and awake. She does not appear to be in any acute distress, but appears very weak. Cardiovascular: First and second heart sounds are audible without any murmurs or gallops. Respiratory: Bilateral lung air entry is moderately decreased, but there are no rales or rhonchi present on auscultation. Gastrointestinal: Abdomen is soft and nondistended. Normal bowel sounds are present. DIAGNOSTIC DATA: INR obtained yesterday showed it to be above therapeutic range at 3.14. IMPRESSION: 1. Hospital-acquired pneumonia. 2. End-stage renal disease with hemodialysis. 3. Folate deficiency. 4. Generalized weakness and deconditioning. 5. Depression. 6. Multiple comorbid conditions, including coronary artery disease, chronic obstructive pulmonary disease, type 2 diabetes mellitus, anemia of chronic disease, and chronic atrial fibrillation. PLAN: The patient has been on oral Zyvox and IV aztreonam as per Infectious Diseases, but we have not been able to find IV access, and the patient's family has declined for central line placement, especially in view of increased chances of complication since her INR has been elevated. I had a discussion with the patient's daughter, Laverne, who has the Power of [employer] Laminating Operator, and we discussed at length yesterday about the patient's condition and future plan. Even Dr. Lai had also discussed with them, the possibility of having the patient on hospice. I have been trying to reach her today, but have not been able to do so, so far, since I want to know whether the family would agree for the patient to be discharged home on oral levofloxacin instead of giving her IV antibiotics, if we are not going to place any central line as required. Otherwise, the patient has generalized weakness and seems to be depressed, and therefore I am going to start her on some antidepressant. I will start her on sertraline 25 mg orally once daily for a week, and then we will increase the dose to 50 mg orally once daily after that. Will continue to provide her supportive care, and continue with current medications, along with continuing with hemodialysis as per Nephrology. Further recommendations are forthcoming. cc: Irwin Galvin MD
[2019-09-22] MEDS ORDERED: LEVAQUIN PO ONE (13:27)
--- NOTE | 2019-09-22 15:15 | PROVIDER PROGRESS NOTE ---
Progress Note Subjective: She voice is feeling tired. She hardly opened her eyes when I was talking to her. She denies any other uremic complaints. Objective: temperature 98.9, pulse 70, respirations 19, blood pressure 121/45, 02 sat 100% on room air. General: Elderly white female lying in bed in no acute distress. HEENT: normocephalic, atraumatic, pupils equal and reactive, mucous membranes dry. Skin: warm and dry. Slightly bronzed appearance. Neck: supple, JVD observed with hepatojugular reflux. Cardiovascular: s1s2, systolic murmur grade 2/6 with no gallop. Heave present enlarged and displaced PMI. Respiratory: rhonchi and wheezing anteriorly Abdomen: soft, obese, nontender, nondistended, bowel sounds present : none inspected Extremities: 1+ pitting edema to BLE with generalized edema to BUE. Left fistula palpable pulse. Neurological: alert and oriented to person, place, and time Labs: intake 0, output 1740. Impression: Chronic kidney disease stage 5D. She had her routine dialysis yesterday with a 1.7 L ultrafiltration. She requested to terminate her treatment about 20 minutes early due to hurting. Blood pressure. In target. Fluid volume. Expanded. Anemia. Stable on last labs. Electrolytes and acid base balance. Stable on last labs. Nutrition. Encouraged to eat. Ambulation. PT in place. Disposition. Spoke with her daughter, Laverne. We have made her a DNR1 but will plan to continue to treat. She desires access placement for IV antibiotics. Medication review. No change.
[2019-09-22] MEDS: PERICOLACE PO SCH (20:10)
--- NOTE | 2019-09-22 23:17 | OPERATIVE NOTE ---
PROCEDURE DATE: 09/22/2019 PREOPERATIVE DIAGNOSES: 1. Pneumonia. 2. Poor peripheral access. 3. End-stage renal disease. POSTOPERATIVE DIAGNOSES: 1. Pneumonia. 2. Poor peripheral access. 3. End-stage renal disease. PROCEDURE PERFORMED: Ultrasound-guided right femoral vein central line placement. SURGEON: Mundo Lofton MD. ESTIMATED BLOOD LOSS: 10 mL. SPECIMEN: None. ANESTHESIA: Local. INDICATIONS: This is a female who has end-stage renal disease, very poor peripheral access. She needs IV antibiotics for hospital-associated pneumonia. OPERATIVE FINDINGS: Ultrasound of the right groin showed usual anatomy with calcified artery, compressible vein, and no thrombus. OPERATIVE NOTE: Risks, benefits, and alternatives were discussed with the patient, and she consented to the procedure. She was seen preoperatively and surgical site was confirmed. Her groin was prepped with chlorhexidine solution and draped in usual fashion. After a time-out, a focused ultrasound was performed and the vein was accessed on the first pass. Dark nonpulsatile venous blood was noted on return. The wire threaded easily. A skin cristiane was made, tract was dilated, and a pre-flushed 7-Syrian catheter was advanced. All ports withdrew blood and flushed without resistance. We secured with silk suture. Sterile caps were applied. Dressing was applied. She tolerated it well. No complications. cc: MD Irwin Bailey MD
[2019-09-23] MEDS: AZACTAM 0.5 GM in NS 50 ML IV SCH ×2 (03:56→18:42)
--- NOTE | 2019-09-23 06:46 | Diag Imaging Result Doc PS360 ---
EXAM: CHEST-PORTABLE HISTORY: Pneumonia TECHNIQUE: Single view COMPARISON: 09/19/2019 FINDINGS: The lungs are well expanded. There are sternal wires and a left-sided pacemaker. The heart is enlarged. Decreased pulmonary edema. No pleural effusions identified. There may be a small left basilar infiltrate. IMPRESSION: Interval improvement. Electronically signed by Kamran Henry 09/23/2019 6:43 AM
[2019-09-23] MEDS ORDERED: NS 2,000 ML MISC PRN (07:25)
[2019-09-23] MEDS ORDERED: HEPARIN IV PRN (07:25)
[2019-09-23] MEDS ORDERED: TIGHT: 0.2 ML/HR FOR DIALYSIS MISC PRN (07:25)
[2019-09-23] MEDS: ZYVOX PO SCH ×2 (08:19→21:15)
[2019-09-23] MEDS: NEXIUM PO SCH (08:20)
[2019-09-23] MEDS: NEPHRO-VITE PO SCH (08:20)
[2019-09-23] MEDS: FOLIC ACID PO SCH ×2 (08:20→21:15)
[2019-09-23] MEDS: RENAGEL PO SCH ×3 (08:22→18:41)
[2019-09-23] MEDS: MAALOX PLUS LIQUID PO SCH (08:23)
[2019-09-23 08:39] LABS: BASO% 1.4 % (0.0-0.8); EOS# 0.18 X1000 (0.0-0.7); EOS% 2.5 % (0.0-10.0); HEMATOCRIT 28.2 % (37.0-47.0); HEMOGLOBIN 8.8 g/dL (12.0-16.0); LYMPH# 1.34 X1000 (1.2-3.4); LYMPH% 18.4 % (20.5-51.1); MCHC 31.2 g/dL (33-37); MCV 99.3 FL (81-99); MONO# 0.28 X1000 (0.11-0.59); MONO% 3.8 % (1.7-9.3); MPV 10.5 FL (7.4-10.4); NEUT% 73.9 % (42.2-75.2); PLT 91 X1000 (130-400); RBC 2.84 XMIL (4.2-5.4)
[2019-09-23 08:43] LABS: INR 2.24; PROTIME 25.3 Seconds (11.0-16.0)
--- NOTE | 2019-09-23 08:47 | PROGRESS NOTE ---
DATE: 09/23/2019 SUBJECTIVE: The patient feels much better this morning. She denies having any acute complaints. OBJECTIVE: Vital Signs: Temperature 97.9 degrees, pulse 65 per minute, respiratory rate 19 per minute, blood pressure 114/50, pulse oximetry 96% on room air. General: Patient is alert and oriented x3. She does not appear to be in any acute distress. Cardiovascular: First and, second heart sounds are audible without any murmurs or gallops. Respiratory System: Bilateral lung air entry is moderately decreased but there are no rales or rhonchi present on auscultation. Gastrointestinal: Abdomen is soft and nondistended. Normal bowel sounds are present. DIAGNOSTIC DATA: No new lab studies have been done since yesterday. Today's labs are pending at the time of this dictation. IMPRESSION: 1. Hospital-acquired pneumonia. 2. End-stage renal disease with hemodialysis. 3. Folate deficiency 4. Generalized weakness and deconditioning. 5. Multiple comorbid conditions including coronary artery disease, chronic obstructive pulmonary disease, type 2 diabetes mellitus, chronic atrial fibrillation, and anemia of chronic disease. PLAN: The patient had central venous line placement done yesterday and her IV aztreonam was resumed. She will continue with Zyvox as well per Infectious Disease. She did have a chest x-ray done today, the reports of which are pending at this time. The chest x-ray looked clear to me and I did not see any infiltrates. I discussed with Dr. Galvez and we plan to keep her on IV antibiotics until at least early next week. The patient does appear to have deconditioning, for which physical therapy will be continued. She will also continue with hemodialysis as per Dr. Lai and would continue supportive care. She can probably be transferred to rehab sometime next week if continues to get better. cc: MD AJITH Leonard
[2019-09-23 08:57] LABS: CALCIUM 9.9 mg/dL (8.8-10.2); CREATININE 4.3 mg/dL (0.5-0.9); POTASSIUM 4.1 mmol/L (3.5-5.1)
[2019-09-23] MEDS ORDERED: ZOFRAN IV PRN (12:40)
--- NOTE | 2019-09-23 13:17 | INFECTIOUS DISEASE PROGRESS NO ---
DATE: 09/23/2019 PRESENT ILLNESS: The patient is being treated for a right upper lobe pneumonia. MEDICATIONS: This is the fifth day of treatment with the combination of aztreonam and Zyvox. PHYSICAL EXAMINATION: Vital Signs: Temperature is 97.9 degrees pulse 65, respirations 19, blood pressure 114/50. Generally: The patient looks much better than she did a day or two ago. She is alert and talkative and is in no acute distress. Head/eyes/ears/nose/throat: She can hear my spoken words and see near objects. She does not have any white coating on her tongue. Neck: No stiffness. No pain with movement. Lungs: Bilateral rhonchi. Cardiovascular: Heart rate is regular with a systolic murmur. Abdomen: Soft and nontender. Extremities: The patient has an AV graft in the right arm for which she is dialyzed. She also has in the right groin a catheter. That site and the site in the arm are not erythematous or purulent. Neurologic: The patient is alert today. She is talkative. She can move her extremities. There is no tremor. LAB AND X-RAYS: Chest x-ray was just taken and I looked at it and I did not see any infiltrates, but the radiologist is going to be reading the x-ray soon. The patient does not have any new laboratory studies that are present today. ASSESSMENT AND PLAN: The patient has pneumonia. Plan is to continue treatment with aztreonam and Zyvox and then eventually the patient will go home and, if she still has some pneumonia, I plan on putting her on Levaquin when she goes home. COMORBIDITIES: The patient is elderly and she has end-stage renal disease, diabetes mellitus, chronic obstructive pulmonary disease, and gastroesophageal reflux disease. cc: MD Irwin Dow MD
[2019-09-23] MEDS: D50W 250 ML, AMINOSYN 15% 500 ML, LIPOSYN 20% 250 ML IV SCH ×3 (15:05)
[2019-09-23] MEDS: TYLENOL PO PRN ×2 (18:41→21:16)
--- NOTE | 2019-09-23 20:15 | NEPHROLOGY PROGRESS NOTE ---
DATE: 09/23/2019 SUBJECTIVE: She is much better. She is transferring from the bed to the chair with the assistance of staff. No shortness of breath. No nausea or vomiting. OBJECTIVE: Vital Signs: Blood pressure 114/50, heart rate 65, respirations 19, afebrile. General: No acute distress. Skin: Warm and dry. Neck: Neck veins are not appreciated. Heart: Regular. Lungs: Equal. Rhonchi on the left. Abdomen: Benign. Extremities: Trace edema. No clubbing or cyanosis. IMPRESSION: Chronic kidney disease 5D. She will have her routine treatment today. Our ultrafiltration goal will be 1 to 2 L. Electrolytes and acid base in target. Hemoglobin is below target, but stable. cc: MD Irwin Jones MD
[2019-09-23] MEDS: PERICOLACE PO SCH (21:15)
--- NOTE | 2019-09-23 21:31 | CARDIOLOGY CONSULTATION ---
DATE: 09/23/2019 CHIEF COMPLAINT: Productive cough, low blood pressure. HISTORY OF PRESENT ILLNESS: Ms. Moses is a 74-year-old white female with a history of end-stage renal disease, chronic atrial fibrillation, coronary disease, normally followed by Dr. Aguayo, last visit in May of 2019. She presented for evaluation on the with cough as well as hypotension. During the course of the evaluation she has been found to have a pneumonia and has been treated with antibiotics. She recently had a hospitalization with discharge on the . This was secondary to a fall resulting in a large left flank hematoma. She was discharged to rehab. Over that time period, she has reported increased weakness, poor appetite. She denies any recent fevers. She apparently was in dialysis yesterday and asked to be taken off early secondary to just not feeling well. She denies any exertional chest pain but does report some discomfort in her right anterior chest with using her walker. There is tenderness to palpation over that area, and she says whenever she places pressure on the walker and tries to support herself she gets discomfort in that right anterior chest wall area. PAST MEDICAL HISTORY: Significant for: 1. Coronary artery disease with history of bypass grafting. This was done in [address] Castillo. She had a POWERS to the LAD, vein graft to the PDA, vein graft to an OM 1. Her last cardiac cath was done prior to that. 2. History of what appears to be diastolic heart failure. Her last echocardiogram was performed in March of 2019. At that time her EF was 55% to 60%. She did not have any obvious wall motion abnormalities, but it was a poor study. LVH was noted. 3. Aortic stenosis. On that March 2019 echocardiogram, she had a peak gradient of 36, mean of 17. 4. Chronic atrial fibrillation. 5. History of sick sinus syndrome status post permanent pacemaker implantation. 6. End-stage renal disease. 7. Hypertension in the past. It sounds like she has had more issues with hypotension recently. 8. Pulmonary hypertension. Most recent echo in March 2019 shows a RV systolic pressure of 75. SOCIAL HISTORY: She has several family members present during the evaluation most recently a resident of [facility]. No alcohol or tobacco. FAMILY HISTORY: Significant for hypertension. REVIEW OF SYSTEMS: A 10-system review of systems is negative except for those things mentioned in the HPI. PHYSICAL EXAMINATION: Vital signs: More recently she has been afebrile. Heart rate of 68, blood pressure 136/52. General: She is an ill-appearing female in no acute distress. She is pleasant. She answers all questions. HEENT: Oropharynx is moist. Poor dentition. Eye examination is pink conjunctivae, white sclerae. Neck Examination: Shows no obvious thyromegaly or thyroid tenderness. Cardiovascular: She sounds to be in a regular rate and rhythm. She had a paced rhythm during my examination on telemetry. She had diffuse anasarca, warm and well-perfused extremities. Chest exam sounds to have mild basilar rales. No increased work of breathing. Abdomen: Soft, nontender. She has no obvious organomegaly. Skin Exam: Has multiple ecchymoses scattered in the bilateral upper and lower extremities with skin tears in the upper extremities. Neurologic: She is moving all extremities well. She has no obvious lateralizing deficits. PERTINENT DATA: Her chest x-ray shows a decrease in the pulmonary edema. Some cardiomegaly is noted, small left basilar infiltrate. Her most recent electrocardiogram was performed on August 26. That demonstrated what appeared to be atrial fibrillation, intermittent ventricular pacing. Lab data: White count is 7.3, hematocrit of 28, platelet count of 91,000. Her INR is 2.2. Sodium 141, potassium 4.1, BUN 22, creatinine is 4.3. Her albumin was 2.2 yesterday. ASSESSMENT: Ms. Moses is a 74-year-old female who is currently admitted with what sounds like a healthcare-associated pneumonia. She currently is on aztreonam. She has a history of coronary disease, diastolic dysfunction and permanent atrial fibrillation. PLAN: At this point, she is not on anticoagulation. She has issues with falls, and I think it would be reasonable to make an assessment of her fall risk prior to restarting. She had an admission with a recent large left flank hematoma. Her volume status is being managed by dialysis. She has had reasonably controlled blood pressures in the more recent days with actually some episodes of hypotension in the 80s and 90s. She is not presently on any antihypertensives, and it would be reasonable to continue that. I do not have any acute cardiovascular recommendations with the exception that her albumin is 2.2. She certainly needs to work on dietary improvement. She likely is experiencing anasarca secondary to this issue. Please contact us if we can be of further assistance with this patient. cc: MD Irwin Mcallister MD
[2019-09-24] MEDS: PERCOCET-5 PO PRN ×2 (00:47→06:35)
[2019-09-24] MEDS: AZACTAM 0.5 GM in NS 50 ML IV SCH ×2 (03:13→14:19)
[2019-09-24] MEDS: RENAGEL PO SCH ×3 (06:35→18:29)
[2019-09-24] MEDS: ZYVOX PO SCH ×2 (10:37→20:30)
[2019-09-24] MEDS: MAALOX PLUS LIQUID PO SCH ×2 (10:37→10:46)
[2019-09-24] MEDS: NEPHRO-VITE PO SCH (10:38)
[2019-09-24] MEDS: NEXIUM PO SCH (10:38)
[2019-09-24] MEDS: FOLIC ACID PO SCH ×2 (10:38→20:29)
[2019-09-24] MEDS: TYLENOL PO PRN (11:51)
[2019-09-24] MEDS: ZOVIRAX OINTMENT TOP SCH ×4 (11:55→20:33)
[2019-09-24] MEDS ORDERED: ZOVIRAX CREAM TOP SCH (12:00)
--- NOTE | 2019-09-24 14:02 | PROGRESS NOTE ---
DATE: 09/24/2019 SUBJECTIVE: A 74-year-old white female, complicated historian, admitted to the hospital with right upper lobe pneumonia. presumed with aspiration pneumonia. The patient is a lot better. Since yesterday the patient complains of pain. I have given [address] Lai discontinued and we will only use tramadol. She has some mental confusion. taking Seroquel and it is really helping. The patient was sitting out of the bed eating a sandwich. The family was at the bedside. Complains of fever blisters. REVIEW OF SYSTEMS: None reported. No GI symptoms, nausea, vomiting, or diarrhea. PAST MEDICAL HISTORY: Reviewed. PAST SURGICAL HISTORY: Reviewed. MEDICATIONS: Reviewed. ALLERGIES: Multiple medications as listed in the chart. PHYSICAL EXAMINATION: Vital Signs: Temperature is 97.7 degrees, pulse 65, and blood pressure 104/39. HEENT: Exam is within normal limits. Slightly anemia. No jaundice noted. Mild fever blister on the upper lip noted. Neck: Supple. JVD is elevated. Chest: Bilateral air entry. No rales. Heart: Sounds are regular. No murmur. Abdomen: Belly is soft and nontender. Triple lumen catheter noted in the right groin. Extremities: No edema. Neurological: No neurological deficits. INVESTIGATIONS: White cell count is 7.3, hematocrit 28, and platelets 91. PT is 25 and INR 2.2. Sodium is 141, potassium 4.1, chloride 103, BUN 22, and creatinine 4.3. Liver function tests were normal. Procalcitonin is 0.47. Hepatitis panel was negative except IgM hepatitis A antibody was positive. Blood cultures were negative, 09/06/2019, and sputum cultures are so far so good. ASSESSMENT AND PLAN: 1. Right upper lobe pneumonia. Chest x-ray is completely improving; cardiomegaly with a pacemaker. Currently receiving IV antibiotics, basically Aztreonam 0.5 g every 12 hours and Zyvox 600 g every 12 hours. 2. Fever blisters. Zovirax cream as needed. 3. Delirium and mental confusion. Tramadol as needed for pain. Discontinue Percocet. 4. Triple lumen catheter on the right side. 5. Ischemic heart disease, cardiomegaly, status post pacemaker. Currently stable. Aspirin and Coreg. 6. Hyperlipidemia. On Lipitor 40 mg daily. 7. End-stage dialysis treatment as per Dr. Lai. 8. Constipation. On Juanita-Colace. 9. Abnormal hepatitis IgM antibody. Currently she is not having any symptoms. Continue to observe. We will discuss with Dr. Galvez and her primary care physician. At this time we have not discussed it with the patient's family since she is asymptomatic. I will repeat the liver function tests in the morning. 10. Patient is on Coumadin and presently has Coumadin toxicity. Off Coumadin and INR is 2.5. Continue to monitor on a daily basis. Discussed the plan of care with above and we agreed upon. LEVEL OF DOCUMENTATION: 35 minutes. cc: MD Irwin Perez MD MTDD
--- NOTE | 2019-09-24 19:59 | NEPHROLOGY PROGRESS NOTE ---
DATE: 09/24/2019 SUBJECTIVE: She is sitting up eating. Coughing with sputum production. Improved overall. She did have pain in her back last night and they called Dr. Augustin for a narcotic. OBJECTIVE: Vital Signs: Blood pressure 109/35, heart rate 66, respirations 16, afebrile. General: Chronically ill, no acute distress. Skin: Warm and dry. Conjunctivae are pink. Neck: Neck veins are not distended. Heart: Regular. Lungs: Equal. Abdomen: Benign. Extremities: Trace edema. No clubbing or cyanosis. IMPRESSION: Pain management. I will prescribe tramadol 50 mg at bedtime as needed. No other treatment at this time. Next dialysis on Thursday. cc: MD Irwin Jones MD
[2019-09-24] MEDS: PERICOLACE PO SCH (20:30)
[2019-09-25] MEDS: AZACTAM 0.5 GM in NS 50 ML IV SCH ×2 (03:24→15:23)
[2019-09-25 06:11] LABS: INR 1.64; PROTIME 19.8 Seconds (11.0-16.0)
[2019-09-25 06:48] LABS: ALB/GLOB RATIO 0.8; ALBUMIN 2.2 g/dL (3.5-5.0); CALCIUM 9.2 mg/dL (8.8-10.2); CREATININE 3.6 mg/dL (0.5-0.9); TOTAL BILIRUBIN 0.69 mg/dL (0.20-1.00)
[2019-09-25] MEDS: TYLENOL PO PRN ×2 (08:00→20:15)
[2019-09-25] MEDS: NEPHRO-VITE PO SCH (08:00)
[2019-09-25] MEDS: NEXIUM PO SCH (08:00)
[2019-09-25] MEDS: MAALOX PLUS LIQUID PO SCH (08:00)
[2019-09-25] MEDS: FOLIC ACID PO SCH ×2 (08:00→20:16)
[2019-09-25] MEDS: ZOVIRAX OINTMENT TOP SCH ×5 (08:01→21:39)
[2019-09-25] MEDS: RENAGEL PO SCH ×3 (08:01→16:38)
[2019-09-25] MEDS: ZYVOX PO SCH ×2 (08:01→20:16)
--- NOTE | 2019-09-25 08:45 | INFECTIOUS DISEASE PROGRESS NO ---
DATE: 09/25/2019 PRESENT ILLNESS: The patient is being treated for pneumonia. It appears it is only in the left lower lobe at this time, and the rest of the patient's lungs have pulmonary venous congestion. MEDICATIONS: This is day 8 of aztreonam and day 9 of Zyvox. PHYSICAL EXAMINATION: Vital Signs: Temperature is 97.7 degrees, pulse 65, respirations 17, blood pressure is 113/52. General: This is an ill-appearing, elderly female. She is in no acute distress. HEENT: She can hear my spoken words and see near objects. She does not have any white patches on her tongue. On her lip, she has one very small little ulcerated area that is getting better since acyclovir ointment was put on it. Neck: No pain with movement. Lungs: Bilateral rhonchi. Cardiovascular: Heart rate is regular with a systolic murmur. Abdomen: Soft and nontender. Thorax: The patient has a pacemaker in the left side. The site is not erythematous or tender. Extremities: The patient has an AV graft in her right arm, through which she is dialyzed. The graft is functional, and it is not erythematous or tender. In the right groin, the patient has an IV catheter. That site also is not erythematous or tender. Neurologic: The patient is awake today. She is coherent. She can move her extremities. IMAGING AND LABORATORY DATA: The latest chest x-ray shows a possible small left basilar infiltrate, and the rest of the lungs appear to have pulmonary venous congestion. The patient's CBC shows a white count of 7300, hemoglobin 8.9, and platelet count 91,000. Creatinine is 3.6. GFR is 12. Alkaline phosphatase is 225. ASSESSMENT AND PLAN: The patient has pneumonia. It appears that it is only in the left lower lobe. My plan now is to continue aztreonam and Zyvox, and check again, the patient's chest x-ray, CBC, and BMP, and if everything is favorable, I think she would not need any further antibiotics, or at most, if she did, possibly would be with Levaquin by mouth. COMORBIDITIES: The patient is elderly. She has end-stage renal disease, diabetes mellitus, chronic obstructive pulmonary disease, and gastroesophageal reflux disease. cc: MD Irwin Dow MD
--- NOTE | 2019-09-25 14:48 | PROGRESS NOTE ---
DATE: 09/25/2019 SUBJECTIVE: The patient is sleeping. Family was not at bedside. Zovirax cream applied for a fever blister on the right upper lip. The patient was seen by Dr. Gary Galvez today. REVIEW OF SYSTEMS: None reported. PHYSICAL EXAMINATION: Temperature is 97.5 degrees, pulse 67, blood pressure 112/35, 95% on room air. Chest: There is bilateral air entry. Distant heart sounds. Belly is soft, nontender. No edema. LABS: PT 19, INR 1.6. SMA 7: Sodium 139, potassium 4, BUN 21, creatinine 3.6. Bilirubin is normal. ASSESSMENT AND PLAN: 1. Right upper lobe pneumonia is slowly improving. Currently on aztreonam and Zyvox. 2. Fever blister, on Zovirax cream. 3. Delirium. Mental confusion is better and no Percocet, only Tramadol. 4. Triple-lumen catheter in the right groin, stable. 5. Coronary artery disease, status post pacemaker, cardiomegaly. Continue present treatment. 6. End-stage, dialysis as per Dr. Lai. 7. Positive IgM, hepatitis A antibody, currently asymptomatic. Liver function tests were normal. Discussed with Dr. Lai and Dr. Galvez. Continue to monitor. She is going for dialysis tomorrow. 8. She is off from Coumadin. INR is coming down. I will defer to restart Coumadin by Dr. Galvin in the morning. LEVEL OF DOCUMENTATION: 25 minutes. cc: MD Irwin Perez MD
--- NOTE | 2019-09-25 15:05 | Diag Imaging Result Doc PS360 ---
CHEST-1 VIEW - 09/25/2019 INDICATION: pneumonia COMPARISON: 09/23/2019 FINDINGS: Stable pacemaker. Stable sternotomy wires. Stable cardiomegaly. Stable severe pulmonary vascular congestion. No dense infiltrates. No large pleural effusion. IMPRESSION: No change from prior. Electronically signed by Nabor Gandhi 09/25/2019 3:03 PM
[2019-09-25] MEDS: PERICOLACE PO SCH (20:15)
[2019-09-25] MEDS: ULTRAM PO PRN (22:25)
[2019-09-26] MEDS: AZACTAM 0.5 GM in NS 50 ML IV SCH (03:57)
[2019-09-26] MEDS ORDERED: TIGHT: 0.2 ML/HR FOR DIALYSIS MISC PRN (06:15)
[2019-09-26] MEDS ORDERED: NS 2,000 ML MISC PRN (06:15)
[2019-09-26] MEDS ORDERED: HEPARIN IV PRN (06:15)
[2019-09-26 06:42] LABS: CALCIUM 9.3 mg/dL (8.8-10.2); CREATININE 4.4 mg/dL (0.5-0.9); POTASSIUM 3.9 mmol/L (3.5-5.1)
--- NOTE | 2019-09-26 07:28 | INFECTIOUS DISEASE PROGRESS NO ---
DATE: 09/26/2019 PRESENT ILLNESS: The patient has been treated for pneumonia. Based on the latest chest x-ray, the pneumonia has cleared. MEDICATIONS: This is the 9th day of aztreonam and Zyvox. PHYSICAL EXAMINATION: Vital Signs: Temperature is 98.1 degrees, pulse 64, respirations 18, blood pressure is 115/36. General: This is an ill-appearing, elderly female. She is in no acute distress. She is still somewhat sleepy this morning. Head/eyes/ears/nose/throat: She can hear my spoken words and see near objects. I did not notice any white coating of her tongue. On her lips she has 1 small ulcerated area that is clearing up. Neck: No pain with movement. lungs: Today most of the rhonchi were gone and both lungs were, for the most part, clear. Cardiovascular: Heart rate is regular. Abdomen: Soft and nontender. Extremities: In the patient's right groin, she has an IV catheter in place. There is no erythema or purulence. The right arm has a graft in it for hemodialysis. The graft is functional. thorax: The patient has a combined pacemaker/defibrillator on the left side. That site is not swollen or erythematous. Neurologic: The patient is sleepy this morning. She did wake up. She is able to move her extremities. LAB AND X-RAY: The patient's chest x-ray shows pulmonary edema but no infiltrates. The patient's CBC is pending. The creatinine is 3.6, GFR is 12. Yesterday's CBC showed a white count of 7300, hemoglobin 8.8, and platelet count 91,000. Assessment and Plan: The patient's pneumonia has cleared. I think her antibiotics can be discontinued. From my point of view, she could be discharged to wherever she is going to go. I do not think she needs any antibiotics by mouth. COMORBIDITIES: The patient is elderly and she has end-stage renal disease. She is on hemodialysis. She also is a diabetic and she has chronic obstructive pulmonary disease and gastroesophageal reflux disease. I am signing off on the patient's case. I am going to discontinue her current antibiotics. I do not think she needs any further antibiotics. cc: MD Irwin Dow MD MTDD
[2019-09-26 08:37] LABS: BASO% 1.7 % (0.0-0.8); EOS# 0.17 X1000 (0.0-0.7); EOS% 2.8 % (0.0-10.0); LYMPH# 1.14 X1000 (1.2-3.4); LYMPH% 19.1 % (20.5-51.1); MCH 30.5 PG (27-31); MCHC 30.8 g/dL (33-37); MCV 99.2 FL (81-99); MONO# 0.17 X1000 (0.11-0.59); MONO% 2.8 % (1.7-9.3); NEUT# 4.39 X1000 (1.4-6.5); NEUT% 73.6 % (42.2-75.2); PLT 38 X1000 (130-400); RBC 2.62 XMIL (4.2-5.4); WBC 5.97 X1000 (4.8-10.8)
--- NOTE | 2019-09-26 09:21 | INFECTIOUS DISEASE PROGRESS NO ---
DATE: 09/26/2019 SUBJECTIVE: The serology for the hepatitis panel came back, and it was positive for hepatitis A IgM antibody, which means the patient has an acute hepatitis A infection. I discussed the treatment of hepatitis A with Dr. Galvin who will be following the patient . cc: MD Irwin Dow MD MTDD
[2019-09-26] MEDS: RENAGEL PO SCH ×3 (11:14→16:32)
[2019-09-26] MEDS: FOLIC ACID PO SCH ×2 (11:16→21:18)
[2019-09-26] MEDS: NEXIUM PO SCH (11:16)
[2019-09-26] MEDS: ZOVIRAX OINTMENT TOP SCH ×5 (11:16→21:28)
[2019-09-26] MEDS: NEPHRO-VITE PO SCH (11:16)
[2019-09-26] MEDS: MAALOX PLUS LIQUID PO SCH (11:17)
--- NOTE | 2019-09-26 12:08 | PROGRESS NOTE ---
DATE: 09/26/2019 SUBJECTIVE: Patient feels much better this morning and denies having any acute complaints. OBJECTIVE: Vital Signs: Temperature 97.9 degrees, pulse 66 per minute, respiratory rate 16 per minute, blood pressure 106/42, pulse oximetry 100% on 2 L of oxygen via nasal cannula. General: Patient is alert and oriented x3. She does not appear to be in any acute distress. She does appear to be somewhat weak. Cardiovascular System: First and second heart sounds are audible without any murmurs or gallops. Respiratory System: Bilateral lung air entry is slightly decreased, but there are no rales or rhonchi present on auscultation. Gastrointestinal System: Abdomen is benign. DIAGNOSTIC DATA: CBC done this morning showed hemoglobin of 8.0, hematocrit 26.0, and platelet count 38,000. In comparison, her hemoglobin and hematocrit was 8.8 and 28.2 three days ago on 09/23/2019. Her platelet count was 91,000 on September 23. Platelet count was 129,000 on September 19. IMPRESSION: 1. Hospital-acquired pneumonia that has now resolved. I had a discussion with Dr. Galvez from Infectious Disease speciality, and he thinks that the patient does not need any more antibiotics, and therefore he has discontinue antibiotics. 2. End-stage renal disease with hemodialysis. 3. Thrombocytopenia most likely secondary to Zyvox that has already been discontinued this morning. 4. Generalized weakness and deconditioning. 5. Multiple comorbid conditions including coronary artery disease, chronic obstructive pulmonary disease, type 2 diabetes mellitus, chronic atrial fibrillation and anemia of chronic disease. PLAN: The patient was admitted with the hospital-acquired pneumonia that has already been treated and resolved on chest x-rays. Infectious Disease has discontinued antibiotics, including aztreonam and Zyvox. She did develop thrombocytopenia most likely secondary to Zyvox that has already been discontinued and we are going to monitor her platelet count for the next day or 2 to make sure they do rebound before we can transfer her out to rehab. She does have generalized weakness and deconditioning for which we will continue with physical therapy while she is here at the hospital, and would like to transfer her out to rehab once we establish that her platelet counts are stable. As far as her hemoglobin and hematocrit are concerned, they are mostly stable, and she will continue with hemodialysis as per Dr. Lai from Nephrology Service. cc: Irwin Galvin MD
--- NOTE | 2019-09-26 14:39 | PROVIDER PROGRESS NOTE ---
Progress Note Subjective: complaints of waxing and waning malaise. Objective: temperature 98.1, pulse 64, respirations 18, blood pressure 115/36, 02 sat 96% on room air. General: Elderly white female lying in bed in no acute distress. HEENT: normocephalic, atraumatic, pupils equal and reactive, mucous membranes dry. Skin: warm and dry. Slightly pale/green appearance. Neck: supple, JVD observed with hepatojugular reflux. Cardiovascular: s1s2, systolic murmur grade 2/6 with no gallop. Heave present enlarged and displaced PMI. Respiratory: clear anteriorly with equal air entry. Abdomen: soft, obese, nontender, nondistended, bowel sounds present : none inspected Extremities: generalized edema to the upper and lower extremities. Left fistula with a palpable pulse. Neurological: alert and oriented to person and place. Labs: WBC 5.97, hemoglobin 8.0, hematocrit 26.0, platelet count 38, sodium 138, potassium 3.9, chloride 100, carbon dioxide 23, BUN 31, creatinine 4.4. Intake 530, output zero. Impression: Chronic kidney disease stage 5D. She will have her routine hemodialysis treatment today with a 2K bath and attempt for 1 to 2 L ultrafiltration as tolerated. Blood pressure. In target. Fluid volume. Expanded. She will have her hemodialysis treatment today. Anemia. Low, she does not need transfusion criteria. (8) Electrolytes and acid base balance. Stable. Nutrition. Encouraged to eat. Parenteral nutrition given in dialysis. Ambulation. PT in place. Medication review. On tramadol and acetaminophen.
[2019-09-26] MEDS: D50W 250 ML, AMINOSYN 15% 500 ML, LIPOSYN 20% 250 ML IV SCH ×3 (17:00)
[2019-09-26] MEDS: TYLENOL PO PRN (19:38)
[2019-09-26] MEDS: PERICOLACE PO SCH ×2 (21:18→21:21)
[2019-09-26] MEDS: ULTRAM PO PRN (22:46)
[2019-09-27 06:27] LABS: CALCIUM 8.8 mg/dL (8.8-10.2); CREATININE 2.6 mg/dL (0.5-0.9); POTASSIUM 3.4 mmol/L (3.5-5.1)
[2019-09-27] MEDS: RENAGEL PO SCH ×3 (06:27→16:32)
[2019-09-27 06:29] LABS: BASO# 0.05 X1000 (0.0-0.2); EOS# 0.18 X1000 (0.0-0.7); EOS% 3.5 % (0.0-10.0); HEMATOCRIT 24.1 % (37.0-47.0); HEMOGLOBIN 7.5 g/dL (12.0-16.0); LYMPH# 1.24 X1000 (1.2-3.4); LYMPH% 24.3 % (20.5-51.1); MCH 30.7 PG (27-31); MCHC 31.1 g/dL (33-37); MCV 98.8 FL (81-99); MONO# 0.16 X1000 (0.11-0.59); MONO% 3.1 % (1.7-9.3); MPV 10.9 FL (7.4-10.4); NEUT# 3.47 X1000 (1.4-6.5); NEUT% 68.1 % (42.2-75.2); RBC 2.44 XMIL (4.2-5.4); RDW 16.9 % (11.5-14.5)
[2019-09-27 06:30] LABS: PLT 33 X1000 (130-400)
[2019-09-27] MEDS: NEXIUM PO SCH (08:03)
[2019-09-27] MEDS: FOLIC ACID PO SCH ×2 (08:03→21:36)
[2019-09-27] MEDS: NEPHRO-VITE PO SCH (08:03)
[2019-09-27] MEDS: MAALOX PLUS LIQUID PO SCH ×2 (08:03→08:07)
--- NOTE | 2019-09-27 10:22 | PROGRESS NOTE ---
DATE: 09/27/2019 SUBJECTIVE: The patient feels good today, and denies having any acute complaints. OBJECTIVE: Vital Signs: Temperature 97.6 degrees, pulse 63 per minute, respiratory rate 20 per minute, blood pressure 119/38, pulse oximetry 95% on room air. General: The patient is alert and oriented x3. She does not appear to be in any acute distress. Cardiovascular: First and second heart sounds are audible without any murmurs or gallops. Respiratory: Bilateral lung air entry is moderately decreased, but there are no rales or rhonchi present on auscultation. Gastrointestinal: Abdomen is soft and nontender. Normal bowel sounds are present. DIAGNOSTIC DATA: CBC done this morning shows WBC count of 5.10, hemoglobin 7.5, hematocrit 24.1, and platelet count of 33,000. In comparison, her platelet counts were 38,000 yesterday and 91,000 on 09/23/2019. Her hemoglobin and hematocrit were 8.0 and 26.0 yesterday. Basic metabolic panel shows potassium level of 3.4 and creatinine level of 2.6. Rest of the basic metabolic panel is nondiagnostic. IMPRESSION: 1. Hospital-acquired pneumonia that has now resolved. She is off antibiotics, including Zyvox. 2. End-stage renal disease, with hemodialysis being carried out as per Nephrology. 3. Thrombocytopenia, most likely secondary to Zyvox. That has already been discontinued. 4. Anemia secondary to chronic kidney disease. That has been relatively stable. 5. Generalized weakness and deconditioning. 6. Multiple comorbid conditions, including coronary artery disease, chronic obstructive pulmonary disease, type 2 diabetes mellitus, chronic atrial fibrillation, and gastroesophageal reflux disease. PLAN: The patient's pneumonia has already improved, and as mentioned above, we have discontinued her antibiotics as recommended by Infectious Disease. She completed therapy with aztreonam and Zyvox. Unfortunately, she has developed thrombocytopenia, which could be related to Zyvox. I am going to obtain Hematology/Oncology consultation to evaluate that, and we are going to continue monitoring her platelet count for now. She does have some drop in hemoglobin and hematocrit, but relatively it has been stable, and we are going to continue to monitor that as well. We believe that is secondary to chronic kidney disease. She will continue with injectable erythropoietin as per Nephrology during hemodialysis. She will also continue with the rest of her supportive care and physical therapy. Once her platelet count has been established to be stable, we will transfer her out to rehab facility. cc: Irwin Galvin MD
[2019-09-27] MEDS: ZOVIRAX OINTMENT TOP SCH ×5 (12:16→21:39)
[2019-09-27] MEDS: TYLENOL PO PRN (12:22)
--- NOTE | 2019-09-27 13:19 | PROVIDER PROGRESS NOTE ---
Progress Note Subjective: She voices feeling well, no uremic complaints. She says her appetite has gotten better. Objective: temperature 97.6, pulse 63, respirations 20, blood pressure 119/38, 02 sat 95% on room air. General: Elderly white female lying in bed in no acute distress. HEENT: normocephalic, atraumatic, pupils equal and reactive, mucous membranes dry. Skin: warm and dry. Slightly pale/green appearance. Neck: supple, JVD observed with hepatojugular reflux. Cardiovascular: s1s2, systolic murmur grade 2/6 with no gallop. Heave present enlarged and displaced PMI. Respiratory: clear anteriorly with equal air entry. Abdomen: soft, obese, nontender, nondistended, bowel sounds present : none inspected Extremities: generalized edema to the upper and lower extremities. Left fistula with a palpable pulse. Neurological: alert and oriented to person and place. Labs: WBC 5.10, hemoglobin 7.5, hematocrit 24.1, platelet count 33, sodium 141, potassium 3.4, chloride 101, carbon dioxide 26, BUN 21, creatinine 2.6. Intake 1030, Output 2019. Impression: Chronic kidney disease stage 5D. She tolerated a 2L ultrafiltration with hemodialysis yesterday. Case management is meeting with her family today to discuss discharge planning. Blood pressure. In target. Fluid volume. Chronic edema. Anemia. Low, she does not need transfusion criteria. Possibly give her a unit of PRBCs tomorrow with hemodialysis. Thrombocytopenia. Pameladamary jo was consulted. Electrolytes and acid base balance. Stable. Nutrition. Improved. Parenteral nutrition in place as well. Ambulation. PT in place. Medication review. On tramadol and acetaminophen.
[2019-09-27] MEDS: PERICOLACE PO SCH ×2 (21:34→21:35)
[2019-09-28 05:51] LABS: BASO# 0.05 X1000 (0.0-0.2); BASO% 0.9 % (0.0-0.8); EOS# 0.18 X1000 (0.0-0.7); EOS% 3.3 % (0.0-10.0); HEMATOCRIT 24.2 % (37.0-47.0); HEMOGLOBIN 7.5 g/dL (12.0-16.0); LYMPH# 1.08 X1000 (1.2-3.4); LYMPH% 20.1 % (20.5-51.1); MCH 30.4 PG (27-31); MONO# 0.23 X1000 (0.11-0.59); MONO% 4.3 % (1.7-9.3); MPV 11.1 FL (7.4-10.4); NEUT# 3.84 X1000 (1.4-6.5); NEUT% 71.4 % (42.2-75.2); RBC 2.47 XMIL (4.2-5.4); RDW 16.7 % (11.5-14.5); WBC 5.38 X1000 (4.8-10.8)
[2019-09-28 05:53] LABS: PLT 33 X1000 (130-400)
[2019-09-28] MEDS ORDERED: NS 2,000 ML MISC PRN (06:06)
[2019-09-28] MEDS ORDERED: HEPARIN IV PRN (06:06)
[2019-09-28] MEDS ORDERED: TIGHT: 0.2 ML/HR FOR DIALYSIS MISC PRN (06:06)
[2019-09-28] MEDS: RENAGEL PO SCH ×3 (06:10→17:09)
--- NOTE | 2019-09-28 08:11 | PROGRESS NOTE ---
DATE: 09/28/2019 SUBJECTIVE: Patient denies having any acute complaints this morning. OBJECTIVE: Vital Signs: Temperature is 97.9 degrees, pulse 66 per minute, respiratory rate 18 per minute, blood pressure 105/38, pulse oximetry 100% on room air. General: Patient is alert and oriented x3. She does not appear to be in any acute distress. Cardiovascular System: First and second heart sounds are audible without any murmurs or gallops. Respiratory System: No respiratory distress noted. Bilateral lung air entry is moderately decreased but there are no rales or rhonchi present on auscultation. Gastrointestinal System: Abdomen is soft and nondistended. Normal bowel sounds are present. Diagnostic Data: CBC shows hemoglobin of 7.5 and hematocrit 24.2 with a platelet count of 33,000. In comparison, her hemoglobin and hematocrit were essentially the same at 7.5 and 24.1 yesterday, and her platelet count was also unchanged yesterday at 33,000. Basic metabolic panel shows a creatinine level of 2.6 and potassium level of 3.4. IMPRESSION: 1. Pneumonia that has now resolved. Patient is off antibiotics. 2. End-stage renal disease with hemodialysis as per nephrology. 3. Thrombocytopenia, that is likely secondary to Zyvox. 4. Anemia secondary to chronic kidney disease. 5. Generalized deconditioning. 6. Multiple comorbid conditions including coronary artery disease, chronic obstructive pulmonary disease, type 2 diabetes mellitus, and chronic atrial fibrillation. PLAN: The patient's pneumonia has improved and she is off antibiotics. She has a history of end- stage renal disease and has been getting hemodialysis. She has anemia secondary to chronic kidney disease and I believe nephrology might go ahead and transfuse her 1 unit of packed red blood cells during hemodialysis. She has developed thrombocytopenia, most likely secondary to antibiotics which have been discontinued. Hematology/oncology has been consulted for further evaluation but I believe her platelet count has now stabilized and we should see some rebound increase in the next day or two. I will continue with physical therapy and supportive care. Once platelet counts start to get better, she will probably be need to be transferred to rehab. cc: Irwin Galvin MD MTDD
[2019-09-28] MEDS: MAALOX PLUS LIQUID PO SCH (09:09)
[2019-09-28] MEDS: FOLIC ACID PO SCH ×2 (09:09→20:59)
[2019-09-28] MEDS: NEPHRO-VITE PO SCH (09:09)
[2019-09-28] MEDS: NEXIUM PO SCH (09:10)
[2019-09-28] MEDS: ZOVIRAX OINTMENT TOP SCH ×5 (09:10→21:05)
[2019-09-28] MEDS ORDERED: NS 500 ML IV ONE (09:22)
[2019-09-28] MEDS: D50W 250 ML, AMINOSYN 15% 500 ML, LIPOSYN 20% 250 ML IV SCH ×3 (13:10)
[2019-09-28] MEDS ORDERED: DIFLUCAN PO ONE (13:40)
--- NOTE | 2019-09-28 14:58 | PROVIDER PROGRESS NOTE ---
Progress Note Subjective: she is resting in bed watching TV this morning. She has eaten her breakfast. She denies any uremic complaints. Objective: temperature 98.6, pulse 70, respirations 18, blood pressure 104/47, 02 sat 100% on room air. General: Elderly white female lying in bed in no acute distress. HEENT: normocephalic, atraumatic, pupils equal and reactive, mucous membranes dry. Skin: warm and dry. Slightly jaundice appearance. Neck: supple, 6cm JVD noted with hepatojugular reflux Cardiovascular: s1s2, systolic murmur grade 2/6 with no gallop. Heave present enlarged and displaced PMI. Respiratory: coarse anteriorly with equal air entry. Abdomen: soft, obese, nontender, nondistended, bowel sounds present : none inspected Extremities: generalized edema to the upper extremities with 1+ pitting to BLE. Left fistula with a palpable pulse. Neurological: alert and oriented to person and place. Labs: WBC 5.38, hemoglobin 7.5, hematocrit 24.2, platelet count 33. Intake 240, output zero. Impression: Chronic kidney disease stage 5D. She will have her regularly scheduled hemodialysis treatment with a 2K bath and attempt ultrafiltration to outpatient dry weight. Blood pressure. In target. Fluid volume. Chronic edema. Anemia. Low, we will give her 1unit of PRBCs with hemodialysis today. Thrombocytopenia. Electrolytes and acid base balance. Stable. Nutrition. Improved. Parenteral nutrition in place as well. Ambulation. PT in place. Medication review.
[2019-09-28 18:55] LABS: TOTAL IRON 143 ug/dL (49-151); UNBOUND IRON 5 ug/dL (112-346)
[2019-09-28 18:58] LABS: IRON SATURATION 97 %; TIBC 148 ug/dL
[2019-09-28] MEDS: ULTRAM PO PRN (20:59)
[2019-09-28] MEDS: PERICOLACE PO SCH (21:05)
[2019-09-29 05:34] LABS: BASO# 0.03 X1000 (0.0-0.2); BASO% 0.6 % (0.0-0.8); EOS# 0.13 X1000 (0.0-0.7); EOS% 2.5 % (0.0-10.0); HEMATOCRIT 24.7 % (37.0-47.0); LYMPH# 1.38 X1000 (1.2-3.4); LYMPH% 26.3 % (20.5-51.1); MCH 31.1 PG (27-31); MCHC 32.4 g/dL (33-37); MCV 96.1 FL (81-99); MONO% 7.6 % (1.7-9.3); MPV 12.5 FL (7.4-10.4); RBC 2.57 XMIL (4.2-5.4); WBC 5.24 X1000 (4.8-10.8)
[2019-09-29 05:48] LABS: PLT 25 X1000 (130-400)
[2019-09-29 06:09] LABS: CREATININE 2.8 mg/dL (0.5-0.9); POTASSIUM 3.2 mmol/L (3.5-5.1)
[2019-09-29] MEDS: RENAGEL PO SCH ×3 (06:40→16:48)
[2019-09-29 06:55] LABS: EOS 1 % (1-10); LYMPHS 16 % (21-51); MONO 2 % (1-9); SEGS 81 % (42-75)
--- NOTE | 2019-09-29 08:21 | PROGRESS NOTE ---
DATE: 09/29/2019 SUBJECTIVE: The patient denies having any acute complaints this morning. She is less confused this morning. OBJECTIVE: Vital Signs: Temperature 98 degrees, pulse 70 per minute, respiratory rate 17 per minute, blood pressure 120/75, pulse oximetry 100% on room air. General: Patient is alert and awake. She does appear to be confused at times, but is currently pretty alert. Cardiovascular System: First and second heart sounds are audible with 3/6 systolic ejection murmur. Respiratory System: Bilateral lung air entry is good without any rales or rhonchi. Gastrointestinal System: Abdomen is soft and nondistended. Normal bowel sounds are present. DIAGNOSTIC DATA: CBC shows hemoglobin of 8.0 and hematocrit 24.7. In comparison, her hemoglobin and hematocrit were 7.5 and 24.2 yesterday. Her platelet counts have dropped from 33,000 yesterday to 25,000 this morning, however. Basic metabolic panel shows sodium level of 136, potassium 3.2, BUN 25 and creatinine levels of 2.8. IMPRESSION: 1. Pneumonia that has now resolved. The patient is off antibiotics. 2. End-stage renal disease with hemodialysis as per Nephrology. 3. Thrombocytopenia likely secondary to Zyvox. 4. Anemia secondary to chronic kidney disease. 5. Generalized deconditioning. 6. Multiple comorbid conditions including coronary artery disease, chronic obstructive pulmonary disease, type 2 diabetes mellitus, and chronic atrial fibrillation. PLAN: The patient's pneumonia has improved and as mentioned before she is off antibiotics. She does have end-stage renal disease and has been getting hemodialysis as per Nephrology. She has anemia secondary to chronic kidney disease that has improved to a certain degree after getting packed red blood cells during dialysis yesterday. Unfortunately, she has developed thrombocytopenia likely secondary to Zyvox that has already been discontinued. Hematology/Oncology is following the case and they have recommended to monitor it for now. As soon as her platelet counts are stabilized, we plan to transfer her out to rehab since she will need continued physical therapy to regain her strength. cc: MD AJITH Leonard
[2019-09-29] MEDS: MAALOX PLUS LIQUID PO SCH (08:28)
[2019-09-29] MEDS: TYLENOL PO PRN ×2 (08:28→21:31)
[2019-09-29] MEDS: NEPHRO-VITE PO SCH (08:28)
[2019-09-29] MEDS: FOLIC ACID PO SCH ×2 (08:28→21:17)
[2019-09-29] MEDS: NEXIUM PO SCH (08:28)
[2019-09-29] MEDS: ZOVIRAX OINTMENT TOP SCH ×5 (08:31→21:18)
[2019-09-29] MEDS: NS 500 ML IV SCH (08:34)
--- NOTE | 2019-09-29 12:47 | PROVIDER PROGRESS NOTE ---
Progress Note Subjective: she is resting in bed watching TV this morning. She has eaten her breakfast. She denies any uremic complaints. Objective: temperature 98.3, pulse 70, respiration 17, blood pressure 134/52, O2 sat 100% on room air. General: Elderly white female lying in bed in no acute distress. HEENT: normocephalic, atraumatic, pupils equal and reactive, mucous membranes dry. Skin: warm and dry. Slightly jaundice appearance. Neck: supple, 6cm JVD noted with hepatojugular reflux Cardiovascular: s1s2, systolic murmur grade 2/6 with no gallop. Heave present enlarged and displaced PMI. Respiratory: coarse anteriorly with equal air entry. Abdomen: soft, obese, nontender, nondistended, bowel sounds present : none inspected Extremities: generalized edema to the upper extremities with 1+ pitting to BLE. Left fistula with a palpable pulse. Neurological: alert and oriented to person and place. Labs: WBC 5.24, hemoglobin 8.0, hematocrit 24.7, platelet count 25, sodium 136, potassium 3.2, chloride 97, carbon dioxide 29, BUN 25, creatinine 2.8. Intake 350, output 1573 Impression: Chronic kidney disease stage 5D. She had her routine hemodialysis treatment yesterday without complications. Blood pressure. In target. Fluid volume. Chronic edema. Anemia. Stable. Platelets are low. Observe after transfusion. Nutrition. Improved. Parenteral nutrition in place as well. Ambulation. PT in place. Medication review.
[2019-09-29] MEDS: PERICOLACE PO SCH ×2 (21:17→21:22)
[2019-09-30] MEDS: TYLENOL PO PRN ×2 (02:30→09:39)
[2019-09-30 05:45] LABS: BASO# 0.11 X1000 (0.0-0.2); BASO% 1.8 % (0.0-0.8); EOS# 0.22 X1000 (0.0-0.7); EOS% 3.7 % (0.0-10.0); HEMATOCRIT 24.5 % (37.0-47.0); HEMOGLOBIN 7.7 g/dL (12.0-16.0); LYMPH# 1.46 X1000 (1.2-3.4); LYMPH% 24.5 % (20.5-51.1); MCH 30.2 PG (27-31); MCHC 31.4 g/dL (33-37); MCV 96.1 FL (81-99); MONO% 13.4 % (1.7-9.3); MPV 9.9 FL (7.4-10.4); NEUT# 3.37 X1000 (1.4-6.5); NEUT% 56.6 % (42.2-75.2); PLT 92 X1000 (130-400); RBC 2.55 XMIL (4.2-5.4); RDW 17.5 % (11.5-14.5); WBC 5.96 X1000 (4.8-10.8)
[2019-09-30 06:00] LABS: ALBUMIN 2.5 g/dL (3.5-5.0); CALCIUM 9.2 mg/dL (8.8-10.2); CREATININE 3.6 mg/dL (0.5-0.9); PHOSPHORUS 2.5 mg/dL (2.7-4.5); POTASSIUM 3.7 mmol/L (3.5-5.1)
[2019-09-30] MEDS: RENAGEL PO SCH ×3 (06:15→17:22)
[2019-09-30] MEDS ORDERED: NS 2,000 ML MISC PRN (06:55)
[2019-09-30] MEDS ORDERED: TIGHT: 0.2 ML/HR FOR DIALYSIS MISC PRN (06:55)
[2019-09-30] MEDS ORDERED: HEPARIN IV PRN (06:55)
[2019-09-30] MEDS ORDERED: SEROQUEL PO ONE (10:41)
--- NOTE | 2019-09-30 10:43 | PROGRESS NOTE ---
DATE: 09/30/2019 SUBJECTIVE: The patient denies having any acute complaints this morning. She has been somewhat confused, although nursing reported that she had a very good day yesterday. She did have some sleep disturbance last night, however. OBJECTIVE: Vital Signs: Temperature 97.6 degrees, pulse 68 per minute, respiratory rate is 16 per minute, blood pressure 131/47, pulse oximetry 95% on room air. General: Patient is alert and awake, although she does appear to be confused at times. Cardiovascular System: First and second heart sounds are audible with a grade 3/6 systolic ejection murmur present. Respiratory System: Bilateral lung air entry is moderately decreased with no rales or rhonchi present on auscultation. Gastrointestinal: Abdomen is soft and nondistended. Normal bowel sounds are present. DIAGNOSTIC DATA: CBC shows hemoglobin 7.7 and hematocrit 24.5 with platelet count of 92,000. In comparison, her hemoglobin and hematocrit were 8.0 and 24.7 yesterday and her platelet count was only 25,000 yesterday. Basic metabolic panel done this morning showed BUN of 34 and creatinine 3.6. Rest of the BMP is nondiagnostic. IMPRESSION: This is a 74-year-old female who was initially admitted for pneumonia that has resolved and has end-stage renal disease for which she has been receiving hemodialysis. She had developed thrombocytopenia secondary to Zyvox, but that has also improved. She does have anemia secondary to chronic kidney disease that has been stable, but she has been having deconditioning with associated altered mental status at times. PLAN: The patient has been off antibiotics for the past 2 to 3 days and her platelet counts have improved and therefore, we are going to arrange a bed for her to be transferred for rehab. She will resume her routine outpatient medications and we will follow her up as outpatient in approximately 1 week after discharge from rehab. She will continue to receive hemodialysis as per Dr. Lai. cc: Irwin Galvin MD
[2019-09-30] MEDS ORDERED: COREG PO SCH (10:45)
[2019-09-30] MEDS: NEXIUM PO SCH (12:19)
[2019-09-30] MEDS: FOLIC ACID PO SCH ×2 (12:19→21:48)
[2019-09-30] MEDS: NEPHRO-VITE PO SCH (12:19)
[2019-09-30] MEDS: ZOVIRAX OINTMENT TOP SCH ×5 (12:20→21:49)
[2019-09-30] MEDS: MAALOX PLUS LIQUID PO SCH (12:20)
[2019-09-30] MEDS: ZOLOFT PO SCH (12:26)
--- NOTE | 2019-09-30 16:35 | NEPHROLOGY PROGRESS NOTE ---
DATE: 09/30/2019 SUBJECTIVE: Patient currently undergoing hemodialysis. OBJECTIVE: Vital Signs: Temperature 97.9 degrees, pulse 65, respiratory rate 17, blood pressure 132/46, intake 1.7 L, output none. General: Chronically ill-appearing, elderly female, resting in bed. Awake and alert. She is in no acute distress. HEENT: Normocephalic, atraumatic. APOORVA. Neck: Supple with positive JVD. Cardiovascular: Regular rate and rhythm with a positive murmur. Pulmonary: She has rhonchi bilaterally. Abdomen: Soft, positive bowel sounds. : Not inspected. Extremities: Trace to 1+ lower extremity edema. She has a left fistula currently cannulated. Integumentary: Skin is warm and dry. Neurologic: Nonfocal. LAB DATA: WBC of 5.9, hemoglobin 7.7. Sodium 136, potassium 3.7, CO2 26, creatinine 3.6. ASSESSMENT AND PLAN: 1. Chronic kidney disease 5 D. Today is her routine dialysis day. She will dialyze on a 2 K bath, UF to dry weight 3.5 hour treatment. 2. Electrolytes, acid-base balance, anemia: These are stable. Continue with current treatment plan. 3. Fluid volume. Continue with current treatment plan. 4. Hypertension controlled. 5. Anemia stable. She has ranged from 7.5 to 8 over the last week. Dictated by DIGNA Baez for Mirza Lai MD cc: MD Irwin Jones MD [facility]
[2019-09-30] MEDS: NS 500 ML IV SCH ×2 (17:23→21:43)
--- NOTE | 2019-09-30 19:08 | HEMO/ONC CONSULTATION ---
DATE: 09/30/2019 ADMITTING PHYSICIAN: Jeff Garner MD REQUESTING PHYSICIAN: Jeff Garner MD We appreciate this consult. CHIEF COMPLAINT: Thrombocytopenia. HISTORY OF PRESENT ILLNESS: Ms. Sintia Moses is a 74-year-old female who was admitted to [facility] following an admission for left flank hematoma and coagulopathy with transient hypotension. She was, thereafter, discharged to [facility] in [place] for rehabilitation. The patient reports that she began to have productive cough with green sputum and was placed on antibiotics. They presented to [facility] after that time secondary to an episode of hypotension with a blood pressure of 90/45. Workup in the emergency department revealed a white blood cell count of 5000 with a proBNP of 35,000. Chest x-ray revealed pronounced bronchial wall thickening and right upper lobe pulmonary edema with superimposed developing infection. Additionally, trace bilateral effusions were seen. The patient was admitted for the same with probable hospital-acquired pneumonia. She was placed on antibiotics. The patient received various antibiotics in an attempt to eradicate the pneumonia. The patient became pancytopenic with a platelet count of 33,000, a hemoglobin of 7.5, and a white blood cell count of 5.1. We are consulted for the same. PAST MEDICAL HISTORY: 1. Coronary artery disease. 2. End-stage renal disease on hemodialysis. 3. History of [place]. 4. Chronic atrial fibrillation, chronic diabetes mellitus type 2. 5. COPD on home O2. 6. Gastroesophageal reflux disease. PAST SURGICAL HISTORY: 1. Coronary artery bypass graft. 2. Permanent pacemaker placement. 3. Hysterectomy. 4. Cataract extraction. 5. Right upper extremity dialysis shunt. SOCIAL HISTORY: The patient does not use tobacco, alcohol or illicit drugs. FAMILY HISTORY: Negative for any hematologic or oncologic disease. MEDICATIONS ON ADMISSION: 1. Seroquel. 2. Senna. 3. Lipitor. 4. Maalox Plus. 5. Nexium. 6. Prilosec. 7. Renvela. 8. Zoloft. 9. Ambien. 10. Ativan. 11. Coreg. 12. Digoxin. 13. Milk of magnesia. 14. Percocet. 15. Albuterol sulfate inhaler. 16. Zanaflex. ALLERGIES: Cardizem, morphine, cefazolin, hydrocodone, penicillin, vancomycin, and ceftazidime. REVIEW OF SYSTEMS: A 14-point review of systems was obtained and is negative except for mentioned in HPI. PHYSICAL EXAMINATION: General: Ms. Moses is a very ill-appearing 74-year-old female lying supine in bed in no immediate distress. Vital Signs: Temperature 97.5 degrees, blood pressure 121/48, heart rate 71, respirations 18, and O2 saturation 100% on room air. HEENT: Normocephalic, atraumatic. Mucous membranes pale and moist. Sclerae anicteric. Extraocular movements intact. Neck: Supple. Lungs: Clear to auscultation bilaterally. Chest: Expansion equal bilaterally. Cardiovascular: S1 and S2 heard with positive murmur. Abdomen: Soft, nondistended, nontender. Bowel sounds positive in all quadrants. No rebound or guarding noted. Extremities: With 1+ bilateral lower extremity edema. Dermatologic: No rashes, bruises, or lesions. Neurologic: The patient is somnolent, but awakens easily. She is oriented x3 and has no focal motor deficit. LABORATORY DATA: Hemoglobin 7.5, hematocrit 24.1, white blood cell count is 5.1, platelets 33,000, sodium 141, potassium 3.4, chloride 101, CO2 is 26, BUN 21, creatinine 2.6, and glucose is 81, calcium 8.8, and alkaline phosphatase is 225. Other LFTs are within normal limits. ASSESSMENT AND PLAN: 1. Thrombocytopenia, likely due to antibiotics. We will initiate a workup at this time. Platelet count is currently 33,000. I would transfuse if platelet count drops below 20,000 or in the setting of acute bleeding. 2. Healthcare-associated pneumonia. Zyvox has been discontinued. The patient is not currently on an antibiotics at this time, presumably resolved. 3. End-stage renal disease on hemodialysis. Nephrology is following. 4. Chronic atrial fibrillation, rate controlled with a rate of 71. 5. Anemia of chronic disease. Again, hemoglobin is 7.5. Would transfuse 1 unit packed red blood cells at this time. 6. Coronary artery disease, known. 7. Chronic obstructive pulmonary disease, stable at this time. 8. Diabetes mellitus type 2. Blood sugar is stable. 9. We will follow along with you and make further recommendations pending outcomes. The above reflects the history, exam, assessment and plan of Dr. Rojas. Dictated by DIGNA Yoon for Alf Rojas MD cc: DIGNA Yoon MD Adnan A. Seljuki, MD
[2019-09-30] MEDS ORDERED: ELIQUIS PO SCH (21:00)
[2019-09-30] MEDS: SEROQUEL PO SCH (21:48)
[2019-09-30] MEDS: COUMADIN PO SCH (21:48)
[2019-09-30] MEDS: LIPITOR PO SCH (21:48)
[2019-09-30] MEDS: PERICOLACE PO SCH ×2 (21:48→21:54)
[2019-10-01] MEDS: RENAGEL PO SCH ×3 (06:02→17:32)
[2019-10-01 06:36] LABS: ALBUMIN 2.6 g/dL (3.5-5.0); CALCIUM 9.2 mg/dL (8.8-10.2); CREATININE 2.6 mg/dL (0.5-0.9); PHOSPHORUS 1.8 mg/dL (2.7-4.5); POTASSIUM 3.2 mmol/L (3.5-5.1)
[2019-10-01] MEDS: NS 500 ML IV SCH (11:43)
[2019-10-01] MEDS: MAALOX PLUS LIQUID PO SCH ×2 (11:44→11:45)
[2019-10-01] MEDS: ZOLOFT PO SCH (11:48)
[2019-10-01] MEDS: TYLENOL PO PRN ×2 (11:48→22:02)
[2019-10-01] MEDS: NEPHRO-VITE PO SCH (11:48)
[2019-10-01] MEDS: NEXIUM PO SCH (11:49)
[2019-10-01] MEDS: FOLIC ACID PO SCH ×2 (11:49→22:02)
[2019-10-01] MEDS: ZOVIRAX OINTMENT TOP SCH ×9 (11:49→22:14)
[2019-10-01] MEDS ORDERED: POTASSIUM CHLORIDE 20% LIQUID PO ONE (12:34)
--- NOTE | 2019-10-01 13:01 | PROGRESS NOTE ---
DATE: 10/01/2019 SUBJECTIVE: Patient falls off to sleep very easily, apparently is up during the night and sleeps during the day. Has been very confused. Family is very concerned that her altered mental status has been worse over the last couple of days. This may be an ICU psychosis type of condition or metabolic encephalopathy but she has not had a CT scan of her head. We will go ahead and get one. OBJECTIVE: Vital signs: Blood pressure 103/71, respirations 16, pulse 72, temperature 97.5 degrees Fahrenheit. HEENT: She is normocephalic. EOMS intact. PERRLA. Throat clear. Lungs: Clear to auscultation and percussion without rhonchi, rales, or wheezes. Heart: Irregularly irregular without murmurs, gallops, or friction rubs. Abdomen: Soft. Active bowel sounds. Potassium was a little low at 3.2, platelet count is back up to 92,000. Hemoglobin was 7.7, those were actually drawn yesterday. ASSESSMENT: 1. Pneumonia. 2. End-stage renal disease on dialysis. 3. Thrombocytopenia, secondary to Zyvox. 4. Anemia due to chronic kidney disease. 5. Deconditioning with associated altered mental status. 6. Coronary artery disease. 7. Chronic atrial fibrillation. PLAN: We will get CT scan of her head. Family is by the bedside. There were 3 members. They are very concerned about the patient and her altered mental status. We will do the CT scan. I will give her a little supplemental potassium and check results tomorrow. cc: MD Irwin Lopez Jr, MD
--- NOTE | 2019-10-01 15:15 | Diag Imaging Result Doc PS360 ---
EXAM: CT HEAD W/O CONTRAST INDICATION: ams TECHNIQUE: This exam was performed using automated exposure control, adjustment of mA or kV according to patient size, and/or use of iterative reconstruction technique. COMPARISON: 05/11/2019 FINDINGS: There is stable mild to moderate diffuse brain atrophy. There is stable patchy low attenuation in the periventricular and subcortical white matter suggesting mild microangiopathy. There is no definite acute infarct given the limited sensitivity of CT versus MRI. There is no discrete intracranial mass, mass effect, or intracranial hemorrhage. The surrounding soft tissues and bony structures are essentially unremarkable. IMPRESSION: Stable chronic appearing changes as described. No definite acute intracranial pathology by CT. Electronically signed by Ben Bermudez 10/01/2019 3:13 PM
[2019-10-01] MEDS: PERICOLACE PO SCH (22:02)
[2019-10-01] MEDS: LIPITOR PO SCH (22:02)
[2019-10-01] MEDS: COUMADIN PO SCH ×2 (22:02→22:12)
[2019-10-01] MEDS: SEROQUEL PO SCH (22:06)
[2019-10-02 05:48] LABS: BASO# 0.06 X1000 (0.0-0.2); BASO% 1.2 % (0.0-0.8); EOS# 0.18 X1000 (0.0-0.7); EOS% 3.6 % (0.0-10.0); HEMATOCRIT 22.1 % (37.0-47.0); HEMOGLOBIN 6.8 g/dL (12.0-16.0); LYMPH# 1.07 X1000 (1.2-3.4); LYMPH% 21.6 % (20.5-51.1); MCH 31.3 PG (27-31); MCHC 30.8 g/dL (33-37); MCV 101.8 FL (81-99); MONO% 24.2 % (1.7-9.3); MPV 11.1 FL (7.4-10.4); NEUT# 2.45 X1000 (1.4-6.5); NEUT% 49.4 % (42.2-75.2); PLT 77 X1000 (130-400); RBC 2.17 XMIL (4.2-5.4); WBC 4.96 X1000 (4.8-10.8)
[2019-10-02 06:09] LABS: ALBUMIN 2.3 g/dL (3.5-5.0); CALCIUM 9.7 mg/dL (8.8-10.2); CREATININE 3.6 mg/dL (0.5-0.9); PHOSPHORUS 1.8 mg/dL (2.7-4.5); POTASSIUM 3.9 mmol/L (3.5-5.1)
[2019-10-02] MEDS: NS 500 ML IV SCH ×2 (06:33→15:07)
[2019-10-02] MEDS: RENAGEL PO SCH ×3 (08:00→17:17)
[2019-10-02] MEDS: ZOLOFT PO SCH (10:48)
[2019-10-02] MEDS: NEPHRO-VITE PO SCH (10:48)
[2019-10-02] MEDS: NEXIUM PO SCH (10:48)
[2019-10-02] MEDS: FOLIC ACID PO SCH ×2 (10:48→21:50)
[2019-10-02] MEDS: ZOVIRAX OINTMENT TOP SCH ×5 (10:48→21:49)
--- NOTE | 2019-10-02 13:46 | PROGRESS NOTE ---
DATE: 10/02/2019 SUBJECTIVE: Patient arouses and will answer questions, then fall back to sleep. She was doing this yesterday. We did a CT scan of her head yesterday. It showed no acute changes. OBJECTIVE: Blood pressure is 137/48, respirations 16, pulse 69, temperature 97.8 degrees Fahrenheit. HEENT: She is normocephalic. EOMs intact. PERRLA. Throat clear. Lungs: Have scattered rales. Heart: Irregularly irregular without murmurs, gallops, or friction rubs. Abdomen: Soft with active bowel sounds. No organomegaly or tenderness. ASSESSMENT: 1. Pneumonia. 2. Chronic obstructive pulmonary disease. 3. Chronic atrial fibrillation. 4. History of myocardial infarction. 5. Altered mental status. 6. Chronic kidney disease. PLAN: We will continue support. We will get another chest x-ray. cc: MD Irwin Lopez Jr, MD
--- NOTE | 2019-10-02 14:29 | Diag Imaging Result Doc PS360 ---
EXAM: CHEST-PORTABLE INDICATION: vasc congestion TECHNIQUE: One view COMPARISON: 09/25/2019 FINDINGS: Pulmonary venous congestion and interstitial edema appears to have worsened slightly during the interval. No other new consolidation is identified. Cardiac silhouette is stable. IMPRESSION: Pulmonary venous congestion and interstitial edema that has probably slightly worsened. Electronically signed by Ben Bermudez 10/02/2019 2:26 PM
[2019-10-02] MEDS: MAALOX PLUS LIQUID PO SCH (15:07)
[2019-10-02] MEDS: SEROQUEL PO SCH (21:50)
[2019-10-02] MEDS: COUMADIN PO SCH (21:50)
[2019-10-02] MEDS: LIPITOR PO SCH (21:50)
[2019-10-02] MEDS: PERICOLACE PO SCH (21:51)
[2019-10-02] MEDS: TYLENOL PO PRN (22:02)
[2019-10-03] MEDS: NS 500 ML IV SCH (00:02)
[2019-10-03] MEDS: ULTRAM PO PRN (04:15)
[2019-10-03] MEDS ORDERED: TIGHT: 0.2 ML/HR FOR DIALYSIS MISC PRN (06:18)
[2019-10-03] MEDS ORDERED: NS 2,000 ML MISC PRN (06:18)
[2019-10-03] MEDS ORDERED: HEPARIN IV PRN (06:18)
--- NOTE | 2019-10-03 08:03 | PROGRESS NOTE ---
DATE: 10/03/2019 SUBJECTIVE: Patient denies having any acute complaints this morning and feels well. OBJECTIVE: Vital Signs: Temperature 97.9 degrees, pulse 65 per minute, respiratory rate 19 per minute, blood pressure 102/42, pulse oximetry 98% on room air. General: Patient is alert and oriented x3. She does not appear to be in any acute distress. Cardiovascular System: First and second heart sounds are audible with a grade 3 x 6 ejection systolic murmur. Respiratory System: Bilateral lung air entry is moderately decreased, but there are no rales or rhonchi present on auscultation. Gastrointestinal System: Abdomen is soft and nondistended. Normal bowel sounds are present. DIAGNOSTIC DATA: No new labs have been done this morning. IMPRESSION: This is a 74-year-old female, who was initially admitted for pneumonia that has been resolved and she has been off antibiotics. She has end-stage renal disease for which she has been getting hemodialysis as per Dr. Lai. The patient developed thrombocytopenia secondary to Zyvox that has also resolved. She has anemia secondary to chronic kidney disease that has been stable. She has generalized deconditioning and therefore will require physical therapy in the rehabilitation. PLAN: The patient will continue to get routine medical care, along with physical therapy until we find a bed to transfer her. cc: Irwin Galvin MD
[2019-10-03] MEDS: TYLENOL PO PRN ×2 (09:08→20:47)
[2019-10-03 10:44] LABS: ALBUMIN 2.6 g/dL (3.5-5.0); CREATININE 3.3 mg/dL (0.5-0.9); PHOSPHORUS 1.2 mg/dL (2.7-4.5); POTASSIUM 3.3 mmol/L (3.5-5.1)
[2019-10-03] MEDS: RENAGEL PO SCH ×3 (12:33→18:37)
[2019-10-03] MEDS: ZOLOFT PO SCH (12:34)
[2019-10-03] MEDS: FOLIC ACID PO SCH ×2 (12:34→20:54)
[2019-10-03] MEDS: MAALOX PLUS LIQUID PO SCH (12:34)
[2019-10-03] MEDS: NEPHRO-VITE PO SCH (12:34)
[2019-10-03] MEDS: NEXIUM PO SCH (12:34)
[2019-10-03] MEDS: ZOVIRAX OINTMENT TOP SCH ×5 (12:41→20:56)
--- NOTE | 2019-10-03 14:56 | PROVIDER PROGRESS NOTE ---
Progress Note Subjective: She is currently receiving hemodialysis without complications. She denies any uremic complaints. Objective: temperature 97.5, pulse 63, respiration 16, blood pressure 118/38, O2 sat 100% on room air. General: Elderly white female lying in bed in no acute distress. HEENT: normocephalic, atraumatic, pupils equal and reactive, mucous membranes dry. Skin: warm and dry. Slightly jaundice appearance. Neck: supple, 6cm JVD noted with hepatojugular reflux Cardiovascular: s1s2, systolic murmur grade 2/6 with no gallop. Heave present enlarged and displaced PMI. Respiratory: coarse anteriorly with equal air entry. Abdomen: soft, obese, nontender, nondistended, bowel sounds present : none inspected Extremities: generalized edema to the upper extremities with 1+ pitting to BLE. Left fistula with a palpable pulse. Neurological: alert and oriented to person and place. Labs: sodium 137, potassium 3.3, chloride 99, carbon dioxide 27, BUN 20, creatinine 3.3. Intake 2051, output zero. Impression: Chronic kidney disease stage 5D. She will have a routine hemodialysis with a 2.0 potassium, 2.5 calcium bath and attempt ultrafiltration to the last post dialysis weight. Blood pressure. In target. Fluid volume. Chronic edema. Anemia. Low, we will transfuse 2 units packed red blood cells with hemodialysis today. Electrolytes and acid base balance. Stable. Nutrition. Improved. Parenteral nutrition in place as well. Ambulation. PT in place. Medication review. Seroquel and Zoloft started.
[2019-10-03] MEDS: SEROQUEL PO SCH (20:48)
[2019-10-03] MEDS: COUMADIN PO SCH (20:48)
[2019-10-03] MEDS: LIPITOR PO SCH (20:48)
[2019-10-03] MEDS: PERICOLACE PO SCH (20:48)
[2019-10-04 04:50] VITALS: BP 123/44
[2019-10-04 05:57] LABS: ALBUMIN 2.7 g/dL (3.5-5.0); CALCIUM 8.9 mg/dL (8.8-10.2); CREATININE 2.8 mg/dL (0.5-0.9); PHOSPHORUS 1.2 mg/dL (2.7-4.5); POTASSIUM 3.2 mmol/L (3.5-5.1)
[2019-10-04] MEDS: RENAGEL PO SCH ×2 (06:31→11:50)
[2019-10-04] MEDS ORDERED: HEPARIN IV PRN (06:59)
[2019-10-04] MEDS ORDERED: TIGHT: 0.2 ML/HR FOR DIALYSIS MISC PRN (06:59)
[2019-10-04] MEDS ORDERED: NS 2,000 ML MISC PRN (06:59)
[2019-10-04 08:28] LABS: INR 1.49; PROTIME 18.3 Seconds (11.0-16.0)
[2019-10-04] MEDS: TYLENOL PO PRN (11:50)
[2019-10-04] MEDS: NEPHRO-VITE PO SCH (11:50)
[2019-10-04] MEDS: ZOLOFT PO SCH (11:50)
[2019-10-04] MEDS: NEXIUM PO SCH (11:50)
[2019-10-04] MEDS: FOLIC ACID PO SCH (11:50)
[2019-10-04 12:25] LABS: BASO# 0.04 X1000 (0.0-0.2); BASO% 0.7 % (0.0-0.8); EOS% 3.7 % (0.0-10.0); HEMATOCRIT 30.2 % (37.0-47.0); HEMOGLOBIN 9.7 g/dL (12.0-16.0); LYMPH# 1.38 X1000 (1.2-3.4); LYMPH% 25.8 % (20.5-51.1); MCH 29.9 PG (27-31); MCHC 32.1 g/dL (33-37); MCV 93.2 FL (81-99); MONO# 1.28 X1000 (0.11-0.59); MONO% 23.9 % (1.7-9.3); MPV 10.7 FL (7.4-10.4); NEUT# 2.45 X1000 (1.4-6.5); NEUT% 45.9 % (42.2-75.2); PLT 145 X1000 (130-400); RBC 3.24 XMIL (4.2-5.4); RDW 16.6 % (11.5-14.5); WBC 5.35 X1000 (4.8-10.8)
--- NOTE | 2019-10-04 12:38 | DISCHARGE SUMMARY ---
ADMISSION DATE: 09/16/2019 DISCHARGE DATE: 10/04/2019 DISCHARGE DIAGNOSES: 1. Hospital acquired bacterial pneumonia. 2. Thrombocytopenia secondary to Zyvox. 3. End-stage renal disease for which he has been on hemodialysis 3 times a week. 4. Type 2 diabetes mellitus. 5. Coronary artery disease. 6. Anemia secondary to chronic kidney disease that required packed red blood cell transfusion during this admission. 7. Chronic atrial fibrillation with the Coumadin therapy. 8. Folic acid deficiency. HOSPITAL COURSE: Ms. Moses is a 74-year-old female who was admitted to the hospital after she was transferred from rehab with a productive cough and low blood pressure. She was diagnosed as having hospital-acquired bacterial pneumonia, and was admitted to the hospital. She was initiated initially on levofloxacin along with clindamycin since she has been allergic to multiple antibiotics. ID consultation was obtained who changed her antibiotics to Zyvox and aztreonam. With these antibiotics, her pneumonia resolved. She has a history of end-stage renal disease for which she has been getting hemodialysis which was continued during this hospital admission under the guidance of Dr. Lai. Her COPD and chronic atrial fibrillation along with coronary artery disease and diabetes were stable. She was continued on her routine home medications. She did develop significant thrombocytopenia, however, that was considered to be secondary to Zyvox. Since her pneumonia had improved, she did not receive any antibiotics after she was found to have thrombocytopenia and her Zyvox along with the aztreonam were discontinued by Dr. Galvez. Several days after the antibiotic discontinuation, her platelet counts improved. She also was having significant anemia secondary to chronic kidney disease that required packed red blood cell transfusions. She also had IV access issues for which we placed a right femoral central line. Her condition has improved, and therefore we are going to discharge her today. She does have generalized weakness and deconditioning that will require extended rehabilitation. Therefore, we are transferring her to [facility]. DISCHARGE MEDICATIONS: 1. Atorvastatin 40 mg orally once daily at bedtime. 2. Quetiapine 50 mg orally once daily at bedtime. 3. Senokot-S 2 tablets orally once daily at bedtime. 4. Tramadol 50 mg orally once daily at bedtime as needed for pain. 5. Warfarin 4 mg orally once daily at bedtime. 6. Nexium 40 mg orally once daily in the morning. 7. Folic Acid 1 mg orally twice daily. 8. Maalox 30 mL orally once daily. 9. Zoloft 100 mg orally once daily. 10. Sevelamer 800 mg orally 3 times a day with meals as directed. 11. Lorazepam 1 mg orally 3 times a day as needed for anxiety. FOLLOW-UP: She is going to be followed by the admitting doctor there at the rehab facility, and I have recommended her to have INR repeated in 3 days and adjust Coumadin dosage accordingly. She will follow with me 1 week after discharge from the rehab, and also follow up [facility] 1 month. She is recommended to continue hemodialysis as per Dr. Lai. CONDITION: Stable. DISPOSITION: [facility]. cc: Irwin Galvin MD
--- NOTE | 2019-10-04 16:19 | PROVIDER PROGRESS NOTE ---
Progress Note Subjective: she is sitting up in bed and cheerful. She denies any uremic complaints. Objective: temperature 98.0, pulse 63, respiration 17, blood pressure 123/44, 02 sat 98% on room air. General: Elderly white female lying in bed in no acute distress. HEENT: normocephalic, atraumatic, pupils equal and reactive, mucous membranes moist. Skin: warm and dry. Slightly jaundice appearance. Neck: supple, 6cm JVD noted with hepatojugular reflux Cardiovascular: s1s2, systolic murmur grade 2/6 with no gallop. Heave present enlarged and displaced PMI. Respiratory: coarse anteriorly with equal air entry. Abdomen: soft, obese, nontender, nondistended, bowel sounds present : none inspected Extremities: generalized edema to the upper extremities with 1+ pitting to BLE. Left fistula with a palpable pulse. Neurological: alert and oriented to person and place. Labs: PT 18.3, INR 1.49, sodium 139, potassium 3.2, chloride 99, carbon dioxide 28, BUN 12, creatinine 2.8, albumin 2.7. Intake 940, output 2000 per hemodialysis. Impression: Chronic kidney disease stage 5D. Her fluid status is expanded. We will go ahead and dialyze her for extra fluid before discharging home today. She is to return to her outpatient clinic tomorrow for her regularly scheduled treatment. Blood pressure. In target. Fluid volume. Chronic edema. Anemia. Low on last labs, she received two units packed red blood cells yesterday. Will order a CBC now. Electrolytes and acid base balance. Stable. Nutrition. Improved. Parenteral nutrition in place as well. Ambulation. PT in place. Medication review.
== END 2019-10-04 14:00 | DRG 193 ==
LOC: SUPCPDRO → ED 23:36 → 4N 09-16 03:18 → SUATTDRO 09-16 03:18 → 1N 09-16 22:21
PROVIDERS: ADMIT Internal Medicine; ATTEND Internal Medicine

== ENCOUNTER 2019-12-15 14:05 | Inpatient (IN) ==
[2019-12-15] MEDS ORDERED: LEVAQUIN 750 MG/D5W 750 MG/150 ML IVPB IV ONE (14:18)
--- NOTE | 2019-12-15 15:07 | HISTORY AND PHYSICAL ---
CHIEF COMPLAINT: Pain and swelling of right leg. HISTORY OF PRESENT ILLNESS: Ms. Moses is a 74-year-old female who came into the office today with a several-week history of worsening pain and swelling of her right leg, associated with redness. She denies having any fever. She denies having any other complaints. She is a poor historian. PAST MEDICAL HISTORY: 1. Paroxysmal atrial fibrillation. 2. Coronary artery disease with history of stent placement, history of coronary artery bypass surgery on 12/21/[address] Sukhi Castillo at [facility]. 3. Type 2 diabetes mellitus. 4. Hypertension. 5. Dyslipidemia. 6. Chronic obstructive pulmonary disease. 7. 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 8. Hyperparathyroidism. 9. Carotid atherosclerosis. PAST SURGICAL HISTORY: 1. Coronary artery bypass surgery. 2. Complete hysterectomy. 3. Cardiac pacemaker insertion. SOCIAL HISTORY: The patient previously smoked tobacco, but has quit smoking many years ago. She does not drink any alcohol and does not use any recreational drugs. FAMILY HISTORY: Noncontributory. ALLERGIES: The patient reports to be allergic to cefazolin, morphine, Tazicef, vancomycin, tizanidine, and hydrocodone. CURRENT HOME MEDICATIONS: 1. Atorvastatin 40 mg orally once daily at bedtime. 2. Cetirizine 10 mg orally once daily. 3. Nexium 40 mg orally once daily in the morning. 4. Folic acid 1 mg orally once daily. 5. Lorazepam 1 mg orally 3 times a day as needed for anxiety. 6. Seroquel 50 mg orally once daily at bedtime. 7. Senokot S two tablets orally once daily at bedtime. 8. Zoloft 100 mg orally once daily. 9. Warfarin 5 mg orally once daily at bedtime. REVIEW OF SYSTEMS: A full review of systems could not be obtained since the patient is a poor historian. PHYSICAL EXAMINATION: GENERAL: The patient is alert and oriented x3. She does not appear to be in any acute distress. HEENT: Within normal limits. NECK: Supple without any thyromegaly. LYMPHATICS: No lymphadenopathy noted in the neck or cervical areas. CHEST: Chest wall is nontender. CARDIOVASCULAR: First and second heart sounds are audible without any murmurs or gallops. RESPIRATORY: Bilateral lung air entry is good without any rales or rhonchi. GASTROINTESTINAL: Abdomen is soft and nondistended. Normal bowel sounds are present. NEUROLOGIC: No focal deficits are present. PSYCHIATRIC: Normal affect noted. GENITOURINARY: Deferred. MUSCULOSKELETAL: No deformities are present. INTEGUMENTARY: Right leg erythema, along with slightly increased warmth noted on palpation. Right leg is edematous and very firm on palpation. There is also tenderness in the right leg area. IMPRESSION: 1. Pain and swelling of right lower leg with cellulitis. 2. Multiple comorbid conditions, including coronary artery disease, paroxysmal atrial fibrillation, diabetes, hypertension, chronic obstructive pulmonary disease, dyslipidemia, and end-stage renal disease. PLAN: The patient will be admitted to the medical floor, and will be initiated on levofloxacin intravenously after getting blood cultures and routine labs. We are going to obtain venous Doppler ultrasound to make sure she does not have any deep vein thrombosis. I am going to obtain a consultation with Dr. Lai since the patient will need inpatient hemodialysis. We will continue with routine home medications, and provide her pain relief with Dilaudid 0.5 mg IV every 4 hours as needed. Further recommendations will be given as per hospital course. Addendum: I have changed antibiotics to clindamycin for better skin coverage keeping in view of patient's drug allergies history. cc: Irwin Galvin MD MTDD
--- NOTE | 2019-12-15 16:16 | EKG Report ---
Test Performed on : 12/15/2019 4:02:34 PM Test Reason : chest pain Blood Pressure : / mmHG Vent. Rate : 092 BPM Atrial Rate : 093 BPM P-R Int : 000 ms QRS Dur : 146 ms QT Int : 410 ms P-R-T Axes : 000 -49 122 degrees QTc Int : 507 ms Atrial fibrillation. with occasional ventricular-paced complexes Left axis deviation Left bundle branch block Abnormal ECG When compared with ECG of 26-AUG-2019 07:23, Vent. rate has increased BY 21 BPM Confirmed by Snow CRAWLEY, Marcelo Lim ([id number]) on 12/16/2019 9:24:59 AM
--- NOTE | 2019-12-15 17:09 | Diag Imaging Result Doc PS360 ---
CHEST-PORTABLE - 12/15/2019 INDICATION: CAD; Renal Failure; A Fib; Cellulitis COMPARISON: 10/02/2019 FINDINGS: Stable pacemaker. Stable cardiomegaly and significant pulmonary vascular congestion. There is probably some faint central pulmonary edema, but this is not as advanced as on the prior chest x-ray. No pleural effusion. IMPRESSION: Mild congestive heart failure. Electronically signed by Nabor Gandhi 12/15/2019 5:06 PM
[2019-12-15] MEDS: DILAUDID IV PRN ×2 (18:11→23:53)
[2019-12-15] MEDS: RENAGEL PO SCH (18:15)
[2019-12-15 18:28] LABS: INR 2.08; PROTIME 23.9 Seconds (11.0-16.0)
[2019-12-15 18:35] LABS: ALBUMIN 2.9 g/dL (3.5-5.0); CALCIUM 9.4 mg/dL (8.8-10.2); CREATININE 3.4 mg/dL (0.5-0.9); MAGNESIUM 1.6 mg/dL (1.5-2.7); POTASSIUM 4.4 mmol/L (3.5-5.1); TOTAL BILIRUBIN 0.87 mg/dL (0.20-1.00); TOTAL PROTEIN 5.9 g/dL (6.3-8.3)
[2019-12-15 18:44] LABS: BASO# 0.14 X1000 (0.0-0.2); EOS# 0.23 X1000 (0.0-0.7); EOS% 3.3 % (0.0-10.0); HEMATOCRIT 28.3 % (37.0-47.0); HEMOGLOBIN 8.8 g/dL (12.0-16.0); LYMPH# 1.12 X1000 (1.2-3.4); LYMPH% 16.1 % (20.5-51.1); MCHC 31.1 g/dL (33-37); MCV 102.9 FL (81-99); MONO% 17.2 % (1.7-9.3); MPV 10.3 FL (7.4-10.4); NEUT# 4.27 X1000 (1.4-6.5); NEUT% 61.4 % (42.2-75.2); PLT 198 X1000 (130-400); RBC 2.75 XMIL (4.2-5.4); RDW 16.8 % (11.5-14.5); WBC 6.96 X1000 (4.8-10.8)
[2019-12-15] MEDS: BENADRYL IV PRN ×2 (18:50→23:52)
[2019-12-15] MEDS: LIPITOR PO SCH (20:41)
[2019-12-15] MEDS: SEROQUEL PO SCH (20:41)
[2019-12-15] MEDS: PERICOLACE PO SCH (20:41)
[2019-12-15] MEDS: FOLIC ACID PO SCH (20:42)
[2019-12-15] MEDS: COUMADIN PO SCH (20:42)
[2019-12-15] MEDS ORDERED: COUMADIN PO SCH (21:00)
[2019-12-15] MEDS: ATIVAN PO PRN (23:28)
[2019-12-16] MEDS: CLINDAMYCIN 600 MG/D5W 600 MG/50 ML IVPB IV SCH ×3 (02:36→21:56)
[2019-12-16] MEDS: DILAUDID IV PRN ×4 (05:55→21:56)
[2019-12-16] MEDS ORDERED: NS 2,000 ML MISC PRN (07:09)
[2019-12-16 07:37] LABS: BASO# 0.03 X1000 (0.0-0.2); BASO% 0.4 % (0.0-0.8); EOS% 2.8 % (0.0-10.0); HEMATOCRIT 27.5 % (37.0-47.0); HEMOGLOBIN 8.6 g/dL (12.0-16.0); LYMPH# 1.37 X1000 (1.2-3.4); LYMPH% 19.2 % (20.5-51.1); MCHC 31.3 g/dL (33-37); MCV 102.2 FL (81-99); MONO% 16.9 % (1.7-9.3); MPV 10.7 FL (7.4-10.4); NEUT# 4.32 X1000 (1.4-6.5); NEUT% 60.7 % (42.2-75.2); PLT 179 X1000 (130-400); RBC 2.69 XMIL (4.2-5.4); RDW 16.8 % (11.5-14.5); WBC 7.12 X1000 (4.8-10.8)
[2019-12-16 07:38] LABS: INR 2.11; PROTIME 24.2 Seconds (11.0-16.0)
[2019-12-16 07:43] LABS: CALCIUM 9.1 mg/dL (8.8-10.2); CREATININE 3.9 mg/dL (0.5-0.9); POTASSIUM 4.8 mmol/L (3.5-5.1)
[2019-12-16] MEDS: FOLIC ACID PO SCH ×2 (09:00→21:58)
--- NOTE | 2019-12-16 09:53 | NEPHROLOGY CONSULTATION ---
DATE: 12/16/2019 REASON FOR CONSULTATION: ESRD and rash, right leg. HISTORY OF PRESENT ILLNESS: Ms. Moses is a 74-year-old white female who is well known to us. She has end-stage kidney disease secondary to diabetes. She also has hypertension, hyperlipidemia. She is on chronic warfarin therapy for management of atrial fibrillation. She has coronary disease, for which she has undergone stenting in the past. She suffered a pelvic fracture last year and has been slow to rehabilitate, but she has been home for about the last 6 weeks. She is able to walk with a walker. She states her appetite is not great, but she is eating. Chronically cold, but no overt fever or chills. She complained to us on dialysis about swelling in the legs. We arranged for her to have extra treatments in order to lower her dry weight. She complained of worsening pain, redness and swelling in the right leg. She presented to Dr. Galvin's office for evaluation, and she was admitted with a diagnosis of cellulitis. She has been treated with clindamycin and levofloxacin. It feels like her leg may be some improved since admission, but it is still very tender. No drainage, no trauma of which she is aware. PAST MEDICAL HISTORY: As above. HOME MEDICATIONS: Include atorvastatin, quetiapine, senna, esomeprazole, lorazepam, acetaminophen, cetirizine, warfarin, hydroxyzine. ALLERGIES: Codeine, diltiazem, morphine, cefazolin, ceftazidime. SOCIAL HISTORY: She again is home from rehab. Living with her daughter. FAMILY HISTORY: Otherwise noncontributory. REVIEW OF SYSTEMS: Otherwise noncontributory. PHYSICAL EXAMINATION: Vital Signs: Blood pressure 96/52, heart rate 110, respirations 16, afebrile. Generally: She is an elderly woman, chronically ill, no acute distress. Skin: Pale and lower leg as below. HEENT: Pupils are equal. Conjunctivae are pink. Oropharynx is clear. Normal tongue. Neck: Supple. Trachea is midline. Neck vein distention is not present. Heart: PMI is enlarged with a heave. Auscultation demonstrates a regular rhythm with mild tachycardia. Systolic murmur is present. Gallop is present. No rubs. Lungs: Have equal excursion, equal breath sounds. No crackles or wheezes. Abdomen: Soft, nontender. Bowel sounds are present. No organomegaly, masses, bruits. Extremities: Left leg with trace edema. Right leg with 1+ edema. Right lower extremity has diffuse erythema with some lichenification of the skin as well. There is a lesion on the anteromedial aspect of the right lower leg just below the midpoint. It is somewhat dark and violaceous, perhaps 3 mm x 1 cm in size. No expressible purulence. Flat. Very tender. Neurologic exam: Grossly nonfocal. IMPRESSION: 1. Chronic kidney disease 5 D. She is currently receiving her routine hemodialysis using her outpatient prescription. We are targeting 3 liters ultrafiltration, and we may dialyze again tomorrow to minimize the swelling in the leg. 2. Electrolytes/acid base in target. 3. Cellulitis. 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 I agree with antibiotics, volume management, elevations, etc. If she does not have significant improvement by Thursday, then we may consider punch biopsy. Her last PTH at the [facility] was around 460. Phosphorus was above target at 6. Calcium was around 8. She is taking a non calcium binder, and she receives 0.5 mcg of calcitriol 3 times weekly. I will remeasure all of these parameters. Based on her clinical response, she may need to be changed from calcitriol to cinacalcet, and possibly require sodium thiosulfate. We will follow carefully. 4. Left ventricular heave, murmur or gallop. I do not remember her cardiac exam in this way. Her last echocardiogram performed last year had preserved left ventricular ejection fraction. I will repeat echocardiogram. cc: MD Irwin Jones MD
[2019-12-16] MEDS: RENAGEL PO SCH ×3 (10:37→17:25)
[2019-12-16] MEDS: NEXIUM PO SCH (12:44)
[2019-12-16] MEDS: ZOLOFT PO SCH (12:44)
[2019-12-16] MEDS: ATIVAN PO PRN (13:28)
[2019-12-16] MEDS: AQUAPHOR OINTMENT TOP SCH (14:53)
[2019-12-16] MEDS ORDERED: LEVAQUIN 500 MG/D5W 500 MG/100 ML IVPB IV SCH (16:00)
--- NOTE | 2019-12-16 16:31 | ECHO REPORT ---
ORDER DATE: 12/16/2019 PROCEDURE: 2D echocardiogram. ECHOCARDIOGRAPHIC MEASUREMENTS: 1. Interventricular septum 1.0. 2. Left ventricular posterior wall 0.9 cm. 3. Left ventricular diastolic diameter 4.9 cm. 4. Left atrium 5.2 cm. 5. Aorta 2.7 cm. FINDINGS: 1. Tricuspid valve was normal. 2. Aortic valve leaflets were trileaflet, calcified. Pulmonic valve was normal. There is mild pulmonary regurgitation. 3. Pacing leads were noted in the right chamber. 4. Normal left ventricular cavity size. Estimated ejection fraction of 55%. There is indeterminate diastolic dysfunction. 5. There is severe left atrial enlargement and there is a moderate right atrial enlargement. 6. Mitral valve was normal. There is moderate mitral annular calcification. 7. There is severe tricuspid regurgitation. Peak velocity across the tricuspid valve was 3.8 m/sec. 8. Pulmonary artery systolic pressure of 73 mmHg. 9. Peak velocity across the aortic valve was 3.14 m/sec. 10. Aortic valve area by VTI was 1.2 square cm. Mean gradient of 22 mmHg. There is moderate aortic stenosis. 11. There is no aortic regurgitation. There is mild to moderate mitral regurgitation. 12. There is no pericardial effusion. No obvious intracardiac mass or thrombus seen. cc: MD Mirza Donovan MD Adnan A. Seljuki, MD
--- NOTE | 2019-12-16 17:05 | Extremity Venous Study ---
PROCEDURE NAME: Venous U/S Bilateral Legs - 12/15/2019 REQUEST PHYSICIAN: Dr. Galvin. INDICATIONS: Edema and pain. Redness in the right leg. FINDINGS: Deep and superficial veins of bilateral lower extremities visualized along their course. All vessels are compressible with forward flow. No evidence of intraluminal thrombus. SUMMARY: No deep or superficial venous thrombosis in bilateral lower extremities. cc: MD Irwin Bailey MD
--- NOTE | 2019-12-16 18:25 | PROGRESS NOTE ---
DATE: 12/16/2019 SUBJECTIVE: The patient feels somewhat better although she continues to have pain in her right lower leg. OBJECTIVE: Vital Signs: Temperature 98.1 degrees, pulse 100 per minute, respiratory rate 21 per minute, blood pressure 114/40, pulse oximetry 98% on room air. General: The patient is alert and oriented x3. She appears to be somewhat somnolent since she received her Dilaudid about an hour ago. She does not appear to be in any acute distress, however. Cardiovascular System: First and second heart sounds are present with slight holosystolic murmur present. Respiratory System: Bilateral lung air entry is slightly decreased, but there are no rales or rhonchi present on auscultation. Gastrointestinal system: Abdomen is soft and nondistended. Normal bowel sounds are present. DIAGNOSTIC DATA: CBC shows WBC count of 7.12, hemoglobin 8.6, hematocrit 27.5, and platelet count of 179,000. INR was found to be 2.11. Basic metabolic panel showed BUN of 36 and creatinine of 3.9 with glucose levels of 115. Chloride levels were found to be 96 and CO2 of 24. Venous Doppler ultrasound study of the lower legs was negative for any deep or superficial vein thrombosis. Echocardiogram done yesterday showed severe left atrial enlargement with moderate right atrial enlargement and severe tricuspid regurgitation. There is also [id number] mitral regurgitation. Left ventricular ejection fraction was estimated at 55%, however. IMPRESSION: 1. Pain and swelling of right lower leg that appears to have improved. 2. Cellulitis of right leg that appears to be improving since the erythema has significantly improved. 3. 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 PLAN: The patient will be kept on the medical floor and will be continued on IV clindamycin along with supportive care. She has been keeping her leg elevated, and I believe that has significantly improved swelling in her right leg. Overall, her condition is improved, but she is still having significant pain in her right leg requiring opioid analgesics on regular basis. I have increased the dose of Dilaudid to 1 mg IV q. 4 hours because of significant pain, and Nephrology has suggested that she might be having calciphylaxis for which she might end up having a punch biopsy done on Thursday. Further recommendations will be given as per hospital course. cc: Irwin Galvin MD
[2019-12-16] MEDS: SEROQUEL PO SCH (21:57)
[2019-12-16] MEDS: LIPITOR PO SCH (21:58)
[2019-12-16] MEDS: COUMADIN PO SCH (21:58)
[2019-12-16] MEDS: PERICOLACE PO SCH (21:58)
[2019-12-16] MEDS: BENADRYL IV PRN (22:07)
[2019-12-17] MEDS: RENAGEL PO SCH ×4 (05:49→17:33)
[2019-12-17] MEDS: CLINDAMYCIN 600 MG/D5W 600 MG/50 ML IVPB IV SCH ×3 (05:49→20:42)
[2019-12-17] MEDS: DILAUDID IV PRN ×3 (06:27→20:44)
[2019-12-17] MEDS: BENADRYL IV PRN ×3 (06:27→20:44)
[2019-12-17 07:19] LABS: INR 1.85; PROTIME 21.7 Seconds (11.0-16.0)
[2019-12-17] MEDS ORDERED: TYLENOL PO PRN (07:19)
[2019-12-17] MEDS ORDERED: NS 2,000 ML MISC PRN (07:19)
[2019-12-17 07:24] LABS: BASO# 0.06 X1000 (0.0-0.2); EOS# 0.17 X1000 (0.0-0.7); EOS% 2.8 % (0.0-10.0); HEMATOCRIT 28.1 % (37.0-47.0); HEMOGLOBIN 8.6 g/dL (12.0-16.0); LYMPH# 1.13 X1000 (1.2-3.4); LYMPH% 18.7 % (20.5-51.1); MCHC 30.6 g/dL (33-37); MCV 104.5 FL (81-99); MONO# 0.83 X1000 (0.11-0.59); MONO% 13.8 % (1.7-9.3); MPV 10.6 FL (7.4-10.4); NEUT# 3.84 X1000 (1.4-6.5); NEUT% 63.7 % (42.2-75.2); PLT 182 X1000 (130-400); RBC 2.69 XMIL (4.2-5.4); RDW 16.8 % (11.5-14.5); WBC 6.03 X1000 (4.8-10.8)
[2019-12-17] MEDS: NS 1,000 ML IV PRN ×2 (07:35→07:44)
[2019-12-17 07:41] LABS: CALCIUM 9.2 mg/dL (8.8-10.2); POTASSIUM 4.4 mmol/L (3.5-5.1)
[2019-12-17] MEDS ORDERED: ALBUMIN 25% IV ONE (10:06)
--- NOTE | 2019-12-17 11:13 | NEPHROLOGY PROGRESS NOTE ---
DATE: 12/17/2019 SUBJECTIVE: She is about the same today. Still has pain in the leg. Blood pressure was low on dialysis. OBJECTIVE: Vital Signs: Blood pressure 83/51, heart rate 113, respirations 17, afebrile. Generally: She is awake, alert, in no distress. Skin: Warm and dry. See below. Head: Pupils are equal. Neck: Neck veins are 6 cm. Heart: Irregular with a systolic murmur. No rubs. Lungs: Have equal breath sounds. No crackles or wheezes. Abdomen: Soft, nontender. Bowel sounds are present. Extremities: Trace edema. No clubbing or cyanosis. Erythema is resolved from the right lower leg, but she does still have a firm plaque-like edema on the posterior aspect of the leg with a central area of darkening with red discoloration. No ulceration or drainage. IMPRESSION: Right leg cellulitis. Question calciphylaxis. We restarted her Renvela yesterday. We will add Sensipar for her parathyroid hormone. No vitamin D products. Consider skin biopsy first of the week to confirm the diagnosis. cc: MD Irwin Jones MD
[2019-12-17] MEDS: AQUAPHOR OINTMENT TOP SCH (12:32)
[2019-12-17] MEDS: FOLIC ACID PO SCH ×2 (12:33→20:41)
[2019-12-17] MEDS: NEXIUM PO SCH (12:33)
[2019-12-17] MEDS: ZOLOFT PO SCH (12:37)
--- NOTE | 2019-12-17 13:14 | PROGRESS NOTE ---
DATE: 12/17/2019 SUBJECTIVE: A 74-year-old white female admitted to the hospital with right leg cellulitis, chronic end-stage kidney disease. Most of the rash is indurated and swelling on the back of the right calf. Apparently Dr. Lai is thinking to rule out calciphylaxis, scheduled for biopsy. She just came back from dialysis. She is not offering any complaints. REVIEW OF SYSTEMS: None reported. PAST MEDICAL HISTORY: Reviewed. PAST SURGICAL HISTORY: Reviewed. MEDICINES: Reviewed. ALLERGIES: Diltiazem. Morphine. OBJECTIVE: On examination temperature is 97.8 degrees, pulse 79, blood pressure is 94/54. Is and Os negative 2.5 L. Slightly pale. AV graft was noted on the right side. Tachycardic. Bilateral air entry. Abdomen is soft, nontender. Right leg diffuse redness on the back of the calf noted. No neurological deficits. A 2/6 systolic murmur in the aortic area. Irregular heart. INVESTIGATIONS: White cell count 6.0, hematocrit 28, MCV 104, platelet count 182,000. PT 21, INR 1.85. Sodium 138, potassium 4.4, BUN 22, creatinine 3.0. PTH is 513. Blood cultures were negative. Echocardiography report, normal LV cavity size, EF 55%, severe left atrial enlargement, severe tricuspid regurgitation, pulmonary hypertension 73 mmHg. Moderate aortic stenosis. Aortic valve area 1.2 squared cm. Extremity venous studies, with no DVT. Chest x-ray, cardiomegaly and had a pacemaker on the left side of the chest, status post sternal wires from the previous bypass surgery. ASSESSMENT AND PLAN: 1. Right leg cellulitis, rule out calciphylaxis. 2. Moderate aortic stenosis. 3. End-stage kidney disease on dialysis. 4. Hyperlipidemia, on Lipitor. 5. Hyperphosphatemia and secondary hyperparathyroidism. The patient is receiving Sensipar and and Renagel. 6. Chronic anxiety, on Ativan. 7. Cellulitis, on clindamycin. 8. Chronic atrial fibrillation, with ischemic cardiomyopathy status post pacemaker, on warfarin. DISPOSITION: The patient is stable. Continue present treatment. We will follow. LEVEL OF DOCUMENTATION: 35 minutes. cc: MD Irwin Perez MD [facility]
[2019-12-17] MEDS: SENSIPAR PO SCH (14:01)
[2019-12-17] MEDS: PERICOLACE PO SCH (20:41)
[2019-12-17] MEDS: COUMADIN PO SCH (20:41)
[2019-12-17] MEDS: LIPITOR PO SCH (20:42)
[2019-12-17] MEDS: SEROQUEL PO SCH (20:44)
[2019-12-18] MEDS: CLINDAMYCIN 600 MG/D5W 600 MG/50 ML IVPB IV SCH ×3 (06:17→22:23)
[2019-12-18] MEDS: RENAGEL PO SCH ×5 (06:18→17:43)
--- NOTE | 2019-12-18 09:03 | GENERAL SURGERY CONSULTATION ---
DATE: 12/18/2019 REASON FOR CONSULTATION: Skin biopsy for calciphylaxis. HISTORY OF PRESENT ILLNESS: This is a 74-year-old female with end-stage renal disease, diabetes, hypertension, hyperlipidemia, and atrial fibrillation. She is treated chronically with warfarin for the atrial fibrillation. She also has coronary artery disease and has undergone stenting in the past. She presented to the hospital with right leg swelling, redness, pain, and a dark spot that had developed over the last 5 days. PAST MEDICAL HISTORY: As noted above. PAST SURGICAL HISTORY: As noted above. Also right upper arm AV graft placement, complete hysterectomy, cardiac pacemaker placement, coronary artery bypass surgery, in addition to the ones mentioned previously. HOME MEDICATIONS: Atorvastatin, Seroquel, senna, esomeprazole, lorazepam, acetaminophen, cetirizine, warfare, and hydroxyzine. ALLERGIES: Codeine, diltiazem, morphine, cefazolin, ceftazidime. SOCIAL HISTORY: She lives with her daughter. She is recently home from rehabilitation. She had quit smoking years ago. Denies alcohol or other illicit drug use. FAMILY HISTORY: Reviewed and noncontributory. REVIEW OF SYSTEMS: Ten systems reviewed and negative except as noted above. PHYSICAL EXAMINATION: Vital Signs: Temperature 98.2 degrees, pulse 100, respirations 20, blood pressure 102/59, O2 saturation is 94%. General: Chronically ill-appearing female in no acute distress, who looks her stated age. HEENT: Normocephalic, atraumatic. Extraocular muscles intact. Pupils equal, round, reactive to light. Sclerae anicteric. Moist mucous membranes. Hearing grossly normal. Neck: Supple. No thyromegaly. CV: Irregularly irregular. Respiratory: Bilateral breath sounds. No work of breathing. GI: Soft, nontender, nondistended. No organomegaly or mass. Extremities: The left leg with trace edema. The right leg with 1+ edema. There is erythema from the midcalf down that is more intense around a darkened subcutaneous area on the posteromedial right calf. This area is very tender to palpation. It is somewhat dark and violaceous, and is several centimeters in size. No purulence. No fluctuance. No crepitus. Musculoskeletal: Moves all extremities equally and well. LABORATORY: White blood cell count 6, hemoglobin 8.6, hematocrit 28. INR 1.85. BUN 22, creatinine 3.0, glucose 134. ASSESSMENT/PLAN: A 74-year-old female with end-stage renal disease, history of warfarin use, and new development of a dark, red, tender lesion of the right leg concerning for calciphylaxis. I agree with a skin biopsy. We will plan a punch biopsy tomorrow. I discussed the risks and benefits with her including bleeding, infection, nonhealing of the area, and other imponderables. She understands and agrees to proceed. cc: MD Irwin Arellano MD
[2019-12-18] MEDS: SENSIPAR PO SCH (10:34)
[2019-12-18] MEDS: ZOLOFT PO SCH (10:35)
[2019-12-18] MEDS: NEXIUM PO SCH (10:35)
[2019-12-18] MEDS: FOLIC ACID PO SCH ×2 (10:35→22:14)
[2019-12-18] MEDS: AQUAPHOR OINTMENT TOP SCH (10:35)
[2019-12-18] MEDS: ZOFRAN IV PRN (10:36)
[2019-12-18] MEDS: DILAUDID IV PRN ×2 (12:06→22:11)
[2019-12-18] MEDS: BENADRYL IV PRN ×2 (12:06→22:19)
--- NOTE | 2019-12-18 13:42 | PROGRESS NOTE ---
DATE: 12/18/2019 SUBJECTIVE: The patient complains of bleeding from hemorrhoids. Otherwise no complaints. OBJECTIVE: Vital Signs: Temperature 92 degrees, pulse is 100, blood pressure 102/59, 94% on room air. I's and O's -278. HEENT Exam: Within normal limits. Cardiovascular: He has a systolic murmur in the aortic area. Abdomen: Belly is soft, nontender. Extremities: Right calf indurated knots are present. INVESTIGATIONS: None reported. ASSESSMENT AND PLAN: 1. Right leg indurated with cellulitis, rule out calciphylaxis, skin biopsy. Going to dialysis tomorrow. 2. Moderate aortic stenosis, stable. 3. Hyperlipidemia on Lipitor. 4. Chronic anxiety on Ativan. 5. Cellulitis on clindamycin. 6. Ischemic cardiomyopathy, chronic atrial fibrillation status post pacemaker on warfarin, and will do the labs in the morning. 7. Hemorrhoids. We will give high dose of hydrocortisone suppositories. 8. Since the patient is on warfarin, we will check the PT/INR in the morning and continue present treatment. LEVEL OF DOCUMENTATION: 25 minutes. cc: MD Irwin Perez MD
[2019-12-18] MEDS: PERICOLACE PO SCH (22:13)
[2019-12-18] MEDS: LIPITOR PO SCH (22:14)
[2019-12-18] MEDS: SEROQUEL PO SCH (22:14)
[2019-12-18] MEDS: COUMADIN PO SCH (22:14)
[2019-12-18] MEDS: ANUSOL-HC SUPP PR SCH (22:24)
[2019-12-19] MEDS: CLINDAMYCIN 600 MG/D5W 600 MG/50 ML IVPB IV SCH ×3 (04:46→21:07)
[2019-12-19 07:01] LABS: BASO# 0.08 X1000 (0.0-0.2); BASO% 1.4 % (0.0-0.8); EOS# 0.14 X1000 (0.0-0.7); EOS% 2.5 % (0.0-10.0); HEMATOCRIT 27.2 % (37.0-47.0); HEMOGLOBIN 8.6 g/dL (12.0-16.0); IMM GRAN# 0.02 X1000 (0.0-0.04); IMM GRAN% 0.4 % (0.0-0.5); LYMPH# 1.19 X1000 (1.2-3.4); LYMPH% 21.6 % (20.5-51.1); MCH 32.6 PG (27-31); MCHC 31.6 g/dL (33-37); MONO# 0.81 X1000 (0.11-0.59); MONO% 14.7 % (1.7-9.3); MPV 10.9 FL (7.4-10.4); NEUT# 3.28 X1000 (1.4-6.5); NEUT% 59.4 % (42.2-75.2); PLT 162 X1000 (130-400); RBC 2.64 XMIL (4.2-5.4); RDW 16.5 % (11.5-14.5); WBC 5.52 X1000 (4.8-10.8)
[2019-12-19 07:16] LABS: INR 3.4; PROTIME 35.4 Seconds (11.0-16.0)
[2019-12-19] MEDS ORDERED: TYLENOL PO PRN (07:20)
[2019-12-19] MEDS ORDERED: NS 2,000 ML MISC PRN (07:20)
[2019-12-19] MEDS ORDERED: NS 1,000 ML IV PRN (07:20)
[2019-12-19 07:26] LABS: CALCIUM 7.7 mg/dL (8.8-10.2); CREATININE 3.9 mg/dL (0.5-0.9); POTASSIUM 4.1 mmol/L (3.5-5.1)
[2019-12-19] MEDS: ZOLOFT PO SCH (08:14)
[2019-12-19] MEDS: SENSIPAR PO SCH (08:15)
[2019-12-19] MEDS: FOLIC ACID PO SCH ×2 (08:15→21:06)
[2019-12-19] MEDS: NEXIUM PO SCH (08:15)
[2019-12-19] MEDS: ANUSOL-HC SUPP PR SCH (08:18)
[2019-12-19] MEDS: RENAGEL PO SCH ×3 (08:23→19:01)
[2019-12-19] MEDS ORDERED: XYLOCAINE 1% INJ ONE (08:53)
[2019-12-19] MEDS: AQUAPHOR OINTMENT TOP SCH (09:00)
[2019-12-19] MEDS: DILAUDID IV PRN ×2 (09:17→13:22)
--- NOTE | 2019-12-19 09:34 | PROGRESS NOTE ---
DATE: 12/19/2019 SUBJECTIVE: The patient denies having any new complaints. She continues to have pain in her right lower leg, however. OBJECTIVE: Vital Signs: Temperature 98.6 degrees, pulse 113 per minute, respiratory rate 20 per minute, blood pressure 86/60, pulse oximetry 95% on room air. General: The patient is awake and alert. She does not appear to be in any acute distress. Cardiovascular System: First and second heart sounds are audible with slight holosystolic murmur present. Respiratory System: Bilateral lung air entry is slightly decreased but there are no rales or rhonchi present on auscultation. Gastrointestinal System: Abdomen is soft and nondistended. Normal bowel sounds are present. Musculoskeletal System: Right lower leg is tender on palpation with a very firm knot present in the calf area. DIAGNOSTIC DATA: CBC shows hemoglobin of 8.6 with hematocrit of 27.2. Rest of the CBC is nondiagnostic. In comparison, her hemoglobin and hematocrit have been stable throughout this hospital admission. Basic metabolic panel showed BUN of 23 with creatinine of 3.9, and calcium levels of 7.7. INR is elevated at 3.40. IMPRESSION: 1. Cellulitis right lower extremity, rule out calciphylaxis. 2. End-stage renal disease. 3. Coronary artery disease. 4. Paroxysmal atrial fibrillation. 5. Type 2 diabetes mellitus. 6. Hypertension. 7. Chronic obstructive pulmonary disease. 8. Dyslipidemia. PLAN: The patient will be continued on IV clindamycin along with supportive care. She will continue with inpatient hemodialysis as per Nephrology. We are going to continue with routine home medications as well. I am going to hold her warfarin since her INR is elevated. We anticipate her to have a skin biopsy done sometime later today via General Surgery. Further recommendations will be given as per hospital course. cc: Irwin Galvin MD
--- NOTE | 2019-12-19 13:10 | GENERAL SURGERY PROGRESS NOTE ---
DATE: 12/19/2019 SUBJECTIVE: The patient continues to have right leg pain. OBJECTIVE: She is afebrile, pulse 96 to 113, blood pressure 85/50, O2 saturation 100%.General: Awake and alert. No acute distress. Extremities: The right calf is examined. It continues to be indurated, somewhat red with a dark irregular area that is quite tender. No crepitans, no fluctuance. LABORATORY: CBC and metabolic profile are reviewed and stable. ASSESSMENT AND PLAN: A 74-year-old female with end-stage renal disease, a painful right leg skin lesion concerning for calciphylaxis. We will perform a punch biopsy today. I discussed the risks and benefits with her, including bleeding, nonhealing wound, wound infection, and other imponderables. She understands and agrees to proceed. cc: MD Irwin Arellano MD
--- NOTE | 2019-12-19 13:12 | OPERATIVE NOTE ---
PROCEDURE DATE: 12/19/2019 PREOPERATIVE DIAGNOSES: 1. End-stage renal disease. 2. Right leg painful skin lesion. POSTOPERATIVE DIAGNOSES: 1. End-stage renal disease. 2. Right leg painful skin lesion. PROCEDURE PERFORMED: Punch biopsy of right leg skin. SURGEON: Will Manley M.D. ESTIMATED BLOOD LOSS: Scant. COMPLICATIONS: None apparent. TECHNIQUE: The skin was prepped with Betadine. 1% lidocaine was used to anesthetize the skin. A 3.5 mm punch was used to take a portion of the darkened, tender, thickened skin of the right medial calf. The edges were closed with interrupted 3-0 nylon. She tolerated this well. A sterile bandage was applied. No apparent complications. cc: MD Irwin Arellano MD
[2019-12-19] MEDS: BENADRYL IV PRN (13:23)
--- NOTE | 2019-12-19 14:59 | NEPHROLOGY PROGRESS NOTE ---
DATE: 12/19/2019 SUBJECTIVE: She is still not eating very well. She is also not drinking her supplements. Legs are still hurting. OBJECTIVE: Vital Signs: Blood pressure 85/50, heart rate 96, respirations 20, afebrile. Generally about the same. No acute distress. Skin: Warm and dry. Neck: Neck veins are not distended. Heart: Regular. Lungs: Equal. No crackles. Abdomen: Benign. Extremities: Minimal edema today. No ulceration. Lesion on the right calf appears unchanged and remains tender. IMPRESSION: Right lower extremity painful lesion. 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 She underwent punch biopsy today. She is on a non-calcium binder and cinacalcet for management of her metabolic bone disease. Continue her regular dialysis. Await biopsy report. cc: MD Irwin Jones MD
[2019-12-19] MEDS: ATIVAN PO PRN (15:26)
[2019-12-19] MEDS: TYLENOL PO PRN (17:00)
[2019-12-19] MEDS: SEROQUEL PO SCH (21:06)
[2019-12-19] MEDS: PERICOLACE PO SCH (21:07)
[2019-12-19] MEDS: LIPITOR PO SCH (21:07)
[2019-12-20] MEDS: BENADRYL IV PRN ×3 (00:28→11:55)
[2019-12-20] MEDS: DILAUDID IV PRN ×3 (00:29→11:55)
[2019-12-20] MEDS: CLINDAMYCIN 600 MG/D5W 600 MG/50 ML IVPB IV SCH ×4 (04:47→22:16)
[2019-12-20] MEDS: ZOLOFT PO SCH (08:43)
[2019-12-20] MEDS: NEXIUM PO SCH (08:43)
[2019-12-20] MEDS: RENAGEL PO SCH ×3 (08:43→18:41)
[2019-12-20] MEDS: FOLIC ACID PO SCH ×2 (08:43→22:17)
[2019-12-20] MEDS: ANUSOL-HC SUPP PR SCH ×2 (08:44→08:48)
[2019-12-20] MEDS: SENSIPAR PO SCH (08:44)
[2019-12-20] MEDS: EMLA CREAM TOP PRN ×2 (11:38→22:16)
[2019-12-20] MEDS: AQUAPHOR OINTMENT TOP SCH (11:40)
--- NOTE | 2019-12-20 11:59 | NEPHROLOGY PROGRESS NOTE ---
DATE: 12/20/2019 SUBJECTIVE: She is still complaining of pain. Not improved. OBJECTIVE: Vital Signs: Blood pressure 100/49, heart rate 82, respirations 18, afebrile. General: No acute distress except for pain. Skin: Warm and dry. See below. Pupils are equal. Neck: Neck veins are not distended. Heart: Regular. Abdomen: Benign. Extremities: No edema. Right lower extremity biopsy site is clean and opposed. The central area is much darker today and demarcated. There is another evolving lesion just distal to the medial knee that is tender and darkened but no kerri ischemia. 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 We will add sodium thiosulfate. Continue other care as ordered. She has had difficulty in the past with taking gabapentin because it caused her to have asterixis. I will change her sertraline over to Cymbalta. May add a small dose of Lyrica as the next step. cc: MD Irwin Jones MD
[2019-12-20] MEDS: ULTRACET 37.5MG/325MG PO SCH ×2 (13:00→22:17)
--- NOTE | 2019-12-20 14:49 | PROGRESS NOTE ---
DATE: 12/20/2019 SUBJECTIVE: Patient denies having any new complaints except for right leg pain and tenderness. OBJECTIVE: Vital Signs: Temperature 98.5 degrees, pulse 82 per minute, respiratory rate 18 per minute, blood pressure 100/49, pulse oximetry 100% on room air. General: Patient is alert and oriented x3. She appears to be in mild distress secondary to right leg pain. Cardiovascular System: First and second heart sounds are audible, with a holosystolic murmur. Respiratory System: Bilateral lung air entry is slightly decreased but there are no rales or rhonchi present on auscultation. Gastrointestinal System: Abdomen is soft and nondistended. Normal bowel sounds are present. Musculoskeletal System: Right lower leg is tender on palpation and has a very firm knot present. Diagnostic Data: PT and INR done this morning were 35.4 and 3.4 respectively. Phosphorus levels done on 12/16/2019 were found to be 5.5 an PTH levels done on 12/16/2019 were found to be 513. IMPRESSION: 1. 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 2. End-stage renal disease. 3. Coronary artery disease. 4. Paroxysmal atrial fibrillation. 5. Type 2 diabetes mellitus. 6. Hypertension. 7. Chronic obstructive pulmonary disease. 8. Dyslipidemia. PLAN: The patient will be continued on IV clindamycin for now until we receive biopsy results which were done yesterday. She will be continued on hemodialysis as per nephrology and they are going to start her on sodium thiosulfate during dialysis. I have noted her medication changes which include sertraline being changed to duloxetine. She has also been started on sevelamer and we will continue with the Sensipar as well. Her phosphate and PTH levels are above target at this time, but we anticipate those to get better with time since she has been started on these medications. Her INR is above therapeutic and therefore, I have held her warfarin but we might change warfarin to apixaban because of the risk that is associated with it regarding calciphylaxis. Further recommendation will be given as per hospital course. cc: Irwin Galvin MD
--- NOTE | 2019-12-20 15:09 | GENERAL SURGERY PROGRESS NOTE ---
DATE: 12/20/2019 SUBJECTIVE: The patient continues to have pain in her right calf. OBJECTIVE: Afebrile. Vital signs are stable. General: Awake and alert. No acute distress. Extremities: The right calf is examined. It remains tender, swollen, indurated, and red. The darkened skin remains. The biopsy site is closed without drainage. Pathology pending. ASSESSMENT AND PLAN: A 74-year-old female with end-stage renal disease, right leg pain, swelling, and concerning lesion for calciphylaxis. Biopsy has been done. We are awaiting results. cc: MD Irwin Arellano MD
[2019-12-20] MEDS: SEROQUEL PO SCH (22:17)
[2019-12-20] MEDS: PERICOLACE PO SCH (22:17)
[2019-12-20] MEDS: CYMBALTA PO SCH (22:17)
[2019-12-20] MEDS: LIPITOR PO SCH (22:18)
[2019-12-21] MEDS: BENADRYL IV PRN ×2 (00:32→17:40)
[2019-12-21] MEDS ORDERED: NS 500 ML IV ONE (01:43)
[2019-12-21] MEDS ORDERED: NS 500 ML IV SCH (01:45)
[2019-12-21] MEDS: CLINDAMYCIN 600 MG/D5W 600 MG/50 ML IVPB IV SCH ×2 (05:44→17:39)
[2019-12-21] MEDS: RENAGEL PO SCH ×4 (05:44→17:41)
[2019-12-21] MEDS: ULTRACET 37.5MG/325MG PO SCH ×2 (06:42→17:39)
[2019-12-21 06:51] LABS: INR 3.63; PROTIME 37.3 Seconds (11.0-16.0)
[2019-12-21 07:04] LABS: CALCIUM 7.2 mg/dL (8.8-10.2); CREATININE 3.7 mg/dL (0.5-0.9); POTASSIUM 3.5 mmol/L (3.5-5.1)
[2019-12-21] MEDS ORDERED: NS 2,000 ML MISC PRN (07:17)
[2019-12-21] MEDS ORDERED: TYLENOL PO PRN (07:17)
[2019-12-21] MEDS ORDERED: NS 1,000 ML IV PRN (07:17)
[2019-12-21] MEDS ORDERED: SODIUM THIOSULFATE IV SCH (07:30)
[2019-12-21] MEDS ORDERED: DILUENT IV SCH (07:30)
[2019-12-21 07:36] LABS: BASO# 0.03 X1000 (0.0-0.2); BASO% 0.5 % (0.0-0.8); EOS# 0.07 X1000 (0.0-0.7); EOS% 1.3 % (0.0-10.0); HEMATOCRIT 26.4 % (37.0-47.0); HEMOGLOBIN 8.2 g/dL (12.0-16.0); LYMPH# 0.92 X1000 (1.2-3.4); LYMPH% 16.5 % (20.5-51.1); MCHC 31.1 g/dL (33-37); MCV 103.1 FL (81-99); MONO# 0.82 X1000 (0.11-0.59); MONO% 14.7 % (1.7-9.3); MPV 10.9 FL (7.4-10.4); NEUT# 3.73 X1000 (1.4-6.5); PLT 159 X1000 (130-400); RBC 2.56 XMIL (4.2-5.4); RDW 16.4 % (11.5-14.5); WBC 5.57 X1000 (4.8-10.8)
[2019-12-21] MEDS: ANUSOL-HC SUPP PR SCH (08:13)
[2019-12-21] MEDS: FOLIC ACID PO SCH ×2 (08:19→22:06)
[2019-12-21] MEDS: NEXIUM PO SCH (08:19)
[2019-12-21] MEDS: SENSIPAR PO SCH (08:19)
[2019-12-21] MEDS: DILAUDID IV PRN ×2 (08:37→23:44)
[2019-12-21] MEDS: EMLA CREAM TOP PRN (08:37)
[2019-12-21] MEDS: AQUAPHOR OINTMENT TOP SCH (08:41)
--- NOTE | 2019-12-21 09:35 | PROGRESS NOTE ---
DATE: 12/21/2019 SUBJECTIVE: Patient denies having any new complaints. She continues to have pain in her right lower extremity. OBJECTIVE: Vital Signs: Temperature 98.3 degrees, pulse 88 per minute, respiratory rate 16 per minute, blood pressure 95/51, pulse oximetry 96% on room air. General: Patient is alert and oriented x3. She appears to be in minimal distress secondary to pain in her right lower leg. Cardiovascular System: First and second heart sounds are audible with slight holosystolic murmur present. Respiratory System: Bilateral lung air entry is moderately decreased with no rales or rhonchi present on auscultation. Gastrointestinal System: Abdomen seems to be benign. DIAGNOSTIC DATA: CBC shows hemoglobin of 8.2 and hematocrit 26.4. Rest of the CBC is nondiagnostic. In comparison, her hemoglobin and hematocrit have remained stable since admission. Basic metabolic panel showed creatinine levels of 3.7, glucose was 120 and calcium 7.2. Rest of the basic metabolic panel is nondiagnostic. INR is still elevated at 3.63. IMPRESSION: 1. Cellulitis of right lower extremity that seems to have improved, but she seems to be having calciphylaxis. 2. End-stage renal disease. 3. Coronary artery disease. 4. Paroxysmal atrial fibrillation. 5. Type 2 diabetes mellitus. 6. Hypertension. 7. Chronic obstructive pulmonary disease. 8. Dyslipidemia. PLAN: The patient will be continued on IV clindamycin for now. We are still awaiting biopsy results from right lower extremity. She will be continued on hemodialysis, along with the rest of her current medications. Overall, her condition has been stable, but I am still holding her warfarin since her INR is above therapeutic range. We will see if we can switch her to apixaban because of the calciphylaxis. Further recommendations will be given as per hospital course. cc: Irwin Galvin MD
--- NOTE | 2019-12-21 14:02 | NEPHROLOGY PROGRESS NOTE ---
DATE: 12/21/2019 SUBJECTIVE: She continues have pain but it was perhaps improved with her new regimen today. No other new symptoms. She has had a bowel movement. OBJECTIVE: Vital Signs: Blood pressure 100/56, heart rate 78, respirations 16, afebrile. General: No acute distress. Skin: Pale and dry. Eyes: Conjunctivae are pink. Neck: Neck veins are distended. Heart: Regular with systolic murmur. Lungs: Equal. No crackles or wheezes. Abdomen: Soft, nontender. Bowel sounds present. Extremities: Trace edema. Still exquisitely tender at her wound site. IMPRESSION: 1. Chronic kidney disease 5d. She will have her routine dialysis today. Electrolytes and acid- base are in target. Hemoglobin is below target but stable. 2. Calciphylaxis. Presumed. Biopsy pending. We will add sodium thiosulfate today. Continue current care. 3. Pain, controlled. Seems improved. cc: MD Irwin Jones MD
[2019-12-21] MEDS ORDERED: DILUENT IV ONE (17:00)
[2019-12-21] MEDS ORDERED: SODIUM THIOSULFATE IV ONE (17:00)
[2019-12-21] MEDS: ATIVAN PO PRN (17:40)
[2019-12-21] MEDS: CYMBALTA PO SCH (22:05)
[2019-12-21] MEDS: SEROQUEL PO SCH (22:06)
[2019-12-21] MEDS: PERICOLACE PO SCH (22:06)
[2019-12-21] MEDS: LIPITOR PO SCH (22:06)
[2019-12-21] MEDS: COUMADIN PO SCH (22:06)
[2019-12-22] MEDS: CLINDAMYCIN 600 MG/D5W 600 MG/50 ML IVPB IV SCH ×3 (01:07→17:47)
[2019-12-22] MEDS: ULTRACET 37.5MG/325MG PO SCH ×4 (01:08→21:30)
[2019-12-22 07:13] LABS: BASO# 0.04 X1000 (0.0-0.2); BASO% 0.6 % (0.0-0.8); EOS# 0.14 X1000 (0.0-0.7); EOS% 2.2 % (0.0-10.0); HEMATOCRIT 27.1 % (37.0-47.0); HEMOGLOBIN 8.8 g/dL (12.0-16.0); LYMPH# 1.13 X1000 (1.2-3.4); LYMPH% 18.1 % (20.5-51.1); MCH 32.2 PG (27-31); MCHC 32.5 g/dL (33-37); MCV 99.3 FL (81-99); MONO# 0.77 X1000 (0.11-0.59); MONO% 12.3 % (1.7-9.3); MPV 10.7 FL (7.4-10.4); NEUT# 4.17 X1000 (1.4-6.5); NEUT% 66.8 % (42.2-75.2); PLT 161 X1000 (130-400); RBC 2.73 XMIL (4.2-5.4); WBC 6.25 X1000 (4.8-10.8)
[2019-12-22 07:27] LABS: INR 2.76
[2019-12-22 07:52] LABS: CALCIUM 8.1 mg/dL (8.8-10.2); CREATININE 2.6 mg/dL (0.5-0.9); POTASSIUM 4.1 mmol/L (3.5-5.1)
--- NOTE | 2019-12-22 09:09 | PROGRESS NOTE ---
DATE: 12/22/2019 SUBJECTIVE: Patient denies having any acute complaints this morning and feels much better as compared to the previous several days. OBJECTIVE: Vital Signs: Temperature 98 degrees, pulse 106 per minute, respiratory rate 20 per minute, blood pressure 109/53, and pulse oximetry 95% on 2 L of oxygen via nasal cannula. General: Patient is alert and awake. She does not appear to be in any acute distress. Cardiovascular: First and second heart sounds are audible with a holosystolic murmur present on auscultation. Respiratory: Bilateral lung air entry is good with no rales or rhonchi present. Gastrointestinal: Abdomen is soft and nondistended. Normal bowel sounds are present. Musculoskeletal: Range of motion in most joints limited secondary to osteoarthritis. Right lower leg is noted to have a skin induration and a knot in the calf area that is significantly tender. DIAGNOSTIC DATA: CBC shows stable hemoglobin of 8.8 with hematocrit of 27.1. Basic metabolic panel from this morning showed creatinine levels of 2.6 and calcium levels of 8.1. INR is found to be 2.76 this morning. IMPRESSION: 1. Cellulitis of right lower extremity that seems to have improved, although she is presumed to have calciphylaxis. 2. End-stage renal disease on hemodialysis. 3. Coronary artery disease. 4. Paroxysmal atrial fibrillation. 5. Type 2 diabetes mellitus. 6. Hypertension. 7. Chronic obstructive pulmonary disease. 8. Dyslipidemia. PLAN: The patient will be continued on IV clindamycin for now, although it appears that her cellulitis has resolved. She is presumed to have calciphylaxis and we are awaiting biopsy results from the right lower extremity at this time. She will be continued on hemodialysis along with other medications including sodium thiosulfate that has been initiated by Nephrology. Her INR is within therapeutic range at 2.76, and I am going to discontinue warfarin for now because of the risk of this medicine associated with calciphylaxis. We anticipate her to be switched to apixaban in case her biopsy results come back as positive. Further recommendations will be given once biopsy results are back. cc: MD AJITH Leonard
[2019-12-22] MEDS: RENAGEL PO SCH ×3 (09:20→18:22)
[2019-12-22] MEDS: SENSIPAR PO SCH (09:21)
[2019-12-22] MEDS: NEXIUM PO SCH (09:21)
[2019-12-22] MEDS: FOLIC ACID PO SCH ×2 (09:21→21:29)
[2019-12-22] MEDS: ANUSOL-HC SUPP PR SCH (09:23)
[2019-12-22] MEDS: DILAUDID IV PRN ×3 (09:50→22:39)
[2019-12-22] MEDS: AQUAPHOR OINTMENT TOP SCH (09:51)
[2019-12-22] MEDS: BENADRYL IV PRN (09:51)
--- NOTE | 2019-12-22 11:13 | NEPHROLOGY PROGRESS NOTE ---
DATE: 12/22/2019 SUBJECTIVE: She states her pain is modestly improved from yesterday. Lying flat, no shortness of breath. OBJECTIVE: Vital Signs: Blood pressure 109/53, heart rate 106, respirations 20, afebrile. Intake 600 mL. Output 1 L. General: No acute distress. Skin: Pale and dry. Leg lesions are unchanged. Conjunctivae are pink. Heart: Regular with a murmur. Lungs: Equal. No crackles. Abdomen: Benign. Extremities: Minimal edema except around her lesions. IMPRESSION: Calciphylaxis. Continue recipe of Sensipar, Renvela, avoid vitamin D, sodium thiosulfate. Okay for discharge. cc: MD Irwin Jones MD
--- NOTE | 2019-12-22 14:00 | EKG Report ---
Test Performed on : 12/22/2019 1:46:03 PM Test Reason : V tach Blood Pressure : / mmHG Vent. Rate : 098 BPM Atrial Rate : 182 BPM P-R Int : 000 ms QRS Dur : 160 ms QT Int : 430 ms P-R-T Axes : 000 097 -88 degrees QTc Int : 548 ms Atrial fibrillation. Rightward axis Left bundle branch block Abnormal ECG When compared with ECG of 15-DEC-2019 16:02, Atrial fibrillation. has replaced Electronic ventricular pacemaker Confirmed by Snow CRAWLEY, Marcelo Lim ([id number]) on 12/22/2019 2:52:51 PM
--- NOTE | 2019-12-22 14:10 | Diag Imaging Result Doc PS360 ---
EXAM: CHEST-PORTABLE 12/22/2019 HISTORY: V tach TECHNIQUE: AP portable at 1357 COMMENT: There is cardiomegaly. There is ill-defined opacity in the lung bases with obscuration of the left hemidiaphragm. This is worse than on 12/15/2019. IMPRESSION: Pulmonary edema. Electronically signed by Darian Vasques 12/22/2019 2:08 PM
[2019-12-22 15:57] LABS: ALLEN TEST YES; BE -2.8 mmoll (-3.0-3.0); BLOOD TYPE ARTERIAL; HCO3-(ACT) 22.8 mmoll (20.0-26.0); METHB 0.9 % (0.0-1.5); O2HB 97.1 % (95.0-99.0); PCO2(98.6) 36 mmHg (35-45); PO2(98.6) 146 mmHg (60-100); SAMPLE BLOOD; SAO2 99.9 % (95.0-100.0); THB 9.3 g/dL (11.5-17.4); pH(98.6) 7.39 (7.35-7.45)
[2019-12-22 16:02] LABS: MODALITY CANNULA
[2019-12-22] MEDS: ZOFRAN IV PRN (17:47)
[2019-12-22] MEDS: PERICOLACE PO SCH (21:30)
[2019-12-22] MEDS: SEROQUEL PO SCH (21:30)
[2019-12-22] MEDS: CYMBALTA PO SCH (21:30)
[2019-12-22] MEDS: LIPITOR PO SCH (21:30)
[2019-12-22] MEDS: TYLENOL PO PRN (22:39)
[2019-12-23] MEDS: CLINDAMYCIN 600 MG/D5W 600 MG/50 ML IVPB IV SCH ×2 (01:58→14:45)
[2019-12-23 06:46] LABS: INR 3.61; PROTIME 37.1 Seconds (11.0-16.0)
[2019-12-23] MEDS: RENAGEL PO SCH ×3 (06:55→16:35)
[2019-12-23 06:59] LABS: BASO# 0.03 X1000 (0.0-0.2); BASO% 0.5 % (0.0-0.8); EOS# 0.22 X1000 (0.0-0.7); EOS% 3.8 % (0.0-10.0); HEMOGLOBIN 8.7 g/dL (12.0-16.0); LYMPH# 1.18 X1000 (1.2-3.4); LYMPH% 20.4 % (20.5-51.1); MCHC 32.2 g/dL (33-37); MCV 99.3 FL (81-99); MONO# 0.65 X1000 (0.11-0.59); MONO% 11.2 % (1.7-9.3); MPV 10.6 FL (7.4-10.4); NEUT% 64.1 % (42.2-75.2); PLT 165 X1000 (130-400); RBC 2.72 XMIL (4.2-5.4); RDW 16.3 % (11.5-14.5); WBC 5.78 X1000 (4.8-10.8)
[2019-12-23] MEDS: ULTRACET 37.5MG/325MG PO SCH ×2 (07:00→14:50)
[2019-12-23 07:01] LABS: CREATININE 3.7 mg/dL (0.5-0.9); POTASSIUM 4.2 mmol/L (3.5-5.1)
[2019-12-23] MEDS ORDERED: NS 2,000 ML MISC PRN (08:42)
--- NOTE | 2019-12-23 11:53 | PROGRESS NOTE ---
DATE: 12/23/2019 SUBJECTIVE: Patient feels weak and has pain in her right lower leg, but denies having any other complaints. OBJECTIVE: Vital Signs: Temperature 97.5 degrees, pulse 89 per minute, respiratory rate 20 per minute, blood pressure 92/56, pulse oximetry 97% on 3 L of oxygen via nasal cannula. General: Patient is alert and awake. She does not appear to be in any acute distress. Cardiovascular System: First and second heart sounds are audible with holosystolic murmur. Respiratory System: Bilateral lung air entry is moderately decreased with no rales or rhonchi present on auscultation. Gastrointestinal System: Abdomen is soft and nondistended. Normal bowel sounds are present. Musculoskeletal System: Right lower extremity tenderness noted with a bluish discoloration in 2 areas. DIAGNOSTIC DATA: CBC shows hemoglobin of 8.7 and hematocrit 27.0. Her hemoglobin and hematocrit have remained stable during this hospital admission. Basic metabolic panel showed creatinine levels of 3.7 and calcium levels of 8.0. Rest of the basic metabolic panel is nondiagnostic. ABG done yesterday showed pH of 7.39, pCO2 36, and PO2 of 146 on 32% oxygen. INR this morning was found to be 3.61. Right leg skin punch biopsy showed subcutaneous necrosis and chronic active inflammation consistent with fat necrosis. IMPRESSION: 1. Cellulitis, right lower extremity. That seems to have resolved. 2. Calciphylaxis involving right lower leg. 3. End-stage renal disease. 4. Coronary artery disease. 5. Paroxysmal atrial fibrillation. 6. Type 2 diabetes mellitus. 7. Hypertension. 8. Chronic obstructive pulmonary disease. 9. Dyslipidemia. PLAN: The patient will continue to get hemodialysis as per Nephrology, and we will continue with Renagel, along with Sensipar and sodium thiosulfate. I have discontinued her antibiotics, and we will continue with supportive care, including physical therapy. She does have generalized weakness and, because of that, after having a lengthy discussion with her daughter, we have decided to transfer her to rehab for which we will have a consultation with [facility] [facility]. Addendum: Patient's daughter called and now stated that she did not want her mother to be transferred to the rehab and instead wanted her to be discharged home today. Would therefore discharge patient home with home healthcare who can arrange at-home physical therapy. cc: Irwin Galvin MD MTDD
[2019-12-23] MEDS ORDERED: DILUENT IV ONE (13:00)
[2019-12-23] MEDS ORDERED: SODIUM THIOSULFATE IV ONE (13:00)
[2019-12-23] MEDS: DILAUDID IV PRN (13:24)
[2019-12-23] MEDS: FOLIC ACID PO SCH (14:46)
[2019-12-23] MEDS: NEXIUM PO SCH (14:46)
[2019-12-23] MEDS: SENSIPAR PO SCH (14:46)
--- NOTE | 2019-12-23 14:46 | NEPHROLOGY PROGRESS NOTE ---
DATE: 12/23/2019 SUBJECTIVE: She feels like her pain is modestly improved. She is awake, alert. OBJECTIVE: Vital Signs: Blood pressure 112/60, heart rate 106, respirations 16. Afebrile. General: No acute distress. Skin: Warm and dry. See below. Heart: Regular with murmur. Lungs: Equal. No crackles. Abdomen: Obese, soft, nontender. Bowel sounds present. Extremities: Minimal edema. Proximal lesion is smaller in extent and less tender. Distal lesion is unchanged from yesterday. IMPRESSION: 1. Chronic kidney disease 5D. Continue routine hemodialysis. She is in dialysis at the time of my exam. 2. Calciphylaxis. Presumed. Biopsy was nondiagnostic. Continue current medication regimen. I discussed all this with her again today. Okay for discharge from my perspective. cc: MD Irwin Jones MD
[2019-12-23] MEDS: ANUSOL-HC SUPP PR SCH (14:47)
[2019-12-23] MEDS: EMLA CREAM TOP PRN (14:48)
[2019-12-23] MEDS: AQUAPHOR OINTMENT TOP SCH (15:20)
[2019-12-23 15:50] VITALS: BP 95/49
--- NOTE | 2019-12-23 19:39 | DISCHARGE SUMMARY ---
ADMISSION DATE: 12/15/2019 DISCHARGE DATE: 12/23/2019 DISCHARGE DIAGNOSES: 1. Right leg swelling and pain secondary to calciphylaxis. 2. Right lower leg cellulitis. 3. Coronary artery disease. 4. Paroxysmal atrial fibrillation. 5. Type 2 diabetes mellitus. 6. Hypertension. 7. Chronic obstructive pulmonary disease. 8. End-stage renal disease. 9. Dyslipidemia. HOSPITAL COURSE: Miss Moses is a 74-year-old female who presented with several weeks history of worsening pain and swelling in her right leg associated with redness. She was diagnosed as having cellulitis and was admitted to the hospital for IV antibiotics. She was treated with IV clindamycin, and surgical consultation was obtained who did a skin punch biopsy that showed fat necrosis. Nephrology was involved from early on since the patient has end-stage renal disease and has been having hemodialysis as inpatient. She was diagnosed as having calciphylaxis because of which we have increased her Renagel dosage and she has been started on Sensipar as well. Furthermore, she has been getting sodium thiosulfate through dialysis to treat her condition. Since warfarin will make her condition worse, we have discontinued that; and we will switch her to apixaban 5 mg orally twice daily for thromboembolism prophylaxis since she has history of atrial fibrillation. Her INR is 3.6 today and therefore I have advised the patient's daughter to restart Eliquis on next Thursday which is 4 days later. Since the patient's admission, the redness and swelling have significantly improved in her right leg and therefore she will not require any further antibiotic therapy. She is still having some pain because of which I am going to give her Percocet 7.5 mg every 6 hours on an as-needed basis. DISCHARGE MEDICATIONS: 1. Atorvastatin 40 mg orally once daily at bedtime. 2. Sensipar 30 mg orally once daily. 3. Cymbalta 30 mg orally once daily. 4. Nexium 40 mg orally once daily in the morning. 5. Folic acid 1 mg orally once daily. 6. Lorazepam 1 mg every 8 hours as needed for anxiety. 7. Sevelamer 1600 mg 3 times a day. 8. Seroquel 50 mg orally once daily at bedtime. 9. Senna-S 2 tablets orally once daily at bedtime. 10. Cetirizine 10 mg orally once daily. 11. Eliquis 5 mg orally twice daily. 12. Percocet 7.5 mg orally every 6 hours as needed, 28 tablets with no refills. FOLLOWUP: She will follow with me at the office in approximately 1 week and follow up with Dr. Lai from [facility] as scheduled. CONDITION: Stable. DISPOSITION: Home. TIME SPENT: 40 minutes. cc: Irwin Galvin MD MTDD
== END 2019-12-23 17:33 | disposition home health service (06) | DRG 602 ==
LOC: DIRADM 14:05 → 4N 15:07
PROVIDERS: ADMIT Internal Medicine; ATTEND Internal Medicine